=== PATIENT | female | born 1985 | race Caucasian/White ===

== ENCOUNTER 2023-06-08 14:21 | Emergency (ER) | payer OTHER, SELFPAY ==
[2023-06-08 14:22] VITALS: BP 139/81; PULSE 76; RESP 16; TEMP 36.7; O2SAT 99; BMI 24.4
--- NOTE | 2023-06-08 14:33 | ED.VIS.FEGU ---
HPI HPI - Female History of Present Illness Chief Complaint: Vag Bld, Preg Detail of Chief Complaint: Vaginal bleeding that started last evening Informant: patient Pain Pain: Positive for Pelvic Pain Onset: Yesterday Context: Sudden Onset Timing: Continuous and Waxes and wanes Quality: Positive for Cramping Location: LLQ and Suprapubic Current Severity: Mild Maximum Severity: Moderate Worsened by: - (Nothing) Relieved by: - (Nothing) Bleeding Issue: Positive for Vaginal bleeding (On third pad since onset); Negative for Passing clots or Passing tissue Onset: Yesterday Timing: Continuous Current Severity: Mild Maximum Severity: Similar to period Associated Symptoms Associated Symptoms: Positive for Frequency and Missed Period; Negative for Dysuria, Urgency or Hematuria Test: Positive (X 6) Sexually: Positive for Active Control: No control P: 2 Ab: 0 Narrative Narrative: Patient is a 37-year-old female who presents because of vaginal bleeding. Patient did 6 home test which were all positive. She is 5 to 6 weeks by dates. She denies complications or issues with prior to . There is no history of endometriosis, ovarian cyst, STI or ectopic . Patient denies orthostatic symptoms. She denies pain referred to her shoulder. She does complain of lower abdominal pain more prominent left inguinal area. She has no other complaints. Patient states she does not have an OB since her and her moved to the area 1 to 1.5 years ago. Prior similar symptoms: No Recent Illness/Hospitalization: No PFSH PFSH Medical History no medical history no medical history Social History (Updated 06/08/23 @ 14:[address] Jose Cruz Knox MD) household members: spouse and children Smoking Status: Never smoker substance use type: does not use ROS ROS ED Constitutional Constitutional ED: Denies chills or fever(s) Eyes Eyes: Denies blurry vision or change in vision Cardiovascular Cardiovascular: Denies chest pain or palpitations Respiratory/Chest Respiratory/Chest: Denies cough or dyspnea Gastrointestinal Gastrointestinal: Reports abdominal pain; Denies nausea or vomiting Genitourinary Genitourinary ED: Denies dysuria, hematuria or urinary frequency Musculoskeletal Musculoskeletal: Denies arthralgias or myalgias Integumentary Denies rash EXAM Physical Exam Const Vital Signs: 06/08/23 14:22 Temperature 98.1 F Temperature Source Temporal Pulse Rate 76 Respiratory Rate 16 Blood Pressure 139/81 H Blood Pressure Mean 100 Pulse Ox 99 Oxygen Delivery Method Room Air Positive well nourished and well developed Constitutional Narrative: Patient states she is anxious. Blood pressure is slightly elevated. She is not tachycardic. General Appearance ED: well developed and NAD; Negative for odor of alcohol detected HEENT Reports TM's clear and moist mucous membranes Tympanic Membrane ED: Yes TM's clear Eyes PERRL and EOMs intact bilaterally General Eye ED: Negative for pale conjunctiva or scleral icterus Neck supple and no JVD Resp normal respiratory effort and clear to auscultation bilaterally Cardio regular rate, regular rhythm, S1 normal heart sound, no murmurs and no JVD GI normal to inspection, nondistended, normoactive bowel sounds, soft to palpation, non-tender and non-distended Back/Spine no CVA tenderness Extremity normal to inspection and full ROM Neuro oriented x3 and CN's II-XII intact bilaterally Sensorium / Orientation: alert Psych mental status grossly normal Skin no rashes or lesions noted and no wounds MDM MDM MDM Narrative Medical decision making narrative: Presents with vaginal bleeding started yesterday.Patient performed 6 home tests, which were all positive. Will obtain quantitative hCG. And will obtain ultrasound to assess for viability of and because she has more pain left adnexal inguinal area to evaluate for ectopic. Patient has no known risk factors for ectopic . IV was established. Patient was made NPO. Will obtain ABO Rh test since patient does not know blood type. Lab Data Attestation: I reviewed the patient's lab results. Lab results narrative: Patient's blood type is O+. Quantitative hCG is 2. This indicates she is not . For this reason ultrasound was not obtained. Labs: Laboratory Results - last 24 hr 06/08/23 06/08/23 14:42 15:15 HCG, Quant 2 Blood Type O POSITIVE Discharge Plan Triage Chief Complaint: Vag Bld, Preg ED Provider: Jose Cruz Knox Dx/Rx/DC Orders Clinical Impression: Menorrhagia with irregular cycle, Abnormal vaginal bleeding Instructions: ED Dysfunctional Uterine Bleeding Primary Care Provider: Care Physician,No Primary Referrals: Brisa Cervantes DO [Med Staff - Active Staff] - 1-2 Weeks NOT,DEFINED [Non-Staff] - Disposition Disposition: Home, Self Care
[2023-06-08 15:47] LABS: hCG Titer Quant., Serum 2 mIU/mL (1-3)
== END 2023-06-08 16:50 | disposition home or self-care (01) ==
PROVIDERS: Emergency Provider Emergency Medicine; Visit Provider Emergency Medicine
DX: O20.9 Hemorrhage in early pregnancy, unspecified (principal); Z3A.01 Less than 8 weeks gestation of pregnancy
CPT/HCPCS: 84702; 86900; 86901; 99283; A4216

== ENCOUNTER 2025-01-10 23:19 | Inpatient (IN) | payer OTHER, SELFPAY ==
[2025-01-10 22:32] VITALS: PULSE 86; O2SAT 98
[2025-01-10 22:33] VITALS: RESP 18; TEMP 36.5
[2025-01-10 22:42] VITALS: BP 129/74; PULSE 71
--- OUTSIDE RECORDS SUMMARY | 2025-01-10 22:44 | XMS RPT_ITS | CCD ---
Author Organization [facility] Inform ion Partnership [facility] Care Team Providers Care Rn Placement Name Role Phone Elodia Miranda Primary Care Provider NAY WHITTINGTON Attending Unavailable ELODIA MIRANDA Primary Care NAY Aceves Admitting Unavailable ELODIA MIRANDA Primary Care NAY Aceves Referring Unavailable EOLDIA MIRANDA Primary Care NAY Aceves Admitting Unavailable Elodia Miranda MD Primary Care Provid er Nay Whittington MD Unavailable ELODIA MIRANDA Primary Care RONI Kirby Attending Unavailab ELODIA Li Attending ELODIA Dodson Primary Care ELODIA Dodson Primary Care ELODIA Dodson Attending ELODIA Dodson Attending ELODIA Dodson Primary Care Elodia Dodson MD Primary Care [facility] er Nay Whittington MD Unavailable Unavailable Primary Care Provider Unavailabl e LUISANA, GABBY Referring Unavailable LUISANA, GABBY Attending Unavailable LUISANA, GABBY Attending Unavailable Care Physician, No Primary Referring Unava ilable Nay Mcgrath Attending Unavailable Care Physician, No Primary Primary Care Unava ilable Care Physician, No Primary Primary Care Unava ilable Chidi Knoxo Attending Unavailable Unavailable Primary Care Provider Unavailabl e SONIA DYER Attending Unavailable ANGIE RHODES Attending Unavailable RHODES, ANGIE Referring Unavailable RHODES, ANGIE Referring Unavailable RHODES, ANGIE Attending Unavailable RHODES, ANGIE Referring Unavailable SONIA DYER Attending Unavailable RHODES, ANGIE Attending Unavailable RHODES, ANGIE Attending Unavailable CLEM QUINONEZ Attending Unavailable SPEEDY SILVA Referring Unavailable SPEEDY SILVA Referring Unavailable SPEEDY SILVA Attending Unavailable TORSTEN BUTTS Attending Unavailable YVONNE ZAMBRANO Attending Unavailable CHRISTOPHER, SONIA Attending Unavailable RHODES, ANGIE Referring Unavailable RHODES, ANGIE Referring Unavailable RHODES, ANGIE Attending Unavailable SELF Referring Unavailable SONIA DYER Attending Unavailable Medications Current Medications Medication Drug Class(es) Dates Sig (Normalized) Sig (Original) aspirin 81 mg delayed release oral tablet (19 sources) Platelet Aggregation Inhibitor, Nonsteroidal Anti-inflammatory Drug Start: 05-25-2024 take 1 tablet by mouth once daily aspirin, enteric coated (ECOTRIN LOW STRENGTH) 81 mg EC tablet Indications: with uncertain dates, antepartum (HCC) Take 1 tablet by mouth once daily. 90 tablet 3 05/25/2024 Active cefuroxime 500 mg oral tablet (1 source) Cephalosporin Antibacterial Start: 07-30-2021 End: 08-09-2021 take 1 tablet by mouth twice daily cefUROXime (CEFTIN) 500 MG tablet Take 1 (one) tablet (500 mg total) by mouth 2 (two) times a day for 10 days . 20 tablet 0 07/30/2021 08/09/2021 Active dexamethasone 1 mg/ml / tobramycin 3 mg/ml ophthalmic suspension (2 sources) Aminoglycoside Antibacterial, Corticosteroid take 1 drop(s) into the eye(s) every four hours tobramycin-dexamet hasone (TOBRADEX) 0.3-0.1 % ophthalmic suspension 1 drop every 4 (four) hours while awake . 0 Active ibuprofen 200 mg oral tablet (6 sources) Nonsteroidal Anti-inflammatory Drug take 1 tablet by mouth every six hours as needed for pain ibuprofen (ADVIL,MOTRIN) 200 MG tablet Take 200 mg by mouth every 6 (six) hours as needed for pain. 0 Active Lactobacillus acidophilus (20 sources) Lactobacillus acidophilus (PROBIOTIC ORAL) Take by mouth once daily. Active Lactobacillus ac idophilus (PROBIOTIC ORAL) Take by mouth once daily. 0 Active Comment on above: Take by mouth once d aily. Magnesium (20 sources) MAGNESIUM ORAL T machelle by mouth once daily. Active MAGNESIUM ORAL T machelle by mouth once daily. 0 Active Comment on above: Take by mouth once d aily. PNV no.95/ferrous fum/folic ac ( ORAL) (19 sources) PNV no.95/ferrou s fum/folic ac ( ORAL) Take by mouth. Active Problems Active Problems Problem Classification Problem Date Documented Date Episodic/Chronic Immunizations and screening for infectious disease (7 sources) Patient encounter status; Translations: [Encounter for screening for human papillomavirus (HPV)] Onset: 10-21-2024 07-09-2023 Episodic Menstrual disorders (1 source) Menometrorrhagia; Translations: [Excessive and frequent menstruation with irregular cycle] 06-08-2023 Chronic Other complications of (20 sources) Multigravida of advanced maternal age; Translations: [Supervision of elderly multigravida, first trimester] Onset: 05-25-2024 05-25-2024 Episodic Other complications of (2 sources) Supervision of elderly multigravida, third trimester; Translations: [AMA (advanced maternal age) multigravida 35+, third trimester ([facility])] Onset: 11-16-2024 Episodic Other complications of (1 source) Supervision of high risk , unspecified, third trimester; Translations: [Supervision of high risk in third trimester (HCC)] Onset: 12-15-2024 Episodic Other eye disorders (3 sources) Esotropia; Translations: [Unspecified esotropia] Episodic Other female genital disorders (1 source) Abnormal vaginal bleeding; Translations: [Abnormal uterine and vaginal bleeding, unspecified] 06-08-2023 Chronic Other female genital disorders (1 source) Abnormal uterine and vaginal bleeding, unspecified; Translations: [Abnormal uterine and vaginal bleeding, unspecified] Onset: 06-11-2023 Chronic Other upper respiratory infections (1 source) Sinusitis; Translations: [Chronic sinusitis, unspecified] Chronic Residual codes; unclassified (2 sources) Gestation period, 12 weeks; Translations: [12 weeks gestation of ] 06-29-2024 Episodic Residual codes; unclassified (1 source) Gestation period, 16 weeks; Translations: [16 weeks gestation of ] 07-27-2024 Episodic Residual codes; unclassified (2 sources) Gestation period, 20 weeks; Translations: [20 weeks gestation of ] 08-24-2024 Episodic Residual codes; unclassified (1 source) Gestation period, 24 weeks; Translations: [24 weeks gestation of ] 09-23-2024 Episodic Residual codes; unclassified (1 source) Gestation period, 28 weeks; Translations: [28 weeks gestation of ] 10-21-2024 Episodic Residual codes; unclassified (1 source) Gestation period, 30 weeks; Translations: [30 weeks gestation of ] 11-04-2024 Episodic Residual codes; unclassified (1 source) Gestation period, 32 weeks; Translations: [32 weeks gestation of ] 11-16-2024 Episodic Residual codes; unclassified (1 source) Gestation period, 34 weeks; Translations: [34 weeks gestation of ] 11-29-2024 Episodic Residual codes; unclassified (2 sources) Gestation period, 36 weeks; Translations: [36 weeks gestation of ] 12-13-2024 Episodic Residual codes; unclassified (1 source) Gestation period, 38 weeks; Translations: [38 weeks gestation of ] 12-27-2024 Episodic Residual codes; unclassified (1 source) 39 weeks gestation of ; Translations: [39 weeks gestation of (HCC)] Onset: 01-04-2025 Episodic Residual codes; unclassified (1 source) 38 weeks gestation of ; Translations: [38 weeks gestation of (HCC)] Onset: 12-27-2024 Episodic Residual codes; unclassified (1 source) 37 weeks gestation of ; Translations: [37 weeks gestation of (HCC)] Onset: 12-20-2024 Episodic Residual codes; unclassified (1 source) 36 weeks gestation of ; Translations: [36 weeks gestation of (HCC)] Onset: 12-13-2024 Episodic Residual codes; unclassified (1 source) 34 weeks gestation of ; Translations: [34 weeks gestation of (HCC)] Onset: 11-29-2024 Episodic Residual codes; unclassified (1 source) 32 weeks gestation of ; Translations: [32 weeks gestation of (HCC)] Onset: 11-16-2024 Episodic Residual codes; unclassified (1 source) 30 weeks gestation of ; Translations: [30 weeks gestation of (HCC)] Onset: 11-04-2024 Episodic Residual codes; unclassified (1 source) 28 weeks gestation of ; Translations: [28 weeks gestation of (HCC)] Onset: 10-21-2024 Episodic Residual codes; unclassified (1 source) Gestation period, 39 weeks; Translations: [39 weeks gestation of ] 01-04-2025 Episodic Unclassified (1 source) Patient encounter status; Translations: [Annual physical exam] Unclassified (19 sources) [facility] Education - COMMON Onset: 05-25-2024 05-25-2024 Unclassified (19 sources) Education - [place] Onset: 05-25-2024 05-25-2024 Past or Other Problems Problem Classification Problem Date Documented Da te Episodic/Chronic Administrative/social admission (6 sources) Multigravida; Translations: [Encounter for supervision of other normal , unspecified trimester] Onset: 02-20-2015 Resolved: 04-26-2020 04-26-2020 Episodic Other complications of (20 sources) History of delivery of macrosomal infant; Translations: [Supervision of with other poor reproductive or obstetric history, unspecified trimester] Onset: 05-25-2024 05-25-2024 Episodic Other complications of (20 sources) High risk ; Translations: [Supervision of other high risk pregnancies, first trimester] Onset: 05-25-2024 05-25-2024 Episodic Other complications of (1 source) Supervision of high risk , unspecified, second trimester; Translations: [Supervision of high risk in second trimester ([facility])] Onset: 09-23-2024 Episodic Other complications of (2 sources) Supervision of elderly multigravida, second trimester; Translations: [Multigravida of advanced maternal age in second trimester ([facility])] Onset: 06-29-2024 Episodic Other complications of (1 source) Supervision of with other poor reproductive or obstetric history, unspecified trimester; Translations: [Prior macrosomia, antepartum ([facility])] Onset: 08-24-2024 Episodic Other complications of (1 source) Supervision of other high risk pregnancies, first trimester; Translations: [Supervision of other high risk pregnancies, first trimester] Onset: 05-25-2024 Episodic Other and delivery including normal (20 sources) with uncertain dates; Translations: [Encounter for supervision of normal , unspecified, unspecified trimester] Onset: 05-25-2024 05-25-2024 Episodic Other screening for suspected conditions (not mental disorders or infectious disease) (2 sources) Cancer cervix screening status; Translations: [Encounter for screening for malignant neoplasm of cervix] Onset: 09-23-2024 07-09-2023 Episodic Residual codes; unclassified (1 source) 24 weeks gestation of ; Translations: [24 weeks gestation of (HCC)] Onset: 09-23-2024 Episodic Residual codes; unclassified (1 source) 16 weeks gestation of ; Translations: [16 weeks gestation of ] Onset: 07-27-2024 Episodic Results Test Name Value Interpretation Reference Range Facil ity URINE OB DIP B/Oon 5 Glucose Ql (U) Negative Neg mg/dL [facility] Interpretation and review of laboratory results Normal [facility] Protein.monoclonal (U) [Mass/Vol] Negative Neg mg/dL [facility] Examination level ultrasound on 12-13-2024 [facility] Radiology Study observation (narrative) [facility] ROUTINE, GROUP B ST REPTOCOCCUS BY PCRon 12-13-2024 ROUTINE, GROUP B STREPTOCOCCUS BY PCR Not detected Normal [facility] Comment on above: Performed By: #### 1 6128-1 #### [facility] CLIA [id number] [address] [place] [address] [place] URINE OB DIP B/Oon 5 Glucose Ql (U) Negative Neg mg/dL [facility] Interpretation and review of laboratory results Normal [facility] Protein.monoclonal (U) [Mass/Vol] Negative Neg mg/dL [facility] URINE OB DIP B/Oon 5 Glucose Ql (U) Negative Neg mg/dL [facility] Interpretation and review of laboratory results Normal [facility] Protein.monoclonal (U) [Mass/Vol] Negative Neg mg/dL [facility] URINE OB DIP B/Oon 5 Glucose Ql (U) Negative Neg mg/dL [facility] Interpretation and review of laboratory results Normal [facility] Protein.monoclonal (U) [Mass/Vol] Negative Neg mg/dL [facility] CBC W Auto Differential pane l (Bld)on 10-21-2024 Basophils (Bld) [#/Vol] 0.05 10*3/uL Normal <0.11 [facility] Comment on above: Order Comment: Speci men Type: BLOOD SPECIMEN Ordering Facility: [facility] Address: [address] [place] [address] Performed By: #### G LTGST #### [facility] CLIA [id number] [address] [place] [address] [place] Basophils/100 WBC (Bld) 0.6 % Normal [facility] Comment on above: Order Comment: Speci men Type: BLOOD SPECIMEN Ordering Facility: [facility] Address: [address] [place] [address] Performed By: #### G LTGST #### [facility] CLIA [id number] [address] [place] [address] [place] Differential cell count method Nom (Bld) Auto Normal [facility] Comment on above: Order Comment: Speci men Type: BLOOD SPECIMEN Ordering Facility: [facility] Address: [address] [place] [address] Performed By: #### G LTGST #### [facility] CLIA [id number] [address] [place] [address] [place] Eosinophils (Bld) [#/Vol] 0.17 10*3/uL Normal <0.46 [facility] Comment on above: Order Comment: Speci men Type: BLOOD SPECIMEN Ordering Facility: [facility] Address: [address] [place] [address] Performed By: #### G LTGST #### [facility] CLIA [id number] [address] [place] [address] [place] Eosinophils/100 WBC (Bld) 2.2 % Normal [facility] Comment on above: Order Comment: Speci men Type: BLOOD SPECIMEN Ordering Facility: [facility] Address: [address] [place] [address] Performed By: #### G LTGST #### [facility] CLIA [id number] [address] [place] [address] [place] Erythrocyte distribution width (RBC) [Ratio] 12.9 % Normal 11.5-15.0 [facility] Comment on above: Order Comment: Speci men Type: BLOOD SPECIMEN Ordering Facility: [facility] Address: [address] [place] [address] Performed By: #### G LTGST #### [facility] CLIA [id number] [address] [place] [address] [place] Hematocrit (Bld) [Volume fraction] 38.8 % Normal 36.0-46.0 [facility] Comment on above: Order Comment: Speci men Type: BLOOD SPECIMEN Ordering Facility: [facility] Address: [address] [place] [address] Performed By: #### G LTGST #### [id number] [address] [place] [address] [place] Hemoglobin (Bld) [Mass/Vol] 12.9 g/dL Normal 11.5-15.5 [facility] Comment on above: Order Comment: Speci men Type: BLOOD SPECIMEN Ordering Facility: [facility] Address: [address] [place] [address] Performed By: #### G LTGST #### [facility] CLIA [id number] [address] [place] [address] [place] Immature granulocytes (Bld) [#/Vol] 0.03 10*3/uL Normal <0.10 [facility] Comment on above: Order Comment: Speci men Type: BLOOD SPECIMEN Ordering Facility: [facility] Address: [address] [place] [address] Performed By: #### G LTGST #### [facility] CLIA [id number] [address] [place] [address] [place] Immature granulocytes/100 WBC (Bld) 0.4 % Normal [facility] Comment on above: Order Comment: Speci men Type: BLOOD SPECIMEN Ordering Facility: [facility] Address: [address] [place] [address] Performed By: #### G LTGST #### [facility] CLIA [id number] [address] [place] [address] [place] Lymphocytes (Bld) [#/Vol] 1.38 10*3/uL Normal 1.00-4.00 [facility] Comment on above: Order Comment: Speci men Type: BLOOD SPECIMEN Ordering Facility: [facility] Address: [address] [place] [address] Performed By: #### G LTGST #### [facility] [id number] [address] [place] [address] [place] Lymphocytes/100 WBC (Bld) 17.7 % Normal [facility] Comment on above: Order Comment: Speci men Type: BLOOD SPECIMEN Ordering Facility: [facility] Address: [address] [place] [address] Performed By: #### G LTGST #### [facility] [id number] [address] [place] [address] [place] MCH (RBC) [Entitic mass] 28.7 pg Normal 26.0-34.0 [facility] Comment on above: Order Comment: Speci men Type: BLOOD SPECIMEN Ordering Facility: [facility] Address: [address] [place] [address] Performed By: #### G LTGST #### [facility] [id number] [address] [place] [address] [place] MCHC (RBC) [Mass/Vol] 33.2 g/dL Normal 30.5-36.0 [facility] Comment on above: Order Comment: Speci men Type: BLOOD SPECIMEN Ordering Facility: [facility] Address: [address] [place] [address] Performed By: #### G LTGST #### [facility] CLIA [id number] [address] [place] [address] [place] MCV (RBC) [Entitic vol] 86.2 fL Normal 80.0-100.0 [facility] Comment on above: Order Comment: Speci men Type: BLOOD SPECIMEN Ordering Facility: [facility] Address: [address] [place] [address] Performed By: #### G LTGST #### [facility] CLIA [id number] [address] [place] [address] [place] Monocytes (Bld) [#/Vol] 0.59 10*3/uL Normal <0.87 [facility] Comment on above: Order Comment: Speci men Type: BLOOD SPECIMEN Ordering Facility: [facility] Address: [address] [place] [address] Performed By: #### G LTGST #### [facility] CLIA [id number] [address] [place] [address] [place] Monocytes/100 WBC (Bld) 7.6 % Normal [facility] Comment on above: Order Comment: Speci men Type: BLOOD SPECIMEN Ordering Facility: [facility] Address: [address] [place] [address] Performed By: #### G LTGST #### [facility] [id number] [address] [place] [address] [place] Neutrophils (Bld) [#/Vol] 5.56 10*3/uL Normal 1.45-7.50 [facility] Comment on above: Order Comment: Speci men Type: BLOOD SPECIMEN Ordering Facility: [facility] Address: [address] [place] [address] Performed By: #### G LTGST #### [facility] CLIA [id number] [address] [place] [address] [place] Neutrophils/100 WBC (Bld) 71.5 % Normal [facility] Comment on above: Order Comment: Speci men Type: BLOOD SPECIMEN Ordering Facility: [facility] Address: [address] [place] [address] Performed By: #### G LTGST #### [facility] CLIA [id number] [address] [place] [address] [place] Nucleated RBC (Bld) [#/Vol] 10*3/uL Normal <0.01 [facility] Comment on above: Order Comment: Speci men Type: BLOOD SPECIMEN Ordering Facility: [facility] Address: [address] [place] [address] Performed By: #### G LTGST #### [facility] CLIA [id number] [address] [place] [address] [place] Nucleated RBC/100 WBC (Bld) [Ratio] 0.0 /100 WBC Normal [facility] Comment on above: Order Comment: Speci men Type: BLOOD SPECIMEN Ordering Facility: [facility] Address: [address] [place] [address] Performed By: #### G LTGST #### [facility] [id number] [address] [place] [address] [place] Platelet mean volume (Bld) [Entitic vol] 9.5 fL Normal 9.0-12.7 [facility] Comment on above: Order Comment: Speci men Type: BLOOD SPECIMEN Ordering Facility: [facility] Address: [address] [place] [address] Performed By: #### G LTGST #### [facility] CLIA [id number] [address] [place] [address] [place] Platelets (Bld) [#/Vol] 301 10*3/uL Normal 150-400 [facility] Comment on above: Order Comment: Speci men Type: BLOOD SPECIMEN Ordering Facility: [facility] Address: [address] [place] [address] Performed By: #### G LTGST #### [facility] CLIA [id number] [address] [place] [address] [place] RBC (Bld) [#/Vol] 4.50 10*6/uL Normal 3.90-5.20 [facility] Comment on above: Order Comment: Speci men Type: BLOOD SPECIMEN Ordering Facility: [facility] Address: [address] [place] [address] Performed By: #### G LTGST #### [facility] CLIA [id number] [address] [place] [address] [place] WBC (Bld) [#/Vol] 7.78 10*3/uL Normal 3.70-11.00 [facility] Comment on above: Order Comment: Speci men Type: BLOOD SPECIMEN Ordering Facility: [facility] Address: [address] [place] [address] Performed By: #### G LTGST #### [facility] CLIA [id number] [address] [place] [address] [place] GESTATIONAL GLUCOSE SCREEN, 1-HOUR, 50 GRAM, NON-FASTINGon 10-21-2024 Glucose [Mass/Vol] 56 mg/dL Low 74-134 [facility] Comment on above: Order Comment: Speci men Type: BLOOD SPECIMEN Ordering Facility: [facility] Address: [address] [place], [place] [id number] Result Comment: [facility] Congress of Obstetricians and Gynecologists (Madi/Cyn) guidelines state a gestational diabetes mellitus positive screen is made, in women not previously diagnosed with overt diabetes, when the 1 hr plasma glucose level is equal to or above 140 mg/dL. [facility] [place] recommends a 135 mg/dL cutoff. Performed By: #### G LTGST #### [facility] CLIA [id number] [address] [place] [address] [place] Reagin and Treponema pallidu m IgG and IgM [Interp]on 10-21-2024 T. pallidum IgG+IgM IA Ql (S) Non-Reactive Normal Nonreactive [facility] Comment on above: Order Comment: Speci men Type: BLOOD SPECIMEN Ordering Facility: [facility] Address: [address] [place] [address] Performed By: #### 1 6128-1 #### [facility] CLIA [id number] [address] [place] [address] [place] Reagin+T pallidum IgG+IgM Se rPl-Impon 10-21-2024 Reagin and Treponema pallidum IgG and IgM [Interp] Cannot exclude recent Treponemal infection if specimen collected within 7-10 days after appearance of suspect lesions or 2-3 weeks after an exposure. Clinical correlation is required. Normal [facility] Comment on above: Order Comment: Speci men Type: BLOOD SPECIMEN Ordering Facility: [facility] Address: [address] [place] [address] Performed By: #### 1 6128-1 #### [facility] CLIA [id number] [address] [place] [address] [place] Examination level ultrasound on 08-24-2024 Indication Detailed anatomic survey Advanced maternal age Impression REMOTE READ The patient is referred for a detailed anatomic survey. - Single, live, intrauterine . - biometry is consistent with the established gestational age. - No malformations were visualized on a complete detailed anatomic survey. - The amniotic fluid volume is normal amount. - The placenta is anterior, fundal. - The Transabdominal cervical length measures 54 mm with no evidence of funneling or other dynamic changes. - Not all structural malformations can be detected by ultrasound examination. Recommendations Additional follow-up as clinically indicated. Maternal Assessment Height 178 cm Height (ft) 5 ft Height (in) 10 in Physical Exam Initial weight (lb) 175 lb Initial BMI 25.11 kg/m Maternal assessment other: 3 Para 3 Method Transabdominal ultrasound examination. View: Adequate visualization Anguiano . Number of fetuses: 1 Dating LMP on: 03/09/2024 GA by LMP 24 w + 0 d RIVKA by LMP: 12/14/2024 GA by prior assessment 20 w + 1 d RIVKA by prior assessment: 01/10/2025 Ultrasound examination on: 08/24/2024 GA by U/S based upon: AC, BPD, Femur, HC GA by U/S 20 w + 6 d RIVKA by U/S: 01/05/2025 Assigned: based on stated RIVKA, selected on 08/24/2024 Assigned GA 20 w + 1 d Assigned RIVKA: 01/10/2025 General Evaluation Cardiac activity present. FHR 152 bpm. movements: present. Presentation: cephalic Placenta: Placental site: anterior, fundal Umbilical cord: Cord vessels: 3 vessel cord Amniotic fluid: Amount of AF: normal amount. MVP 6.0 cm Growth Overview Exam date GA BPD (mm) HC (mm) AC (mm) FL (mm) HL (mm) EFW (g) 08/24/2024 20w 1d 49.7 83% 184.6 71% 156.8 67% 33.5 76% 34 93% 370 74% Biometry Standard BPD 49.7 mm 21w 0d 83% Hadlock OFD 64.9 mm 20w 4d 90% Nicolaides HC 184.6 mm 20w 6d 71% Teresa Cerebellum tr 22.1 mm 20w 5d 89% Hill Nuchal fold 2.6 mm AC 156.8 mm 20w 6d 67% Hadlock Femur 33.5 mm 20w 5d 76% Teresa Humerus 34.0 mm 21w 4d 93% Teresa EFW 370 g 20w 4d 74% Hadlock EFW (lb) 0 lb EFW (oz) 13 oz EFW by: Hadlock (HC-AC-FL) Extended Work From Home 5.7 mm CM 3.7 mm 11% Nicolaides Extremities / Bony Struc FL / HC 0.18 24% Hadlock Other Structures FHR 152 bpm Anatomy Cranium: normal Lateral ventricles: normal Choroid plexus: normal Midline falx: normal Cavum septi pellucidi: normal Cerebellum: normal Cisterna magna: normal Head / Neck Vermis: normal Neck: normal Nuchal fold: normal Lips: normal Profile: normal Nose: normal Face Maxilla: normal Mandible: normal Orbits: normal Lens: normal 4-chamber view: normal RVOT view: normal LVOT view: normal 3-vessel view: normal 6-cgfeuc-wnxeeiw view: normal Heart / Thorax Situs: situs solitus (normal) Aortic arch view: normal SVC: normal IVC: normal Cardiac axis: normal Rt lung: normal Lt lung: normal Diaphragm: normal Cord insertion: normal Stomach: normal Kidneys: normal Bladder: normal Genitals: normal Abdomen Abdom. wall: normal Cervical spine: normal Thoracic spine: normal Lumbar spine: normal Sacral spine: normal Arms: normal Legs: normal Rt upper arm: normal Rt forearm: normal Rt hand: normal Rt fingers: normal Lt upper arm: normal Lt forearm: normal Lt hand: normal Lt fingers: normal Rt upper leg: normal Rt lower leg: normal Rt foot: normal Lt upper leg: normal Lt lower leg: normal Lt foot: normal sex: female Wants to know sex: yes Maternal Structures Uterus / Cervix Uterus: Visualized Cervix: Visualized Approach: Transabdominal Cervical length 54.0 mm Other: Patient declined transvaginal ultrasound for cervical length. Ovaries / Tubes / Adnexa Rt ovary: Visualized Lt ovary: Visualized Performed By: Mary Kate Salas RDMS, RVT Read By: Radha Brady M.D. MATERNAL MEDICINE [facility] Radiology Study observation (narrative) [facility] Chr 21 trisomy Cytogenetics Ql (Bld/Tiss)on 07-03-2024 Cell-free DNA./Cell-free DNA.total Dosage of chromosome-specific cfDNA (cfDNA) [Molar fraction] 12% [facility] Chr 13+18+21+X+Y aneuploidy Dosage of chromosome-specific cfDNA Ql (cfDNA) Negative [facility] Chr 21 trisomy Dosage of chromosome-specific cfDNA Ql (cfDNA) Negative [facility] Chr X and Y aneuploidy risk Sequencing Ql (cfDNA) [Interp] Not detected [facility] Citation Leonardo (Reference lab test) Comment [facility] Comment on above: 1. Toby CHOE, et karthik whitmore. Soni Med. 2012;14(3):296-305. 2. Pat PULIDO et al. Prenat Diag. 2013;33(6):591-597. 3. Jovani Enriquez et al. Clin Chem. 2015 Apr;61(4):608-616. 4. Toby CHOE, et al. Soni Med. 2011;13(11):913-920. 5. ACOG/SMFM Practice Bulletin No. 226, Feb 2020. Gestational age Estimated from conception date Anguiano [facility] GESTATIONALAGE>=9W Yes [facility] Laboratory comment Leonardo (Report) Comment [facility] Comment on above: The MaterniT(R) 21 P TERRIE laboratory-developed test (LDT) analyzes circulating cell-free DNA from a maternal blood sample. This test is used for screening purposes and not diagnostic. Clinical correlation is recommended. Validation data on twin pregnancies is limited and the ability of this test to detect aneuploidy in higher multiple gestations has not yet been validated. clinical laboratory director name Nom (Provider) Comment [facility] Comment on above: This specimen showed an expected representation of chromosome 21, 18 and 13 material. Clinical correlation is suggested. Adan Meyer MD , PhD, Director, [employer] Limitations of the Test Comment [facility] Comment on above: While the results of these tests are highly reliable, discordant results, including inaccurate sex prediction, may occur due to placental, maternal, or mosaicism or neoplasm; vanishing twin; prior maternal organ transplant; or other causes. These tests are screening tests and not diagnostic; they do not replace the accuracy and precision of diagnosis with CVS or amniocentesis. A patient with a positive test result should be referred for genetic counseling and offered invasive diagnosis for confirmation of test results.[5] The results of this testing, including the benefits and limitations, should be discussed with a qualified healthcare provider. management decisions, including termination of the , should not be based on the results of these tests alone. The healthcare provider is responsible for the use of this information in the management of their patient. Sex chromosomal aneuploidies are not reportable for known multiple gestations. A negative result does not ensure an unaffected nor does it exclude the possibility of other chromosomal abnormalities or defects which are not a part of these tests. An uninformative result may be reported, the causes of which may include, but are not limited to, insufficient sequencing coverage, noise or artifacts in the region, amplification or sequencing bias, or insufficient fraction. These tests are not intended to identify pregnancies at risk for neural tube defects or ventral wall defects. Testing for whole chromosome abnormalities (including sex chromosomes) and for subchromosomal abnormalities could lead to the potential discovery of both and maternal genomic abnormalities that could have major, minor, or no, clinical significance. Evaluating the significance of a positive or a non-reportable result may involve both invasive testing and additional studies on the mother. Such investigations may lead to a diagnosis of maternal chromosomal or subchromosomal abnormalities, which on occasion may be associated with benign or malignant maternal neoplasms. These tests may not accurately identify triploidy, balanced rearrangements, or the precise location of subchromosomal duplications or deletions; these may be detected by diagnosis with CVS or amniocentesis. The ability to report results may be impacted by maternal BMI, maternal weight, maternal systemic lupus erythematosus (SLE) and/or by certain pharmaceutical agents such as low molecular weight heparin (for example: Lovenox(R), Xaparin(R), Clexane(R) and Fragmin(R)). Monosomy X risk Dosage of chromosome-specific cfDNA Ql (Plasma cell-free+WBC DNA) [Interp] Not detected [facility] NEGATIVE PREDICTIVE VALUE Note [facility] Comment on above: The Negative Predict calvin Value (NPV) for trisomy 21, 18, and 13 is greater than 99%. The NPV for SCA and ESS cannot be calculated as SCA and ESS are only reported when an abnormality is detected. PERFORMANCE CHARACTERISTICS Note [facility] Comment on above: ! Sex ! Accuracy: 99.4% ! ! ! ! Region (associated syndrome) ! Est. Sens# ! Est. Spec ! ! ! ! Trisomy 21 (Down Syndrome) ! 99.1% ! 99.9% ! ! ! ! Trisomy 18 (Nuno Syndrome) ! >99.9% ! 99.6% ! ! ! ! Trisomy 13 (Patau Syndrome) ! 91.7% ! 99.7% ! ! ! ! Sex Chromosome Aneuploidies## ! 96.2% ! 99.7% ! ! ! * As reported in [facility] database nstd37 [https://www.ncbi.nlm.nih.gov/dbvar/studies/nstd37/ ] # Estimated Sensitivity. Sensitivity estimated across the observed size distribution of each syndrome [per ISCA database nstd37] and across the range of fractions observed in routine clinical NIPT. Actual sensitivity can also be influenced by other factors such as the size of the event, total sequence counts, amplification bias, or sequence bias. ## Anguiano gestation only. Positive Predictive Value N/A [facility] Reference Lab Test Method Comment [facility] Comment on above: See Notes Circulating cell-free DNA was purified from the plasma component of maternal blood. The extracted DNA was then converted into a genomic DNA library for aneuploidy analysis of chromosomes 21, 18, and 13 via next generation sequencing.[1] Optional findings based on the test order include sex chromosome aneuploidy (SCA)[2], and enhanced sequencing series (ESS)[3], which will only be reported on as an additional finding when an abnormality is detected. SCA testing includes information on X and Y representation, while ESS testing includes deletions in selected regions (22q, 15q, 11q, 8q, 5p, 4p, 1p) and trisomy of chromosomes 16 and 22. Service comment (Unsp spec) [Interp] Comment [facility] Comment on above: See Notes [employer] is a subsidiary of [employer], using the brand [employer]. This test was developed and its performance characteristics determined by [employer]. It has not been cleared or approved by the Food and Drug Administration. This laboratory is certified under the Clinical Laboratory Improvement Amendments (CLIA) as qualified to perform high complexity clinical laboratory testing and accredited by the [employer] ([employer]). If there is future clinical need for adding MaterniT GENOME testing, this specimen will be available until term. [facility] samples will not be retained beyond 60 days. [facility] patients will have to send a new sample for re-sequencing ([facility] Test Code: 179667). Sex Dosage of chromosome-specific cfDNA Nom (cfDNA) Comment [facility] Comment on above: Consistent with [employer] Test performance information Leonardo ([facility] spec) Comment [facility] Comment on above: The performance daisy acteristics of the MaterniT(R) 21 PLUS laboratory-developed test (LDT) have been determined in a clinical validation study with women at increased risk for chromosomal aneuploidy.[1-4] Trisomy 13 risk Dosage of chromosome-specific cfDNA Ql (cfDNA) [Interp] Negative [facility] Trisomy 18 risk Dosage of chromosome-specific cfDNA Ql (Plasma cell-free+WBC DNA) [Interp] Negative [facility] Performed at: 01 - [facility] [address] [facility], [place] [id number] Home Health Care Respiratory Therapist: Adan Grullon, Phone: [phone] [facility] CBC W Auto Differential pane l (Bld)on 06-29-2024 Basophils (Bld) [#/Vol] 0.06 10*3/uL Normal <0.11 [facility] Comment on above: Order Comment: Speci men Type: BLOOD SPECIMEN Ordering Facility: [facility] Address: [address] [place] [address] Performed By: #### G LTGST #### [facility] CLIA [id number] [address] [place] [address] [place] Basophils/100 WBC (Bld) 0.7 % Normal [facility] Comment on above: Order Comment: Speci men Type: BLOOD SPECIMEN Ordering Facility: [facility] Address: [address] [place] [address] Performed By: #### G LTGST #### [facility] CLIA [id number] [address] [place] [address] [place] Differential cell count method Nom (Bld) Auto Normal [facility] Comment on above: Order Comment: Speci men Type: BLOOD SPECIMEN Ordering Facility: [facility] Address: [address] [place] [address] Performed By: #### G LTGST #### [facility] CLIA [id number] [address] [place] [address] [place] Eosinophils (Bld) [#/Vol] 0.13 10*3/uL Normal <0.46 [facility] Comment on above: Order Comment: Speci men Type: BLOOD SPECIMEN Ordering Facility: [facility] Address: [address] [place] [address] Performed By: #### G LTGST #### [facility] CLIA [id number] [address] [place] [address] [place] Eosinophils/100 WBC (Bld) 1.5 % Normal [facility] Comment on above: Order Comment: Speci men Type: BLOOD SPECIMEN Ordering Facility: [facility] Address: [address] [place] [address] Performed By: #### G LTGST #### [facility] CLIA [id number] [address] [place] [address] [place] Erythrocyte distribution width (RBC) [Ratio] 12.5 % Normal 11.5-15.0 [facility] Comment on above: Order Comment: Speci men Type: BLOOD SPECIMEN Ordering Facility: [facility] Address: [address] [place] [address] Performed By: #### G LTGST #### [id number] [address] [place] [address] [place] Hematocrit (Bld) [Volume fraction] 39.0 % Normal 36.0-46.0 [facility] Comment on above: Order Comment: Speci men Type: BLOOD SPECIMEN Ordering Facility: [facility] Address: [address] [place] [address] Performed By: #### G LTGST #### [facility] [id number] [address] [place] [address] [place] Hemoglobin (Bld) [Mass/Vol] 13.2 g/dL Normal 11.5-15.5 [facility] Comment on above: Order Comment: Speci men Type: BLOOD SPECIMEN Ordering Facility: [facility] Address: [address] [place] [address] Performed By: #### G LTGST #### [facility] [id number] [address] [place] [address] [place] Immature granulocytes (Bld) [#/Vol] 0.03 10*3/uL Normal <0.10 [facility] Comment on above: Order Comment: Speci men Type: BLOOD SPECIMEN Ordering Facility: [facility] Address: [address] [place] [address] Performed By: #### G LTGST #### [facility] [id number] [address] [place] [address] [place] Immature granulocytes/100 WBC (Bld) 0.4 % Normal [facility] Comment on above: Order Comment: Speci men Type: BLOOD SPECIMEN Ordering Facility: [facility] Address: [address] [place] [address] Performed By: #### G LTGST #### [facility] CLIA [id number] [address] [place] [address] [place] Lymphocytes (Bld) [#/Vol] 1.72 10*3/uL Normal 1.00-4.00 [facility] Comment on above: Order Comment: Speci men Type: BLOOD SPECIMEN Ordering Facility: [facility] Address: [address] [place] [address] Performed By: #### G LTGST #### [facility] CLIA [id number] [address] [place] [address] [place] Lymphocytes/100 WBC (Bld) 20.4 % Normal [facility] Comment on above: Order Comment: Speci men Type: BLOOD SPECIMEN Ordering Facility: [facility] Address: [address] [place] [address] Performed By: #### G LTGST #### [facility] CLIA [id number] [address] [place] [address] [place] MCH (RBC) [Entitic mass] 28.0 pg Normal 26.0-34.0 [facility] Comment on above: Order Comment: Speci men Type: BLOOD SPECIMEN Ordering Facility: [facility] Address: [address] [place] [address] Performed By: #### G LTGST #### [facility] CLIA [id number] [address] [place] [address] [place] MCHC (RBC) [Mass/Vol] 33.8 g/dL Normal 30.5-36.0 [facility] Comment on above: Order Comment: Speci men Type: BLOOD SPECIMEN Ordering Facility: [facility] Address: [address] [place] [address] Performed By: #### G LTGST #### [facility] CLIA [id number] [address] [place] [address] [place] MCV (RBC) [Entitic vol] 82.8 fL Normal 80.0-100.0 [facility] Comment on above: Order Comment: Speci men Type: BLOOD SPECIMEN Ordering Facility: [facility] Address: [address] [place] [address] Performed By: #### G LTGST #### [facility] CLIA [id number] [address] [place] [address] [place] Monocytes (Bld) [#/Vol] 0.43 10*3/uL Normal <0.87 [facility] Comment on above: Order Comment: Speci men Type: BLOOD SPECIMEN Ordering Facility: [facility] Address: [address] [place] [address] Performed By: #### G LTGST #### [facility] CLIA [id number] [address] [place] [address] [place] Monocytes/100 WBC (Bld) 5.1 % Normal [facility] Comment on above: Order Comment: Speci men Type: BLOOD SPECIMEN Ordering Facility: [facility] Address: [address] [place] [address] Performed By: #### G LTGST #### [facility] CLIA [id number] [address] [place] [address] [place] Neutrophils (Bld) [#/Vol] 6.07 10*3/uL Normal 1.45-7.50 [facility] Comment on above: Order Comment: Speci men Type: BLOOD SPECIMEN Ordering Facility: [facility] Address: [address] [place] [address] Performed By: #### G LTGST #### [facility] CLIA [id number] [address] [place] [address] [place] Neutrophils/100 WBC (Bld) 71.9 % Normal [facility] Comment on above: Order Comment: Speci men Type: BLOOD SPECIMEN Ordering Facility: [facility] Address: [address] [place] [address] Performed By: #### G LTGST #### [facility] CLIA [id number] [address] [place] [address] [place] Nucleated RBC (Bld) [#/Vol] 10*3/uL Normal <0.01 [facility] Comment on above: Order Comment: Speci men Type: BLOOD SPECIMEN Ordering Facility: [facility] Address: [address] [place] [address] Performed By: #### G LTGST #### [facility] CLIA [id number] [address] [place] [address] [place] Nucleated RBC/100 WBC (Bld) [Ratio] 0.0 /100 WBC Normal [facility] Comment on above: Order Comment: Speci men Type: BLOOD SPECIMEN Ordering Facility: [facility] Address: [address] [place] [address] Performed By: #### G LTGST #### [facility] [id number] [address] [place] [address] [place] Platelet mean volume (Bld) [Entitic vol] 9.4 fL Normal 9.0-12.7 [facility] Comment on above: Order Comment: Speci men Type: BLOOD SPECIMEN Ordering Facility: [facility] Address: [address] [place] [address] Performed By: #### G LTGST #### [facility] CLIA [id number] [address] [place] [address] [place] Platelets (Bld) [#/Vol] 347 10*3/uL Normal 150-400 [facility] Comment on above: Order Comment: Speci men Type: BLOOD SPECIMEN Ordering Facility: [facility] Address: [address] [place] [address] Performed By: #### G LTGST #### [facility] CLIA [id number] [address] [place] [address] [place] RBC (Bld) [#/Vol] 4.71 10*6/uL Normal 3.90-5.20 [facility] Comment on above: Order Comment: Speci men Type: BLOOD SPECIMEN Ordering Facility: [facility] Address: [address] [place] [address] Performed By: #### G LTGST #### [facility] CLIA [id number] [address] [place] [address] [place] WBC (Bld) [#/Vol] 8.44 10*3/uL Normal 3.70-11.00 [facility] Comment on above: Order Comment: Speci men Type: BLOOD SPECIMEN Ordering Facility: [facility] Address: [address] [place] [address] Performed By: #### G LTGST #### [facility] CLIA [id number] [address] [place] [address] [place] nuchal translucency me asured by USon 06-29-2024 Indication First trimester anatomic survey Advanced maternal age Impression REMOTE READ The patient is referred for a first trimester anatomy scan including nuchal translucency measurement as clinically indicated. - Single, live, intrauterine . - [place] rump length measurement is consistent with the established gestational age. - A qualitative screen of the nuchal translucency and other anatomic structures was unremarkable on a complete first trimester anatomic assessment. - Not all structural malformations can be detected by ultrasound examination. Maternal Structures: Right Ovary: Size 41 mm x 27 mm x 25 mm Recommendations - A standard anatomic survey at 16 weeks can be offered and a detailed exam at 20 weeks is recommended for increased risk. Maternal Assessment Height 178 cm Height (ft) 5 ft Height (in) 10 in Physical Exam Initial weight (lb) 175 lb Initial BMI 25.11 kg/m Maternal assessment other: 3 Para 3 Method Transabdominal ultrasound examination Anguiano . Number of fetuses: 1 Dating LMP on: 03/09/2024 GA by LMP 16 w + 0 d RIVKA by LMP: 12/14/2024 GA by prior assessment 12 w + 1 d RIVKA by prior assessment: 01/10/2025 Ultrasound examination on: 06/29/2024 GA by U/S based upon: CRL GA by U/S 12 w + 5 d RIVKA by U/S: 01/06/2025 Assigned: based on ultrasound (CRL), selected on 05/25/2024 Assigned GA 12 w + 1 d Assigned RIVKA: 01/10/2025 General Evaluation Cardiac activity present Placenta: anterior Cord vessels: 3 vessel cord Amniotic fluid: normal amount Biometry Standard FHR 164 bpm CRL 62.6 mm 12w 5d 78% Hadlock First Trimester Anatomy Calvarium: normal Falx cerebri: normal Choroid plexus: normal Profile: normal Nasal bone: normal Retronasal triangle: normal Maxilla: normal Mandible: normal Nuchal translucency: Unremarkable Situs: normal Cardiac position: normal Cardiac axis: suboptimal 4-chamber view: suboptimal 4-chamber view with color: suboptimal 2-pxyach-[id number] view: normal Abdominal cord insertion: normal Stomach: normal Kidneys: normal Bladder: normal Color doppler of perivesical umbilical arteries: normal Vertebral alignment: normal Arms: normal Hands: normal Legs: normal Feet: normal Maternal Structures Uterus / Cervix Uterus: Visualized Uterus length 161 mm Uterus width 92 mm Uterus height 66 mm Uterus Vol 509.7 cm Ovaries / Tubes / Adnexa Rt ovary: Visualized Rt ovary D1 41 mm Rt ovary D2 27 mm Rt ovary D3 25 mm Rt ovary Vol 14.7 cm Lt ovary: Not visualized Performed By: Mary Kate Salas RDMS, RVT Read By: Radha Brady M.D. MATERNAL MEDICINE [facility] Radiology Study observation (narrative) [facility] HBV surface Ag Ser Qlon 06-18 HBV surface Ag Ql (S) Negative Normal Negative [facility] Comment on above: Order Comment: Speci men Type: BLOOD SPECIMEN Ordering Facility: [facility] Address: [address] [place] [address] Performed By: #### 1 [id number] #### [facility] CLIA [id number] [address] [place] [address] [place] [address] [place] HCV Ab Ser Qlon 06-29-2024 HCV Ab Ql (S) Negative Normal Negative [facility] Comment on above: Order Comment: Jae martin Type: BLOOD SPECIMEN Ordering Facility: [facility] Address: [address] [place] [address] Result Comment: The result suggests no evidence of active infection with Hepatitis C virus. Should recent infection be suspected, repeat testing may be considered 4-6 weeks after this draw. Performed By: #### 1 6128-1 #### [facility] CLIA [id number] [address] [place] [address] [place] HGB ELECTROPHORESIS FOR EVAL (LAB ORDER)on 06-29-2024 Hemoglobin A (Bld) [Mass fraction] 97.1 % Normal 96.2-98.0 [facility] Comment on above: Order Comment: Jae martin Type: BLOOD SPECIMEN Ordering Facility: [facility] Address: [address] [place] [address] Performed By: #### 1 6128-1 #### [facility] CLIA [id number] [address] [place] [address] [place] Hemoglobin A2 (Bld) [Mass fraction] 2.9 % Normal 2.0-3.1 [facility] Comment on above: Order Comment: Jae martin Type: BLOOD SPECIMEN Ordering Facility: [facility] Address: [address] [place] [address] Performed By: #### 1 6128-1 #### [facility] CLIA [id number] [address] [place] [address] [place] Hemoglobin Unsp Elph (Bld) [Mass fraction] No abnormal hemoglobin identified. Normal No abnormal hemoglobin identified. [facility] Comment on above: Order Comment: Jae martin Type: BLOOD SPECIMEN Ordering Facility: [facility] Address: [address] [place] [address] Performed By: #### 1 6128-1 #### [facility] CLIA [id number] [address] [place] [address] [place] HGB EVALUATION CASCADE INTER Ermias 06-29-2024 Hemoglobin pattern (Bld) [Interp] Reviewed by Colette Hernández MD Normal [facility] Comment on above: Order Comment: Speci men Type: BLOOD SPECIMEN Ordering Facility: [facility] Address: [address] [place] [address] Performed By: #### 1 6128-1 #### [facility] CLIA [id number] [address] [place] [address] [place] INTERPRETATION (HGB EVAL) Normal [facility] Comment on above: Order Comment: Speci men Type: BLOOD SPECIMEN Ordering Facility: [facility] Address: [address] [place] [address] Result Comment: Hemo globins were analyzed by capillary electrophoresis and CBC red cell parameters were reviewed. No abnormal hemoglobin is identified. There is a normal hemoglobin capillary electrophoresis pattern. Performed By: #### 1 6128-1 #### [facility] CLIA [id number] [address] [place] [address] [place] HIV 1+2 Ab IA Qlon HIV 1 and 2 Ab IA.rapid Nom (S/P/Bld) Normal [facility] Comment on above: Order Comment: Speci men Type: BLOOD SPECIMEN Ordering Facility: [facility] Address: [address] [place] [address] Result Comment: Test not indicated. Performed By: #### 1 6128-1 #### [facility] CLIA [id number] [address] [place] [address] [place] HIV 1+2 Ab+HIV1 p24 Ag IA Ql Non-Reactive Normal Nonreactive [facility] Comment on above: Order Comment: Speci men Type: BLOOD SPECIMEN Ordering Facility: [facility] Address: [address] [place] [address] Performed By: #### 1 6128-1 #### [facility] CLIA [id number] [address] [place] [address] [place] HIV immunoassay testing algorithm interpretation (S/P/Bld) [Interp] Normal [facility] Comment on above: Order Comment: Jae martin Type: BLOOD SPECIMEN Ordering Facility: [facility] Address: [address] [place] [address] Result Comment: No e vidence of HIV-1 or HIV-2 infection. Should recent infection be suspected, repeat testing may be considered 2-3 weeks after this draw. [place] Rev. Code 3701.243(E): This information has been disclosed to you from confidential records protected from disclosure by state law. ???You shall make no further disclosure of this information without the specific, written, and informed release of the individual to whom it pertains or as otherwise permitted by state law. A general authorization for the release of medical or other information is not sufficient for the purpose of the release of HIV test results or diagnoses. Performed By: #### 1 6128-1 #### [facility] CLIA [id number] [address] [place] [address] [place] HbA1c (Bld)on 06-29-2024 Average glucose Estimated from glycated hemoglobin (Bld) [Mass/Vol] 94 mg/dL Normal [facility] Comment on above: Order Comment: Jae martin Type: BLOOD SPECIMEN Ordering Facility: [facility] Address: [address] [place] [address] Result Comment: eAG: (Estimated average glucose) is a calculated value from HgbA1c and is medical sales representative of the average blood glucose level in the last 2-3 month period. Performed By: #### 5 5454-3 #### [facility] CLIA [id number] [address] [place] [address] [place] HbA1c (Bld) [Mass fraction] 4.9 % Normal 4.3-5.6 [facility] Comment on above: Order Comment: Jae mario Type: BLOOD SPECIMEN Ordering Facility: [facility] Address: [address] [place] [address] Result Comment: Amer [place] Diabetes Association guidelines indicate that patients with HgbA1c in the range 5.7-6.4% are at increased risk for development of diabetes, and intervention by lifestyle modification may be beneficial. HgbA1c greater or equal to 6.5% is considered diagnostic of diabetes. Performed By: #### 5 5454-3 #### [facility] CLIA [id number] [address] [place] [address] [place] [address] [place] [id number] PLUSon 06-29-2024 Cell-free DNA./Cell-free DNA.total Dosage of chromosome-specific cfDNA (cfDNA) [Molar fraction] 12% Normal [facility] Comment on above: Order Comment: Speci men Type: BLOOD SPECIMEN Ordering Facility: [facility] Address: [address] [place] [address] Performed By: #### M AT21 #### [facility] CLIA [id number] [address] [place] [address] Chr 13+18+21+X+Y aneuploidy Dosage of chromosome-specific cfDNA Ql (cfDNA) Negative Normal [facility] Comment on above: Order Comment: Speci men Type: BLOOD SPECIMEN Ordering Facility: [facility] Address: [address] [place] [address] Performed By: #### M AT21 #### [facility] CLIA [id number] [address] [place] [address] Chr 21 trisomy Dosage of chromosome-specific cfDNA Ql (cfDNA) Negative Normal [facility] Comment on above: Order Comment: Jae [facility] Type: BLOOD SPECIMEN Ordering Facility: [facility] Address: [address] [place] [address] Performed By: #### M AT21 #### [facility] CLIA [id number] [address] [place] [address] Chr X and Y aneuploidy risk Sequencing Ql (cfDNA) [Interp] Not detected Normal [facility] Comment on above: Order Comment: Libradoi [facility] Type: BLOOD SPECIMEN Ordering Facility: [facility] Address: [address] [place] [address] Result Comment: Not Detected Not Detected Performed By: #### M AT21 #### [facility] CLIA [id number] [address] [place] [address] Citation Leonardo (Reference lab test) Comment Normal [facility] Comment on above: Order Comment: Jae martin Type: BLOOD SPECIMEN Ordering Facility: [facility] Address: [address] [place] [address] Result Comment: 1. P meagan CHOE et al. Soni Med. 2012;14(3):296-305. 2. Pat PULIDO et al. Prenat Diag. 2013;33(6):591-597. 3. Jovani Enriquez, et al. Clin Chem. 2015 Apr;61(4):608-616. 4. Toby CHOE, et al. Soni Med. 2011;13(11):913-920. 5. ACOG/SM[facility] Practice Bulletin No. 226, Feb 2020. Performed By: #### M AT21 #### [facility] CLIA [id number] [address] [place] [address] Gestational age Estimated from conception date Anguiano Normal [facility] Comment on above: Order Comment: Jae martin Type: BLOOD SPECIMEN Ordering Facility: [facility] Address: [address] [place] [address] Performed By: #### M AT21 #### [facility] CLIA [id number] [address] [place] [address] GESTATIONALAGE AGE > OR = 9W Yes Normal [facility] Comment on above: Order Comment: Jae martin Type: BLOOD SPECIMEN Ordering Facility: [facility] Address: [address] [place] [address] Performed By: #### M AT21 #### [facility] CLIA [id number] [address] [place] [address] Laboratory comment Leonardo (Report) Comment Normal [facility] Comment on above: Order Comment: Jae martin Type: BLOOD SPECIMEN Ordering Facility: [facility] Address: [address] [place] [address] Result Comment: The MaterniT(R) 21 PLUS laboratory-developed test (LDT) analyzes circulating cell-free DNA from a maternal blood sample. This test is used for screening purposes and not diagnostic. Clinical correlation is recommended. Validation data on twin pregnancies is limited and the ability of this test to detect aneuploidy in higher multiple gestations has not yet been validated. Performed By: #### M AT21 #### [facility] CLIA [id number] [address] [place] [address] clinical laboratory director name Nom (Provider) Comment Normal [facility] Comment on above: Order Comment: Speci men Type: BLOOD SPECIMEN Ordering Facility: [facility] Address: [address] [place] [address] Result Comment: This specimen showed an expected representation of chromosome 21, 18 and 13 material. Clinical correlation is suggested. Comment Adan Meyer MD, PhD, Director, [employer] Performed By: #### M AT21 #### [facility] CLIA [id number] [address] [place] [id number] LIMITATIONS OF THE TEST Comment Normal [facility] Comment on above: Order Comment: Jae martin Type: BLOOD SPECIMEN Ordering Facility: [facility] Address: [address] [place] [address] Result Comment: [place] e the results of these tests are highly reliable, discordant results, including inaccurate sex prediction, may occur due to placental, maternal, or mosaicism or neoplasm; vanishing twin; prior maternal organ transplant; or other causes. These tests are screening tests and not diagnostic; they do not replace the accuracy and precision of diagnosis with CVS or amniocentesis. A patient with a positive test result should be referred for genetic counseling and offered invasive diagnosis for confirmation of test results.[5] The results of this testing, including the benefits and limitations, should be discussed with a qualified healthcare provider. management decisions, including termination of the , should not be based on the results of these tests alone. The healthcare provider is responsible for the use of this information in the management of their patient. Sex chromosomal aneuploidies are not reportable for known multiple gestations. A negative result does not ensure an unaffected nor does it exclude the possibility of other chromosomal abnormalities or defects which are not a part of these tests. An uninformative result may be reported, the causes of which may include, but are not limited to, insufficient sequencing coverage, noise or artifacts in the region, amplification or sequencing bias, or insufficient fraction. These tests are not intended to identify pregnancies at risk for neural tube defects or ventral wall defects. Testing for whole chromosome abnormalities (including sex chromosomes) and for subchromosomal abnormalities could lead to the potential discovery of both and maternal genomic abnormalities that could have major, minor, or no, clinical significance. Evaluating the significance of a positive or a non-reportable result may involve both invasive testing and additional studies on the mother. Such investigations may lead to a diagnosis of maternal chromosomal or subchromosomal abnormalities, which on occasion may be associated with benign or malignant maternal neoplasms. These tests may not accurately identify triploidy, balanced rearrangements, or the precise location of subchromosomal duplications or deletions; these may be detected by diagnosis with CVS or amniocentesis. The ability to report results may be impacted by maternal BMI, maternal weight, maternal systemic lupus erythematosus (SLE) and/or by certain pharmaceutical agents such as low molecular weight heparin (for example: Lovenox(R), Xaparin(R), Clexane(R) and Fragmin(R)). Performed By: #### M AT21 #### [facility] CLIA [id number] [address] [place] [address] Monosomy X risk Dosage of chromosome-specific cfDNA Ql (Plasma cell-free+WBC DNA) [Interp] Not detected Normal [facility] Comment on above: Order Comment: Spectessa martin Type: BLOOD SPECIMEN Ordering Facility: [facility] Address: [address] [place] [address] Performed By: #### M AT21 #### [facility] CLIA [id number] [address] [place] [address] NEGATIVE PREDICTIVE VALUE Note Normal [facility] Comment on above: Order Comment: Spectessa martin Type: BLOOD SPECIMEN Ordering Facility: [facility] Address: [address] [place] [address] Result Comment: The Negative Predictive Value (NPV) for trisomy 21, 18, and 13 is greater than 99%. The NPV for SCA and ESS cannot be calculated as SCA and ESS are only reported when an abnormality is detected. Performed By: #### M AT21 #### [facility] CLIA [id number] [address] [place] [address] PERFORMANCE CHARACTERISTICS Note Normal [facility] Comment on above: Order Comment: Jae martin Type: BLOOD SPECIMEN Ordering Facility: [facility] Address: [address], [place] [address] Result Comment: ! Sex ! Accuracy: 99.4% ! ! ! ! Region (associated syndrome) ! Est. Sens# ! Est. Spec ! ! ! ! Trisomy 21 (Down Syndrome) ! 99.1% ! 99.9% ! ! ! ! Trisomy 18 (Nuno Syndrome) ! >99.9% ! 99.6% ! ! ! ! Trisomy 13 (Patau Syndrome) ! 91.7% ! 99.7% ! ! ! ! Sex Chromosome Aneuploidies## ! 96.2% ! 99.7% ! ! ! * As reported in ISCA database nstd37 [https://www.ncbi.nlm.nih.gov/dbvar/studies/nstd37/ ] # Estimated Sensitivity. Sensitivity estimated across the observed size distribution of each syndrome [per ISCA database nstd37] and across the range of fractions observed in routine clinical NIPT. Actual sensitivity can also be influenced by other factors such as the size of the event, total sequence counts, amplification bias, or sequence bias. ## Anguiano gestation only. Performed By: #### M AT21 #### [facility] CLIA [id number] [address] [place] [address] POSITIVE PREDICTIVE VALUE N/A Normal [facility] Comment on above: Order Comment: Jae martin Type: BLOOD SPECIMEN Ordering Facility: [facility] Address: [address] [place] [address] Performed By: #### M AT21 #### [facility] CLIA [id number] [address] [place] [address] Reference Lab Test Method Comment Normal [facility] Comment on above: Order Comment: Jae martin Type: BLOOD SPECIMEN Ordering Facility: [facility] Address: [address] [place] [address] Result Comment: See Notes Circulating cell-free DNA was purified from the plasma component of maternal blood. The extracted DNA was then converted into a genomic DNA library for aneuploidy analysis of chromosomes 21, 18, and 13 via next generation sequencing.[1] Optional findings based on the test order include sex chromosome aneuploidy (SCA)[2], and enhanced sequencing series (ESS)[3], which will only be reported on as an additional finding when an abnormality is detected. SCA testing includes information on X and Y representation, while ESS testing includes deletions in selected regions (22q, 15q, 11q, 8q, 5p, 4p, 1p) and trisomy of chromosomes 16 and 22. Performed By: #### M AT21 #### [facility] CLIA [id number] [address] [place] [address] Service comment (Unsp spec) [Interp] Comment Normal [facility] Comment on above: Order Comment: Speci men Type: BLOOD SPECIMEN Ordering Facility: [facility] Address: [address] [place] [address] Result Comment: See Notes [employer] is a subsidiary of [employer], using the brand [employer]. This test was developed and its performance characteristics determined by [employer]. It has not been cleared or approved by the Food and Drug Administration. This laboratory is certified under the Clinical Laboratory Improvement Amendments (CLIA) as qualified to perform high complexity clinical laboratory testing and accredited by the [employer] (CAP). If there is future clinical need for adding MaterniT GENOME testing, this specimen will be available until term. [facility] samples will not be retained beyond 60 days. [facility] patients will have to send a new sample for re-sequencing ([facility] Test Code: [id number]). Performed By: #### M AT21 #### [facility] IA [id number] [address] [place] [address] Sex Dosage of chromosome-specific cfDNA Nom (cfDNA) Comment Normal [facility] Comment on above: Order Comment: Speci men Type: BLOOD SPECIMEN Ordering Facility: [facility] Address: [address] [place] [address] Result Comment: Cons istent with Female Performed By: #### M AT21 #### [facility] IA [id number] [address] [place] [address] Test performance information Leonardo (Unsp spec) Comment Normal [facility] Comment on above: Order Comment: Speci men Type: BLOOD SPECIMEN Ordering Facility: [facility] Address: [address] [place] [address] Result Comment: The performance characteristics of the MaterniT(R) 21 PLUS laboratory-developed test (LDT) have been determined in a clinical validation study with women at increased risk for chromosomal aneuploidy.[1-4] Performed By: #### M AT21 #### [facility] CLIA [id number] [address] [place] [address] Trisomy 13 risk Dosage of chromosome-specific cfDNA Ql (cfDNA) [Interp] Negative Normal [facility] Comment on above: Order Comment: Speci men Type: BLOOD SPECIMEN Ordering Facility: [facility] Address: [address] [place] [address] Performed By: #### M AT21 #### [facility] CLIA [id number] [address] [place] [address] Trisomy 18 risk Dosage of chromosome-specific cfDNA Ql (Plasma cell-free+WBC DNA) [Interp] Negative Normal [facility] Comment on above: Order Comment: Speci men Type: BLOOD SPECIMEN Ordering Facility: [facility] Address: [address] [place] [address] Performed By: #### M AT21 #### [facility] CLIA [id number] [address] [place] [address] RBC PARAMETERS FOR HB IDon 0 - Erythrocyte distribution width (RBC) [Ratio] 12.7 % Normal 11.5-15.0 [facility] Comment on above: Order Comment: Speci men Type: BLOOD SPECIMEN Ordering Facility: [facility] Address: [address] [place] [address] Performed By: #### L [id number] #### [facility] CLIA [id number] [address] [place] [address] [place] Hematocrit (Bld) [Volume fraction] 39.7 % Normal 36.0-46.0 [facility] Comment on above: Order Comment: Speci men Type: BLOOD SPECIMEN Ordering Facility: [facility] Address: [address] [place] [address] Performed By: #### L [id number] #### [facility] CLIA [id number] [address] [place] [address] [place] Hemoglobin (Bld) [Mass/Vol] 13.3 g/dL Normal 11.5-15.5 [facility] Comment on above: Order Comment: Speci men Type: BLOOD SPECIMEN Ordering Facility: [facility] Address: [address] [place] [address] Performed By: #### L [id number] #### [facility] CLIA [id number] [address] [place] [address] [place] MCH (RBC) [Entitic mass] 28.4 pg Normal 26.0-34.0 [facility] Comment on above: Order Comment: Speci men Type: BLOOD SPECIMEN Ordering Facility: [facility] Address: [address] [place] [address] Performed By: #### L [id number] #### [facility] CLIA [id number] [address] [place] [address] [place] MCHC (RBC) [Mass/Vol] 33.5 g/dL Normal 30.5-36.0 [facility] Comment on above: Order Comment: Speci men Type: BLOOD SPECIMEN Ordering Facility: [facility] Address: [address] [place] [address] Performed By: #### L [id number] #### [facility] CLIA [id number] [address] [place] [address] [place] MCV (RBC) [Entitic vol] 84.6 fL Normal 80.0-100.0 [facility] Comment on above: Order Comment: Speci men Type: BLOOD SPECIMEN Ordering Facility: [facility] Address: [address] [place] [address] Performed By: #### L [id number] #### [facility] CLIA [id number] [address] [place] [address] [place] RBC (Bld) [#/Vol] 4.69 10*6/uL Normal 3.90-5.20 [facility] Comment on above: Order Comment: Speci men Type: BLOOD SPECIMEN Ordering Facility: [facility] Address: [address] [place] [address] Performed By: #### L [id number] #### [facility] CLIA [id number] [address] [place] [address] [place] RUBELLA IGG ANTIBODYon 06-29 RUBELLA IGG AB, QUAL Positive Normal Positive [facility] Comment on above: Order Comment: Speci men Type: BLOOD SPECIMEN Ordering Facility: [facility] Address: [address] [place] [address] Result Comment: The result suggests recent or past exposure to Rubella virus or history of Rubella vaccination. Positive result may also be seen due to presence of passively-transferred antibodies. Please correlate with patient's history. Performed By: #### G LTGST #### [facility] CLIA [id number] [address] [place] [address] [place] Reagin and Treponema pallidu m IgG and IgM [Interp]on 06-29-2024 T. pallidum IgG+IgM IA Ql (S) Non-Reactive Normal Nonreactive [facility] Comment on above: Order Comment: Speci men Type: BLOOD SPECIMEN Ordering Facility: [facility] Address: [address] [place] [address] Performed By: #### 1 6128-1 #### [facility] CLIA [id number] [address] [place] [address] [place] Reagin+T pallidum IgG+IgM Se rPl-Impon 06-29-2024 Reagin and Treponema pallidum IgG and IgM [Interp] Cannot exclude recent Treponemal infection if specimen collected within 7-10 days after appearance of suspect lesions or 2-3 weeks after an exposure. Clinical correlation is required. Normal [facility] Comment on above: Order Comment: Speci men Type: BLOOD SPECIMEN Ordering Facility: [facility] Address: [address] [place] [address] Performed By: #### 1 6128-1 #### [facility] CLIA [id number] [address] [place] [address] [place] TYPE + SCREEN PRENATALon ABO O Normal [facility] Comment on above: Order Comment: Speci men Type: BLOOD SPECIMEN Ordering Facility: [facility] Address: [address] [place] [address] Performed By: #### T SPN #### [facility] CLIA [id number] [address] [place] [address] [place] Rh Nom (Bld) Positive Normal [facility] Comment on above: Order Comment: Speci men Type: BLOOD SPECIMEN Ordering Facility: [facility] Address: [address] [place] [address] Performed By: #### T SPN #### [facility] CLIA [id number] [address] [place] [address] [place] TYPE AND SCREEN EXPIRATION 07/02/2024 23:59 Normal [facility] Comment on above: Order Comment: Speci men Type: BLOOD SPECIMEN Ordering Facility: [facility] Address: [address] [place] [address] Performed By: #### T SPN #### [facility] CLIA [id number] [address] [place] [address] [place] BACTERIAL VAGINOSIS NAATon 0 05-25-2024 Interpretation and review of laboratory results Normal [facility] Lactobacillus crispatus+gasseri+nano enii + Gardnerella vaginalis + Atopobium vaginae rRNA SCOTT+probe Ql (Vag fld) Not detected Not detected [facility] Lactobacillus crispatus+gasseri+nano enii + Gardnerella vaginalis + Atopobium vaginae rRNA SCOTT+probe Ql (Vag fld) Not detected Normal Not detected [facility] Comment on above: Order Comment: Speci men Type: BLOOD SPECIMEN Ordering Facility: [facility] Address: [address] [place] [address] Performed By: #### G LTGST #### [facility] CLIA [id number] [address] [place] [address] [place] Bacteria Ur Culton Bacteria identified Cx Nom (U) ORGANISM ID: 1 <10,000 CFU/ml Normal urogenital radha Normal [facility] Comment on above: Performed By: #### 1 6128-1 #### [facility] CLIA [id number] [address] [place], [place] [address] [address] [place] C. trachomatis+N. gonorrhoea e DNA SCOTT+probe Ql (Unsp spec)on 05-25-2024 C. trachomatis rRNA SCOTT+probe Ql (Unsp spec) Not detected Not detected [facility] Interpretation and review of laboratory results Normal [facility] N. gonorrhoeae rRNA SCOTT+probe Ql (Unsp spec) Not detected Not detected [facility] This FDA-approved assay has been modified to accept rectal swabs self-collected in a healthcare setting. For self-collected rectal swabs, the test was developed and its performance characteristics determined by the [facility] [place] ([facility]). It has not been cleared or approved by the FDA. -[facility] is regulated under CLIA as qualified to perform high-complexity testing. This test is used for clinical purposes. It should not be regarded as investigational or for research. [facility] C. trachomatis rRNA SCOTT+probe Ql (Unsp spec) Not detected Normal Not detected [facility] Comment on above: Order Comment: Speci men Type: BLOOD SPECIMEN Ordering Facility: [facility] Address: [address] [place] [address] Performed By: #### G LTGST #### [facility] CLIA [id number] [address] [place] [address] [place] N. gonorrhoeae rRNA SCOTT+probe Ql (Unsp spec) Not detected Normal Not detected [facility] Comment on above: Order Comment: Speci men Type: BLOOD SPECIMEN Ordering Facility: [facility] Address: [address] [place] [address] Performed By: #### G LTGST #### [facility] CLIA [id number] [address] [place] [address] [place] HEIDI/TRICHOMONAS NAATon 0 05-25-2024 C. glabrata RNA SCOTT+probe Ql (Vag fld) Not detected Not detected [facility] Heidi sp DNA SCOTT+probe Ql (Vag fld) Not detected Not detected [facility] Comment on above: The Heidi species group target includes C. albicans, C. tropicalis, C. parapsilosis, and C. dubliniensis. Interpretation and review of laboratory results Normal [facility] T. vaginalis DNA SCOTT+probe Ql (Unsp spec) Not detected Not detected [facility] C. glabrata RNA SCOTT+probe Ql (Vag fld) Not detected Normal Not detected [facility] Comment on above: Order Comment: Speci men Type: BLOOD SPECIMEN Ordering Facility: [facility] Address: [address] [place] [address] Performed By: #### G LTGST #### [id number] [address] [place] [address] STATES [facility] Heidi sp DNA SCOTT+probe Ql (Vag fld) Not detected Normal Not detected [facility] Comment on above: Order Comment: Speci men Type: BLOOD SPECIMEN Ordering Facility: [facility] Address: [address] [place] [address] Result Comment: The Heidi species group target includes C. albicans, C. tropicalis, C. parapsilosis, and C. dubliniensis. Performed By: #### G LTGST #### [id number] [address] [place] [address] [place] T. vaginalis DNA SCOTT+probe Ql (Unsp spec) Not detected Normal Not detected [facility] Comment on above: Order Comment: Speci men Type: BLOOD SPECIMEN Ordering Facility: [facility] Address: [address] [place] [address] Performed By: #### G LTGST #### [facility] CLIA [id number] [address] [place] [address] [place] POC [employer] WORKER ULTRASOUNDon 05-25-19 Indication Viability; confirm cardiac activity Impression Single intrauterine gestational sac, CRL indicates discrepancy from clinical dates, RIVKA 01/11/24 based on today's ultrasound, FHR 162 bpm Recommendations Follow up for NT scan if desired Method Transabdominal and transvaginal ultrasound examination Anguiano . Number of embryos: 1 Dating LMP on: 03/09/2024 GA by LMP 11 w + 0 d RIVKA by LMP: 12/14/2024 Ultrasound examination on: 05/25/2024 GA by U/S based upon: CRL GA by U/S 7 w + 1 d RIVKA by U/S: 01/10/2025 Assigned: based on ultrasound (CRL), selected on 05/25/2024 Assigned GA 7 w + 1 d Assigned RIVKA: 01/10/2025 Biometry Standard FHR 162 bpm CRL 10.2 mm 7w 1d 84% [facility]lock Assessment Gestational sac: visualized Location: intrauterine Yolk sac: visualized Embryo: visualized CRL 10.2 mm 7w 1d 84% [facility] Cardiac activity: present FHR 162 bpm General Evaluation Cardiac activity present. FHR 162 bpm Performed By: Angie Rhodes CNM Read By: Angie Rhodes CNM MATERNAL MEDICINE [facility] Radiology Study observation (narrative) [facility] Urgent Care Visit Reporton 0 12-29-2023 Urgent Care Visit Report [facility] [address], [address] [place] [address] OFFICE VISIT Date of Service: 12/29/23 MR#: [id number] Acct: [id number] Name: MONALISA AGUILAR Rep #: [id number] : 1985 Provider: OZZIE David Age/Sex: 38/F [place] [facility] [place] Status: Signed Intake Vital Signs 06/08/23 14:22 12/29/23 11:11 Height 5 ft 9 in 5 ft 9.5 in Weight: 172 lb BMI 25.0 BP 115/66 Blood Pressure Location Rt brachial Position Sitting Respiration 16 Pulse 81 Pulse Source Monitor Temp 98.6 F Temp Source Temporal Pulse Oximetry (%) 98 Oxygen Delivery Method room air Intake Visit Reasons: Cough Chief Complaint: Cough, sinus congestion Is patient in pain?: No Allergies No Known Allergies Allergy (Verified 12/29/23 10:36) Medications ???Medication ???Instructions ???Recorded ???Confirmed ???Type azithromycin 250 mg tablet See Rx Instructions PO .COMPLEX #6 12/29/23 12/29/23 Rx tabs [facility] Medical History (Updated 12/29/23 @ 11:34 by Nay Smith PA, PA) Acute bronchitis, unspecified Social History household members: spouse and children Smoking Status: Never smoker alcohol intake: never substance use type: does not use HPI HPI Chief Complaint: Cough, sinus congestion Details: MONALISA AGUILAR, is a 38 F who presents to the office today for initial evaluation 4-day history with chills, myalgias, cough initially (with myalgia and chills now resolved) though a dry nonproductive cough persist. No complaints of fever, chills, sweats at this time. No complaints of sore throat or chest pressure/shortness of breath/dyspnea on exertion. Her son was diagnosed with streptococcal pharyngitis today; right still describes no swollen tender cervical lymph nodes nor white exudate on tonsillar pillars upon self inspection at home. Qlfq-axi-oroqytk Tussin tried without assist. No tuhp-gsg-nolitgm products taken to assist. Non-smoker. No other associated symptoms and no other alleviating/aggravat ing factors. ROS Const Constitutional: No other (As above) Exam Const General: cooperative, healthy appearing and no acute distress Orientation: alert and awake [facility] Head: normal to inspection Ears: hearing grossly normal bilaterally, external ears normal, TM's normal bilaterally and EAC's normal Nose: external nose normal, nares normal, septum normal and no nasal discharge Face and sinus: normal facial exam, sinuses nontender and face symmetric Mouth: oral mucosae normal, lip normal, tongue normal and oropharynx normal Throat: posterior oropharynx normal, tonsils normal, uvula midline and no postnasal drainage Eyes General: appearance normal, both eyes and all related structures Neck Neck: normal visual inspection, full ROM, no lymphadenopathy, no meningeal signs and supple Neck mass: No Thyroid: thyroid normal Lymphatic: no lymphadenopathy noted Chest Chest palpation inspection: normal inspection of the chest Resp Effort Inspection: normal respiratory effort, able to speak in complete sentences and cough Quality of cough: dry (Nonproductive in office today) Auscultation: Bilateral: Clear to Auscultation Cardio Palpation: normal PMI Rate: regular rate Rhythm: regular rhythm Heart Sounds: S1 normal, S2 normal, no gallops, no murmurs and no rubs Pulses: radial pulses present GI Inspection: normal to inspection Skin General: no rashes or lesions noted Neuro General: patient alert and patient awake Cognition: normal cognition Speech: speech normal Psych Appearance: grossly normal Mental Status: mental status grossly normal Mood: congruent mood Affect: normal affect Speech and Movement: speech and movement normal Attitude: cooperative Coding Level of Care Code Off vis,new,level 3 Diagnoses Acute bronchitis, unspecified J20.9 Assessment and Plan Assessment and Plan (1) Acute bronchitis, unspecified: Status: Acute Plan: Patient refusing POC screening upon offering. Azithromycin as prescribed today. Supportive measures as instructed today. Follow-up with PCP in 3 to 5 days should symptoms not improve, sooner should symptoms only worsen or any other concerns develop. Patient states acknowledging understanding all the above. This note was generated with citizenmade dictation software. It may contain incorrect words, spelling, and punctuation that were not noted in checking the note before signing. Medications: New azithromycin For 250 mg dose pack: take 500 mg today (day 1), then 250 mg for 4 days (days 2-5) PO 6 tabs 0RF 12/29/23 1135 Date Nay Tompkins Signature: Date ___ (more content not included)... Normal [facility] CBC W Auto Differential pane l (Bld)on 07-09-2023 Basophils (Bld) [#/Vol] 0.07 10*3/uL Normal <0.11 [facility] Comment on above: Order Comment: Speci men Type: BLOOD SPECIMEN Ordering Facility: [facility] Address: [address] [place] [address] [place] [address] Performed By: #### 5 7021-8 #### [facility] CLIA [id number] [address] [place] [address] [place] Basophils/100 WBC (Bld) 1.2 % Normal [facility] Comment on above: Order Comment: Speci men Type: BLOOD SPECIMEN Ordering Facility: [facility] Address: [address] [place] [address] Performed By: #### 5 7021-8 #### [facility] CLIA [id number] [address] [place] [address] [place] Differential cell count method Nom (Bld) Auto Normal [facility] Comment on above: Order Comment: Speci men Type: BLOOD SPECIMEN Ordering Facility: [facility] Address: [address] [place] [address] Performed By: #### 5 7021-8 #### [facility] CLIA [id number] [address] [place] [address] [place] Eosinophils (Bld) [#/Vol] 0.13 10*3/uL Normal <0.46 [facility] Comment on above: Order Comment: Speci men Type: BLOOD SPECIMEN Ordering Facility: [facility] Address: [address] [place] [address] Performed By: #### 5 7021-8 #### [facility] CLIA [id number] [address] [place] [address] [place] Eosinophils/100 WBC (Bld) 2.3 % Normal [facility] Comment on above: Order Comment: Speci men Type: BLOOD SPECIMEN Ordering Facility: [facility] Address: [address] [place] [address] Performed By: #### 5 7021-8 #### [facility] CLIA [id number] [address] [place] [address] [place] Erythrocyte distribution width (RBC) [Ratio] 12.5 % Normal 11.5-15.0 [facility] Comment on above: Order Comment: Speci men Type: BLOOD SPECIMEN Ordering Facility: [facility] Address: [address] [place] [address] Performed By: #### 5 7021-8 #### [facility] CLIA [id number] [address] [place] [address] [place] Hematocrit (Bld) [Volume fraction] 38.9 % Normal 36.0-46.0 [facility] Comment on above: Order Comment: Speci men Type: BLOOD SPECIMEN Ordering Facility: [facility] Address: [address] [place] [address] Performed By: #### 5 7021-8 #### [facility] CLIA [id number] [address] [place] [address] [place] Hemoglobin (Bld) [Mass/Vol] 13.2 g/dL Normal 11.5-15.5 [facility] Comment on above: Order Comment: Speci men Type: BLOOD SPECIMEN Ordering Facility: [facility] Address: [address] [place] [address] Performed By: #### 5 7021-8 #### [facility] CLIA [id number] [address] [place] [address] [place] Immature granulocytes (Bld) [#/Vol] 10*3/uL Normal <0.10 [facility] Comment on above: Order Comment: Speci men Type: BLOOD SPECIMEN Ordering Facility: [facility] Address: [address] [place] [address] Performed By: #### 5 7021-8 #### [facility] CLIA [id number] [address] [place] [address] [place] Immature granulocytes/100 WBC (Bld) 0.2 % Normal [facility] Comment on above: Order Comment: Speci men Type: BLOOD SPECIMEN Ordering Facility: [facility] Address: [address] [place] [address] Performed By: #### 5 7021-8 #### [facility] CLIA [id number] [address] [place] [address] [place] Lymphocytes (Bld) [#/Vol] 1.83 10*3/uL Normal 1.00-4.00 [facility] Comment on above: Order Comment: Speci men Type: BLOOD SPECIMEN Ordering Facility: [facility] Address: [address] [place] [address] Performed By: #### 5 7021-8 #### [facility] CLIA [id number] [address] [place] [address] [place] Lymphocytes/100 WBC (Bld) 31.9 % Normal [facility] Comment on above: Order Comment: Speci men Type: BLOOD SPECIMEN Ordering Facility: [facility] Address: [address] [place] [address] Performed By: #### 5 7021-8 #### [facility] CLIA [id number] [address] [place] [address] [place] MCH (RBC) [Entitic mass] 28.6 pg Normal 26.0-34.0 [facility] Comment on above: Order Comment: Speci men Type: BLOOD SPECIMEN Ordering Facility: [facility] Address: [address] [place] [address] Performed By: #### 5 7021-8 #### [facility] CLIA [id number] [address] [place] [address] [place] MCHC (RBC) [Mass/Vol] 33.9 g/dL Normal 30.5-36.0 [facility] Comment on above: Order Comment: Speci men Type: BLOOD SPECIMEN Ordering Facility: [facility] Address: [address] [place], [place] [id number] Performed By: #### 5 7021-8 #### [facility] CLIA [id number] [address] [place] [address] [place] MCV (RBC) [Entitic vol] 84.2 fL Normal 80.0-100.0 [facility] Comment on above: Order Comment: Speci men Type: BLOOD SPECIMEN Ordering Facility: [facility] Address: [address] [place] [address] Performed By: #### 5 7021-8 #### [facility] CLIA [id number] [address] [place] [address] [place] Monocytes (Bld) [#/Vol] 0.59 10*3/uL Normal <0.87 [facility] Comment on above: Order Comment: Speci men Type: BLOOD SPECIMEN Ordering Facility: [facility] Address: [address] [place] [address] Performed By: #### 5 7021-8 #### [facility] CLIA [id number] [address] [place] [address] [place] Monocytes/100 WBC (Bld) 10.3 % Normal [facility] Comment on above: Order Comment: Speci men Type: BLOOD SPECIMEN Ordering Facility: [facility] Address: [address] [place] [address] Performed By: #### 5 7021-8 #### [facility] CLIA [id number] [address] [place] [address] [place] Neutrophils (Bld) [#/Vol] 3.11 10*3/uL Normal 1.45-7.50 [facility] Comment on above: Order Comment: Speci men Type: BLOOD SPECIMEN Ordering Facility: [facility] Address: [address] [place] [address] Performed By: #### 5 7021-8 #### [facility] CLIA [id number] [address] [place] [address] [place] Neutrophils/100 WBC (Bld) 54.1 % Normal [facility] Comment on above: Order Comment: Speci men Type: BLOOD SPECIMEN Ordering Facility: [facility] Address: [address] [place] [address] Performed By: #### 5 7021-8 #### [facility] CLIA [id number] [address] [place] [address] [place] Nucleated RBC (Bld) [#/Vol] 10*3/uL Normal <0.01 [facility] Comment on above: Order Comment: Speci men Type: BLOOD SPECIMEN Ordering Facility: [facility] Address: [address] [place] [address] Performed By: #### 5 7021-8 #### [facility] CLIA [id number] [address] [place] [address] [place] Nucleated RBC/100 WBC (Bld) [Ratio] 0.0 /100 WBC Normal [facility] Comment on above: Order Comment: Speci men Type: BLOOD SPECIMEN Ordering Facility: [facility] Address: [address] [place] [address] Performed By: #### 5 7021-8 #### [facility] CLIA [id number] [address] [place] [address] [place] Platelet mean volume (Bld) [Entitic vol] 9.0 fL Normal 9.0-12.7 [facility] Comment on above: Order Comment: Speci men Type: BLOOD SPECIMEN Ordering Facility: [facility] Address: [address] [place] [address] Performed By: #### 5 7021-8 #### [facility] CLIA [id number] [address] [place] [address] [place] Platelets (Bld) [#/Vol] 317 10*3/uL Normal 150-400 [facility] Comment on above: Order Comment: Speci men Type: BLOOD SPECIMEN Ordering Facility: [facility] Address: [address] [place] [address] Performed By: #### 5 7021-8 #### [facility] CLIA [id number] [address] [place] [address] [place] RBC (Bld) [#/Vol] 4.62 10*6/uL Normal 3.90-5.20 [facility] Comment on above: Order Comment: Speci men Type: BLOOD SPECIMEN Ordering Facility: [facility] Address: [address] [place] [address] Performed By: #### 5 7021-8 #### [facility] CLIA [id number] [address] [place] [address] [place] WBC (Bld) [#/Vol] 5.74 10*3/uL Normal 3.70-11.00 [facility] Comment on above: Order Comment: Speci men Type: BLOOD SPECIMEN Ordering Facility: [facility] Address: [address] [place] [address] Performed By: #### 5 7021-8 #### [facility] CLIA [id number] [address] [place] [address] [place] Basophils (Bld) [#/Vol] 0.07 10*3/uL <0.11 k/uL [facility] Basophils/100 WBC (Bld) 1.2 % [facility] Differential cell count method Nom (Bld) Auto [facility] Eosinophils (Bld) [#/Vol] 0.13 10*3/uL <0.46 k/uL [facility] Eosinophils/100 WBC (Bld) 2.3 % [facility] Erythrocyte distribution width (RBC) [Ratio] 12.5 % 11.5 - 15.0 % [facility] Hematocrit (Bld) [Volume fraction] 38.9 % 36.0 - 46.0 % [facility] Hemoglobin (Bld) [Mass/Vol] 13.2 g/dL 11.5 - 15.5 g/dL [facility] Immature granulocytes (Bld) [#/Vol] <0.10 k/uL [facility] Immature granulocytes/100 WBC (Bld) 0.2 % [facility] Lymphocytes (Bld) [#/Vol] 1.83 10*3/uL 1.00 - 4.00 k/uL [facility] Lymphocytes/100 WBC (Bld) 31.9 % [facility] MCH (RBC) [Entitic mass] 28.6 pg 26.0 - 34.0 pg [facility] MCHC (RBC) [Mass/Vol] 33.9 g/dL 30.5 - 36.0 g/dL [facility] MCV (RBC) [Entitic vol] 84.2 fL 80.0 - 100.0 fL [facility] Monocytes (Bld) [#/Vol] 0.59 10*3/uL <0.87 k/uL [facility] Monocytes/100 WBC (Bld) 10.3 % [facility] Neutrophils (Bld) [#/Vol] 3.11 10*3/uL 1.45 - 7.50 k/uL [facility] Neutrophils/100 WBC (Bld) 54.1 % [facility] Nucleated RBC (Bld) [#/Vol] <0.01 k/uL [facility] Nucleated RBC/100 WBC (Bld) [Ratio] 0.0 /100 WBC [facility] Platelet mean volume (Bld) [Entitic vol] 9.0 fL 9.0 - 12.7 fL [facility] Platelets (Bld) [#/Vol] 317 10*3/uL 150 - 400 k/uL [facility] RBC (Bld) [#/Vol] 4.62 10*6/uL 3.90 - 5.2 0 m/uL [facility] WBC (Bld) [#/Vol] 5.74 10*3/uL 3.70 - 11. 00 k/uL [facility] CNOVon 07-09-2023 CNOV Office Visit (OBGYWM) MONALISA AGUILAR ([id number]) 1985 F Date Time Provider Department 07/09/23 7:00 AM GABBY LIEBERMAN OBGYWKarla During your visit today, we recorded the following information about you: Blood pressure Weight Height Last Period 78.4 kg 1.772 m 06/08/23 Gabby Lieberman APRN.CNP 07/09/2023 8:12 AM Signed Heliotherapist offered: Patient declinesNellie Sheldon is a 38 year old who presents for an annual gynecologic exam without complaints. Menses: cycles every 35-40 days and 4-5 days of flow. 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 History Comments: Sexual Activity: Yes; Male Contraception: None PAST MEDICAL HISTORY Diagnosis Date NEGATIVE MEDICAL HISTORY PAST SURGICAL HISTORY Procedure Laterality Date EXTRACTION ERUPTED TOOTH/EXR PAST SURGICAL HISTORY OF Muscle adjustment on eyes x 2 (1992 and 2020) FAMILY HISTORY Problem Relation Age of Onset Fibromyalgia Mother Diabetes Father No Known Problems Sister No Known Problems Brother Diabetes Paternal Grandmother Breast Cancer Paternal Grandmother SOCIAL HISTORY Social History Tobacco Use Smoking status: Never Passive exposure: Never Smokeless tobacco: Never Vaping Use Vaping Use: Never used Substance Use Topics Alcohol use: Yes Comment: 2-3 times per month Drug use: Never REVIEW OF SYSTEMS Abdomen: No abdominal pain, nausea, vomiting, diarrhea, or constipation. No bloating, early satiety, indigestion, or increased flatulence. Bladder: No dysuria, gross hematuria, urinary frequency, urinary urgency, or incontinence. Breast: No breast lumps, nipple d/c, overlying skin changes, redness or skin retraction. Allergies and current medication updated:Yes EXAM: Ht 5' 9.75 (1.77m) Wt 172 lb 12.8 oz (78.4kg) LMP 06/08/2023 BMI 24.96 kg/(m2). GENERAL: pleasant, female in no apparent distress HEENT: Normocephalic, atraumatic, mucus membranes moist, and no lesions NECK: Supple, full range of motion, no adenopathy, and thyroid normal DERMATOLOGY: Normal, without lesions, non-icteric, and non-hirsute BREAST: soft, non-tender, symmetric, no dominant mass, normal nipple-areolar complex, no lymphadenopathy, and no nipple discharge CHEST: Normal inspiratory effort ABDOMEN: soft, non-tender, and no masses PELVIC: external genitalia normal, normal Bartholin's glands, urethra, Ector's glands, no vulvar lesions, no cervical lesions, good vaginal support, physiologic discharge present, normal appearing perineal body and perianal region BIMANUAL: uterus normal size, shape and consistency, no adnexal masses, and non-tender RECTOVAGINAL: deferred. NEURO: alert and oriented x3,exam grossly non-focal EXTREMITIES: normal ASSESSMENT/PLAN: 1) Health maintenance: Pap done with HPV. Mammogram starting age 40. Nutrition, exercise and routine health maintenance exams reviewed. Calcium/Vitamin D supplementation information provided. 2) Contraception: none. Contraceptive options reviewed and information provided. 3) STD screening: Declined STD check. 4) Follow up one year or sooner as needed Gabby Lieberman APRN.BIOSOLIDS MANAGEMENT TECHNICIAN Allergies As of Date: 07/09/2023 (No Known Allergies) Date Reviewed: 07/09/2023 Reviewed by: Gabby Lieberman APRN.BIOSOLIDS MANAGEMENT TECHNICIAN - Fully Assessed Reason for Visit: Yearly Exam [187] Primary Visit Diagnosis:Encounter for gynecological examination (general) (routine) without abnormal findings [Z01.419] Other Visit Diagnoses:Screening for cervical cancer [Z12.4] Encounter for screening for human papillomavirus (HPV) [Z11.51] Encounter for routine laboratory testing [Z01.89] Order(s):PAP TEST [[id number]] Order #: [id number]. #:[id number] TSH BLD [SQTSH] Order #: [id number] FUTURE CBC + DIFF [SQCBCDIF] Order #: [id number] FUTURE LIPID PANEL, NONFASTING [SQLIPNF] Order #: [id number] FUTURE IRON + TIBC [SQIRON] Order #: [id number] FUTURE COMP METABOLIC PANEL [SQCMP] Order #: [id number] FUTURE HPV W/GENOTYPE THIN PREP [SQHPVHRT] Reflex Order#: [id number] (Ord#:[id number])Spe c. #:[id number] Prescriptions as of 07/22/2023 - MAGNESIUM ORAL Take by mouth once daily. - Lactobacillus acidophilus (PROBIOTIC ORAL) Take by mouth once daily. Problem List As Of Date: 07/09/2023 (None) Disposition: Return in 1 year (on 07/09/2024) for Annual Exam. Follow-up and Disposition History for Encounter Date Provider Department Center 07/09/2023 [id number] LIEBERMANoster Carlos Nash (more content not included)... Normal [facility] Comprehensive metabolic 2000 panelon 07-09-2023 Albumin [Mass/Vol] 4.2 g/dL Normal 3.9-4.9 [facility] Comment on above: Order Comment: Speci men Type: BLOOD SPECIMEN Ordering Facility: [facility] Address: [address] [place] [address] Performed By: #### 2 4323-8 #### [facility] CLIA [id number] [address] [place] [address] [place] ALP [Catalytic activity/Vol] 51 U/L Normal 34-123 [facility] Comment on above: Order Comment: Speci men Type: BLOOD SPECIMEN Ordering Facility: [facility] Address: [address] [place] [address] Performed By: #### 2 4323-8 #### [facility] CLIA [id number] [address] [place] [address] [place] ALT [Catalytic activity/Vol] 13 U/L Normal 7-38 [facility] Comment on above: Order Comment: Speci men Type: BLOOD SPECIMEN Ordering Facility: [facility] Address: [address] [place] [address] Performed By: #### 2 4323-8 #### [facility] CLIA [id number] [address] [place] [address] [place] Anion gap [Moles/Vol] 7 mmol/L Low 9-18 [facility] Comment on above: Order Comment: Speci men Type: BLOOD SPECIMEN Ordering Facility: [facility] Address: [address] [place] [address] Performed By: #### 2 4323-8 #### [facility] CLIA [id number] [address] [place] [address] [place] AST [Catalytic activity/Vol] 18 U/L Normal 13-35 [facility] Comment on above: Order Comment: Speci men Type: BLOOD SPECIMEN Ordering Facility: [facility] Address: [address] [place] [address] Performed By: #### 2 4323-8 #### [facility] CLIA [id number] [address] [place] [address] [place] Bilirubin [Mass/Vol] 1.5 mg/dL High 0.2-1.3 [facility] Comment on above: Order Comment: Speci men Type: BLOOD SPECIMEN Ordering Facility: [facility] Address: [address] [place] [address] Performed By: #### 2 4323-8 #### [facility] CLIA [id number] [address] [place] [address] [place] Calcium [Mass/Vol] 8.9 mg/dL Normal 8.5-10.2 [facility] Comment on above: Order Comment: Speci men Type: BLOOD SPECIMEN Ordering Facility: [facility] Address: [address] [place] [address] Performed By: #### 2 4323-8 #### [facility] CLIA [id number] [address] [place] [address] [place] Chloride [Moles/Vol] 103 mmol/L Normal 97-105 [facility] Comment on above: Order Comment: Speci men Type: BLOOD SPECIMEN Ordering Facility: [facility] Address: [address] [place] [id number] Performed By: #### 2 4323-8 #### [facility] CLIA [id number] [address] [place] [address] [place] CO2 [Moles/Vol] 25 mmol/L Normal 22-30 [facility] Comment on above: Order Comment: Jae martin Type: BLOOD SPECIMEN Ordering Facility: [facility] Address: [address] [place] [address] Performed By: #### 2 4323-8 #### [facility] CLIA [id number] [address] [place] [address] [place] Creatinine [Mass/Vol] 0.93 mg/dL Normal 0.58-0.96 [facility] Comment on above: Order Comment: Jae martin Type: BLOOD SPECIMEN Ordering Facility: [facility] Address: [address] [place] [address] Performed By: #### 2 4323-8 #### [id number] [address] [place] [address] [place] Creatinine and Glomerular filtration rate.predicted panel (S/P/Bld) 82 mL/min/1.73m??? Normal >=60 [facility] Comment on above: Order Comment: Jae martin Type: BLOOD SPECIMEN Ordering Facility: [facility] Address: [address] [place] [address] Result Comment: Dot mated Glomerular Filtration Rate (eGFR) is calculated using the 2020 CKD-EPI creatinine equation. This equation utilizes serum creatinine, sex, and age as parameters. The creatinine assay has traceable calibration to isotope dilution-mass spectrometry. Refer to KDIGO guidelines for clinical interpretation. In patients with unstable renal function, e.g. those with acute kidney injury, the eGFR may not accurately reflect actual GFR. Performed By: #### 2 4323-8 #### [id number] [address] [place] [address] [place] Glucose [Mass/Vol] 87 mg/dL Normal 74-99 [facility] Comment on above: Order Comment: Jae martin Type: BLOOD SPECIMEN Ordering Facility: [facility] Address: [address] [place] [address] Result Comment: The [place] Diabetes Association (ADA) provides guidance for cutoff values for fasting glucose and random glucose. The ADA defines fasting as no caloric intake for at least 8 hours. Fasting plasma glucose results between 100 to 125 mg/dL indicate increased risk for diabetes (prediabetes). Fasting plasma glucose results greater than or equal to 126 mg/dL meet the criteria for diagnosis of diabetes. In the absence of unequivocal hyperglycemia, results should be confirmed by repeat testing. In a patient with classic symptoms of hyperglycemia or hyperglycemic crisis, random plasma glucose results greater than or equal to 200 mg/dL meet the criteria for diagnosis of diabetes. Reference: Standards of Medical Care in Diabetes 2016, [place] Diabetes Association. Diabetes Care. 2016.39(Suppl 1). Performed By: #### 2 4323-8 #### [facility] [id number] [address] [place] [address] [place] Potassium [Moles/Vol] 4.3 mmol/L Normal 3.7-5.1 [facility] Comment on above: Order Comment: Speci men Type: BLOOD SPECIMEN Ordering Facility: [facility] Address: [address] [place], [place] [address] Performed By: #### 2 4323-8 #### [facility] [id number] [address] [place] [address] [place] Protein [Mass/Vol] 6.4 g/dL Normal 6.3-8.0 [facility] Comment on above: Order Comment: Speci men Type: BLOOD SPECIMEN Ordering Facility: [facility] Address: [address] [place] [address] Performed By: #### 2 4323-8 #### [facility] [id number] [address] [place] [address] [place] Sodium [Moles/Vol] 135 mmol/L Low 136-144 [facility] Comment on above: Order Comment: Speci men Type: BLOOD SPECIMEN Ordering Facility: [facility] Address: [address] [place] [address] Performed By: #### 2 4323-8 #### [facility] CLIA [id number] [address] [place] [address] [place] Urea nitrogen [Mass/Vol] 21 mg/dL Normal 7-21 [facility] Comment on above: Order Comment: Speci men Type: BLOOD SPECIMEN Ordering Facility: [facility] Address: [address] [place] [address] Performed By: #### 2 4323-8 #### [facility] CLIA [id number] [address] [place] [address] [place] Albumin [Mass/Vol] 4.2 g/dL 3.9 - 4.9 g/dL [facility] ALP [Catalytic activity/Vol] 51 U/L 34 - 123 U/L [facility] ALT [Catalytic activity/Vol] 13 U/L 7 - 38 U/L [facility] Anion gap [Moles/Vol] 7 mmol/L Low 9 - 18 mmol/L [facility] AST [Catalytic activity/Vol] 18 U/L 13 - 35 U/L [facility] Bilirubin [Mass/Vol] 1.5 mg/dL High 0.2 - 1.3 mg/dL [facility] Calcium [Mass/Vol] 8.9 mg/dL 8.5 - 10. 2 mg/dL [facility] Chloride [Moles/Vol] 103 mmol/L 97 - 105 mmol/L [facility] CO2 [Moles/Vol] 25 mmol/L 22 - 30 mmol/L [facility] Creatinine [Mass/Vol] 0.93 mg/dL 0.58 - 0.96 mg/dL [facility] Estimated Glomerular Filtration Rate 82 mL/min/1.73m >=60 mL/min/1.73m [facility] Glucose [Mass/Vol] 87 mg/dL 74 - 99 mg/dL [facility] Potassium [Moles/Vol] 4.3 mmol/L 3.7 - 5.1 mmol/L [facility] Protein [Mass/Vol] 6.4 g/dL 6.3 - 8.0 g/dL [facility] Sodium [Moles/Vol] 135 mmol/L Low 136 - 144 mmol/L [facility] Urea nitrogen [Mass/Vol] 21 mg/dL 7 - 21 mg/dL [facility] HPV W/GENOTYPE THIN PREPon 0 07-09-2023 HPV 16 Ag Ql (Unsp spec) Negative Normal Negative for HPV DNA high risk type 16 by PCR [facility] Comment on above: Order Comment: Speci men Type: FLUID SPECIMEN Ordering Facility: [facility] Address: [address] [place] [address] Performed By: #### H PVHRT, [id number] #### [facility] CLIA [id number] [address] [place] [address] [place] HPV 18 Ag Ql (Unsp spec) Negative Normal Negative for HPV DNA high risk type 18 by PCR [facility] Comment on above: Order Comment: Speci men Type: FLUID SPECIMEN Ordering Facility: [facility] Address: [address] [place] [address] Performed By: #### H PVHRT, [id number] #### [facility] CLIA [id number] [address] [place] [address] [place] HPV 31+33+35+39+45+51+52+5 6+58+59+66+68 DNA SCOTT+probe Ql (Cvx) Negative for HPV DNA high risk types: 31,33,35,39,45,51,52 ,56,58,59,66,68 by PCR. Normal Negative for HPV DNA high risk types: 31,33,35,39,45, 51,52,56,58,59, 66,68 by PCR. [facility] Comment on above: Order Comment: Speci men Type: FLUID SPECIMEN Ordering Facility: [facility] Address: [address] [place] [address] Performed By: #### H PVHRT, [id number] #### [facility] CLIA [id number] [address] [place] [address] [place] Iron and Iron binding capaci ty panelon 07-09-2023 Iron [Mass/Vol] 109 ug/dL Normal 41-186 [facility] Comment on above: Order Comment: Speci men Type: BLOOD SPECIMEN Ordering Facility: [facility] Address: [address] [place] [address] Performed By: #### 5 0190-8, 3016-3, LIPNF #### [facility] CLIA [id number] [address] [place] [address] [place] Iron binding capacity [Mass/Vol] 254 ug/dL Normal 232-386 [facility] Comment on above: Order Comment: Speci men Type: BLOOD SPECIMEN Ordering Facility: [facility] Address: [address] [place] [address] Performed By: #### 5 0190-8, 6-3, LIPNF #### [facility] CLIA [id number] [address] [place] [address] [place] Iron/TIBC [Molar ratio] 42.9 % Normal 15.0-57.0 [facility] Comment on above: Order Comment: Speci men Type: BLOOD SPECIMEN Ordering Facility: [facility] Address: [address] [place] [address] Performed By: #### 5 0190-8, 3015-3, LIPNF #### [facility] CLIA [id number] [address] [place] [address] [place] LIPID PANEL, NONFASTINGon Cholesterol [Mass/Vol] 185 mg/dL Normal <200 [facility] Comment on above: Order Comment: Speci men Type: BLOOD SPECIMEN Ordering Facility: [facility] Address: [address] [place], [place] [address] Result Comment: <200 mg/dL, Desirable 200-239 mg/dL, Borderline high >239 mg/dL, High Performed By: #### 5 0190-8, 3016-3, LIPNF #### [facility] CLIA [id number] [address] [place], [place] [address] [place] HDL CHOLESTEROL, NF 57 mg/dL Normal >39 [facility] Comment on above: Order Comment: Speci men Type: BLOOD SPECIMEN Ordering Facility: [facility] Address: [address] [place] [address] Result Comment: 40-5 9 mg/dL, Acceptable >59 mg/dL, High: Negative risk factor for coronary heart disease <40 mg/dL, Low: Positive risk factor for coronary heart disease Performed By: #### 5 0190-8, 3016-3, LIPNF #### [facility] CLIA [id number] [address] [place] [address] OF [facility] LDL CHOLESTEROL, NF 120 mg/dL High <100 [facility] Comment on above: Order Comment: Libradotessa martin Type: BLOOD SPECIMEN Ordering Facility: [facility] Address: [address] [place] [address] Result Comment: <100 mg/dL, Optimal 100-129 mg/dL, Near optimal/above optimal 130-159 mg/dL, Borderline high 160-189 mg/dL, High >189 mg/dL, Very high Secondary prevention optimal LDL Cholesterol levels are recommended to be < 70 mg/dL Performed By: #### 5 0190-8, 3016-3, LIPNF #### [facility] CLIA [id number] [address] [place] [address] [place] LDL/HDL RATIO, NF 2.11 mg/dL Normal <2.54 [facility] Comment on above: Order Comment: Jae martin Type: BLOOD SPECIMEN Ordering Facility: [facility] Address: [address] [place] [address] Result Comment: Refesthela jacobce: 1. National Cholesterol Education Program ATP III Guideline At-A-Glance Quick Desk Reference: National Heart, Lung, and Blood [place]. National Institutes of Health. 2001: NIH Publication No. 01-3305. 2. An International Atherosclerosis Society position paper: global recommendations for the management of dyslipidemia: executive summary, Atherosclerosis. 2014: 232(2):410-413. Performed By: #### 5 0190-8, 3016-3, LIPNF #### [facility] CLIA [id number] [address] [place] [address] [place] NON HDL CHOL, NF 128 mg/dL Normal <130 [facility] Comment on above: Order Comment: Speci men Type: BLOOD SPECIMEN Ordering Facility: [facility] Address: [address] [place] [address] Result Comment: <130 mg/dL, Optimal 130-159 mg/dL, Near optimal/above optimal 160-189 mg/dL, Borderline high 190-219 mg/dL, High >219 mg/dL, Very high Secondary prevention optimal non HDL Cholesterol levels are recommended to be <100 mg/dL Performed By: #### 5 0190-8, 3016-3, LIPNF #### [facility] CLIA [id number] [address] [place] [address] [place] T CHOL/HDL RATIO NF 3.25 mg/dL Normal <5.10 [facility] Comment on above: Order Comment: Speci men Type: BLOOD SPECIMEN Ordering Facility: [facility] Address: [address] [place] [address] Performed By: #### 5 0190-8, 3016-3, LIPNF #### [facility] CLIA [id number] [address] [place] [address] [place] TRIGLYCERIDES, NF 42 mg/dL Normal <150 [facility] Comment on above: Order Comment: Speci men Type: BLOOD SPECIMEN Ordering Facility: [facility] Address: [address] [place] [address] Result Comment: <150 mg/dL, Normal 150-199 mg/dL, Borderline high 200-499 mg/dL, High >499 mg/dL, Very high Performed By: #### 5 0190-8, 3016-3, LIPNF #### [facility] CLIA [id number] [address] [place] [address] [place] VLDL CHOLESTEROL, NF 8 mg/dL Normal <30 [facility] Comment on above: Order Comment: Speci men Type: BLOOD SPECIMEN Ordering Facility: [facility] Address: [address] [place] [address] Performed By: #### 5 0190-8, 3016-3, LIPNF #### [facility] CLIA [id number] [address] [place] [address] [place] PAP TESTon 07-09-2023 ADEQUACY Satisfactory for interpretation Normal [facility] Comment on above: Order Comment: Speci men Type: FLUID SPECIMEN Ordering Facility: [facility] Address: [address] [place] [address] Performed By: #### H PVHRT, [id number] #### [facility] CLIA [id number] [address] [place] [address] [place] CASE REPORT Normal [facility] Comment on above: Order Comment: Speci men Type: FLUID SPECIMEN Ordering Facility: [facility] Address: [address] [place] [address] Result Comment: Gyne cologic Cytology Report Case: [id number] Authorizing Provider: Gabby Lieberman APRN.BIOSOLIDS MANAGEMENT TECHNICIAN Collected: 07/09/2023 07:45 AM Ordering Location: OB/Gynecology Received: 07/09/2023 12:05 PM First Screen: Neno, [place], CT, ASCP Specimen: Pap Test, ThinPrep, Cervix Performed By: #### H PVHRT, [id number] #### [facility] CLIA [id number] [address] [place] [address] [place] CLINICAL HISTORY, CYTOLOGY, TEST WORKER Routine Exam Normal [facility] Comment on above: Order Comment: Speci men Type: FLUID SPECIMEN Ordering Facility: [facility] Address: [address] [place] [address] Performed By: #### H PVHRT, [id number] #### [facility] CLIA [id number] [address] [place] [address] [place] FINAL PERFORMING LAB Normal [facility] Comment on above: Order Comment: Speci men Type: FLUID SPECIMEN Ordering Facility: [facility] Address: [address] [place] [address] Result Comment: Tech nical component, screen printing paster screening performed at [facility], [address] [place], [place] [id number] CLIA# [id number] Diagnostic interpretation performed at [facility], [address] [place] [address] CLIA# [id number] Belt Changer: Sridhar Joel M.D. Performed By: #### H PVHRT, [id number] #### [facility] CLIA [id number] [address] [place] [address] [place] HPV REFLEX Yes HPV Normal [facility] Comment on above: Order Comment: Speci men Type: FLUID SPECIMEN Ordering Facility: [facility] Address: [address] [place] [address] Performed By: #### H PVHRT, [id number] #### [facility] CLIA [id number] [address] [place] [address] [place] INTERPRETATION, CYTOLOGY, TEST WORKER Normal [facility] Comment on above: Order Comment: Speci men Type: FLUID SPECIMEN Ordering Facility: [facility] Address: [address] [place] [address] Result Comment: Nega tive for intraepithelial lesion or malignancy. Performed By: #### H PVHRT, [id number] #### [facility] CLIA [id number] [address] [place] [address] [place] LMP 06/08/2023 Normal [facility] Comment on above: Order Comment: Speci men Type: FLUID SPECIMEN Ordering Facility: [facility] Address: [address] [place] [address] Performed By: #### H PVHRT, [id number] #### [facility] CLIA [id number] [address] [place] [address] [place] PAP DISCLAIMER COMMENT The Pap Smear is a screening test for cervical cancer. False negative results occur with all screening tests, emphasizing the need for rescreening at recommended intervals, and clinical correlation. Normal [facility] Comment on above: Order Comment: Jae martin Type: FLUID SPECIMEN Ordering Facility: [facility] Address: [address] [place] [address] Performed By: #### H PVHRT, [id number] #### [facility] CLIA [id number] [address] [place] [address] [place] PAP PILE DRIVING SETTER COMMENT This specimen has been analyzed by the ThinPrep Imaging System, an automated imaging and review system, which assists the laboratory in evaluating cells on ThinPrep Pap tests. Following automated imaging, selected simms from every slide are reviewed by a screen printing paster. Normal [facility] Comment on above: Order Comment: Jae martin Type: FLUID SPECIMEN Ordering Facility: [facility] Address: [address] [place] [address] Performed By: #### H PVHRT, [id number] #### [facility] CLIA [id number] [address] [place] [address] [place] TSH SerPl-aCncon 07-09-2023 TSH Qn 1.200 m[IU]/L Normal 0.270-4.200 [facility] Comment on above: Order Comment: Jae martin Type: BLOOD SPECIMEN Ordering Facility: [facility] Address: [address] [place] [address] Result Comment: If t he patient is , TSH reference range varies by gestational period: First Trimester (weeks 9-12): 0.180-2.990 mIU/L Second Trimester: 0.110-3.980 mIU/L Third Trimester: 0.480-4.710 mIU/L Jesus Whitmore et al. A Practical Approach for the Verifications and Determination of Site- and Trimester-Specific Reference Intervals for Thyroid Function tests in . Thyroid, 2019:29:3:412-420. Cristino E, et al. 2017 Guidelines of the [place] [employer] Association for the Diagnosis and Management of Thyroid Disease during and the . Thyroid, 2017:27:3:315-389. Performed By: #### 5 0190-8, 3016-3, LIPNF #### [facility] CLIA [id number] [address] [place] [address] [place] CNOVon 06-12-2023 CNOV Office Visit (OBGYWM) MONALISA AGUILAR ([id number]) 1985 F Date Time Provider Department 06/12/23 8:30 AM GABBY LIEBERMAN OBGYWM During your visit today, we recorded the following information about you: Blood pressure Weight Height Last Period 106 78 kg 1.765 m 06/07/23 Gabby Lieberman, CASIE.BIOSOLIDS MANAGEMENT TECHNICIAN 06/12/2023 10:27 AM Signed Monalisa Aguilar is a 37 year old female who presents for ED follow up HPI: Patient went to ED for vaginal bleeding. Patient had taken several home test started with bleeding and was concerned for miscarriage. hCG levels done at the emergency room were negative for . The provider there discussed a possible chemical and no need to follow-up for an ultrasound to rule out ectopic. Patient states that she was having pain on the left lower quadrant but since Thursday that pain has decreased. Patient does not want to start any contraceptive management at this time. Her and her are unsure if they would like to attempt for . OB History No obstetric history on file. 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 No past surgical history on file. No family history on file. No current outpatient medications on file. No current facility-administere d medications for this visit. Allergies As of Date: 06/12/2023 (Not on File) REVIEW OF SYSTEMS Abdomen: No bloating, early satiety, indigestion, or increased flatulence. No abdominal pain, nausea, vomiting, diarrhea, or constipation. Bladder: No dysuria, gross hematuria, urinary frequency, urinary urgency, or incontinence. Expanded ROS: N/A Allergies and current medication updated:Yes EXAM: There were no vitals taken for this visit. GENERAL: pleasant, female in no apparent distress HEENT: Normocephalic, atraumatic, mucus membranes moist, and no lesions CHEST: Normal inspiratory effort NEURO: alert and oriented x3,exam grossly non-focal EXTREMITIES: normal ASSESSMENT/PLAN: 1. Pelvic pain in female - ICD9: 625.9, ICD10: R10.2 Pelvic pain is resolving. Patient to follow-up for annual exam and Pap test Gabby Lieberman APRN.MARIA TERESA Medical Decision Making: Problems: Low: Acute, uncomplicated illness or injury Risk: Low: Low risk from testing/treatment Medical Decision Making Level: 3 - Low Allergies As of Date: 06/12/2023 (No Known Allergies) Date Reviewed: 06/12/2023 Reviewed by: MITCHELL Michelle Laurie - Fully Assessed Reason for Visit: ER Follow up [Other] New Patient [172] Primary Visit Diagnosis:Pelvic pain in female [R10.2] Prescriptions as of 06/12/2023 - MAGNESIUM ORAL Take by mouth once daily. - Lactobacillus acidophilus (PROBIOTIC ORAL) Take by mouth once daily. Problem List As Of Date: 06/12/2023 (None) Disposition: Return for annual exam. Follow-up and Disposition History for Encounter Date Provider Department Center 06/12[facility]20[id number] Encounter Status:Closed by GABBY LIEBERMAN on 06/12/23 Normal [facility] [id number] 06-08-2023 ABO and Rh group Nom (Bld) Blood group O Rh(D) positive Normal [facility] Comment on above: Performed By: #### B 882-1 #### [facility] [address] [place], [address] Emergency Department Summary on 06-08-2023 Emergency Department Summary [facility] Medical Records Department [address] [place] [address] Emergency Department Summary 06/08/23 MR#: [id number] Acct: [id number] Name: MONALISA AGUILAR Rep #: [id number] : 1985 37 From: Jose Cruz Knox MD PCP: Care Physician,No Primary Status:REG ER Location: ED HPI HPI - Female History of Present Illness Chief Complaint: Vag Bld, Preg Detail of Chief Complaint: Vaginal bleeding that started last evening Informant: patient Pain Pain: Positive for Pelvic Pain Onset: Yesterday Context: Sudden Onset Timing: Continuous and Waxes and wanes Quality: Positive for Cramping Location: LLQ and Suprapubic Current Severity: Mild Maximum Severity: Moderate Worsened by: - (Nothing) Relieved by: - (Nothing) Bleeding Issue: Positive for Vaginal bleeding (On third pad since onset); Negative for Passing clots or Passing tissue Onset: Yesterday Timing: Continuous Current Severity: Mild Maximum Severity: Similar to period Associated Symptoms Associated Symptoms: Positive for Frequency and Missed Period; Negative for Dysuria, Urgency or Hematuria Test: Positive (X 6) Sexually: Positive for Active Control: No control P: 2 Ab: 0 Narrative Narrative: Patient is a 37-year-old female who presents because of vaginal bleeding. Patient did 6 home test which were all positive. She is 5 to 6 weeks by dates. She denies complications or issues with prior to . There is no history of endometriosis, ovarian cyst, STI or ectopic . Patient denies orthostatic symptoms. She denies pain referred to her shoulder. She does complain of lower abdominal pain more prominent left inguinal area. She has no other complaints. Patient states she does not have an OB since her and her moved to the area 1 to 1.5 years ago. Prior similar symptoms: No Recent Illness/Hospitalizat ion: No PFSH PFSH Medical History no medical history no medical history Social History (Updated 06/08/23 @ 14:[address] Jose Cruz Knox MD) household members: spouse and children Smoking Status: Never smoker substance use type: does not use ROS ROS ED Constitutional Constitutional ED: Denies chills or fever(s) Eyes Eyes: Denies blurry vision or change in vision Cardiovascular Cardiovascular: Denies chest pain or palpitations Respiratory/Chest Respiratory/Chest: Denies cough or dyspnea Gastrointestinal Gastrointestinal: Reports abdominal pain; Denies nausea or vomiting Genitourinary Genitourinary ED: Denies dysuria, hematuria or urinary frequency Musculoskeletal Musculoskeletal: Denies arthralgias or myalgias Integumentary Denies rash EXAM Physical Exam Const Vital Signs: 06/08/23 14:22 Temperature 98.1 F Temperature Source Temporal Pulse Rate 76 Respiratory Rate 16 Blood Pressure 139/81 H Blood Pressure Mean 100 Pulse Ox 99 Oxygen Delivery Method Room Air Positive well nourished and well developed Constitutional Narrative: Patient states she is anxious. Blood pressure is slightly elevated. She is not tachycardic. General Appearance ED: well developed and NAD; Negative for odor of alcohol detected HEENT Reports TM's clear and moist mucous membranes Tympanic Membrane ED: Yes TM's clear Eyes PERRL and EOMs intact bilaterally General Eye ED: Negative for pale conjunctiva or scleral icterus Neck supple and no JVD Resp normal respiratory effort and clear to auscultation bilaterally Cardio regular rate, regular rhythm, S1 normal heart sound, no murmurs and no JVD GI normal to inspection, nondistended, normoactive bowel sounds, soft to palpation, non-tender and non- distended Back/Spine no CVA tenderness Extremity normal to inspection and full ROM Neuro oriented x3 and CN's II-XII intact bilaterally Sensorium / Orientation: alert Psych mental status grossly normal Skin no rashes or lesions noted and no wounds MDM MDM MDM Narrative Medical decision making narrative: Presents with vaginal bleeding started yesterday.Patient performed 6 home tests, which were all positive. Will obtain quantitative hCG. And will obtain ultrasound to assess for viability of and because she has more pain left adnexal inguinal area to evaluate for ectopic. Patient has no known risk factors for ectopic . IV was established. Patient was made NPO. Will obtain ABO Rh test since patient does not know blood type. Lab Data Attestation: I reviewed the patient's lab results. Lab results narrative: Patient's blood type is O+. Quantitative hCG is 2. This indicates she is not . For this reason ultrasound was not obtained. Labs: Laboratory Results - last 24 hr 06/08/23 06/08/23 14:42 15:15 HCG, Quant 2 Blood Typ (more content not included)... Normal [facility] Serum or plasma choriogonado tropin detectionOrdered By: Jose Cruz Knox on 06-08-2023 HCG ( test) Ql 2 mIU/mL <4 [facility] Comment on above: hCG levels with Gest ational AgeGestational Age hCG mIU/mL (IU/L)0.2 - 1 week 5 - 501-2 weeks 50 - 5002-3 weeks 100 - 27664-4 weeks 500 - 873235-3 weeks 1000 - 377198-9 weeks 52148 - 100,0006-8 weeks 93483 - 200,0002-3 months 91567 - 100,000 hCG Titer Quant., Serumon HCG QUANT. 2 mIU/mL Normal 1-3 [facility] Comment on above: Result Comment: hCG levels with Gestational Age Gestational Age hCG mIU/mL (IU/L) 0.2 - 1 week 5 - 50 1-2 weeks 50 - 500 2-3 weeks 100 - 5000 3-4 weeks 500 - 89683 4-5 weeks 1000 - 50415 5-6 weeks 80426 - 100,000 6-8 weeks 32772 - 200,000 2-3 months 29488 - 100,000 Performed By: #### L 700.8000 #### [facility] [address] [place], [address] COVID-19, MOLECULARon 2020 SARS-CoV-2 (COVID-19) RNA SCOTT+probe Ql (Unsp spec) Not detected Normal Not Detected [facility] Comment on above: Result Comment: This test was performed under the FDA's Emergency Use Authorization (EUA). Testing was performed using the Charli SARS-CoV-2 RT-PCR assay on the Shaheen Charli 6800 System. This test has not been approved for use in asymptomatic patients and its performance in this patient population has not been evaluated. Negative results do not rule out the presence of SARS-CoV-2/COVID-19. Fact sheets for this EUA can be found at the following links: For Healthcare Providers: https://www.fda.gov/media/350326/download For Patients: https://www.fda.gov/media/709927/download Performed By: #### L [id number] #### [facility] [address] [place], [place] [address] Avni Hendricks M.D. [id number] POC Urinalysis Dipstick, Aut oon 02-12-2021 Bilirubin Ql (U) Negative Negative [facility] Glucose Ql (U) Negative Normal, Negative mg/dL [facility] Hemoglobin Ql (U) Negative Negative [facility] lth Ketones Ql (U) Negative Negative mg/dL [place] alth Leukocyte esterase Test strip Ql (U) Negative Negative [facility] Nitrite Ql (U) Negative Negative [facility] pH (U) 7.0 [pH] [facility] Protein Ql (U) Negative Negative mg/dL [facility] alth Specific gravity (U) [Rel density] 1.015 [facility] Urobilinogen Qn (U) 0.2 mg/dL <2.0, 0. 2, Normal, Negative, 1.0, 2.0, <1.0 [facility] HCG ( test) Ql (U)O rdered By: Xochilt Santamaria on 02-11-2021 Internal Control Pass [facility] - Chemistry and C hemistry - challengeOrdered By: Xochilt Santamaria on 02-11-2021 HCG ( test) Ql (U) Negative Negative [facility] Glucose Fastingon 06-10-2019 Glucose post fast [Mass/Vol] 86 mg/dL Normal 70-99 [facility] Comment on above: Result Comment: U pdated ADA Reference Range A normal fasting glucose concentration is less than 100 mg/dL. An impaired fasting glucose concentration is 100-125 mg/dL. A provisional diagnosis of diabetes mellitus can be made when a fasting glucose concentration is greater than 125 mg/dL. Performed By: #### 1 558-6 #### [facility] [address] [place] [address] Lipid Panelon 06-10-2019 Cholesterol [Mass/Vol] 134 mg/dL Normal <200 Mo [facility] Comment on above: Result Comment: Refe r to the National Cholesterol Education Program ATP III cut offs for risk stratification. Performed By: #### 5 7698-3 #### [facility] [address] [place] [address] Cholesterol in HDL [Mass/Vol] 46 mg/dL Normal >40 [facility] Comment on above: Performed By: #### 5 7698-3 #### [facility] [address] [facility] [place] [address] Cholesterol in LDL [Mass/Vol] 82 mg/dL Normal <100 [facility] Comment on above: Performed By: #### 5 7698-3 #### [facility] [address] [place] [address] Cholesterol in VLDL [Mass/Vol] 6 mg/dL Normal 2-38 [facility] Comment on above: Performed By: #### 5 7698-3 #### [facility] [address] [facility] [place] [address] Triglyceride [Mass/Vol] 29 mg/dL Normal <200 [facility] Comment on above: Performed By: #### 5 7698-3 #### [facility] [address] [place] [address] Vital Signs Date Time Vital Sign Value Performing Clinician Facility 01-04-2025 09:20-0400 Body mass index (BMI) [Ratio] 33.04 kg/m2 Sonia Dyer MEDICAL OFFICE SPECIALIST.CNM Work Phone: [facility] 01-04-2025 09:20-0400 Body weight 102.97 kg Sonia Dyer MEDICAL OFFICE SPECIALIST.CNM Work Phone: [facility] 01-04-2025 09:20-0400 Diastolic blood pressure 62 mm[Hg] Sonia Dyer MEDICAL OFFICE SPECIALIST.CNM Work Phone: [facility] 01-04-2025 09:20-0400 Systolic blood pressure 124 mm[Hg] Sonia Dyer MEDICAL OFFICE SPECIALIST.CNM Work Phone: [facility] 12-27-2024 09:44-0400 Body mass index (BMI) [Ratio] 32.17 kg/m2 Angie Rhodes APRN.CNM Work Phone: [facility] 12-27-2024 09:44-0400 Body weight 100.25 kg Angie Rhodes APRN.CNM Work Phone: [facility] 12-27-2024 09:44-0400 Diastolic blood pressure 70 mm[Hg] Angie Rhodes MEDICAL OFFICE SPECIALIST.CNM Work Phone: [facility] 12-27-2024 09:44-0400 Systolic blood pressure 118 mm[Hg] Angie Rhodes MEDICAL OFFICE SPECIALIST.CNM Work Phone: [facility] 12-13-2024 09:45-0400 Body mass index (BMI) [Ratio] 32.02 kg/m2 Clem Quinonez MD Work Phone: [facility] 12-13-2024 09:45-0400 Body weight 99.79 kg Clem Quinonez MD Work Phone: [facility] 12-13-2024 09:45-0400 Diastolic blood pressure 64 mm[Hg] Clem Quinonez MD Work Phone: [facility] 12-13-2024 09:45-0400 Systolic blood pressure 118 mm[Hg] Clem Quinonez MD Work Phone: [facility] 11-29-2024 10:10-0400 Body mass index (BMI) [Ratio] 31.15 kg/m2 Speedy Silva MD Work Phone: [facility] 11-29-2024 10:10-0400 Body weight 97.07 kg Speedy Silva MD Work Phone: [facility] 11-29-2024 10:10-0400 Diastolic blood pressure 64 mm[Hg] Speedy Silva MD Work Phone: [facility] 11-29-2024 10:10-0400 Systolic blood pressure 122 mm[Hg] Speedy Silva MD Work Phone: [facility] 11-16-2024 11:16-0400 Body mass index (BMI) [Ratio] 30.86 kg/m2 Torsten Butts MEDICAL OFFICE SPECIALIST.BIOSOLIDS MANAGEMENT TECHNICIAN Work Phone: [facility] 11-16-2024 11:16-0400 Body weight 96.16 kg Torsten Butts MEDICAL OFFICE SPECIALIST.BIOSOLIDS MANAGEMENT TECHNICIAN Work Phone: [facility] 11-16-2024 11:16-0400 Diastolic blood pressure 70 mm[Hg] Torsten Benjamín MEDICAL OFFICE SPECIALIST.BIOSOLIDS MANAGEMENT TECHNICIAN Work Phone: [facility] 11-16-2024 11:16-0400 Systolic blood pressure 116 mm[Hg] Torsten Medellincelia MEDICAL OFFICE SPECIALIST.BIOSOLIDS MANAGEMENT TECHNICIAN Work Phone: [facility] 11-04-2024 09:12-0400 Body mass index (BMI) [Ratio] 30.83 kg/m2 Yvonne Zambrano MD Work Phone: [facility] 11-04-2024 09:12-0400 Body weight 96.07 kg Yvonne Zambrano MD Work Phone: [facility] 11-04-2024 09:12-0400 Diastolic blood pressure 60 mm[Hg] Yvonne Zambrano MD Work Phone: [facility] 11-04-2024 09:12-0400 Systolic blood pressure 110 mm[Hg] Yvonne Zambrano MD Work Phone: [facility] 10-21-2024 09:01-0400 Body mass index (BMI) [Ratio] 30.28 kg/m2 Sonia Plotts MEDICAL OFFICE SPECIALIST.CNM Work Phone: [facility] 10-21-2024 09:01-0400 Body weight 94.35 kg Sonia Plotts MEDICAL OFFICE SPECIALIST.CNM Work Phone: [facility] 10-21-2024 09:01-0400 Diastolic blood pressure 62 mm[Hg] Sonia Plotts MEDICAL OFFICE SPECIALIST.CNM Work Phone: [facility] 10-21-2024 09:01-0400 Systolic blood pressure 100 mm[Hg] Sonia Plotts MEDICAL OFFICE SPECIALIST.CNM Work Phone: [facility] 09-23-2024 09:10-0400 Body mass index (BMI) [Ratio] 29.84 kg/m2 Sonia Plotts MEDICAL OFFICE SPECIALIST.CNM Work Phone: [facility] 09-23-2024 09:10-0400 Body weight 92.99 kg Sonia Plotts MEDICAL OFFICE SPECIALIST.CNM Work Phone: [facility] 09-23-2024 09:10-0400 Diastolic blood pressure 64 mm[Hg] Sonia Plotts MEDICAL OFFICE SPECIALIST.CNM Work Phone: [facility] 09-23-2024 09:10-0400 Systolic blood pressure 100 mm[Hg] Sonia Plotts MEDICAL OFFICE SPECIALIST.CNM Work Phone: [facility] 08-24-2024 10:31-0400 Body mass index (BMI) [Ratio] 28.67 kg/m2 Angie Rhodes MEDICAL OFFICE SPECIALIST.CNM Work Phone: [facility] 08-24-2024 10:31-0400 Body weight 89.36 kg Angie Rhodes MEDICAL OFFICE SPECIALIST.CNM Work Phone: [facility] 08-24-2024 10:31-0400 Diastolic blood pressure 68 mm[Hg] Angie Rhodes MEDICAL OFFICE SPECIALIST.CNM Work Phone: [facility] 08-24-2024 10:31-0400 Systolic blood pressure 112 mm[Hg] Angie Rhodes MEDICAL OFFICE SPECIALIST.CNM Work Phone: [facility] 07-27-2024 09:55-0400 Body mass index (BMI) [Ratio] 27.45 kg/m2 Sonia Plotreuben MEDICAL OFFICE SPECIALIST.CNM Work Phone: [facility] 07-27-2024 09:55-0400 Body weight 85.55 kg Sonia Dyer MEDICAL OFFICE SPECIALIST.CNM Work Phone: [facility] 07-27-2024 09:55-0400 Diastolic blood pressure 62 mm[Hg] Sonia Plotts MEDICAL OFFICE SPECIALIST.CNM Work Phone: [facility] 07-27-2024 09:55-0400 Systolic blood pressure 118 mm[Hg] Sonia Plotts MEDICAL OFFICE SPECIALIST.CNM Work Phone: [facility] 06-29-2024 10:53-0500 Body mass index (BMI) [Ratio] 26.9 kg/m2 Angie Rhodes MEDICAL OFFICE SPECIALIST.CNM Work Phone: [facility] 06-29-2024 10:53-0500 Body weight 83.83 kg Angie Rhodes MEDICAL OFFICE SPECIALIST.CNM Work Phone: [facility] 06-29-2024 10:53-0500 Diastolic blood pressure 68 mm[Hg] Angie Rhodes MEDICAL OFFICE SPECIALIST.CNM Work Phone: [facility] 06-29-2024 10:53-0500 Systolic blood pressure 102 mm[Hg] Angie Rhodes MEDICAL OFFICE SPECIALIST.CNM Work Phone: [facility] 05-25-2024 09:01-0500 Body height 176.5 cm Angie Rhodes MEDICAL OFFICE SPECIALIST.CNM Work Phone: [facility] 05-25-2024 09:01-0500 Body mass index (BMI) [Ratio] 26.05 kg/m2 Angie Rhodes MEDICAL OFFICE SPECIALIST.CNM Work Phone: [facility] 05-25-2024 09:01-0500 Body weight 81.19 kg Angie Rhodes MEDICAL OFFICE SPECIALIST.CNM Work Phone: [facility] 05-25-2024 09:01-0500 Diastolic blood pressure 64 mm[Hg] Angie Rhodes MEDICAL OFFICE SPECIALIST.CNM Work Phone: [facility] 05-25-2024 09:01-0500 Systolic blood pressure 118 mm[Hg] Angie Rhodes MEDICAL OFFICE SPECIALIST.CNM Work Phone: [facility] 07-09-2023 06:57-0500 Body height 177.2 cm Gabby Luisana MEDICAL OFFICE SPECIALIST.BIOSOLIDS MANAGEMENT TECHNICIAN Work Phone: [facility] 07-09-2023 06:57-0500 Body weight 78.38 kg Gabby Bolinas MEDICAL OFFICE SPECIALIST.BIOSOLIDS MANAGEMENT TECHNICIAN Work Phone: [facility] 07-09-2023 06:57-0500 Diastolic blood pressure 66 mm[Hg] Gabby Bolinas MEDICAL OFFICE SPECIALIST.BIOSOLIDS MANAGEMENT TECHNICIAN Work Phone: [facility] 07-09-2023 06:57-0500 Systolic blood pressure 102 mm[Hg] Gabby Bolinas MEDICAL OFFICE SPECIALIST.BIOSOLIDS MANAGEMENT TECHNICIAN Work Phone: [facility] 06-08-2023 14:22-0500 Body height 175.26 cm [facility] 06-08-2023 14:22-0500 Body mass index (BMI) [Ratio] 24.4 kg/m2 [facility] 06-08-2023 14:22-0500 Body temperature 98.1 [degF] [facility] 06-08-2023 14:22-0500 Body weight 75.11 kg [facility] 06-08-2023 14:22-0500 Diastolic blood pressure 81 mm[Hg] [facility] 06-08-2023 14:22-0500 Heart rate 76 /min [facility] 06-08-2023 14:22-0500 Respiratory rate 16 /min [facility] 06-08-2023 14:22-0500 SaO2% (BldA) [Mass fraction] 99 % [facility] 06-08-2023 14:22-0500 Systolic blood pressure 139 mm[Hg] [facility] 07-30-2021 09:54-0400 Body mass index (BMI) [Ratio] 22.24 kg/m2 Roni Sauceda MD Work Phone: [facility] 07-30-2021 09:54-0400 Body temperature 97.81 [degF] Roni Sauceda MD Work Phone: [facility] 07-30-2021 09:54-0400 Body weight 70.31 kg Roni Sauceda MD Work Phone: [facility] 07-30-2021 09:54-0400 Diastolic blood pressure 75 mm[Hg] Roni Sauceda MD Work Phone: [facility] 07-30-2021 09:54-0400 Heart rate 63 /min Roni Sauceda MD Work Phone: [facility] 07-30-2021 09:54-0400 Respiratory rate 18 /min Roni Sauceda MD Work Phone: [facility] 07-30-2021 09:54-0400 SaO2% (BldA) [Mass fraction] 97 % Roni Sauceda MD Work Phone: [facility] 07-30-2021 09:54-0400 Systolic blood pressure 112 mm[Hg] Roni Sauceda MD Work Phone: [facility] 02-11-2021 10:14-0400 Body height 175.3 cm Elodia Miranda MD Work Phone: [facility] 02-11-2021 10:14-0400 Body mass index (BMI) [Ratio] 24.01 kg/m2 Elodia Miranda MD Work Phone: [facility] 02-11-2021 10:14-0400 Body temperature 98.8 [degF] Elodia Miranda MD Work Phone: [facility] 02-11-2021 10:14-0400 Body weight 73.75 kg Elodia Miranda MD Work Phone: [facility] 02-11-2021 10:14-0400 Diastolic blood pressure 75 mm[Hg] Elodia Miranda MD Work Phone: [facility] 02-11-2021 10:14-0400 Heart rate 60 /min Elodia Miranda MD Work Phone: [facility] 02-11-2021 10:14-0400 SaO2% (BldA) [Mass fraction] 98 % Elodia Miranda MD Work Phone: [facility] 02-11-2021 10:14-0400 Systolic blood pressure 119 mm[Hg] Elodia Miranda MD Work Phone: [facility] 04-26-2020 07:39-0500 BMI (Body Mass Index) 24.51 kg/m2 Elodia Miranda [facility] 04-26-2020 07:39-0500 Body Temperature 97.7 [degF] Elodia Miranda [facility] 04-26-2020 07:39-0500 Body weight 75.3 kg Elodia Miranda [facility] 04-26-2020 07:39-0500 BP Diastolic 69 mm[Hg] [facility] 04-26-2020 07:39-0500 BP Systolic 110 mm[Hg] [facility] 04-26-2020 07:39-0500 Height 175.3 cm [facility] 04-26-2020 07:39-0500 Pulse (Heart Rate) 65 /min [facility] 04-26-2020 07:39-0500 Pulse Oximetry 96 % [facility] Encounters Encounter Date Encounter Type Care Provider Facility Start: 01-04-2025 End: 01-04-2025 Patient encounter procedure Sonia Terireuben SALES Work Phone: OB/Gynecology Comment on above: 39 weeks gestation o f (HCC) (Primary Dx); AMA (advanced maternal age) multigravida 35+, third trimester (HCC) Start: 01-04-2025 End: 01-04-2025 ambulatory SONIA DYER Facility:[facility] Start: 12-29-2024 End: 12-29-2024 ambulatory Alda Martínez MA [facility] Start: 12-29-2024 End: 12-29-2024 Patient encounter procedure Alda Martínez MA [facility] Comment on above: Population Health Na vigation Outreach (Ob/peds) Start: 12-27-2024 End: 12-27-2024 Patient encounter procedure Angie Rhodes APRN.CNM Work Phone: OB/Gynecology Comment on above: Supervision of high risk in third trimester (HCC) (Primary Dx); AMA (advanced maternal age) multigravida 35+, third trimester (HCC); Prior macrosomia, antepartum (HCC); 38 weeks gestation of (HCC) Start: 12-27-2024 End: 12-27-2024 ambulatory ANGIE RHODES Facility:[facility] Start: 12-20-2024 End: 12-20-2024 ambulatory ANGIE RHODES [facility] [facility] Start: 12-13-2024 End: 12-13-2024 Patient encounter procedure Clem Quinonez MD Work Phone: OB/Gynecology Comment on above: Supervision of high risk in third trimester (HCC) (Primary Dx); 36 weeks gestation of (HCC); AMA (advanced maternal age) multigravida 35+, third trimester (HCC); Prior macrosomia, antepartum (HCC) Encounter for ultras ound to check growth (HCC) (Primary Dx); Multigravida of advanced maternal age in third trimester (HCC); Prior macrosomia, antepartum (HCC); 36 weeks gestation of (HCC) Start: 12-13-2024 End: 12-13-2024 ambulatory CLEM QUINONEZ Facility:[facility] Start: 11-29-2024 End: 11-29-2024 ambulatory SPEEDY SILVA Facility:[facility] Start: 11-29-2024 End: 11-29-2024 Patient encounter procedure Speedy Silva MD Work Phone: OB/Gynecology Comment on above: Supervision of high risk in third trimester (HCC) (Primary Dx); Multigravida of advanced maternal age in third trimester (HCC); Prior macrosomia, antepartum (HCC); 34 weeks gestation of (HCC) Start: 11-16-2024 End: 11-16-2024 Patient encounter procedure Torsten Butts APRN.CNP Work Phone: OB/Gynecology Comment on above: Supervision of high risk in third trimester (HCC) (Primary Dx); 32 weeks gestation of (HCC); Multigravida of advanced maternal age in third trimester (HCC); Prior macrosomia, antepartum (HCC) Start: 11-16-2024 End: 11-16-2024 ambulatory TORSTEN BUTTS Facility:[facility] Start: 11-04-2024 End: 11-04-2024 ambulatory YVONNE ZAMBRANO Facility:[facility] Start: 11-04-2024 End: 11-04-2024 Patient encounter procedure Yvonne Zambrano MD Work Phone: OB/Gynecology Comment on above: 30 weeks gestation o f (HCC) (Primary Dx); Supervision of high risk in third trimester (HCC); Multigravida of advanced maternal age in third trimester (HCC) Start: 10-21-2024 End: 10-21-2024 Patient encounter procedure Sonia Dyer APRN.CNM Work Phone: OB/Gynecology Comment on above: Supervision of high risk in third trimester (HCC) (Primary Dx); Multigravida of advanced maternal age in third trimester (HCC); 28 weeks gestation of (HCC); Prior macrosomia, antepartum (HCC); Need for vaccination Start: 10-21-2024 End: 10-21-2024 ambulatory SONIA DYER Facility:[facility] Start: 09-23-2024 End: 09-23-2024 Patient encounter procedure Sonia Dyer MEDICAL OFFICE SPECIALIST.WILBERT Work Phone: OB/Gynecology Comment on above: Supervision of high risk in second trimester (HCC) (Primary Dx); 24 weeks gestation of (HCC); Screening for diabetes mellitus; Multigravida of advanced maternal age in second trimester (HCC); Prior macrosomia, antepartum (HCC) Start: 09-23-2024 End: 09-23-2024 ambulatory [facility] Facility:[facility] Start: 08-24-2024 End: 08-24-2024 ambulatory ANGIE RHODES Facility:[facility] Start: 08-24-2024 End: 08-24-2024 Patient encounter procedure Angie Rhodes MEDICAL OFFICE SPECIALIST.WILBERT Work Phone: OB/Gynecology Comment on above: Supervision of high risk in second trimester (HCC) (Primary Dx); 20 weeks gestation of (HCC); Multigravida of advanced maternal age in second trimester (HCC); Prior macrosomia, antepartum (HCC) Encounter for anatomic survey (HCC) (Primary Dx); 20 weeks gestation of (HCC); Multigravida of advanced maternal age in second trimester (HCC) Start: 07-27-2024 End: 07-27-2024 ambulatory SONIA DYER Facility:[facility] Start: 07-27-2024 End: 07-27-2024 Patient encounter procedure Sonia Dyer MEDICAL OFFICE SPECIALIST.WILBERT Work Phone: OB/Gynecology Comment on above: 16 weeks gestation o f (Primary Dx); Multigravida of advanced maternal age in second trimester; Multigravida of advanced maternal age in first trimester Start: 06-29-2024 End: 06-30-2024 Follow-up encounter Angie Rhodes APRN.CNM Work Phone: OB/Gynecology Start: 06-29-2024 End: 06-29-2024 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 [facility] Comment on above: Encounter for antena scott screening for malformation using ultrasound (Primary Dx); 12 weeks gestation of Supervision of other high risk pregnancies, first trimester (Primary Dx); 12 weeks gestation of ; Multigravida of advanced maternal age in second trimester Start: 06-29-2024 End: 06-29-2024 ambulatory ANGIE RHODES Facility:[facility] Start: 06-28-2024 End: 06-28-2024 ambulatory Angie Rhodes APRN.CNM Work Phone: OB/Gynecology Comment on above: Bloodwork Start: 06-18-2024 End: 06-20-2024 ambulatory Angie Rhodes APRN.CNM Work Phone: OB/Gynecology Comment on above: Cramping Start: 05-25-2024 End: 05-25-2024 ambulatory ANGIE RHODES Facility:[facility] Start: 05-25-2024 End: 05-25-2024 Patient encounter procedure Angie Rhodes APRN.CNM Work Phone: OB/Gynecology Comment on above: with uncer tain dates, antepartum (Primary Dx); Prior macrosomia, antepartum; Multigravida of advanced maternal age in first trimester; Supervision of other high risk pregnancies, first trimester Start: 12-29-2023 End: 12-29-2023 ambulatory No Primary Care Physician Facility:[facility] Start: 07-09-2023 End: 07-10-2023 ambulatory Gabby Lieberman APRN.BIOSOLIDS MANAGEMENT TECHNICIAN Work Phone: OB/Gynecology Comment on above: Labs Start: 07-09-2023 Encounter for other specified special examinations GABBY LIEBERMAN [facility] Start: 07-09-2023 End: 07-09-2023 Patient encounter procedure Gabby Lieberman APRN.BIOSOLIDS MANAGEMENT TECHNICIAN Work Phone: OB/Gynecology Comment on above: Encounter for gyneco logical examination (general) (routine) without abnormal findings (Primary Dx); Screening for cervical cancer; Encounter for screening for human papillomavirus (HPV); Encounter for routine laboratory testing Start: 07-09-2023 End: 07-09-2023 Patient encounter status Gabby Lieberman APRN.BIOSOLIDS MANAGEMENT TECHNICIAN Work Phone: [facility] Start: 06-12-2023 End: 06-12-2023 ambulatory GABBY LIEBERMAN Facility:[facility] Start: 06-08-2023 End: 06-08-2023 Emergency department patient visit [facility] Work Phone: Start: 09-05-2022 Documentation procedure Lianet contreras LPN [facility] Start: 11-11-2021 ambulatory [facility] Start: 07-30-2021 End: 07-30-2021 ambulatory [facility] Start: 07-30-2021 End: 07-30-2021 Office outpatient new 30 minutes Roni Sauceda MD Work Phone: [facility] [place] Comment on above: Sinusitis, unspecifi ed chronicity, unspecified location (Primary Dx) Start: 03-08-2021 End: 03-08-2021 ambulatory [facility] Start: 03-04-2021 End: 03-04-2021 ambulatory [facility] Start: 02-11-2021 End: 02-15-2021 ambulatory [facility] Start: 02-11-2021 End: 02-11-2021 Office outpatient visit 25 minutes Elodia Miranda MD Work Phone: [facility] Comment on above: Preoperative clearan ce (Primary Dx); Esotropia Start: 02-11-2021 End: 02-11-2021 Preoperative state Elodia Miranda MD Work Phone: [facility] Start: 01-04-20[facility] Start: 04-26-2020 End: 04-26-2020 Periodic preventive med est patient 18-39 yrs Elodia Miranda Work Phone: [facility] Comment on above: Annual physical exam (Primary Dx) Procedures Date Procedure Procedure Detail Performing Clinician Start: 12-27-2024 Urnls dip stick/tabl et rgnt non-auto w/o micrscp Angie Rhodes MEDICAL OFFICE SPECIALIST.CNM Work Phone: Start: 12-13-2024 Urnls dip stick/tabl et rgnt non-auto w/o micrscp Clem Quinonez MD Work Phone: Start: 12-13-2024 Us preg uterus after 1st trimest / gestation Speedy Silva MD Work Phone: Start: 11-29-2024 Urnls dip stick/tabl et rgnt non-auto w/o micrscp Speedy Silva MD Work Phone: Start: 11-16-2024 Urnls dip stick/tabl et rgnt non-auto w/o micrscp Sonia Dyer MEDICAL OFFICE SPECIALIST.CNM Work Phone: Start: 08-24-2024 Us preg uterus after 1st trimest / gestation Angie Rhodes APRN.CNM Work Phone: Start: 06-29-2024 Us nuchal translucency 1st gestation Angie Rhodes APRN.CNM Work Phone: Start: 06-29-2024 Antibody screen JOSE DYER Comment on above: Order Comment: Speci men Type: BLOOD SPECIMEN Ordering Facility: [facility] Address: [address] [place] [address] Performed By: #### T SPN #### [facility] CLIA [id number] [address] [address] [place] [address] [place] Start: 05-25-2024 BACTERIAL VAGINOSIS NAAT Angie Rhodes APRN.CNM Work Phone: Start: 05-25-2024 Iadna chlamydia trachomatis amplified probe tq Angie Rhodes APRN.CNM Work Phone: Start: 05-25-2024 Us uterus l imited 1/> fetuses Angie Rhodes APRN.CNM Work Phone: Start: 02-12-2021 Urnls dip stick/tabl et rgnt auto w/o microscopy Elodia Miranda MD Work Phone: Start: 02-11-2021 Urine test visual color cmprsn meths Elodia Miranda MD Work Phone: Start: 01-01-2017 Microscopic observat ion [Identifier] in Cervix by Cyto stain Elodia Miranda Plan of Treatment Date Care Activity Detail Author Start: 07-09-2028 Screening for malign ant neoplasm of cervix Cervical Cancer Screening [facility] Start: 01-26-2026 Screening for malign ant neoplasm of cervix Pap Testing [facility] Start: 01-16-2025 Influenza vaccination [facility] Start: 01-10-2025 End: 01-10-2025 Patient encounter procedure 01/10/2025 1:45 PM EDT Routine Office Visit OB/Gynecology [address] [place] [address] Angie Rhodes APRN.CNM [address] [place] [place] [address] OB OB/Gynecology Comment on above: OB Start: 01-04-2025 End: 01-04-2025 Patient encounter procedure 01/04/2025 9:15 AM EDT Routine Office Visit OB/Gynecology [address] [place] [address] Sonia Dyer APRN.CNM [address] [place] [address] OB OB/Gynecology Comment on above: OB Start: 12-27-2024 End: 12-27-2024 Patient encounter procedure 12/27/2024 9:45 AM EDT Routine Office Visit OB/Gynecology [address] [place] [address] Angie Rhodes APRN.CNM [address] [place] [address] OB OB/Gynecology Comment on above: OB Start: 12-20-2024 End: 12-20-2024 Patient encounter procedure 12/20/2024 9:45 AM EDT Routine Office Visit OB/Gynecology [address] [place] [address] Angie Rhodes APRN.CNM [address] [place] [address] OB OB/Gynecology Comment on above: OB Start: 12-13-2024 End: 12-13-2024 Patient encounter procedure OB/Gynecology Comment on above: OB Growth Start: 11-29-2024 End: 11-29-2025 OBSTETRIC ULTRASOUND WHI OBSTETRIC ULTRASOUND WHI Anc Imaging Routine Multigravida of advanced maternal age in third trimester (HCC) Prior macrosomia, antepartum (HCC) Expected: 11/29/2024, Expires: 11/29/2025 [facility] Work Phone: Comment on above: Expected: 11/29/2024 , Expires: 11/29/2025 Start: 11-29-2024 End: 11-29-2024 Patient encounter procedure 11/29/2024 9:50 AM EDT Routine Office Visit OB/Gynecology [address] [place] [address] Speedy Silva MD [address] [place] [address] OB OB/Gynecology Comment on above: OB Start: 11-16-2024 End: 11-16-2024 Patient encounter procedure 11/16/2024 11:15 AM EDT Routine Office Visit OB/Gynecology [address] [place] [address] Sonia Dyer APRN.CNM [address] [place] [address] Ob OB/Gynecology Comment on above: Ob Start: 11-04-2024 End: 11-04-2024 Patient encounter procedure 11/04/2024 9:10 AM EDT Routine Office Visit OB/Gynecology [address] [place] [address] Yvonne Zambrano MD [address] [place] [address] OB OB/Gynecology Comment on above: OB Start: 10-21-2024 End: 10-21-2024 Patient encounter procedure 10/21/2024 9:15 AM EDT Routine Office Visit OB/Gynecology [address] [place] [address] Sonia Dyer APRN.CN [address] [place] [address] 4 wk NOLBERTO and Labs Glucose OB/Gynecology Comment on above: 4 wk NOLBERTO and Labs Gl ucose Start: 10-21-2024 End: 10-21-2024 ambulatory 10/21/2024 8:30 AM EDT Results Only Hetal Castaneda [facility] [address] [place] [address] 4 wk NOLBERTO and Labs Glucose [facility] Comment on above: 4 wk NOLBERTO and Labs Gl ucose Start: 09-23-2024 End: 12-23-2024 ANEMIA REFLEX PANEL ANEMIA REFLEX PANEL Lab Routine Supervision of high risk in second trimester ([facility]) 24 weeks gestation of ([facility]) Multigravida of advanced maternal age in second trimester ([facility]) Prior macrosomia, antepartum ([facility]) Expected: 09/23/2024, Expires: 12/23/2024 [facility] Comment on above: Expected: 09/23/2024 , Expires: 12/23/2024 Start: 09-23-2024 End: 09-23-2025 GESTATIONAL GLUCOSE SCREEN, 1-HOUR, 50 GRAM, NON-FASTING GESTATIONAL GLUCOSE SCREEN, 1-HOUR, 50 GRAM, NON-FASTING Lab Routine Supervision of high risk in second trimester (HCC) 24 weeks gestation of ([facility]) Screening for diabetes mellitus Multigravida of advanced maternal age in second trimester ([facility]) Prior macrosomia, antepartum (HCC) Expected: 09/23/2024, Expires: 09/23/2025 [facility] Work Phone: Comment on above: Expected: 09/23/2024 , Expires: 09/23/2025 Start: 09-23-2024 End: 09-23-2025 SYPHILIS TREPONEMAL W/REFLEX SYPHILIS TREPONEMAL W/REFLEX Lab Routine Supervision of high risk in second trimester ([facility]) 24 weeks gestation of ([facility]) Multigravida of advanced maternal age in second trimester ([facility]) Prior macrosomia, antepartum ([facility]) Expected: 09/23/2024, Expires: 09/23/2025 [facility] Comment on above: Expected: 09/23/2024 , Expires: 09/23/2025 Start: 09-23-2024 End: 09-23-2024 Patient encounter procedure 09/23/2024 9:15 AM EDT Routine Office Visit OB/Gynecology [address] [place] [address] Angie Rhodes APRN.CNM [address] [place] [address] OB OB/Gynecology Comment on above: OB Start: 08-24-2024 End: 08-24-2024 Patient encounter procedure Maternal Medicine Comment on above: OB Start: 07-27-2024 End: 07-27-2024 Patient encounter procedure 07/27/2024 10:00 AM EDT Routine Office Visit OB/Gynecology [address] [place] [address] Sonia Dyer APRN.CNM [address] [place] [address] OB OB/Gynecology Comment on above: OB Start: 06-29-2024 End: 06-29-2024 Patient encounter procedure Maternal Medicine Comment on above: with uncer tain dates, antepartum [Z34.90] OB Start: 05-25-2024 End: 08-24-2024 ANEMIA REFLEX PANEL ANEMIA REFLEX PANEL Lab Routine with uncertain dates, antepartum Expected: 05/25/2024, Expires: 08/24/2024 [facility] Work Phone: Comment on above: Expected: 05/25/2024 , Expires: 08/24/2024 Start: 05-25-2024 End: 08-24-2024 Hemoglobin A1c in Blood HEMOGLOBIN A1C Lab Routine with uncertain dates, antepartum Expected: 05/25/2024, Expires: 08/24/2024 [facility] Comment on above: Expected: 05/25/2024 , Expires: 08/24/2024 Start: 05-25-2024 End: 08-24-2024 HEMOGLOBIN EVALUATION CASCADE HEMOGLOBIN EVALUATION CASCADE Lab Routine with uncertain dates, antepartum Expected: 05/25/2024, Expires: 08/24/2024 [facility] Comment on above: Expected: 05/25/2024 , Expires: 08/24/2024 Start: 05-25-2024 End: 08-24-2024 Hepatitis B virus surface Ag [Presence] in Serum HEPATITIS B SURFACE ANTIGEN Lab Routine with uncertain dates, antepartum Expected: 05/25/2024, Expires: 08/24/2024 [facility] Comment on above: Expected: 05/25/2024 , Expires: 08/24/2024 Start: 05-25-2024 End: 08-24-2024 Hepatitis C virus Ab [Presence] in Serum HEPATITIS C ANTIBODY IA WITH CONFIRMATION Lab Routine with uncertain dates, antepartum Expected: 05/25/2024, Expires: 08/24/2024 [facility] Comment on above: Expected: 05/25/2024 , Expires: 08/24/2024 Start: 05-25-2024 End: 08-24-2024 HIV 1+2 Ab [Presence] in Serum or Plasma by Immunoassay HIV 1/2 COMBO WITH REFLEX TO DIFFERENTIATION Lab Routine with uncertain dates, antepartum Expected: 05/25/2024, Expires: 08/24/2024 [facility] Comment on above: Expected: 05/25/2024 , Expires: 08/24/2024 Start: 05-25-2024 End: 05-25-2025 NUCHAL TRANSLUCENCY WHI NUCHAL TRANSLUCENCY WHI Anc Imaging Routine with uncertain dates, antepartum Expected: 05/25/2024, Expires: 05/25/2025 [facility] Comment on above: Expected: 05/25/2024 , Expires: 05/25/2025 Start: 05-25-2024 End: 05-25-2025 OBSTETRIC ULTRASOUND WHI OBSTETRIC ULTRASOUND WHI Anc Imaging Routine with uncertain dates, antepartum Expected: 05/25/2024, Expires: 05/25/2025 [facility] Comment on above: Expected: 05/25/2024 , Expires: 05/25/2025 Start: 05-25-2024 End: 08-24-2024 RUBELLA IGG ANTIBODY RUBELLA IGG ANTIBODY Lab Routine with uncertain dates, antepartum Expected: 05/25/2024, Expires: 08/24/2024 [facility] Comment on above: Expected: 05/25/2024 , Expires: 08/24/2024 Start: 05-25-2024 End: 08-24-2024 SYPHILIS TREPONEMAL W/REFLEX SYPHILIS TREPONEMAL W/REFLEX Lab Routine with uncertain dates, antepartum Expected: 05/25/2024, Expires: 08/24/2024 [facility] Comment on above: Expected: 05/25/2024 , Expires: 08/24/2024 Start: 05-25-2024 End: 08-24-2024 TYPE + SCREEN TYPE + SCREEN Blood Bank Routine with uncertain dates, antepartum Expected: 05/25/2024, Expires: 08/24/2024 [facility] Comment on above: Expected: 05/25/2024 , Expires: 08/24/2024 Start: 01-17-2024 Covid-19 Vaccine () Covid-19 Vaccine () [facility] Start: 01-17-2024 Influenza vaccination Influenza Vacc ine (#1) [facility] Start: 07-09-2023 End: 10-08-2023 Iron and Iron binding capacity panel - Serum or Plasma [facility] Work Phone: Comment on above: Expected: 07/09/2023 , Expires: 10/08/2023 Start: 07-09-2023 End: 10-08-2023 LIPID PANEL, NONFASTING [facility] Work Phone: Comment on above: Expected: 07/09/2023 , Expires: 10/08/2023 Start: 07-09-2023 End: 10-08-2023 Thyrotropin [Units/volume] in Serum or Plasma [facility] Work Phone: Comment on above: Expected: 07/09/2023 , Expires: 10/08/2023 Start: 06-08-2023 [facility] Start: 05-18-2023 Depression Assessment Depression Ass essment [facility] Start: 01-16-2023 Influenza vaccination [facility] Start: 04-26-2021 History and physical examination, annual for health maintenance Wellness Visit [facility] Start: 03-08-2021 End: 03-08-2021 Admission to same day surgery center 03/08/2021 Surgery Nay Whittington MD [address] [facility] [address] [place] [address] RECESS LATERAL RECTUS MUSCLES 4.5 MM BILATERAL (POSSIBLE SWITCH TO RESECT/ADVANCE MEDIAL RECTUS MUSCLES 3.5 MM OU) [facility] Comment on above: RECESS LATERAL RECTU S MUSCLES 4.5 MM BILATERAL (POSSIBLE SWITCH TO RESECT/ADVANCE MEDIAL RECTUS MUSCLES 3.5 MM OU) Start: 03-08-2021 End: 03-08-2021 REPAIR STRABISMUS REPAIR STRABISMUS H50.30 03/08/2021 8:45 AM EDT [facility] Start: 03-08-2021 Subsequent hospital visit by physician 03/08/2021 Hospital Encounter Nay Whittington MD [address] [facility] [address] [place] [address] [facility] Start: 01-16-2021 Influenza vaccination Sequenti al Influenza Vaccine (#1) [facility] Start: 01-17-2020 Influenza vaccinatio n given Sequential Influenza Vaccine (#1) [facility] Start: 01-02-2020 Screening for malign ant neoplasm of cervix Pap Smear [facility] Start: 2017 Screening for malign ant neoplasm of cervix HPV Testing [facility] Start: 2014 HPV Vaccine (1 - 3-d ose SCDM series) HPV Vaccine (1 - 3-dose SCDM series) [facility] Start: 2006 Hepatitis B Vaccine (1 of 3 - 19+ 3-dose series) Hepatitis B Vaccine (1 of 3 - 19+ 3-dose series) [facility] Start: 2006 Urine microalbumin profile DTaP,Tdap,Td Vaccine (1 - Tdap) [facility] Start: 2005 Anxiety Screening Anxiety Screening [facility] Start: 2005 Depression Screening Depression Scre ening [facility] Start: 2005 Hepatitis C antibody , confirmatory test Hepatitis C Screening [facility] Start: 2005 Hepatitis C screening Hepatitis C Sc reening [facility] Start: 2005 HIV screening HIV Screening [facility] Start: 1999 Adolescent depressio n screening assessment Depression Screening (PHQ9) [facility] Start: 1999 COVID-19 Vaccine (1) COVID-19 Vaccin e (1) [facility] Start: 1999 Depression screening using PHQ-9 (Patient Health Questionnaire 9) score [facility] Start: 1992 COVID-19 Vaccine (1) COVID-19 Vaccin e (1) [facility] Start: 1987 COVID-19 Vaccine (#1) COVID-19 Vacci ne (#1) [facility] Start: 1987 Hepatitis B Vaccine (1 of 3 - 3-dose series) Hepatitis B Vaccine (1 of 3 - 3-dose series) [facility] Start: 1987 Tetanus vaccination Tetanus: Every 1 0yrs [facility] Bacteria identified in Urine by Culture BACTERIAL CULTURE, URINE Microbiology Routine with uncertain dates, antepartum 05/25/2024 10:06 AM EST [facility] End: 04-26-2021 Complete blood count (hemogram) panel - Blood by Automated count CBC Lab Routine Annual physical exam 1 Occurrences starting 04/26/2020 until 04/26/2021 [facility] Comment on above: 1 Occurrences starti ng 04/26/2020 until 04/26/2021 End: 04-26-2021 Comprehensive metabolic 2000 panel Comprehensive Metabolic Panel Lab Routine Annual physical exam 1 Occurrences starting 04/26/2020 until 04/26/2021 [facility] Comment on above: 1 Occurrences starti ng 04/26/2020 until 04/26/2021 End: 04-26-2021 HbA1c (Bld) [Mass fraction] Hemoglobin A1c Lab Routine Annual physical exam 1 Occurrences starting 04/26/2020 until 04/26/2021 [facility] Comment on above: 1 Occurrences starti ng 04/26/2020 until 04/26/2021 End: 04-26-2021 Lipid 1996 panel Lipid Panel Lab Routine Annual physical exam 1 Occurrences starting 04/26/2020 until 04/26/2021 [facility] Comment on above: 1 Occurrences starti ng 04/26/2020 until 04/26/2021 PAP TEST PAP TEST Lab Meena vitale Encounter for gynecological examination (general) (routine) without abnormal findings Screening for cervical cancer Encounter for screening for human papillomavirus (HPV) 07/09/2023 7:45 AM EST [facility] Work Phone: Patient Education ED Dysfunction al Uterine Bleeding [facility] Work Phone: Patient referral [facility] Work Phone: End: 02-12-2022 POC Urinalysis Dipstick, Auto POC Urinalysis Dipstick, Auto Point of Care Testing Routine Preoperative clearance 1 Occurrences starting 02/12/2021 until 02/12/2022 [facility] Work Phone: Comment on above: 1 Occurrences starti ng 02/12/2021 until 02/12/2022 ROUTINE, GR OUP B STREPTOCOCCUS BY PCR ROUTINE, GROUP B STREPTOCOCCUS BY PCR Microbiology Routine 36 weeks gestation of (HCC) AMA (advanced maternal age) multigravida 35+, third trimester (HCC) 12/13/2024 10:14 AM EDT [facility] Work Phone: End: 04-26-2021 TSH Qn TSH Lab Routine Annual physical exam 1 Occurrences starting 04/26/2020 until 04/26/2021 [facility] Comment on above: 1 Occurrences starti ng 04/26/2020 until 04/26/2021 End: 04-26-2021 Urinalysis Urinalysis Lab Routine Annual physical exam 1 Occurrences starting 04/26/2020 until 04/26/2021 [facility] Comment on above: 1 Occurrences starti ng 04/26/2020 until 04/26/2021 URINE OB DIP B/O URINE OB DIP B/ O Lab Routine 39 weeks gestation of (HCC) AMA (advanced maternal age) multigravida 35+, third trimester (HCC) Ordered: 01/04/2025 [facility] Work Phone: Comment on above: Ordered: 01/04/2025 [facility] Payers Date Payer Category Payer Unknown [id number] 2023 Private Health Insurance [id number] 2023 Self-pay 2020 Unknown [id number] 2020 Unknown [id number] 2020 Unknown [id number] 2014 Unknown [id number] 1987 Unknown [id number] 2.16. [id number] 1987 Unknown [id number] 2.16. [id number] 1987 Unknown [id number] 2.16. [id number] 1987 Unknown [id number] 2.16. [id number] 1987 Unknown [id number] 2.16. [id number] 1987 Unknown [id number] 2.16. [id number] 1987 Unknown [id number] 2.16. [id number] Unknown [id number] 2.16.8 [id number] Unknown [id number] 2.16.8 [id number] Social History Date Type Detail Facility Start: 04-26-2020 End: 07-09-2023 Tobacco smoking status NHIS Never smoker [facility] Start: 04-26-2020 End: 07-09-2023 Tobacco use and exposure Never used [facility] Start: 04-26-2020 End: 02-11-2021 Alcohol intake Current non-drinker of alcohol (finding) [facility] Start: 04-26-2020 History SDFL Social Connections Membership 2 [facility] Start: 04-26-2020 History SDOH Social Connections Meetings 1 [facility] Start: 04-26-2020 History SDOH Financial 5 [facility] Start: 1985 Sex Assigned At Not [facility] file [facility] Exposure [facility] SARS-CoV -2 (event) [facility] Start: 07-30-2021 End: 01-04-2025 Alcohol intake Current drinker of alcohol (finding) [facility] Start: 07-30-2021 End: 12-29-2023 Alcohol intake [facility] Start: 03-07-2021 History SDFL Alcohol Comment ONCE OR TWICE A MONTH [facility] Start: 04-26-2020 End: 12-29-2023 Social connection and isolation panel [facility] Start: 12-31-2017 Frequency of Communication with Friends and Family Not on file [facility] Do you belong to any clubs or organizations such as episcopal groups, unions, fraternal or athletic groups, or school groups? No [facility] (I/We) worried wheth er (my/our) food would run out before (I/we) got money to buy more. Never true [facility] Start: 03-08-2021 Gender identity Identifies as female gender (finding) [facility] Start: 03-08-2021 Sexual orientation Choose not to disclose [facility] Start: 04-19-2024 [facility] Start: 06-08-2023 Tobacco smoking stat us NHIS Unknown if ever smoked [facility] Start: 1985 Sex Assigned At Female W [facility] Start: 07-09-2023 Education 17 [facility] Start: 06-12-2023 Alcohol Comment 2-3 times per month [facility] NEGATED: Highlighted rowStart: NINF History of tobacco use Passive smoker [facility] Goals Date Patient Goal Desired Activity /State Personal health goal Clinical Notes 02-11-2021 to 01-04-2025 Quick Notes - Sonia Dyer APRN.CNM - 01/04/2025 9:41 AM EDTPrenatal Quick Notes - Sonia Dyer APRN.CNM - 01/04/2025 9:41 AM EDTPatient InstructionsPatient Instructions Note Date & Type Note Facility 01-04-2025 Progress note Formatting of t his note might be different from the original. S: Monalisa Aguilar is a 39 year old female who presents at 39 weeks gestation for a routine visit. Positive movements. Occasional contractions. Nothing consistent. Denies headache, visual changes, chest pain, shortness of breath, vaginal bleeding, leakage of fluid, or dysuria. Feeling well, no complaints. Requesting CE with membrane sweep today. O: See flow sheet Gen: No apparent distress Abd: Gravid, nontender CE FT/Posterior ASSESSMENT/PLAN: 1. 39 weeks gestation of ([facility]) - ICD9: V22.2, ICD10: Z3A.39 (primary diagnosis) 2. AMA (advanced maternal age) multigravida 35+, third trimester ([facility]) - ICD9: 659.63, ICD10: - FT/Posterior- unable to feel head- TAUS completed to verify vertex - Support provided- patient concerned she is not dilated yet- discussed last was 10 years ago - Handout on preparation for labor provided - Desires physiological onset of labor and possible water delivery - RTO 1 week or sooner if needed Sonia Dyer APRN.CNM [facility] Work Phone: 01-04-2025 Miscellaneous Notes S: Monalisa Aguilar is a 39 year old female who presents at 39 weeks gestation for a routine visit. Positive movements. Occasional contractions. Nothing consistent. Denies headache, visual changes, chest pain, shortness of breath, vaginal bleeding, leakage of fluid, or dysuria. Feeling well, no complaints. Requesting CE with membrane sweep today. O: See flow sheet Gen: No apparent distress Abd: Gravid, nontender CE FT/Posterior ASSESSMENT/PLAN: 1. 39 weeks gestation of ([facility]) - ICD9: V22.2, ICD10: Z3A.39 (primary diagnosis) 2. AMA (advanced maternal age) multigravida 35+, third trimester ([facility]) - ICD9: 659.63, ICD10: - FT/Posterior- unable to feel head- TAUS completed to verify vertex - Support provided- patient concerned she is not dilated yet- discussed last was 10 years ago - Handout on preparation for labor provided - Desires physiological onset of labor and possible water delivery - RTO 1 week or sooner if needed Sonia Dyer APRN.CNM documented in this encounter [facility] 01-04-2025 Instructions Sonia Dyer APRN.CNM - 01/04/2025 8:40 AM EDT Images from the original note were not included. Preparing for labor: Eat dates to promote spontaneous labor! Has an oxytocin-like effect on the body, leading to increased sensitivity of the uterus. Stimulates uterine contractions. Reduces hemorrhage the way oxytocin does. Date fruit contains saturated and unsaturated fatty acids such as oleic, linoleic, and linolenic acids, which are involved in saving and supplying energy and construction of prostaglandins. In addition, serotonin, tannin, and calcium in date fruit contribute to the contraction of smooth muscles of the uterus. Date fruit also has a laxative effect, which stimulates uterine contractions. Six dates per day is the magic number--provided that you re eating smaller deglet noor dates. Deglet noor dates are about 1 inch long. Medjool dates can be up to 2 inches long. If you re eating medjool dates, you only need about 3 dates to reach the 75 grams recommended in the studies. Not sure which type of date you have in your refrigerator? It s probably a deglet noor. How to Eat Dates During Dates are a healthy and delicious snack, so how can you add them to your diet? Add dates during in this awesome oatmeal recipe. Add dates to replace sugar in your favorite recipe or to julia your homemade almond milk. Use dates and nuts to make an easy pie crust in the fast food crew lead. Add soaked dates to homemade nut butter for a sweet treat. Add dates to julia homemade salad dressing. Add dates during easily with these yummy (paleo friendly) bars made from dates. What Is Red Raspberry Trail Side Tea? Red raspberry leaf tea comes from the leaves of the red raspberry plant. This herbal tea has been used for centuries to support respiratory, digestive and uterine health, particularly during and childbearing years. While usually known as a female herb, red raspberry leaf tea can also help support the prostate and various stomach ailments in children. How It Can Help and Red raspberry leaf tea can help to make labor faster and reduce complications and interventions during . One study found that women who consumed RRL tea regularly are less likely to go overdue or give prematurely. These women may also be less likely to receive an artificial rupture of their membranes or require a section, forceps, or vacuum than the women in the control group. Red raspberry leaf has many other benefits to , , and too. How Much Red Raspberry Trail Side Tea to Drink? With your doctor or piping drafter s approval, start with 1 cup of red raspberry leaf tea per day starting in the second trimester. Watch for any uterine cramping or other reactions. If you don t experience any, you can talk to your healthcare provider about increasing to 2 cups per day. Again, watch for any uterine cramping. If you notice any, cut back on your dosage for two weeks and try again. Keep in mind, some moms have irritable uteruses and can only drink red raspberry leaf tea once they reach their due date because of uterine cramping. Is Red Raspberry Trail Side Tea the Same as Raspberry Trail Side Tea? How About Plain Old Raspberry Tea? Sometimes. You really need to look at the ingredients to be sure. Note that there is no difference between red raspberry leaf and raspberry leaf. EasyPaint Op or Traditional Brainiac TVs Raspberry Trail Side Tea are two good brands. The red raspberry leaf teas that we recommend are 100% red raspberry leaf. Other teas labeled as raspberry are often a blend of rosehips, hibiscus, raspberry leaves, and raspberry flavor. So they may not be as effective. The teas to avoid are raspberry-flavored herbal teas, which may have ingredients like hibiscus, pawan hips, apples, elderberries, natural and artificial raspberry flavors. Teas like this don t contain raspberry leaf at all and thus won t offer any of the potential benefits of RRLT outlined in this article. The [employer] www.[employer] Care I named this 'circuit' after my friend Vivian Bosch, who shared and discussed it with me when I was working with a client whose labor seemed to be stalled out and no longer progressing... This circuit is useful to help get the baby lined up, ideally, in the Left Occiput Anterior (RUKHSANA) Position, both before labor begins and when some corrections need to be done during labor. Prenatally, this position set can help to rotate a baby. As a natural method of induction, this can help get things going if baby just needed a gentle nudge of position to set things off. To the best of my knowledge, this group of positions will not hurt a baby that is already lined up correctly. Selvin Hazel Before you Begin..... This circuit takes at least 90 minutes to complete so clear your schedule and make mental preparations so you can relax in your environment. The second step requires a lot of pillows so gather them up before beginning Before starting, you should empty your bladder! Have a nice drink nearby, and make sure it has a straw! If you are having contractions, this circuit should bedone through contractions, try not to change positions between steps Step One: Open-knee Chest Stay in this position for 30 minutes, start in cat/cow, then drop your chest as low as you can to the bed or the floor and your bottom as high as you can. Knees should be fairly wide apart, and the angle between the torso/thighs should be wider than 90 degrees. Wiggle around, prop with lots of pillows and use this time to get totally relaxed. This position allows the baby to scoot out of the pelvis a bit and gives them room to rotate, shift their head position, etc. If the person finds it helpful,careful positioning with a rebozo under the belly, with gentle tension from a support person behindcan help maintain this position for the full 30minutes. Step Two: Exaggerated Left Side Lying Roll to your left side, bringing your top leg as high as possible and keeping your bottom leg straight. Roll forward as much as possible,again using a lot of pillows. Sink into the bed and relax some more. If you fall asleep, that's totally okay and you can stay there! If not, stay here for at least another half an hour. Try and get your top right leg up towards your head and get as rolled over onto your belly as much as possible. If you repeat the circuit during labor, try alternating left and right sides. We know the photo the left is actually right side... just flip the image in your head. Step Three: Moving and Lunges Lunge, walk stairs facing sideways, 2 at a time, (have a resilient tile installer downstairs of you!), take a walk outside with one foot on the curb and the other on the street, sit on a ball and hula- anything that's upright and putting your pelvis in open, asymmetrical positions. Spend at least 30 minutes doing this one as well to give your baby a chance to move down. If you are lunging or stair or curb walking, you should lunge/walk/go up stairs in the direction that feels better to you. The rice with the lunge is that the toes of the higher leg and mom's belly button should be at right angles. Do not lunge over your knee, that closes the pelvis. Vivian Bosch: Circuit Creator - www.[facility] citiescollective.c yovani Hazel, CD, BDT (ALEXANDRA), LCCE, FACCE: Supporting Content - www.caden.NewACT Torsten Landry: Photography - www.sylvesterwnphoto.NewACT Ella Ryan CD/CDT (MELVA): Print and Sole Stainer - www.[employer].Binary [employer] www.Yogurt[employer]D Engine.NewACT SIGNS AND SYMPTOMS OF LABOR 1. Contractions every 10 minutes or more often 2. Clear, pink, or brownish fluid (water) leaking from vagina 3. Feeling that baby is pushing down, pressure 4. Low, dull backache 5. Cramps that feel like a period 6. Cramps with or without diarrhea If you notice any of the above symptoms, contact our office at [phone] and ask to speak with a nurse. After hours, you can call doctors registry at [phone] OR call [facility] at [phone] and ask to have the doctor hospice liaison paged. If you consider this an emergency, dial 9-1-5 or go to your nearest emergency department. NEED HELP? Are you dealing with a violent or abusive relationship? Are you a victim of rape or sexual assult? Call [facility] ([place]) 24 hour Crisis Hotline: 416.429.2678 or 274-134-9958. MANUAL Your Guide to a Healthy manual is now on-line. Visit [email or web address] Alessandro to download your free copy documented in this encounter [facility] 12-29-2024 Note HNO ID: [id number] Author: ALDA MARTÍNEZ MA Service: ? Author Type: Automobile Sales Representative Type: Progress Notes Filed: 12/29/2024 14:17 Note Text: POPULATION HEALTH NAVIGATION OUTREACH Action/FYI Director Regulatory Compliance updated per documentation. Reason for Outreach Medicaid OB/Peds Care Gaps due: N/A Patient Contacted: Unable or unnecessary to reach patient: associate property manager added Navigation Signature: Alda Cobos MA December 29, 2024 1:42 PM [facility] 12-29-2024 History of Presen t illness Narrative POPULATION HEALTH NAVIGATION OUTREACH Action/FYI Director Regulatory Compliance updated per documentation. Reason for Outreach Medicaid OB/Peds Care Gaps due: N/A Patient Contacted: Unable or unnecessary to reach patient: [place] associate property manager added Navigation Signature: Alda Cobos MA December 29, 2024 1:42 PM documented in this encounter [facility] 12-29-2024 Note Patient Outreach (NE TNAV) MONALISA AGUILAR ([id number]) 1985 F Date Time Provider Department 12/29/24 ALDA MARTÍNEZ During your visit today, we recorded the following information about you: Alda Martínez MA 12/29/2024 2:17 PM Signed POPULATION HEALTH NAVIGATION OUTREACH Action/FYI Director Regulatory Compliance updated per documentation. Reason for Outreach Medicaid OB/Peds Care Gaps due: N/A Patient Contacted: Unable or unnecessary to reach patient: associate property manager added Navigation Signature: Alda Cobos MA December 29, 2024 1:42 PM Allergies As of Date: 12/29/2024 (No Known Allergies) Date Reviewed: 12/27/2024 Reviewed by: Danielle Drew MA - Fully Assessed Reason for Visit: Population Health Navigation Outreach [3910] Cmt: Ob/peds Prescriptions as of 12/29/2024 - aspirin, enteric coated (ECOTRIN LOW STRENGTH) 81 mg EC tablet Take 1 tablet by mouth once daily. - PNV no.95/ferrous fum/folic ac ( ORAL) Take by mouth. - MAGNESIUM ORAL Take by mouth once daily. - Lactobacillus acidophilus (PROBIOTIC ORAL) Take by mouth once daily. Problem List As Of Date 12/29/2024 Noted Resolved Prior macrosomia, antepartum (HCC) [O09.2*05/25/2024 Multigravida of advanced maternal age in third *05/25/2024 Supervision of high risk in third tri*05/25/2024 with uncertain dates, antepartum [Z34*05/25/2024 Encounter Status:Closed by ALDA MARTÍNEZ on 12/29/24 [facility] 12-27-2024 Progress note Formatting of t his note might be different from the original. CINDY-S: Monalisa Aguilar is a 39 year old female who presents at 38w0d with RIVKA: 01/10/2025, by Ultrasound for a routine visit. Denies headache, visual changes, chest pain, shortness of breath, vaginal bleeding, leakage of fluid, or dysuria. Feeling well, no complaints. O: See flow sheet Gen: No apparent distress Abd: Gravid, nontender Growth US at 36 weeks The EFW is 3143 g, at the 81%. AC is at the 98%. MVP of 5.8 cm and an RAMAN of 18.7 cm. Cephalic ASSESSMENT/PLAN: 1. Supervision of high risk in third trimester -Continue ASA and PNV 2. 38 weeks gestation of 3. AMA (advanced maternal age) multigravida 35+, third trimester -39yo at delivery, no additional testing. Growth US at 36wk 4. Prior macrosomia, antepartum -Largest baby is 10lb 1oz with no complications. Labor instructions reviewed and when to call RTO in 1 week Angie Rhodes APRN.CNM [facility] 12-27-2024 Miscellaneous Notes CINDY-S: Monalisa Aguilar is a 39 year old female who presents at 38w0d with RIVKA: 01/10/2025, by Ultrasound for a routine visit. Denies headache, visual changes, chest pain, shortness of breath, vaginal bleeding, leakage of fluid, or dysuria. Feeling well, no complaints. O: See flow sheet Gen: No apparent distress Abd: Gravid, nontender Growth US at 36 weeks The EFW is 3143 g, at the 81%. AC is at the 98%. MVP of 5.8 cm and an RAMAN of 18.7 cm. Cephalic ASSESSMENT/PLAN: 1. Supervision of high risk in third trimester -Continue ASA and PNV 2. 38 weeks gestation of 3. AMA (advanced maternal age) multigravida 35+, third trimester -39yo at delivery, no additional testing. Growth US at 36wk 4. Prior macrosomia, antepartum -Largest baby is 10lb 1oz with no complications. Labor instructions reviewed and when to call RTO in 1 week Angie Rhodes APRN.CNM documented in this encounter [facility] 12-27-2024 Instructions Danielle Drew MA - 12/27/2024 9:38 AM EDT SEQUENTIAL SCREENINGS The [facility] offers sequential screenings for women who are interested in screenings for chromosomal abnormalities and certain defects during a . The sequential screen combines ultrasound and blood tests to determine the risk of chromosomal abnormalities, including Down's Syndrome (Trisomy 21) and Trisomy 18, as well as open neural tube defects including spina bifida. Ultrasound examination is performed between 11 weeks and 13 weeks gestational age. Blood tests are drawn after the ultrasound and again later in the between 15 and 21 weeks gestational age. Please let your physician know if you are interested in this testing. It will require an appointment with our plating technician. This is not an ultrasound performed by a physician in our office during a routine visit. SIGNS AND SYMPTOMS OF LABOR 1. Contractions every 10 minutes or more often 2. Clear, pink, or brownish fluid (water) leaking from vagina 3. Feeling that baby is pushing down, pressure 4. Low, dull backache 5. Cramps that feel like a period 6. Cramps with or without diarrhea If you notice any of the above symptoms, contact our office at [phone] and ask to speak with a nurse. After hours, you can call doctors registry at [phone] OR call [facility] at [phone] and ask to have the doctor hospice liaison paged. If you consider this an emergency, dial 9-1-1 or go to your nearest emergency department. NEED HELP? Are you dealing with a violent or abusive relationship? Are you a victim of rape or sexual assult? Call [facility] ([place]) 24 hour Crisis Hotline: 642.663.4636 or 600-890-7856. MANUAL Your Guide to a Healthy manual is now on-line. Visit [email or web address] Alessandro to download your free copy documented in this encounter [facility] 12-13-2024 Note Indication Evaluation of well-being Advanced maternal age Impression - Single, live, intrauterine . - presentation is cephalic. - The biometry is consistent with the assigned gestational dating. - The EFW is 3143 g, at the 81%. AC is at the 98%. - The amniotic fluid volume is normal amount with an MVP of 5.8 cm and an RAMAN of 18.7 cm. - The placenta is anterior, fundal. - No malformations visualized on a limited survey as detailed below. Recommendations Additional follow-up as clinically indicated. Maternal Assessment Height 178 cm Height (ft) 5 ft Height (in) 10 in Physical Exam Initial weight (lb) 175 lb Initial BMI 25.11 kg/m Maternal assessment other: 3 Para 2 REMOTE READ Method Transabdominal ultrasound examination Anguiano . Number of fetuses: 1 Dating LMP on: 03/09/2024 GA by LMP 39 w + 6 d RIVKA by LMP: 12/14/2024 GA by prior assessment 36 w + 0 d RIVKA by prior assessment: 01/10/2025 Ultrasound examination on: 12/13/2024 GA by U/S based upon: AC, BPD, Femur, HC GA by U/S 36 w + 4 d RIVKA by U/S: 01/06/2025 Assigned: based on stated RIVKA, selected on 08/24/2024 Assigned GA 36 w + 0 d Assigned RIVKA: 01/10/2025 General Evaluation Cardiac activity present. FHR 132 bpm. movements: present. Presentation: cephalic Placenta: Placental site: anterior, fundal Umbilical cord: Cord vessels: 3 vessel cord Amniotic fluid: Amount of AF: normal amount. MVP 5.8 cm. RAMAN 18.7 cm. Q1 5.8 cm, Q2 4.8 cm, Q3 5.0 cm, Q4 3.1 cm Growth Overview Exam date GA BPD (mm) HC (mm) AC (mm) FL (mm) HL (mm) EFW (g) 08/24/2024 20w 1d 49.7 83% 184.6 71% 156.8 67% 33.5 76% 34 93% 370 74% 12/13/2024 36w 0d 91.6 86% 323.4 46% 346.1 98% 68.5 57% 3143 81% Biometry Standard BPD 91.6 mm 37w 1d 86% Hadlock OFD 111.3 mm 33w 5d 31% Nicolaides HC 323.4 mm 35w 5d 46% Teresa AC 346.1 mm 38w 4d 98% Hadlock Femur 68.5 mm 34w 6d 57% Teresa EFW 3,143 g 37w 4d 81% Hadlock EFW (lb) 6 lb EFW (oz) 15 oz EFW by: Hadlock (HC-AC-FL) Extended Work From Home 6.3 mm Extremities / Bony Struc FL / HC 0.21 Other Structures FHR 132 bpm Anatomy Lateral ventricles: normal Cavum septi pellucidi: normal Cerebellum: normal Cisterna magna: normal 4-chamber view: normal RVOT view: normal LVOT view: normal 3-vessel view: normal Heart / Thorax Situs: situs solitus (normal) Diaphragm: normal Stomach: normal Kidneys: normal Bladder: normal sex: female Wants to know sex: yes Performed By: Mary Kate Salas RDMS, RVT Read By: Radha Brady M.D. [facility] 12-13-2024 Progress note Formatting of t his note might be different from the original. RR- VB No. LOF No. CTXS few Movement: present. Other c/o: No. Medication list reviewed. SENSITIVE EXAM: Sensitive exam not performed. Physical Exam See Flow Sheet Abd: soft, nontender, gravid Ext: edema: 1+ A/P 36w0d Estimated Date of Delivery: 01/10/25 Assessment & Plan 36 weeks gestation of (HCC) Orders: URINE OB DIP B/O ROUTINE, GROUP B STREPTOCOCCUS BY PCR AMA (advanced maternal age) multigravida 35+, third trimester ([facility]) Orders: URINE OB DIP B/O ROUTINE, GROUP B STREPTOCOCCUS BY PCR Prior macrosomia, antepartum ([facility]) Orders: URINE OB DIP B/O Supervision of high risk in third trimester ([facility]) Orders: URINE OB DIP B/O kick counts gbs done Clem Quinonez M.D. [facility] 12-13-2024 Miscellaneous Notes RR- VB No. LOF No. CTXS few Movement: present. Other c/o: No. Medication list reviewed. SENSITIVE EXAM: Sensitive exam not performed. Physical Exam See Flow Sheet Abd: soft, nontender, gravid Ext: edema: 1+ A/P 36w0d Estimated Date of Delivery: 01/10/25 Assessment & Plan 36 weeks gestation of ([facility]) Orders: URINE OB DIP B/O ROUTINE, GROUP B STREPTOCOCCUS BY PCR AMA (advanced maternal age) multigravida 35+, third trimester ([facility]) Orders: URINE OB DIP B/O ROUTINE, GROUP B STREPTOCOCCUS BY PCR Prior macrosomia, antepartum ([facility]) Orders: URINE OB DIP B/O Supervision of high risk in third trimester ([facility]) Orders: URINE OB DIP B/O kick counts gbs done Clem Quinonez M.D. documented in this encounter [facility] 12-13-2024 Instructions Stefanie Reynolds MA - 12/13/2024 9:46 AM EDT SEQUENTIAL SCREENINGS The [facility] offers sequential screenings for women who are interested in screenings for chromosomal abnormalities and certain defects during a . The sequential screen combines ultrasound and blood tests to determine the risk of chromosomal abnormalities, including Down's Syndrome (Trisomy 21) and Trisomy 18, as well as open neural tube defects including spina bifida. Ultrasound examination is performed between 11 weeks and 13 weeks gestational age. Blood tests are drawn after the ultrasound and again later in the between 15 and 21 weeks gestational age. Please let your physician know if you are interested in this testing. It will require an appointment with our plating technician. This is not an ultrasound performed by a physician in our office during a routine visit. SIGNS AND SYMPTOMS OF LABOR 1. Contractions every 10 minutes or more often 2. Clear, pink, or brownish fluid (water) leaking from vagina 3. Feeling that baby is pushing down, pressure 4. Low, dull backache 5. Cramps that feel like a period 6. Cramps with or without diarrhea If you notice any of the above symptoms, contact our office at [phone] and ask to speak with a nurse. After hours, you can call doctors registry at [phone] OR call [facility] at [phone] and ask to have the doctor hospice liaison paged. If you consider this an emergency, dial 4-9-6 or go to your nearest emergency department. NEED HELP? Are you dealing with a violent or abusive relationship? Are you a victim of rape or sexual assult? Call [facility] ([place]) 24 hour Crisis Hotline: 104.928.5113 or 266-316-6782. MANUAL Your Guide to a Healthy manual is now on-line. Visit [email or web address] to download your free copy documented in this encounter [facility] 11-29-2024 Progress note Formatting of t his note might be different from the original. KJ - S: Monalisa denies LOF or vaginal bleeding. She reports some mild & irregular ctxs with activity. O: 34w0d, see flow sheet SENSITIVE EXAM: Sensitive exam not performed. A/P: Assessment & Plan Supervision of high risk in third trimester (HCC) Orders: URINE OB DIP B/O Multigravida of advanced maternal age in third trimester (HCC) Orders: URINE OB DIP B/O Prior macrosomia, antepartum ([facility]) Orders: URINE OB DIP B/O 34 weeks gestation of ([facility]) Orders: URINE OB DIP B/O Reviewed PTL & FM precautions Speedy Silva MD [facility] 11-29-2024 Miscellaneous Notes KJ - S: Monalisa denies LOF or vaginal bleeding. She reports some mild & irregular ctxs with activity. O: 34w0d, see flow sheet SENSITIVE EXAM: Sensitive exam not performed. A/P: Assessment & Plan Supervision of high risk in third trimester ([facility]) Orders: URINE OB DIP B/O Multigravida of advanced maternal age in third trimester ([facility]) Orders: URINE OB DIP B/O Prior macrosomia, antepartum ([facility]) Orders: URINE OB DIP B/O 34 weeks gestation of ([facility]) Orders: URINE OB DIP B/O Reviewed PTL & FM precautions Speedy Silva MD documented in this encounter [facility] 11-29-2024 Instructions Danielle Drew MA - 11/29/2024 10:04 AM EDT SEQUENTIAL SCREENINGS The [facility] offers sequential screenings for women who are interested in screenings for chromosomal abnormalities and certain defects during a . The sequential screen combines ultrasound and blood tests to determine the risk of chromosomal abnormalities, including Down's Syndrome (Trisomy 21) and Trisomy 18, as well as open neural tube defects including spina bifida. Ultrasound examination is performed between 11 weeks and 13 weeks gestational age. Blood tests are drawn after the ultrasound and again later in the between 15 and 21 weeks gestational age. Please let your physician know if you are interested in this testing. It will require an appointment with our plating technician. This is not an ultrasound performed by a physician in our office during a routine visit. SIGNS AND SYMPTOMS OF LABOR 1. Contractions every 10 minutes or more often 2. Clear, pink, or brownish fluid (water) leaking from vagina 3. Feeling that baby is pushing down, pressure 4. Low, dull backache 5. Cramps that feel like a period 6. Cramps with or without diarrhea If you notice any of the above symptoms, contact our office at [phone] and ask to speak with a nurse. After hours, you can call [facility] at [phone] OR call [facility] at [phone] and ask to have the doctor hospice liaison paged. If you consider this an emergency, dial 9--1 or go to your nearest emergency department. NEED HELP? Are you dealing with a violent or abusive relationship? Are you a victim of rape or sexual assult? Call [facility] ([place]) 24 hour Crisis Hotline: 643.113.8420 or 027-766-3295. MANUAL Your Guide to a Healthy manual is now on-line. Visit [email or web address] to download your free copy documented in this encounter [facility] 11-16-2024 Note HNO ID: [id number] Author: TORSTEN BUTTS APRN.MARIA TERESA Service: ? Author Type: Nurse Practitioner Type: Progress Notes Filed: 11/16/2024 12:21 Note Text: EH - S: Monalisa is a 39 year old female who presents at 32w1d for a routine visit. Feeling movement. Denies headache, visual changes, chest pain, shortness of breath, vaginal bleeding, leakage of fluid, or dysuria. Feeling well, no complaints. O: See flow sheet Gen: No apparent distress Abd: Gravid, nontender, S=D, 37 lb TWG ASSESSMENT/PLAN: 1. Supervision of high risk in third trimester (HCC) - ICD9: V23.9, ICD10: O09.93 (primary diagnosis) - Continue PNV 2. 32 weeks gestation of ([facility]) - ICD9: V22.2, ICD10: Z3A.32 - 28 week labs reviewed 3. Multigravida of advanced maternal age in third trimester ([facility]) - ICD9: 659.63, ICD10: O09.523 - Age 39 at RIVKA 4. Prior macrosomia, antepartum ([facility]) - ICD9: V23.49, ICD10: O09.299 - Declines growth ultrasound - Plans for waterbirth PTL precautions and kick counts reviewed. RTO in 2 weeks or sooner as needed. Torsten Butts APRN.BIOSOLIDS MANAGEMENT TECHNICIAN [facility] 11-16-2024 History of Presen t illness Narrative EH - S: Monalisa is a 39 year old female who presents at 32w1d for a routine visit. Feeling movement. Denies headache, visual changes, chest pain, shortness of breath, vaginal bleeding, leakage of fluid, or dysuria. Feeling well, no complaints. O: See flow sheet Gen: No apparent distress Abd: Gravid, nontender, S=D, 37 lb TWG ASSESSMENT/PLAN: 1. Supervision of high risk in third trimester ([facility]) - ICD9: V23.9, ICD10: O09.93 (primary diagnosis) - Continue PNV 2. 32 weeks gestation of ([facility]) - ICD9: V22.2, ICD10: Z3A.32 - 28 week labs reviewed 3. Multigravida of advanced maternal age in third trimester ([facility]) - ICD9: 659.63, ICD10: O09.523 - Age 39 at RIVKA 4. Prior macrosomia, antepartum ([facility]) - ICD9: V23.49, ICD10: O09.299 - Declines growth ultrasound - Plans for waterbirth PTL precautions and kick counts reviewed. RTO in 2 weeks or sooner as needed. Torsten Butts APRN.BIOSOLIDS MANAGEMENT TECHNICIAN documented in this encounter [facility] 11-16-2024 Instructions Geeta Saucedo LPN - 11/16/2024 11:11 AM EDT SEQUENTIAL SCREENINGS The [facility] offers sequential screenings for women who are interested in screenings for chromosomal abnormalities and certain defects during a . The sequential screen combines ultrasound and blood tests to determine the risk of chromosomal abnormalities, including Down's Syndrome (Trisomy 21) and Trisomy 18, as well as open neural tube defects including spina bifida. Ultrasound examination is performed between 11 weeks and 13 weeks gestational age. Blood tests are drawn after the ultrasound and again later in the between 15 and 21 weeks gestational age. Please let your physician know if you are interested in this testing. It will require an appointment with our plating technician. This is not an ultrasound performed by a physician in our office during a routine visit. SIGNS AND SYMPTOMS OF LABOR 1. Contractions every 10 minutes or more often 2. Clear, pink, or brownish fluid (water) leaking from vagina 3. Feeling that baby is pushing down, pressure 4. Low, dull backache 5. Cramps that feel like a period 6. Cramps with or without diarrhea If you notice any of the above symptoms, contact our office at [phone] and ask to speak with a nurse. After hours, you can call doctors registry at [phone] OR call [facility] at [phone] and ask to have the doctor hospice liaison paged. If you consider this an emergency, dial 9--6 or go to your nearest emergency department. NEED HELP? Are you dealing with a violent or abusive relationship? Are you a victim of rape or sexual assult? Call [facility] ([place]) 24 hour Crisis Hotline: 816.147.6295 or 520-397-2642. MANUAL Your Guide to a Healthy manual is now on-line. Visit [email or web address] to download your free copy documented in this encounter [facility] 11-04-2024 Progress note Formatting of t his note might be different from the original. S: Monalisa Aguilar is a 39 year old female who presents at 01/10/2025, by Ultrasound for a routine visit. Denies headache, visual changes, chest pain, shortness of breath, vaginal bleeding, leakage of fluid, or dysuria. Feeling well, no complaints. Good movement, No contractions O: See flow sheet Gen: No apparent distress Abd: Gravid, nontender Normal GCT ASSESSMENT/PLAN: 1. 30 weeks gestation of ([facility]) - ICD9: V22.2, ICD10: Z3A.30 (primary diagnosis) 2. Supervision of high risk in third trimester ([facility]) - ICD9: V23.9, ICD10: O09.93 3. Multigravida of advanced maternal age in third trimester ([facility]) - ICD9: 659.63, ICD10: O09.523 NIPT low risk Yvonne Zambrano MD [facility] 11-04-2024 Miscellaneous Notes S: Monalisa Aguilar is a 39 year old female who presents at 01/10/2025, by Ultrasound for a routine visit. Denies headache, visual changes, chest pain, shortness of breath, vaginal bleeding, leakage of fluid, or dysuria. Feeling well, no complaints. Good movement, No contractions O: See flow sheet Gen: No apparent distress Abd: Gravid, nontender Normal GCT ASSESSMENT/PLAN: 1. 30 weeks gestation of ([facility]) - ICD9: V22.2, ICD10: Z3A.30 (primary diagnosis) 2. Supervision of high risk in third trimester ([facility]) - ICD9: V23.9, ICD10: O09.93 3. Multigravida of advanced maternal age in third trimester ([facility]) - ICD9: 659.63, ICD10: O09.523 NIPT low risk Yvonne Zambrano MD documented in this encounter [facility] 11-04-2024 Instructions Alda Poole MA - 11/04/2024 9:10 AM EDT SEQUENTIAL SCREENINGS The [facility] offers sequential screenings for women who are interested in screenings for chromosomal abnormalities and certain defects during a . The sequential screen combines ultrasound and blood tests to determine the risk of chromosomal abnormalities, including Down's Syndrome (Trisomy 21) and Trisomy 18, as well as open neural tube defects including spina bifida. Ultrasound examination is performed between 11 weeks and 13 weeks gestational age. Blood tests are drawn after the ultrasound and again later in the between 15 and 21 weeks gestational age. Please let your physician know if you are interested in this testing. It will require an appointment with our plating technician. This is not an ultrasound performed by a physician in our office during a routine visit. SIGNS AND SYMPTOMS OF LABOR 1. Contractions every 10 minutes or more often 2. Clear, pink, or brownish fluid (water) leaking from vagina 3. Feeling that baby is pushing down, pressure 4. Low, dull backache 5. Cramps that feel like a period 6. Cramps with or without diarrhea If you notice any of the above symptoms, contact our office at [phone] and ask to speak with a nurse. After hours, you can call doctors registry at [phone] OR call [facility] at [phone] and ask to have the doctor hospice liaison paged. If you consider this an emergency, dial 9-1-1 or go to your nearest emergency department. NEED HELP? Are you dealing with a violent or abusive relationship? Are you a victim of rape or sexual assult? Call [facility] ([place]) 24 hour Crisis Hotline: 831.983.9211 or 316-847-6582. MANUAL Your Guide to a Healthy manual is now on-line. Visit [email or web address] to download your free copy documented in this encounter [facility] 10-21-2024 Progress note Formatting of t his note might be different from the original. S: Monalisa Aguilar is a 39 year old female who presents at 28 weeks gestation for a routine visit. Denies headache, visual changes, chest pain, shortness of breath, vaginal bleeding, leakage of fluid, or dysuria. Feeling well, no complaints. O: See flow sheet Gen: No apparent distress Abd: Gravid, non tender S=D measuring 2 weeks ahead ASSESSMENT/PLAN: 1. Supervision of high risk in third trimester 2. Multigravida of advanced maternal age in third trimester 3. 28 weeks gestation of 4. Prior macrosomia, antepartum - 1 hour GCT, CBC, and RPR today - Rh positive - TDAP Declines - LARC form reviewed and signed. Patient declines- vasectomy - Depression screen negative - Opioid screen negative - plan form discussed and given to patient. Patient desires unmedicated , possible water and Reviewed water / laboring in tub and questions answered - PTL precautions and kick counts reviewed - RTO- 2 weeks or sooner if needed Sonia Dyer APRN.CNM [facility] 10-21-2024 Miscellaneous Notes S: Monalisa Aguilar is a 39 year old female who presents at 28 weeks gestation for a routine visit. Denies headache, visual changes, chest pain, shortness of breath, vaginal bleeding, leakage of fluid, or dysuria. Feeling well, no complaints. O: See flow sheet Gen: No apparent distress Abd: Gravid, non tender S=D measuring 2 weeks ahead ASSESSMENT/PLAN: 1. Supervision of high risk in third trimester 2. Multigravida of advanced maternal age in third trimester 3. 28 weeks gestation of 4. Prior macrosomia, antepartum - 1 hour GCT, CBC, and RPR today - Rh positive - TDAP Declines - LARC form reviewed and signed. Patient declines- vasectomy - Depression screen negative - Opioid screen negative - plan form discussed and given to patient. Patient desires unmedicated , possible water and Reviewed water / laboring in tub and questions answered - PTL precautions and kick counts reviewed - RTO- 2 weeks or sooner if needed Sonia Dyer APRN.CNM documented in this encounter [facility] 10-21-2024 Instructions Franky Batista MA - 10/21/2024 8:46 AM EDT SEQUENTIAL SCREENINGS The [facility] offers sequential screenings for women who are interested in screenings for chromosomal abnormalities and certain defects during a . The sequential screen combines ultrasound and blood tests to determine the risk of chromosomal abnormalities, including Down's Syndrome (Trisomy 21) and Trisomy 18, as well as open neural tube defects including spina bifida. Ultrasound examination is performed between 11 weeks and 13 weeks gestational age. Blood tests are drawn after the ultrasound and again later in the between 15 and 21 weeks gestational age. Please let your physician know if you are interested in this testing. It will require an appointment with our plating technician. This is not an ultrasound performed by a physician in our office during a routine visit. SIGNS AND SYMPTOMS OF LABOR 1. Contractions every 10 minutes or more often 2. Clear, pink, or brownish fluid (water) leaking from vagina 3. Feeling that baby is pushing down, pressure 4. Low, dull backache 5. Cramps that feel like a period 6. Cramps with or without diarrhea If you notice any of the above symptoms, contact our office at [phone] and ask to speak with a nurse. After hours, you can call doctors registry at [phone] OR call [facility] at [phone] and ask to have the doctor hospice liaison paged. If you consider this an emergency, dial 91-6 or go to your nearest emergency department. NEED HELP? Are you dealing with a violent or abusive relationship? Are you a victim of rape or sexual assult? Call [facility] ([place]) 24 hour Crisis Hotline: 255.250.4490 or 275-312-2330. MANUAL Your Guide to a Healthy manual is now on-line. Visit [email or web address] to download your free copy documented in this encounter [facility] 09-23-2024 Progress note Formatting of t his note might be different from the original. S: Monalisa Aguilar is a 39 year old female who presents 24 weeks gestation for a routine visit. Positive movements. Denies headache, visual changes, chest pain, shortness of breath, vaginal bleeding, leakage of fluid, or dysuria. Feeling well, no complaints. O: See flow sheet Gen: No apparent distress Abd: Gravid, nontender: ASSESSMENT/PLAN: 1. Supervision of high risk in second trimester (HCC) - ICD9: V23.9, ICD10: O09.92 (primary diagnosis) 2. 24 weeks gestation of (HCC) - ICD9: V22.2, ICD10: Z3A.24 3. Screening for diabetes mellitus - ICD9: V77.1, ICD10: Z13.1 4. Multigravida of advanced maternal age in second trimester 5. Prior macrosomia, antepartum (HCC) - Continue vitamin/ ASA - Reviewed GCT process and upcoming expectations - RTO 4 weeks or sooner if needed Sonia Dyer APRN.CNM [facility] 09-23-2024 Miscellaneous Notes S: Monalisa Aguilar is a 39 year old female who presents 24 weeks gestation for a routine visit. Positive movements. Denies headache, visual changes, chest pain, shortness of breath, vaginal bleeding, leakage of fluid, or dysuria. Feeling well, no complaints. O: See flow sheet Gen: No apparent distress Abd: Gravid, nontender: ASSESSMENT/PLAN: 1. Supervision of high risk in second trimester ([facility]) - ICD9: V23.9, ICD10: O09.92 (primary diagnosis) 2. 24 weeks gestation of ([facility]) - ICD9: V22.2, ICD10: Z3A.24 3. Screening for diabetes mellitus - ICD9: V77.1, ICD10: Z13.1 4. Multigravida of advanced maternal age in second trimester 5. Prior macrosomia, antepartum ([facility]) - Continue vitamin/ ASA - Reviewed GCT process and upcoming expectations - RTO 4 weeks or sooner if needed Sonia Dyer APRN.CNM documented in this encounter [facility] 09-23-2024 Instructions Franky Batista MA - 09/23/2024 9:07 AM EDT SEQUENTIAL SCREENINGS The [facility] offers sequential screenings for women who are interested in screenings for chromosomal abnormalities and certain defects during a . The sequential screen combines ultrasound and blood tests to determine the risk of chromosomal abnormalities, including Down's Syndrome (Trisomy 21) and Trisomy 18, as well as open neural tube defects including spina bifida. Ultrasound examination is performed between 11 weeks and 13 weeks gestational age. Blood tests are drawn after the ultrasound and again later in the between 15 and 21 weeks gestational age. Please let your physician know if you are interested in this testing. It will require an appointment with our plating technician. This is not an ultrasound performed by a physician in our office during a routine visit. SIGNS AND SYMPTOMS OF LABOR 1. Contractions every 10 minutes or more often 2. Clear, pink, or brownish fluid (water) leaking from vagina 3. Feeling that baby is pushing down, pressure 4. Low, dull backache 5. Cramps that feel like a period 6. Cramps with or without diarrhea If you notice any of the above symptoms, contact our office at [phone] and ask to speak with a nurse. After hours, you can call doctors registry at [phone] OR call [facility] at [phone] and ask to have the doctor hospice liaison paged. If you consider this an emergency, dial 9-0-1 or go to your nearest emergency department. NEED HELP? Are you dealing with a violent or abusive relationship? Are you a victim of rape or sexual assult? Call [facility] ([place]) 24 hour Crisis Hotline: 968.123.8274 or 278-553-2025. MANUAL Your Guide to a Healthy manual is now on-line. Visit [email or web address] to download your free copy documented in this encounter [facility] 08-24-2024 Note HNO ID: [id number] Author: ANGIE RHODES APRN.CNM Service: ? Author Type: Singing Teacher Type: Progress Notes Filed: 08/24/2024 10:51 Note Text: CINDY-S: Monalisa Aguilar is a 39 year old female who presents at 20w1d with RIVKA:01/10/2025, by Ultrasound for a routine visit. Denies headache, visual changes, chest pain, shortness of breath, vaginal bleeding, leakage of fluid, or dysuria. Feeling well, no complaints. O: See flow sheet Gen: No apparent distress Abd: Gravid, nontender ASSESSMENT/PLAN: 1. Supervision of other high risk pregnancies, first trimester -Continue PNV -Continue ASA 81mg PO once daily -Anatomy US today 2. 20 weeks gestation of 3. Multigravida of advanced maternal age in second trimester -Age 39 at delivery, no additional testing. 4. Prior macrosomia, antepartum -No shoulder dystocia or complications. Largest baby 10lb 1oz RTO in 4 weeks PTL precautions reviewed Angie Rhodes APRN.CNM [facility] 08-24-2024 History of Presen t illness Narrative CINDY-S: Monalisa Aguilar is a 39 year old female who presents at 20w1d with RIVKA:01/10/2025, by Ultrasound for a routine visit. Denies headache, visual changes, chest pain, shortness of breath, vaginal bleeding, leakage of fluid, or dysuria. Feeling well, no complaints. O: See flow sheet Gen: No apparent distress Abd: Gravid, nontender ASSESSMENT/PLAN: 1. Supervision of other high risk pregnancies, first trimester -Continue PNV -Continue ASA 81mg PO once daily -Anatomy US today 2. 20 weeks gestation of 3. Multigravida of advanced maternal age in second trimester -Age 39 at delivery, no additional testing. 4. Prior macrosomia, antepartum -No shoulder dystocia or complications. Largest baby 10lb 1oz RTO in 4 weeks PTL precautions reviewed Angie Rhodes APRN.CNM documented in this encounter [facility] 08-24-2024 Instructions Franky Batista MA - 08/24/2024 9:46 AM EDT SEQUENTIAL SCREENINGS The [facility] offers sequential screenings for women who are interested in screenings for chromosomal abnormalities and certain defects during a . The sequential screen combines ultrasound and blood tests to determine the risk of chromosomal abnormalities, including Down's Syndrome (Trisomy 21) and Trisomy 18, as well as open neural tube defects including spina bifida. Ultrasound examination is performed between 11 weeks and 13 weeks gestational age. Blood tests are drawn after the ultrasound and again later in the between 15 and 21 weeks gestational age. Please let your physician know if you are interested in this testing. It will require an appointment with our plating technician. This is not an ultrasound performed by a physician in our office during a routine visit. SIGNS AND SYMPTOMS OF LABOR 1. Contractions every 10 minutes or more often 2. Clear, pink, or brownish fluid (water) leaking from vagina 3. Feeling that baby is pushing down, pressure 4. Low, dull backache 5. Cramps that feel like a period 6. Cramps with or without diarrhea If you notice any of the above symptoms, contact our office at [phone] and ask to speak with a nurse. After hours, you can call doctors registry at [phone] OR call [facility] at [phone] and ask to have the doctor hospice liaison paged. If you consider this an emergency, dial 9-1-4 or go to your nearest emergency department. NEED HELP? Are you dealing with a violent or abusive relationship? Are you a victim of rape or sexual assult? Call [facility] ([place]) 24 hour Crisis Hotline: 431.751.9365 or 278-219-6504. MANUAL Your Guide to a Healthy manual is now on-line. Visit [email or web address] to download your free copy documented in this encounter [facility] 07-27-2024 Progress note Formatting of t his note might be different from the original. S: Monalisa Aguilar is a 39 year old female who presents at 16 weeks gestation for a routine visit. Just started feeling flutters this week. Denies headache, visual changes, chest pain, shortness of breath, vaginal bleeding, leakage of fluid, or dysuria. Feeling well, no complaints. O: See flow sheet Gen: No apparent distress Abd: Gravid, nontender ASSESSMENT/PLAN: 1. 16 weeks gestation of 2. Multigravida of advanced maternal age in second trimester 3. AMA - Continue ASA/ vitamin daily - labs completed - MaterniT 21 negative - RTO 4 weeks for anatomy /NOLBERTO Dyer APRN.CNM [facility] 07-27-2024 Miscellaneous Notes S: Monalisa Aguilar is a 39 year old female who presents at 16 weeks gestation for a routine visit. Just started feeling flutters this week. Denies headache, visual changes, chest pain, shortness of breath, vaginal bleeding, leakage of fluid, or dysuria. Feeling well, no complaints. O: See flow sheet Gen: No apparent distress Abd: Gravid, nontender ASSESSMENT/PLAN: 1. 16 weeks gestation of 2. Multigravida of advanced maternal age in second trimester 3. AMA - Continue ASA/ vitamin daily - labs completed - MaterniT 21 negative - RTO 4 weeks for anatomy /NOLBERTO Dyer APRN.CNM documented in this encounter [facility] 07-27-2024 Instructions Geeta Saucedo LPN - 07/27/2024 9:46 AM EDT SEQUENTIAL SCREENINGS The [facility] offers sequential screenings for women who are interested in screenings for chromosomal abnormalities and certain defects during a . The sequential screen combines ultrasound and blood tests to determine the risk of chromosomal abnormalities, including Down's Syndrome (Trisomy 21) and Trisomy 18, as well as open neural tube defects including spina bifida. Ultrasound examination is performed between 11 weeks and 13 weeks gestational age. Blood tests are drawn after the ultrasound and again later in the between 15 and 21 weeks gestational age. Please let your physician know if you are interested in this testing. It will require an appointment with our plating technician. This is not an ultrasound performed by a physician in our office during a routine visit. SIGNS AND SYMPTOMS OF LABOR 1. Contractions every 10 minutes or more often 2. Clear, pink, or brownish fluid (water) leaking from vagina 3. Feeling that baby is pushing down, pressure 4. Low, dull backache 5. Cramps that feel like a period 6. Cramps with or without diarrhea If you notice any of the above symptoms, contact our office at [phone] and ask to speak with a nurse. After hours, you can call doctors registry at [phone] OR call [facility] at [phone] and ask to have the doctor hospice liaison paged. If you consider this an emergency, dial 9--1 or go to your nearest emergency department. NEED HELP? Are you dealing with a violent or abusive relationship? Are you a victim of rape or sexual assult? Call [facility] ([place]) 24 hour Crisis Hotline: 905.978.8691 or 882-727-0954. MANUAL Your Guide to a Healthy manual is now on-line. Visit [email or web address] to download your free copy documented in this encounter [facility] 07-08-2024 Progress note Formatting of t his note might be different from the original. CINDY-S: Monalisa Aguilar is a 39 year old female who presents at 12w1d with RIVKA:01/10/2025, by Ultrasound for a routine visit. Denies headache, visual changes, chest pain, shortness of breath, vaginal bleeding, leakage of fluid, or dysuria. Feeling well, no complaints. O: See flow sheet Gen: No apparent distress Abd: nontender ASSESSMENT/PLAN: 1. Supervision of other high risk pregnancies, first trimester -Complete PN labs today and NIPT -Continue PNV -Recommend starting ASA 81mg PO once daily -Anatomy US at 20 wk 2. 12 weeks gestation of 3. Multigravida of advanced maternal age in second trimester -Declines 16wk US -Age 39 at delivery, no additional testing. PTL precautions reviewed and when to call RTO in 4 weeks Angie Rhodes APRN.CNM [facility] 07-08-2024 Miscellaneous Notes CINDY-S: Monalisa Aguilar is a 39 year old female who presents at 12w1d with RIVKA:01/10/2025, by Ultrasound for a routine visit. Denies headache, visual changes, chest pain, shortness of breath, vaginal bleeding, leakage of fluid, or dysuria. Feeling well, no complaints. O: See flow sheet Gen: No apparent distress Abd: nontender ASSESSMENT/PLAN: 1. Supervision of other high risk pregnancies, first trimester -Complete PN labs today and NIPT -Continue PNV -Recommend starting ASA 81mg PO once daily -Anatomy US at 20 wk 2. 12 weeks gestation of 3. Multigravida of advanced maternal age in second trimester -Declines 16wk US -Age 39 at delivery, no additional testing. PTL precautions reviewed and when to call RTO in 4 weeks Angie Rhodes APRN.CNM documented in this encounter [facility] 06-29-2024 Instructions Alda Poole MA - 06/29/2024 10:35 AM EST SEQUENTIAL SCREENINGS The [facility] offers sequential screenings for women who are interested in screenings for chromosomal abnormalities and certain defects during a . The sequential screen combines ultrasound and blood tests to determine the risk of chromosomal abnormalities, including Down's Syndrome (Trisomy 21) and Trisomy 18, as well as open neural tube defects including spina bifida. Ultrasound examination is performed between 11 weeks and 13 weeks gestational age. Blood tests are drawn after the ultrasound and again later in the between 15 and 21 weeks gestational age. Please let your physician know if you are interested in this testing. It will require an appointment with our plating technician. This is not an ultrasound performed by a physician in our office during a routine visit. SIGNS AND SYMPTOMS OF LABOR 1. Contractions every 10 minutes or more often 2. Clear, pink, or brownish fluid (water) leaking from vagina 3. Feeling that baby is pushing down, pressure 4. Low, dull backache 5. Cramps that feel like a period 6. Cramps with or without diarrhea If you notice any of the above symptoms, contact our office at [phone] and ask to speak with a nurse. After hours, you can call doctors registry at [phone] OR call [facility] at [phone] and ask to have the doctor hospice liaison paged. If you consider this an emergency, dial [phone] or go to your nearest emergency department. NEED HELP? Are you dealing with a violent or abusive relationship? Are you a victim of rape or sexual assult? Call [facility] ([facility] 24 hour Crisis Hotline: 292.510.5216 or 960-121-7746. MANUAL Your Guide to a Healthy manual is now on-line. Visit [email or web address] to download your free copy documented in this encounter [facility] 05-25-2024 Progress note Formatting of t his note might be different from the original. CINDY-NOB visit today. See progress note. Interested in NIPT and carrier screening, will check coverage. Angie Rhodes APRN.CNM [facility] 05-25-2024 Miscellaneous Notes CINDY-NOB visit today. See progress note. Interested in NIPT and carrier screening, will check coverage. Angie Rhodes APRN.CNM documented in this encounter [facility] 05-25-2024 Note HNO ID: [id number] Author: FRANKY BATISTA MA Service: ? Author Type: Cement Mixer Type: Progress Notes Filed: 05/25/2024 17:03 Note Text: OB point of care ultrasound was performed. See imaging tab for details. Franky Batista MA [facility] 05-25-2024 History of Presen t illness Narrative OB point of care ultrasound was performed. See imaging tab for details. Franky Batista MA INITIAL OB ASSESSMENT HPI: Monalisa is a 38 year old White here to establish Obstetrical Care. Patient's last menstrual period was 03/09/2024. from OB Dating Form. was unplanned but accepted. NFP and condoms for control. Cycles were 40 days apart Complaints: No OB History T2 L2 SAB0 IAB0 Ectopic0 Multiple0 Live Births2 Comment: 1 Adopted child Previous history: Prior : never History of 4th degree laceration: No History of shoulder dystocia: No History of Hypertensive disorders including pre-eclampsia or gestational hypertension: No History of gestational diabetes: No Patient's Risk Screening for delivery: Have you had a prior anguiano between 20w and 36w6d? No How many pregnancies have you had before? 2 Did you have a previous baby with a GBS Infection? No Please select all that apply for any prior : N/A MEDICAL/PSYCHOSOCIAL HISTORY: History of hemorrhage or bleeding concerns: No Thyroid Disease: No History of chronic hypertension: No History of pre-existing diabetes: No BMI 26.05 kg/(m^2) Last Pap: 07/22/2023 History of abnormal pap: No Prior treatment for cervical dysplasia: none. Last HPV: 07/22/2023 History of STDs: None Partner History of STDs: None Did you have a partner with Herpes? No Tobacco use: No E-Cigarette/Vaping Use: No Caffeine use: No - has recently stopped Drug use: No Alcohol use: No Multivitamin with Folic acid: Yes, Neda Shipman Would refuse blood transfusion if medically necessary: No Social Needs: How often does this describe you? I don't have enough money to pay my bills: Never Within the past 12 months, have you worried that your food would run out before you had money to buy more? Never In the past 12 months, has lack of reliable transportation kept you from going to medical appointments or work, or from getting things needed for daily living? Never In the past 12 months, have you had any concerns about having a place to live, or about the condition or quality of your housing? Never Would you like more information on any of the following (please check all that apply)? Not interested Social History: Do you have any history of depression, anxiety, PTSD, or other mood problems? No Do you have a history of abuse or trauma that may impact your experience? 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 OB Depression and Anxiety Screening- This Encounter (since 05/24/2024) Over the past 2 weeks have you felt down, depressed, or hopeless? Negative Over the past two weeks, have you felt little interest or pleasure in doing things? Negative Feeling nervous, anxious or on edge 1-Several days Not being able to stop or control worrying 0-Not al all Anxiety Pre-Screening Total (If >/= 3 additional questions will be reviewed) 1 Genetic Screening: Partner present: Yes Patient verbalized knowledge of partner family health history: Yes Do you or your partner have any personal or family history of defects not previously discussed: No Do you have history of a complicated by anomaly, genetic condition, or demise: No Preeclampsia Risk Screening: Screening for prevention of preeclampsia: High risk factors: None Moderate risk ractors: Age 35 years or older OB Risk Screening: Completed, no positive findings documented. 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 MAGNESIUM ORAL Take by mouth once daily. Lactobacillus acidophilus (PROBIOTIC ORAL) Take by mouth once daily. No current facility-administered medications for this visit. Allergies As of Date: 05/25/2024 (No Known Allergies) Fully Assessed 05/25/2024 Does patient have penicillin allergy: No REVIEW OF SYSTEMS: GENERAL: Negative for: Fever or Chills HEENT: Negative for: Headache, Impaired Vision, Ringing in Ears, Nosebleeds NECK: Negative for: Swelling, Pain, Stiffness RESPIRATORY: Negative for: Cough, Shortness of breath, Wheezing GASTROINTESTINAL: Negative for: Heartburn, Diarrhea, Blood in stool, Vomiting. Constipation, taking digestive enzymes and better in the last week. MUSCULOSKELETAL: Negative for: Muscle or joint pain, stiffness, Joint swelling NEUROLOGIC/PSYCHIATRIC: Negative for: Weakness, Paralysis, Numbness, Tingling, Tremor, Anxiety, Depression, Memory loss SKIN: Negative for: Rash, Itching GENITOURINARY: Negative for: vaginal itching, vaginal discharge, hematuria or dysuria SENSITIVE EXAM: The sensitive examination was discussed with the Patient or Patient's Authorized Heating Repair Technician. As applicable, any other physician, advance practice provider, medical student, or other health professional student that will be observing or involved in the sensitive examination for educational or training purposes was discussed with the Patient or Authorized Heating Repair Technician. The Patient or Authorized Heating Repair Technician has agreed to proceed with the sensitive examination. (Sensitive examination includes inspection and/or palpation of the breasts, pelvis, prostate and anorectal regions). PHYSICAL EXAM: BP 118/64 Ht 5' 9.5 (1.77m) Wt 179 lb (81.2kg) LMP 03/09/2024 BMI 26.06 kg/(m^2). GENERAL: pleasant in no apparent distress DERMATOLOGY: Normal, without lesions, non-icteric, and non-hirsute NECK: Supple, full range of motion, no adenopathy, and thyroid normal CHEST: Normal inspiratory effort BREAST: soft, non-tender, symmetric, no dominant mass, normal nipple-areolar complex, no lymphadenopathy, and no nipple discharge ABDOMEN: soft, non-tender, and no masses NEURO: alert and oriented x3,exam grossly non-focal PELVIS: External genitalia normal without lesions. Perineal body intact. No vaginal or cervical lesions. Cervix closed. Uterus 8 week size. No adnexal masses or tenderness. Clinical Pelvimetry: Pelvimetry clinically assessed as adequate Limited OB ultrasound exam: single intrauterine , positive cardiac activity, crown-rump length 7w1d, and normal bilateral adnexa 11w0d by LMP 7w1d by US RIVKA: 01/10/25 by US, dating updated ASSESSMENT: 38 year old at 11w0d wks gestational age PLAN: 1) Patient oriented to practice. Patient given new OB orientation folder. Discussed nutrition, folic acid supplementation, dietary guidelines, exercise, smoking, alcohol, caffeine, and drug use. Discussed gestational weight gain guidelines. Discussed hemoglobin electrophoresis. Patient: Accepts 2) Screening: Hemoglobin A1C: ordered Baby Aspirin: The patient has been counseled about the potential benefits of low dose aspirin in and our recommendation that this be offered to all patients, regardless of whether they meet the high risk criteria specified above. She Accepts Aneuploidy Screening: Discussed aneuploidy screening, nuchal translucency/first trimester early anatomy ultrasound and NIPT. The risks/benefits and limitations of NIPT/aneuploidy screening were reviewed including the potential for false negative and false positive results. The availability of genetic counseling was reviewed. Information on aneuploidy screening was provided. The patient is uncertain. She will call back if she wants to proceed with screening. Pt aware of timing. [facility] Carrier Screening: Discussed myriad carrier screening. We discussed the availability of professional-society guided carrier screening and reviewed the conditions screened and limitations of screening. The availability of genetic counseling was reviewed. Information on carrier screening was provided. The patient will check with insurance 3) Patient offered option of Virtual Visits. Patient prefers in person visits. 4) AMA: Aneuploidy screening reviewed 5) RIVKA by US, inconsistent with LMP Follow up in 4 weeks or sooner prn. Angie Rhodes APRN.CNM documented in this encounter [facility] 05-25-2024 Instructions Angie Rhodes APRN.CNM - 05/25/2024 8:49 AM EST Please select the following link to access the [facility] Your Guide to a Healthy . [email or web address] Low Dose Aspirin This sheet talks about exposure to low dose aspirin in and while . This information should not take the place of medical care and advice from your healthcare provider.\ What is low dose aspirin? Aspirin is also known as acetylsalicylic acid. It is a common prescription and cooe-zyq-epoqfrp medication similar to other non-steroidal inflammatory drugs (NSAIDs) like ibuprofen (Motrin ) and naproxen (Aleve ). Aspirin reduces inflammation, fever, and pain. Aspirin can prevent blood clots, which can make it useful in treating or preventing conditions like heart attacks and strokes. Low dose aspirin ranges from 60 to 150 mg daily, but the usual dose taken during to treat or prevent certain conditions is 81 mg daily.Regular strength and high strength aspirin and other NSAIDs are NOT preferred pain relievers during .Sometimes when people find out they are , they think about changing how they take their medication, or stopping their medication altogether. However, it is important to talk with your healthcare providers before making any changes to how you take this medication. Your healthcare providers can talk with you about the benefits of treating your condition and the risks of untreated illness during . I take low dose aspirin. Can it make it harder for me to get ? Low dose aspirin is not expected to make it harder to get . A study that included people who had 1 or 2 documented losses then asked to take daily low dose aspirin found that taking low dose aspirin at least 4 days a week increased the chance of a . Does taking low dose aspirin increase the chance for miscarriage? Miscarriage can occur in any . Taking low doses of aspirin is not thought to increase the chance of miscarriage. Some studies have shown that taking low dose aspirin before may help lower the chance of miscarriage in some people who have had one or more miscarriages before 20 weeks of . These findings are similar to studies that showed improved outcomes in people undergoing assisted reproductive technologies (fertility treatments) and were treated with low dose aspirin prior to implantation of the fertilized egg into the uterus. Does taking low dose aspirin increase the chance of defects? Every starts out with a 3-5% chance of having a defect. This is called the background risk. Studies on the use of low dose aspirin during have not found a higher chance of defects. Does taking low dose aspirin in increase the chance of other related problems? Taking low dose aspirin as directed by a healthcare provider is not expected to cause other problems. Studies have shown that low dose aspirin might improve outcomes in some people by increasing blood flow to and reducing inflammation or swelling in the uterus. Studies have also shown that low dose aspirin might lower the chances for preeclampsia (dangerously high blood pressure and complications) in people who are at high risk for this condition. However, people who are should only take low dose aspirin if their healthcare provider recommends it. Does taking low dose aspirin in affect future behavior or learning for the child? There are not many studies about long-term effects for children exposed to low dose aspirin during . However, studies have not found an increased chance for problems with physical or mental development in infants at 18 months of age. A study that looked at children up to 5 years of age who were born very early (before 33 weeks) and who were exposed to low dose aspirin during did not find an effect on their learning or behavior compared to children who were not exposed to low dose aspirin during . while taking low dose aspirin: The occasional use of low dose aspirin (75 mg daily to below 300 mg daily) is not expected to increase risks to a infant. Only small amounts of low dose aspirin enter the breast milk and adverse effects have not been reported in breastfed newborns or older infants. Healthcare providers might recommend low dose aspirin in some people during to treat certain medical conditions. However, regular strength aspirin (over 325 mg) is not preferred during . Aspirin eliminates from an s body more slowly than from an adult s body, so aspirin levels in the infant s body could build up over time with long-term use of aspirin. Using high dose aspirin can lower the body s ability to clot blood(could lead to easier bruising or bleeding). This is not likely to happen with low dose aspirin. Talk with your Healthcare provider about your questions. If a male takes low dose aspirin, could it affect fertility (ability to get partner ) or increase the chance of defects? There is very limited information about the effects of low dose aspirin on male reproduction. One study looked at men who attended an infertility clinic and were taking non-prescribed low dose aspirin at different doses and frequencies for at least six months. The study reported a decrease in the amount and quality of sperm, especially in those who used higher amounts of aspirin. Generally, it is not considered necessary for men to stop using low dose aspirin before trying to get their partner . However, men undergoing fertility treatment may want to talk with their healthcare providers about whether or not they need to stop taking aspirin. In general, exposures that fathers or sperm donors have are unlikely to increase the risks to a . For more information, please see the [employer] fact sheet Paternal Exposures at https://AFINOS.org/fact-s heets/zdbxlbys-zpvjuwtgr-sfgsts ncy/. documented in this encounter [facility] 05-25-2024 Note HNO ID: [id number] Author: ANGIE RHODES APRN.CNM Service: ? Author Type: Singing Teacher Type: Progress Notes Filed: 05/25/2024 17:03 Note Text: INITIAL OB ASSESSMENT HPI: Monalisa is a 38 year old White here to establish Obstetrical Care. Patient's last menstrual period was 03/09/2024. from OB Dating Form. was unplanned but accepted. NFP and condoms for control. Cycles were 40 days apart Complaints: No OB History T2 L2 SAB0 IAB0 Ectopic0 Multiple0 Live Births2 Comment: 1 Adopted child Previous history: Prior : never History of 4th degree laceration: No History of shoulder dystocia: No History of Hypertensive disorders including pre-eclampsia or gestational hypertension: No History of gestational diabetes: No Patient's Risk Screening for delivery: Have you had a prior anguiano between 20w and 36w6d? No How many pregnancies have you had before? 2 Did you have a previous baby with a GBS Infection? No Please select all that apply for any prior : N/A MEDICAL/PSYCHOSOCIAL HISTORY: History of hemorrhage or bleeding concerns: No Thyroid Disease: No History of chronic hypertension: No History of pre-existing diabetes: No BMI 26.05 kg/(m2) Last Pap: 07/22/2023 History of abnormal pap: No Prior treatment for cervical dysplasia: none. Last HPV: 07/22/2023 History of STDs: None Partner History of STDs: None Did you have a partner with Herpes? No Tobacco use: No E-Cigarette/Vaping Use: No Caffeine use: No - has recently stopped Drug use: No Alcohol use: No Multivitamin with Folic acid: Yes, Neda Shipman Would refuse blood transfusion if medically necessary: No Social Needs: How often does this describe you? I don't have enough money to pay my bills: Never Within the past 12 months, have you worried that your food would run out before you had money to buy more? Never In the past 12 months, has lack of reliable transportation kept you from going to medical appointments or work, or from getting things needed for daily living? Never In the past 12 months, have you had any concerns about having a place to live, or about the condition or quality of your housing? Never Would you like more information on any of the following (please check all that apply)? Not interested Social History: Do you have any history of depression, anxiety, PTSD, or other mood problems? No Do you have a history of abuse or trauma that may impact your experience? 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 OB Depression and Anxiety Screening- This Encounter (since 05/24/2024) Over the past 2 weeks have you felt down, depressed, or hopeless? Negative Over the past two weeks, have you felt little interest or pleasure in doing things?? Negative Feeling nervous, anxious or on edge 1-Several days Not being able to stop or control worrying 0-Not al all Anxiety Pre-Screening Total (If >/= 3 additional questions will be reviewed) 1 Genetic Screening: Partner present: Yes Patient verbalized knowledge of partner family health history: Yes Do you or your partner have any personal or family history of defects not previously discussed: No Do you have history of a complicated by anomaly, genetic condition, or demise: No Preeclampsia Risk Screening: Screening for prevention of preeclampsia: High risk factors: None Moderate risk ractors: Age 35 years or older OB Risk Screening: Completed, no positive findings documented. 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 MAGNESIUM ORAL Take by mouth once daily. Lactobacillus acidophilus (PROBIOTIC ORAL) Take by mouth once daily. No current facility-administered medications for this visit. Allergies As of Date: 05/25/2024 (No Known Allergies) Fully Assessed 05/25/2024 Does patient have penicillin allergy: No REVIEW OF SYSTEMS: GENERAL: Negative for: Fever or Chills HEENT: Negative for: Headache, Impaired Vision, Ringing in Ears, Nosebleeds NECK: Negative for: Swelling, Pain, Stiffness RESPIRATORY: Negative for: Cough, Shortness of breath, Wheezing GASTROINTESTINAL: Negative for: Heartburn, Diarrhea, Blood in stool, Vomiting. Constipation, taking digestive enzymes and better in the last week. MUSCULOSKELETAL: Negative for: Muscle or joint pain, stiffness, Joint swelling NEUROLOGIC/PSYCHIATRIC: Negative for: (more content not included)... [facility] 07-09-2023 Note HNO ID: [id number] Author: GABBY LIEBERMAN APRN.BIOSOLIDS MANAGEMENT TECHNICIAN Service: ? Author Type: Nurse Practitioner Type: Progress Notes Filed: 07/09/2023 08:12 Note Text: Heliotherapist offered: Patient declinesNellie Sheldon is a 38 year old who presents for an annual gynecologic exam without complaints. Menses: cycles every 35-40 days and 4-5 days of flow. 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 History Comments: Sexual Activity: Yes; Male Contraception: None PAST MEDICAL HISTORY Diagnosis Date NEGATIVE MEDICAL HISTORY PAST SURGICAL HISTORY Procedure Laterality Date EXTRACTION ERUPTED TOOTH/EXR PAST SURGICAL HISTORY OF Muscle adjustment on eyes x 2 (1992 and 2020) FAMILY HISTORY Problem Relation Age of Onset Fibromyalgia Mother Diabetes Father No Known Problems Sister No Known Problems Brother Diabetes Paternal Grandmother Breast Cancer Paternal Grandmother SOCIAL HISTORY Social History Tobacco Use Smoking status: Never Passive exposure: Never Smokeless tobacco: Never Vaping Use Vaping Use: Never used Substance Use Topics Alcohol use: Yes Comment: 2-3 times per month Drug use: Never REVIEW OF SYSTEMS Abdomen: No abdominal pain, nausea, vomiting, diarrhea, or constipation. No bloating, early satiety, indigestion, or increased flatulence. Bladder: No dysuria, gross hematuria, urinary frequency, urinary urgency, or incontinence. Breast: No breast lumps, nipple d/c, overlying skin changes, redness or skin retraction. Allergies and current medication updated:Yes EXAM: Ht 5' 9.75 (1.77m) Wt 172 lb 12.8 oz (78.4kg) LMP 06/08/2023 BMI 24.96 kg/(m2). GENERAL: pleasant, female in no apparent distress HEENT: Normocephalic, atraumatic, mucus membranes moist, and no lesions NECK: Supple, full range of motion, no adenopathy, and thyroid normal DERMATOLOGY: Normal, without lesions, non-icteric, and non-hirsute BREAST: soft, non-tender, symmetric, no dominant mass, normal nipple-areolar complex, no lymphadenopathy, and no nipple discharge CHEST: Normal inspiratory effort ABDOMEN: soft, non-tender, and no masses PELVIC: external genitalia normal, normal Bartholin's glands, urethra, Ector's glands, no vulvar lesions, no cervical lesions, good vaginal support, physiologic discharge present, normal appearing perineal body and perianal region BIMANUAL: uterus normal size, shape and consistency, no adnexal masses, and non-tender RECTOVAGINAL: deferred. NEURO: alert and oriented x3,exam grossly non-focal EXTREMITIES: normal ASSESSMENT/PLAN: 1) Health maintenance: Pap done with HPV. Mammogram starting age 40. Nutrition, exercise and routine health maintenance exams reviewed. Calcium/Vitamin D supplementation information provided. 2) Contraception: none. Contraceptive options reviewed and information provided. 3) STD screening: Declined STD check. 4) Follow up one year or sooner as needed Gabby Lieberman APRN.MARIA TERESA [facility] 07-09-2023 History of Presen t illness Narrative Heliotherapist offered: Patient declines. Monalisa is a 38 year old who presents for an annual gynecologic exam without complaints. Menses: cycles every 35-40 days and 4-5 days of flow. 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 History Comments: Sexual Activity: Yes; Male Contraception: None PAST MEDICAL HISTORY Diagnosis Date NEGATIVE MEDICAL HISTORY PAST SURGICAL HISTORY Procedure Laterality Date EXTRACTION ERUPTED TOOTH/EXR PAST SURGICAL HISTORY OF Muscle adjustment on eyes x 2 (1992 and 2020) FAMILY HISTORY Problem Relation Age of Onset Fibromyalgia Mother Diabetes Father No Known Problems Sister No Known Problems Brother Diabetes Paternal Grandmother Breast Cancer Paternal Grandmother SOCIAL HISTORY Social History Tobacco Use Smoking status: Never Passive exposure: Never Smokeless tobacco: Never Vaping Use Vaping Use: Never used Substance Use Topics Alcohol use: Yes Comment: 2-3 times per month Drug use: Never REVIEW OF SYSTEMS Abdomen: No abdominal pain, nausea, vomiting, diarrhea, or constipation. No bloating, early satiety, indigestion, or increased flatulence. Bladder: No dysuria, gross hematuria, urinary frequency, urinary urgency, or incontinence. Breast: No breast lumps, nipple d/c, overlying skin changes, redness or skin retraction. Allergies and current medication updated:Yes EXAM: Ht 5' 9.75 (1.77m) Wt 172 lb 12.8 oz (78.4kg) LMP 06/08/2023 BMI 24.96 kg/(m^2). GENERAL: pleasant, female in no apparent distress HEENT: Normocephalic, atraumatic, mucus membranes moist, and no lesions NECK: Supple, full range of motion, no adenopathy, and thyroid normal DERMATOLOGY: Normal, without lesions, non-icteric, and non-hirsute BREAST: soft, non-tender, symmetric, no dominant mass, normal nipple-areolar complex, no lymphadenopathy, and no nipple discharge CHEST: Normal inspiratory effort ABDOMEN: soft, non-tender, and no masses PELVIC: external genitalia normal, normal Bartholin's glands, urethra, Ector's glands, no vulvar lesions, no cervical lesions, good vaginal support, physiologic discharge present, normal appearing perineal body and perianal region BIMANUAL: uterus normal size, shape and consistency, no adnexal masses, and non-tender RECTOVAGINAL: deferred. NEURO: alert and oriented x3,exam grossly non-focal EXTREMITIES: normal ASSESSMENT/PLAN: 1) Health maintenance: Pap done with HPV. Mammogram starting age 40. Nutrition, exercise and routine health maintenance exams reviewed. Calcium/Vitamin D supplementation information provided. 2) Contraception: none. Contraceptive options reviewed and information provided. 3) STD screening: Declined STD check. 4) Follow up one year or sooner as needed Gabby Lieberman APRN.CNP documented in this encounter [facility] 06-12-2023 Note HNO ID: [id number] Author: GABBY LIEBERMAN APRN.CNP Service: ? Author Type: Nurse Practitioner Type: Progress Notes Filed: 06/12/2023 10:27 Note Text: Monalisa Aguilar is a 37 year old female who presents for ED follow up HPI: Patient went to ED for vaginal bleeding. Patient had taken several home test started with bleeding and was concerned for miscarriage. hCG levels done at the emergency room were negative for . The provider there discussed a possible chemical and no need to follow-up for an ultrasound to rule out ectopic. Patient states that she was having pain on the left lower quadrant but since Thursday that pain has decreased. Patient does not want to start any contraceptive management at this time. Her and her are unsure if they would like to attempt for . OB History No obstetric history on file. 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 No past surgical history on file. No family history on file. No current outpatient medications on file. No current facility-administered medications for this visit. Allergies As of Date: 06/12/2023 (Not on File) REVIEW OF SYSTEMS Abdomen: No bloating, early satiety, indigestion, or increased flatulence. No abdominal pain, nausea, vomiting, diarrhea, or constipation. Bladder: No dysuria, gross hematuria, urinary frequency, urinary urgency, or incontinence. Expanded ROS: N/A Allergies and current medication updated:Yes EXAM: There were no vitals taken for this visit. GENERAL: pleasant, female in no apparent distress HEENT: Normocephalic, atraumatic, mucus membranes moist, and no lesions CHEST: Normal inspiratory effort NEURO: alert and oriented x3,exam grossly non-focal EXTREMITIES: normal ASSESSMENT/PLAN: 1. Pelvic pain in female - ICD9: 625.9, ICD10: R10.2 Pelvic pain is resolving. Patient to follow-up for annual exam and Pap test Gabby Lieberman APRN.CNP Medical Decision Making: Problems: Low: Acute, uncomplicated illness or injury Risk: Low: Low risk from testing/treatment Medical Decision Making Level: 3 - Low [facility] 06-08-2023 Discharge summary Note Date/Time June 08, 2023 2:39pm [facility] Medical Records Department [address] [place] [address] Emergency Department Summary 06/08/23 MR#: [id number] Acct: [id number] Name: MONALISA AGUILAR Rep #:[id number] : 1985 37 From: Jose Cruz Knox MD PCP: Care Physician,No Primary Status :REG ER Location: ED HPI HPI - Female History of Present Illness Chief Complaint: Vag Bld, Preg Detail of Chief Complaint: Vaginal bleeding that started last evening Informant: patient Pain Pain: Positive for Pelvic Pain Onset: Yesterday Context: Sudden Onset Timing: Continuous and Waxes and wanes Quality: Positive for Cramping Location: LLQ and Suprapubic Current Severity: Mild Maximum Severity: Moderate Worsened by: - (Nothing) Relieved by: - (Nothing) Bleeding Issue: Positive for Vaginal bleeding (On third pad since onset); Negative for Passing clots or Passing tissue Onset: Yesterday Timing: Continuous Current Severity: Mild Maximum Severity: Similar to period Associated Symptoms Associated Symptoms: Positive for Frequency and Missed Period; Negative for Dysuria, Urgency or Hematuria Test: Positive (X 6) Sexually: Positive for Active Control: No control P: 2 Ab: 0 Narrative Narrative: Patient is a 37-year-old female who presents because of vaginal bleeding. Patient did 6 home test which were all positive. She is 5 to 6 weeks by dates. She denies complications or issues with prior to . There isno history of endometriosis, ovarian cyst, STI or ectopic . Patient denies orthostatic symptoms. She denies pain referred to her shoulder. She does complain of lower abdominal pain more prominent left inguinal area. She has no other complaints. Patient states she does not have an OB since her and her moved to the area 1 to 1.5 years ago. Prior similar symptoms: No Recent Illness/Hospitalization: No PFSH PFSH Medical History no medical history no medical history Social History (Updated 06/08/23 @ 14:[address] Jose Cruz Knox MD) household members: spouse and children Smoking Status: Never smoker substance use type: does not use ROS ROS ED Constitutional Constitutional ED: Denies chills or fever(s) Eyes Eyes: Denies blurry vision or change in vision Cardiovascular Cardiovascular: Denies chest pain or palpitations Respiratory/Chest Respiratory/Chest: Denies cough or dyspnea Gastrointestinal Gastrointestinal: Reports abdominal pain; Denies nausea or vomiting Genitourinary Genitourinary ED: Denies dysuria, hematuria or urinary frequency Musculoskeletal Musculoskeletal: Denies arthralgias or myalgias Integumentary Denies rash EXAM Physical Exam Const Vital Signs: 06/08/23 14:22 Temperature 98.1 F Temperature Source Temporal Pulse Rate 76 Respiratory Rate 16 Blood Pressure 139/81 H Blood Pressure Mean 100 Pulse Ox 99 Oxygen Delivery Method Room Air Positive well nourished and well developed Constitutional Narrative: Patient states she is anxious. Blood pressure is slightly elevated. She is nottachycardic. General Appearance ED: well developed and NAD; Negative for odor of alcohol detected HEENT Reports TM's clear and moist mucous membranes Tympanic Membrane ED: Yes TM's clear Eyes PERRL and EOMs intact bilaterally General Eye ED: Negative for pale conjunctiva or scleral icterus Neck supple and no JVD Resp normal respiratory effort and clear to auscultation bilaterally Cardio regular rate, regular rhythm, S1 normal heart sound, no murmurs and no JVD GI normal to inspection, nondistended, normoactive bowel sounds, soft to palpation,non-tender and non-distended Back/Spine no CVA tenderness Extremity normal to inspection and full ROM Neuro oriented x3 and CN's II-XII intact bilaterally Sensorium / Orientation: alert Psych mental status grossly normal Skin no rashes or lesions noted and no wounds MDM MDM MDM Narrative Medical decision making narrative: Presents with vaginal bleeding started yesterday.Patient performed 6 home tests, which were all positive. Will obtain quantitative hCG. And will obtain ultrasound to assess for viability of and because she has more pain left adnexal inguinal area to evaluate for ectopic. Patient has no known risk factors for ectopic . IV was established. Patient was madeNPO. Will obtain ABO Rh test since patient does not know blood type. Lab Data Attestation: I reviewed the patient's lab results. Lab results narrative: Patient's blood type is O+. Quantitative hCG is 2. This indicates she is not . For this reason ultrasound was not obtained. Labs: Laboratory Results - last 24 hr 06/08/23 06/08/23 14:42 15:15 HCG, Quant 2 Blood Type O POSITIVE Discharge Plan Triage Chief Complaint: Vag Bld, Preg ED Provider: Jose Cruz Knox Dx/Rx/DC Orders Clinical Impression: Menorrhagia with irregular cycle, Abnormal vaginal bleeding Instructions: ED Dysfunctional Uterine Bleeding Primary Care Provider: Care Physician,No Primary Referrals: Xochilt Cervantes DO [Med Staff - Active Staff] - 1-2 Weeks NOT,DEFINED [Non-Staff] - Disposition Disposition: Home, Self Care What to do if you have Problems For any increased pain, shortness of breath, bleeding, nausea or vomiting, chestpain, or any unexpected problems, contact your Primary Care Provider. Call [facility] ([phone]) or report to the closest Emergency Room. Call 911 if necessary. 06/08/23 1633 <Electronically signed by Jose Cruz Knox MD> Cosigner Signature (if applicable): CC: No Primary Care Physician ~ Signed [facility] Work Phone: 1(564) 558-963204-21-2023 History of Present illness Narrative* Lianet Farooq LPN - 09/05/2022 12:00 PM EDT Lmovm to schedule ov. Letter sent. documented in this [id number] History of Present illness Narrative* Roni Sauceda MD - 07/30/2021 10:14 AM EDT Images from the original note were not included. Patient Name: [facility] Location: [place] [address] [place] [address] Date Of : Date Of Visit: 1985 07/30/2021 MRN# Provider: [id number] Roni Sauceda MD Chief Complaint Patient presents with Sore Throat Reports slight sore throat x 1 day Assessment & Plan No diagnosis found. No follow-ups on file. Medical Decision Making Focal bacterial infection noted. No sign of viral infection motriun and decongestant as needed Additional Clinical Comments Discussed over the counter medications for symptomatic management and side effects of medications. Recommended taking all medications with food and to stop medications if they develop any signs of anallergic reaction. Educated patient and/or guardian about signs and symptoms that would warrant further immediate evaluation. Recommended that they should return to urgent care, make an appointment with their family physician, or go to the emergency room if symptoms persist or get acutely worse. Recommended follow upwithin the next week with their PCP or to get established with a PCP soon in order to follow up appropriately. Subjective 36 y.o. female presents with Sore Throat (Reports slight sore throat x 1 day ) Sore Throat This is a new problem. The current episode started yesterday. The problem has been unchanged. Neither side of throat is experiencing more pain than the other. There has been no fever. The pain is mild. Associated symptoms include congestion and coughing. Pertinent negatives include no abdominal pain, diarrhea, drooling, ear discharge, ear pain, headaches, hoarse voice, neck pain, shortness of breath, stridor, swollen glands, trouble swallowing or vomiting. Review Of Systems Review of Systems HENT: Positive for congestion and sore throat. Negative for drooling, ear discharge, ear pain, hoarse voice and trouble swallowing. Respiratory: Positive for cough. Negative for shortness of breath and stridor. Gastrointestinal: Negative for abdominal pain, diarrhea and vomiting. Musculoskeletal: Negative for neck pain. Neurological: Negative for headaches. Medical History Past Medical History: Diagnosis Date Headache Past Surgical History: Procedure Laterality Date EYE SURGERY 7 YO EYE SURGERY 02/15/2021 muscle correction surgery eye STRABISMUS Bilateral 03/08/2021 Procedure: RESECT/ADVANCE MEDIAL RECTUS MUSCLES 3.5 MM OU; Surgeon: Nay Whittington MD; Location: [facility]; Service: Ophthalmology WISDOM TOOTH EXTRACTION WISDOM TOOTH EXTRACTION Patient Active Problem List Diagnosis (none) - all problems resolved or deleted Social History Social History Tobacco Use Smoking status: Never Smoker Smokeless tobacco: Never Used Vaping Use Vaping Use: Never used Substance Use Topics Alcohol use: Yes Alcohol/week: 1.0 standard drink Types: 1 Glasses of wine per week Comment: ONCE OR TWICE A MONTH Drug use: No Family History Family History Problem Relation Age of Onset Diabetes Father Thyroid cancer Father Heart disease Father Cancer Paternal Grandmother breast cancer Depression Paternal Grandmother Objective Physical Exam BP 112/75 Pulse 63 Temp 97.8 F (36.6 C) Resp 18 Wt 70.3 kg (155 lb) LMP 07/04/2021 [id number]% BMI 22.24 kg/m Vision/Hearing Exam:No exam data present Physical Exam Constitutional: General: She is not in acute distress. Appearance: She is not toxic-appearing. HENT: Head: Normocephalic. Right Ear: Tympanic membrane, ear canal and external ear normal. Left Ear: Tympanic membrane, ear canal and external ear normal. Nose: Congestion and rhinorrhea present. Mouth/Throat: Pharynx: Posterior oropharyngeal erythema present. No oropharyngeal exudate. Eyes: General: Right eye: No discharge. Left eye: No discharge. Extraocular Movements: Extraocular movements intact. Pupils: Pupils are equal, round, and reactive to light. Cardiovascular: Rate and Rhythm: Normal rate and regular rhythm. Pulses: Normal pulses. Heart sounds: No murmur heard. No gallop. Pulmonary: Effort: Pulmonary effort is normal. No respiratory distress. Breath sounds: Normal breath sounds. No wheezing or rales. Musculoskeletal: Cervical back: Normal range of motion. Neurological: Mental Status: She is alert. Procedure Notes Procedures Results No results found for this or any previous visit (from the past 168 hour(s)). No orders to display Orders Placed This Visit No orders of the defined types were placed in this encounter. Medication List At End Of Visit Current Outpatient Medications Medication Sig Dispense Refill ibuprofen (ADVIL,MOTRIN) 200 MG tablet Take 200 mg by mouth every 6 (six) hours as needed for pain. tobramycin-dexamethasone (TOBRADEX) 0.3-0.1 % ophthalmic suspension 1 drop every 4 (four) hours while awake . No current facility-administered medications for this visit. There are no Patient Instructions on file for this visit. documented in this [id number] Miscellaneous Notes* Addendum Note - Xochilt Santamaria MA - 02/12/2021 9:50 AM EDT Addended by: XOCHILT SANTAMARIA on: 02/12/2021 09:50 AM Modules accepted: Orders * Addendum Note - Elodia Miranda MD - 02/12/2021 9:48 AM EDT Addended by: ELODIA MIRANDA on: 02/12/2021 09:48 AM Modules accepted: Orders documented in this [id number] Miscellaneous Notes* Addendum Note - Elodia Miranda MD - 02/12/2021 9:48 AM EDT Addended by: ELODIA MIRANDA on: 02/12/2021 09:48 AM Modules accepted: Orders documented in this [id number] History of Present illness Narrative* Elodia Miranda MD - 02/11/2021 10:20 AM EDT Subjective: Monalisa Aguilar is a 35 y.o. female who presents to the office today for a preoperative consultation at the request of surgeon DOS: 03/08/2021 Surgeon: Nelsy DX: eye muscle correction. Patient has no history of problems with anesthesia. Patient has no history of problems with intubation. Patient has no family history of bleeding/clot. Patient has no personal problems with bleeding/clot either. Patient would have no problems with having blood given to her if needed. Intubation difficulty predictors: Patient is not morbidly obese. Patient does not have an anatomically abnormal face. Patient does not have prominent incisors. Patient does not have receding mandible. Patient does not have a short thick neck. Patient's teeth are intact with no chipped, missing or loose teeth. PMH: Active Ambulatory Problems Diagnosis Date Noted No Active Ambulatory Problems Resolved Ambulatory Problems Diagnosis Date Noted in multigravida 02/20/2015 Past Medical History: Diagnosis Date Headache(784.0) Current Problem list: Patient Active Problem List Diagnosis (none) - all problems resolved or deleted PSH: Past Surgical History: Procedure Laterality Date muscle correction surgery eye WISDOM TOOTH EXTRACTION ALLERGIES: No Known Allergies MEDICATION LIST: Patient's Medications New Prescriptions No medications on file Previous Medications IBUPROFEN (ADVIL,MOTRIN) 200 MG TABLET Take 200 mg by mouth every 6 (six) hours as needed for pain. Modified Medications No medications on file Discontinued Medications No medications on file SOCIAL HISTORY: Social History Socioeconomic History Marital status: Spouse name: Not on file Number of children: Not on file Years of education: Not on file Highest education level: Not on file Occupational History Not on file Tobacco Use Smoking status: Never Smoker Smokeless tobacco: Never Used Substance and Sexual Activity Alcohol use: No Drug use: No Sexual activity: Yes Other Topics Concern Not on file Social History Narrative Not on file Social Determinants of Health Financial Resource Strain: Low Risk Difficulty of Paying Living Expenses: Not hard at all Food Insecurity: No Food Insecurity Worried About Running Out of Food in the Last Year: Never true Ran Out of Food in the Last Year: Never true Transportation Needs: No Transportation Needs Lack of Transportation (Medical): No Lack of Transportation (Non-Medical): No Physical Activity: Days of Exercise per Week: Not on file Minutes of Exercise per Session: Not on file Stress: Feeling of Stress : Not on file Social Connections: Unknown Frequency of Communication with Friends and Family: Not on file Frequency of Social Gatherings with Friends and Family: Not on file Attends Roman Catholic Services: Not on file Active Member of Clubs or Organizations: No Attends Club or Organization Meetings: Never Marital Status: Not on file Housing Stability: Unable to Pay for Housing in the Last Year: Not on file Number of Places Lived in the Last Year: Not on file Unstable Housing in the Last Year: Not on file Review of Systems Review of Systems Constitutional: Negative for activity change, fatigue and fever. HENT: Negative. Negative for hearing loss. Eyes: Negative. Negative for visual disturbance. Respiratory: Negative for chest tightness and shortness of breath. Cardiovascular: Negative for chest pain, palpitations and leg swelling. Gastrointestinal: Negative for abdominal pain, constipation, diarrhea and nausea. Genitourinary: Negative for dysuria. Neurological: Negative for dizziness, light-headedness and headaches. Psychiatric/Behavioral: Negative for dysphoric mood. The patient is not nervous/anxious. Objective: Vitals: 02/11/21 1014 BP: 119/75 BP Location: Left arm Patient Position: Sitting BP Cuff Size: Adult Pulse: 60 Temp: 98.8 F (37.1 C) TempSrc: Temporal SpO2: 98% Weight: 73.8 kg (162 lb 9.6 oz) Height: 5' 9 Physical Exam Vitals and nursing note reviewed. Constitutional: Appearance: She is well-developed. Neck: Thyroid: No thyromegaly. Cardiovascular: Rate and Rhythm: Normal rate and regular rhythm. Heart sounds: Normal heart sounds. Pulmonary: Effort: Pulmonary effort is normal. No respiratory distress. Breath sounds: Normal breath sounds. No wheezing. Musculoskeletal: Cervical back: Normal range of motion and neck supple. Skin: General: Skin is warm and dry. Neurological: Mental Status: She is alert and oriented to person, place, and time. Psychiatric: Behavior: Behavior normal. Thought Content: Thought content normal. Cardiographics ECG: Not indicated from patient history or by orders of the surgeon Echocardiogram: not done Imaging Chest x-ray: Not indicated by patient history or orders by the surgeon Lab Review No visits with results within 2 Month(s) from this visit. Latest known visit with results is: Lab Requisition on 01/01/2017 Component Date Value Case Report 01/01/2017 Value:Gynecologic Cytology Report Case: [id number] Authorizing Provider: Mary Ann Flores, Collected: 01/01/2017 First Screen: Tonya Anderson Received: 01/02/2017 10:11 AM Rescreen: Mike Amaro Specimen: LIQUID-BASED PAP, DIAGNOSTIC, Cervix LMP 01/01/2017 11/20/16 Interpretation 01/01/2017 Negative for intraepithelial lesion or malignancy Specimen Adequacy 01/01/2017 Satisfactory for evaluation; transformation zone/endocervical component present Educational Note 01/01/2017 Value:The Pap smear is a screening test for the detection of cervical cancer and its precursor lesions. False positive and false negative results can occur. The test should be performed at regular intervals, and positive results should be confirmed before definitive therapy. Additional testing methods may be helpful in detecting abnormalities or in clinical management. Assessment: 1. Preoperative clearance POC , Urine CBC Comprehensive Metabolic Panel CANCELED: Chem 7 2. Esotropia 35 y.o. female with planned surgery as above. Known risk factors for perioperative complications: None Difficulty with intubation is not anticipated. Cardiac Risk Estimation: low Current medications which may produce withdrawal symptoms if withheld perioperatively: otc nsaids for 10-14 days prior to surgery Plan: 1. Preoperative workup as follows hemoglobin, hematocrit, electrolytes, creatinine, glucose. 2. Change in medication regimen before surgery: discontinue NSAIDs (advill) 14 days before surgery. 3. Patient is medically cleared for surgery. Return for NEEDED. Spent 35 minutes with patient, face to face and/or coordinating patient care . More than half the pt visit was spent in counseling, reviewing surgery, surgical risks, advising onmedications the morning of surgery and answering any questions the patient had. documented in this [id number] History of Present illness Narrative* Elodia Miranda MD - 02/11/2021 10:20 AM EDT Subjective: Monalisa Aguilar is a 35 y.o. female who presents to the office today for a preoperative consultation at the request of surgeon DOS: 03/08/2021 Surgeon: Nelsy DX: eye muscle correction. Patient has no history of problems with anesthesia. Patient has no history of problems with intubation. Patient has no family history of bleeding/clot. Patient has no personal problems with bleeding/clot either. Patient would have no problems with having blood given to her if needed. Intubation difficulty predictors: Patient is not morbidly obese. Patient does not have an anatomically abnormal face. Patient does not have prominent incisors. Patient does not have receding mandible. Patient does not have a short thick neck. Patient's teeth are intact with no chipped, missing or loose teeth. PMH: Active Ambulatory Problems Diagnosis Date Noted No Active Ambulatory Problems Resolved Ambulatory Problems Diagnosis Date Noted in multigravida 02/20/2015 Past Medical History: Diagnosis Date Headache(784.0) Current Problem list: Patient Active Problem List Diagnosis (none) - all problems resolved or deleted PSH: Past Surgical History: Procedure Laterality Date muscle correction surgery eye WISDOM TOOTH EXTRACTION ALLERGIES: No Known Allergies MEDICATION LIST: Patient's Medications New Prescriptions No medications on file Previous Medications IBUPROFEN (ADVIL,MOTRIN) 200 MG TABLET Take 200 mg by mouth every 6 (six) hours as needed for pain. Modified Medications No medications on file Discontinued Medications No medications on file SOCIAL HISTORY: Social History Socioeconomic History Marital status: Spouse name: Not on file Number of children: Not on file Years of education: Not on file Highest education level: Not on file Occupational History Not on file Tobacco Use Smoking status: Never Smoker Smokeless tobacco: Never Used Substance and Sexual Activity Alcohol use: No Drug use: No Sexual activity: Yes Other Topics Concern Not on file Social History Narrative Not on file Social Determinants of Health Financial Resource Strain: Low Risk Difficulty of Paying Living Expenses: Not hard at all Food Insecurity: No Food Insecurity Worried About Running Out of Food in the Last Year: Never true Ran Out of Food in the Last Year: Never true Transportation Needs: No Transportation Needs Lack of Transportation (Medical): No Lack of Transportation (Non-Medical): No Physical Activity: Days of Exercise per Week: Not on file Minutes of Exercise per Session: Not on file Stress: Feeling of Stress : Not on file Social Connections: Unknown Frequency of Communication with Friends and Family: Not on file Frequency of Social Gatherings with Friends and Family: Not on file Attends Roman Catholic Services: Not on file Active Member of Clubs or Organizations: No Attends Club or Organization Meetings: Never Marital Status: Not on file Housing Stability: Unable to Pay for Housing in the Last Year: Not on file Number of Places Lived in the Last Year: Not on file Unstable Housing in the Last Year: Not on file Review of Systems Review of Systems Constitutional: Negative for activity change, fatigue and fever. HENT: Negative. Negative for hearing loss. Eyes: Negative. Negative for visual disturbance. Respiratory: Negative for chest tightness and shortness of breath. Cardiovascular: Negative for chest pain, palpitations and leg swelling. Gastrointestinal: Negative for abdominal pain, constipation, diarrhea and nausea. Genitourinary: Negative for dysuria. Neurological: Negative for dizziness, light-headedness and headaches. Psychiatric/Behavioral: Negative for dysphoric mood. The patient is not nervous/anxious. Objective: Vitals: 02/11/21 1014 BP: 119/75 BP Location: Left arm Patient Position: Sitting BP Cuff Size: Adult Pulse: 60 Temp: 98.8 F (37.1 C) TempSrc: Temporal SpO2: 98% Weight: 73.8 kg (162 lb 9.6 oz) Height: 5' 9 Physical Exam Vitals and nursing note reviewed. Constitutional: Appearance: She is well-developed. Neck: Thyroid: No thyromegaly. Cardiovascular: Rate and Rhythm: Normal rate and regular rhythm. Heart sounds: Normal heart sounds. Pulmonary: Effort: Pulmonary effort is normal. No respiratory distress. Breath sounds: Normal breath sounds. No wheezing. Musculoskeletal: Cervical back: Normal range of motion and neck supple. Skin: General: Skin is warm and dry. Neurological: Mental Status: She is alert and oriented to person, place, and time. Psychiatric: Behavior: Behavior normal. Thought Content: Thought content normal. Cardiographics ECG: Not indicated from patient history or by orders of the surgeon Echocardiogram: not done Imaging Chest x-ray: Not indicated by patient history or orders by the surgeon Lab Review No visits with results within 2 Month(s) from this visit. Latest known visit with results is: Lab Requisition on 01/01/2017 Component Date Value Case Report 01/01/2017 Value:Gynecologic Cytology Report Case: [id number] Authorizing Provider: Mary Ann Flores, Collected: 01/01/2017 First Screen: Tonya Anderson Received: 01/02/2017 10:11 AM Rescreen: Mike Amaro Specimen: LIQUID-BASED PAP, DIAGNOSTIC, Cervix LMP 01/01/2017 11/20/16 Interpretation 01/01/2017 Negative for intraepithelial lesion or malignancy Specimen Adequacy 01/01/2017 Satisfactory for evaluation; transformation zone/endocervical component present Educational Note 01/01/2017 Value:The Pap smear is a screening test for the detection of cervical cancer and its precursor lesions. False positive and false negative results can occur. The test should be performed at regular intervals, and positive results should be confirmed before definitive therapy. Additional testing methods may be helpful in detecting abnormalities or in clinical management. Assessment: 1. Preoperative clearance POC , Urine CBC Comprehensive Metabolic Panel CANCELED: Chem 7 2. Esotropia 35 y.o. female with planned surgery as above. Known risk factors for perioperative complications: None Difficulty with intubation is not anticipated. Cardiac Risk Estimation: low Current medications which may produce withdrawal symptoms if withheld perioperatively: otc nsaids for 10-14 days prior to surgery Plan: 1. Preoperative workup as follows hemoglobin, hematocrit, electrolytes, creatinine, glucose. 2. Change in medication regimen before surgery: discontinue NSAIDs (advill) 14 days before surgery. 3. Patient is medically cleared for surgery. Return for NEEDED. Spent 35 minutes with patient, face to face and/or coordinating patient care . More than half the pt visit was spent in counseling, reviewing surgery, surgical risks, advising onmedications the morning of surgery and answering any questions the patient had. documented in this [id number] History of Present illness Narrative* Elodia Miranda MD - 02/11/2021 10:20 AM EDT Subjective: Monalisa Aguilar is a 35 y.o. female who presents to the office today for a preoperative consultation at the request of surgeon DOS: 03/08/2021 Surgeon: Nelsy DX: eye muscle correction. Patient has no history of problems with anesthesia. Patient has no history of problems with intubation. Patient has no family history of bleeding/clot. Patient has no personal problems with bleeding/clot either. Patient would have no problems with having blood given to her if needed. Intubation difficulty predictors: Patient is not morbidly obese. Patient does not have an anatomically abnormal face. Patient does not have prominent incisors. Patient does not have receding mandible. Patient does not have a short thick neck. Patient's teeth are intact with no chipped, missing or loose teeth. PMH: Active Ambulatory Problems Diagnosis Date Noted No Active Ambulatory Problems Resolved Ambulatory Problems Diagnosis Date Noted in multigravida 02/20/2015 Past Medical History: Diagnosis Date Headache(784.0) Current Problem list: Patient Active Problem List Diagnosis (none) - all problems resolved or deleted PSH: Past Surgical History: Procedure Laterality Date muscle correction surgery eye WISDOM TOOTH EXTRACTION ALLERGIES: No Known Allergies MEDICATION LIST: Patient's Medications New Prescriptions No medications on file Previous Medications IBUPROFEN (ADVIL,MOTRIN) 200 MG TABLET Take 200 mg by mouth every 6 (six) hours as needed for pain. Modified Medications No medications on file Discontinued Medications No medications on file SOCIAL HISTORY: Social History Socioeconomic History Marital status: Spouse name: Not on file Number of children: Not on file Years of education: Not on file Highest education level: Not on file Occupational History Not on file Tobacco Use Smoking status: Never Smoker Smokeless tobacco: Never Used Substance and Sexual Activity Alcohol use: No Drug use: No Sexual activity: Yes Other Topics Concern Not on file Social History Narrative Not on file Social Determinants of Health Financial Resource Strain: Low Risk Difficulty of Paying Living Expenses: Not hard at all Food Insecurity: No Food Insecurity Worried About Running Out of Food in the Last Year: Never true Ran Out of Food in the Last Year: Never true Transportation Needs: No Transportation Needs Lack of Transportation (Medical): No Lack of Transportation (Non-Medical): No Physical Activity: Days of Exercise per Week: Not on file Minutes of Exercise per Session: Not on file Stress: Feeling of Stress : Not on file Social Connections: Unknown Frequency of Communication with Friends and Family: Not on file Frequency of Social Gatherings with Friends and Family: Not on file Attends Roman Catholic Services: Not on file Active Member of Clubs or Organizations: No Attends Club or Organization Meetings: Never Marital Status: Not on file Housing Stability: Unable to Pay for Housing in the Last Year: Not on file Number of Places Lived in the Last Year: Not on file Unstable Housing in the Last Year: Not on file Review of Systems Review of Systems Constitutional: Negative for activity change, fatigue and fever. HENT: Negative. Negative for hearing loss. Eyes: Negative. Negative for visual disturbance. Respiratory: Negative for chest tightness and shortness of breath. Cardiovascular: Negative for chest pain, palpitations and leg swelling. Gastrointestinal: Negative for abdominal pain, constipation, diarrhea and nausea. Genitourinary: Negative for dysuria. Neurological: Negative for dizziness, light-headedness and headaches. Psychiatric/Behavioral: Negative for dysphoric mood. The patient is not nervous/anxious. Objective: Vitals: 02/11/21 1014 BP: 119/75 BP Location: Left arm Patient Position: Sitting BP Cuff Size: Adult Pulse: 60 Temp: 98.8 F (37.1 C) TempSrc: Temporal SpO2: 98% Weight: 73.8 kg (162 lb 9.6 oz) Height: 5' 9 Physical Exam Vitals and nursing note reviewed. Constitutional: Appearance: She is well-developed. Neck: Thyroid: No thyromegaly. Cardiovascular: Rate and Rhythm: Normal rate and regular rhythm. Heart sounds: Normal heart sounds. Pulmonary: Effort: Pulmonary effort is normal. No respiratory distress. Breath sounds: Normal breath sounds. No wheezing. Musculoskeletal: Cervical back: Normal range of motion and neck supple. Skin: General: Skin is warm and dry. Neurological: Mental Status: She is alert and oriented to person, place, and time. Psychiatric: Behavior: Behavior normal. Thought Content: Thought content normal. Cardiographics ECG: Not indicated from patient history or by orders of the surgeon Echocardiogram: not done Imaging Chest x-ray: Not indicated by patient history or orders by the surgeon Lab Review No visits with results within 2 Month(s) from this visit. Latest known visit with results is: Lab Requisition on 01/01/2017 Component Date Value Case Report 01/01/2017 Value:Gynecologic Cytology Report Case: [id number] Authorizing Provider: Mary Ann Flores, Collected: 01/01/2017 First Screen: Tonya Anderson Received: 01/02/2017 10:11 AM Rescreen: Mike Amaro Specimen: LIQUID-BASED PAP, DIAGNOSTIC, Cervix LMP 01/01/2017 11/20/16 Interpretation 01/01/2017 Negative for intraepithelial lesion or malignancy Specimen Adequacy 01/01/2017 Satisfactory for evaluation; transformation zone/endocervical component present Educational Note 01/01/2017 Value:The Pap smear is a screening test for the detection of cervical cancer and its precursor lesions. False positive and false negative results can occur. The test should be performed at regular intervals, and positive results should be confirmed before definitive therapy. Additional testing methods may be helpful in detecting abnormalities or in clinical management. Assessment: 1. Preoperative clearance POC , Urine CBC Comprehensive Metabolic Panel CANCELED: Chem 7 2. Esotropia 35 y.o. female with planned surgery as above. Known risk factors for perioperative complications: None Difficulty with intubation is not anticipated. Cardiac Risk Estimation: low Current medications which may produce withdrawal symptoms if withheld perioperatively: otc nsaids for 10-14 days prior to surgery Plan: 1. Preoperative workup as follows hemoglobin, hematocrit, electrolytes, creatinine, glucose. 2. Change in medication regimen before surgery: discontinue NSAIDs (advill) 14 days before surgery. 3. Patient is medically cleared for surgery. Return for NEEDED. Spent 35 minutes with patient, face to face and/or coordinating patient care . More than half the pt visit was spent in counseling, reviewing surgery, surgical risks, advising onmedications the morning of surgery and answering any questions the patient had. [facility]* Diagnosis Preoperative clearance- Primary Unspecified pre-operative examination Esotropia Unspecified esotropia [facility] Diagnosis Preoperative clearance- Primary Unspecified pre-operative examination Esotropia Unspecified esotropia [facility] Diagnosis Preoperative clearance- Primary Unspecified pre-operative examination Esotropia Unspecified esotropia [facility]* Diagnosis Sinusitis, unspecified chronicity, unspecified location- Primary [facility] noteNo assessment information availableWPark[facility] Work Phone: Evaluation note* Diagnosis Encounter for gynecological examination (general) (routine) without abnormal findings- Primary Screening for cervical cancer Screening for malignant neoplasm of the cervix Encounter for screening for human papillomavirus (HPV) Special screening examination for human papillomavirus (HPV) Encounter for routine laboratory testing Laboratory examination ordered as part of a routine general medical examination [facility]* Diagnosis with uncertain dates, antepartum- Primary state, incidental Prior macrosomia, antepartum with other poor obstetric history Multigravida of advanced maternal age in first trimester Supervision of other high risk pregnancies, first trimester [facility]* Diagnosis Encounter for screening for malformation using ultrasound- Primary 12 weeks gestation of state, incidental documented in this encounter [place] note* Diagnosis Supervision of other high risk pregnancies, first trimester- Primary 12 weeks gestation of state, incidental Multigravida of advanced maternal age in second trimester [facility]* Diagnosis 16 weeks gestation of - Primary state, incidental Multigravida of advanced maternal age in second trimester Multigravida of advanced maternal age in first trimester [facility]* Diagnosis Supervision of high risk in second trimester (HCC)- Primary Unspecified high-risk 20 weeks gestation of (HCC) state, incidental Multigravida of advanced maternal age in second trimester (HCC) Prior macrosomia, antepartum (HCC) with other poor obstetric history [facility]* Diagnosis Encounter for anatomic survey (HCC)- Primary Encounter for anatomic survey 20 weeks gestation of (HCC) state, incidental Multigravida of advanced maternal age in second trimester (HCC) [facility]* Diagnosis Supervision of high risk in second trimester (HCC)- Primary Unspecified high-risk 24 weeks gestation of (HCC) state, incidental Screening for diabetes mellitus Multigravida of advanced maternal age in second trimester (HCC) Prior macrosomia, antepartum (HCC) with other poor obstetric history [facility]* Diagnosis Supervision of high risk in third trimester (HCC)- Primary Unspecified high-risk Multigravida of advanced maternal age in third trimester (HCC) 28 weeks gestation of (HCC) state, incidental Prior macrosomia, antepartum (HCC) with other poor obstetric history Need for vaccination Need for prophylactic vaccination and inoculation against unspecified single disease documented in this encounter [place] note* Diagnosis 30 weeks gestation of (HCC)- Primary state, incidental Supervision of high risk in third trimester (HCC) Unspecified high-risk Multigravida of advanced maternal age in third trimester ([facility]) documented in this encounter [place] note* Diagnosis Supervision of high risk in third trimester (HCC)- Primary Unspecified high-risk 32 weeks gestation of ([facility]) state, incidental Multigravida of advanced maternal age in third trimester ([facility]) Prior macrosomia, antepartum (HCC) with other poor obstetric history documented in this encounter [place] note* Diagnosis Supervision of high risk in third trimester (HCC)- Primary Unspecified high-risk Multigravida of advanced maternal age in third trimester ([facility]) Prior macrosomia, antepartum (HCC) with other poor obstetric history 34 weeks gestation of ([facility]) state, incidental * Assessment & Plan Note - Speedy Silva MD - 11/29/2024 10:19 AM EDTAssociated Problem(s): Supervision of high risk in third trimester (HCC) Orders: URINE OB DIP B/O * Assessment & Plan Note - Speedy Silva MD - 11/29/2024 10:19 AM EDTAssociated Problem(s): Multigravida of advanced maternal age in third trimester (HCC) Orders: URINE OB DIP B/O * Assessment & Plan Note - Speedy Silva MD - 11/29/2024 10:19 AM EDTAssociated Problem(s): Prior macrosomia, antepartum (HCC) Orders: URINE OB DIP B/O documented in this encounter [place] note* Diagnosis Supervision of high risk in third trimester (HCC)- Primary Unspecified high-risk Multigravida of advanced maternal age in third trimester (HCC) Prior macrosomia, antepartum (HCC) with other poor obstetric history 34 weeks gestation of (HCC) state, incidental Supervision of high risk in third trimester (HCC)- Primary Unspecified high-risk 36 weeks gestation of (HCC) state, incidental AMA (advanced maternal age) multigravida 35+, third trimester (HCC) Prior macrosomia, antepartum (HCC) with other poor obstetric history * Assessment & Plan Note - Clem Quinonez MD - 12/13/2024 10:09 AM EDT Associated Problem(s): Prior macrosomia, antepartum (HCC) Orders: URINE OB DIP B/O * Assessment & Plan Note - Clem Quinonez MD - 12/13/2024 10:09 AM EDT Associated Problem(s): Supervision of high risk in third trimester (HCC) Orders: URINE OB DIP B/O documented in this encounter [place] note* Diagnosis Supervision of high risk in third trimester (HCC)- Primary Unspecified high-risk Multigravida of advanced maternal age in third trimester (HCC) Prior macrosomia, antepartum (HCC) with other poor obstetric history 34 weeks gestation of ([facility]) state, incidental Encounter for ultrasound to check growth ([facility])- Primary Encounter for routine screening for malformation using ultrasonics Multigravida of advanced maternal age in third trimester (HCC) Prior macrosomia, antepartum (HCC) with other poor obstetric history 36 weeks gestation of (HCC) state, incidental Supervision of high risk in third trimester (HCC)- Primary Unspecified high-risk 36 weeks gestation of (HCC) state, incidental AMA (advanced maternal age) multigravida 35+, third trimester (HCC) Prior macrosomia, antepartum (HCC) with other poor obstetric history [facility] Supervision of high risk in third trimester (HCC)- Primary Unspecified high-risk Multigravida of advanced maternal age in third trimester (HCC) Prior macrosomia, antepartum (HCC) with other poor obstetric history 34 weeks gestation of (HCC) state, incidental Supervision of high risk in third trimester (HCC)- Primary Unspecified high-risk 36 weeks gestation of (HCC) state, incidental AMA (advanced maternal age) multigravida 35+, third trimester (HCC) Prior macrosomia, antepartum (HCC) with other poor obstetric history Supervision of high risk in third trimester (HCC)- Primary Unspecified high-risk AMA (advanced maternal age) multigravida 35+, third trimester (HCC) Prior macrosomia, antepartum (HCC) with other poor obstetric history 38 weeks gestation of (HCC) state, incidental [facility] Diagnosis Supervision of high risk in third trimester (HCC)- Primary Unspecified high-risk Multigravida of advanced maternal age in third trimester (HCC) Prior macrosomia, antepartum (HCC) with other poor obstetric history 34 weeks gestation of (HCC) state, incidental Supervision of high risk in third trimester (HCC)- Primary Unspecified high-risk 36 weeks gestation of (HCC) state, incidental AMA (advanced maternal age) multigravida 35+, third trimester (HCC) Prior macrosomia, antepartum (HCC) with other poor obstetric history 39 weeks gestation of (HCC)- Primary state, incidental AMA (advanced maternal age) multigravida 35+, third trimester (HCC) [facility] Attachments The following attachments cannot be sent through Care Everywhere. * Sinusitis (Albanian) documented in this encounterOhioHealthReason for referral (narrative)* Diagnostic Procedure Only (Routine) - Pending Review Specialty Diagnoses / Procedures Referred By Manuel t Referred To Contact [facility] Diagnoses with uncertain dates, antepartum Procedures NUCHAL TRANSLUCENCY WHI US NUCHAL TRANSLUCENCY 1ST GESTATION Angie Rhodes APRN.CNM [address] [place] [address] [facility] [address] [place] [id number] Referral ID Status Reason Start Date Expiration Date Visits Requested Visits Authorized [id number] Pending Review Auto-Generat ed Referral 05/25/2024 05/25/2025 1 1 * Diagnostic Procedure Only (Routine) - Pending Review Specialty Diagnoses / Procedures Referred By Manuel keller Referred To Contact [facility] Diagnoses with uncertain dates, antepartum Procedures OBSTETRIC ULTRASOUND WHI US PREG UTERUS AFTER 1ST TRIMEST 1/ GESTATION Angie Rhodes APRN.CNM [address] [place] [address] [address] Referral ID Status Reason Start Date Expiration Date Visits Requested Visits Authorized [id number] Pending Review Auto-Generat ed Referral 05/25/2024 05/25/2025 1 1 [facility] Summary Purpose Family History No Family History Records FoundNo Family History Records FoundNo Family History Records FoundNo Family History Records FoundNo Family History Records FoundNo Family History Records FoundNo Family History Records Found Advance Directives Documents on File Type Date Recorded 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 Advance Directives and Livin g Will 04/26/2020 7:27 AM Latest Code Status on File Code Status Date Activated Date Inactivated Comments Full Code 02/21/2015 9:58 AM 02/23/2015 12:00 AM Full Code 02/20/2015 11:30 PM 02/21/2015 9:58 AM Documents on File Type Date Recorded 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 Advance Directives and Livin g Will 03/08/2021 6:56 AM Latest Code Status on File Code Status Date Activated Date Inactivated Comments Full Code 02/21/2015 9:58 AM 02/23/2015 12:00 AM Code Status History Code Status Date Activated Date Inactivated Comments Full Code 02/20/2015 11:30 PM 02/21/2015 9:58 AM Advance Directive Response Recorded Date/ Time Living Will Yes June 08 2:49pm Power of Manuscript Editor Yes June 08, 2023 2:49pm Name of Medical Power of Manuscript Editor spouse June 08, 2023 2:49pm History of Present Illness * Elodia Miranda MD - 04/26/2020 7:56 AM EST Vital signs were reviewed. Nurse notes were reviewed. Vitals: 04/26/20 0739 BP: 110/69 BP Location: Right arm Patient Position: Sitting BP Cuff Size: Adult Pulse: 65 Temp: 97.7 F (36.5 C) SpO2: 96% Weight: 75.3 kg (166 lb) Height: 5' 9 Wt Readings from Last 3 Encounters: 04/26/20 75.3 kg (166 lb) 10/21/16 70.4 kg (155 lb 3.2 oz) 10/17/16 69.9 kg (154 lb) Estimated body mass index is 24.51 kg/m as calculated from the following: Height as of this encounter: 5' 9. Weight as of this encounter: 75.3 kg (166 lb). HPI: Monalisa is here for a physical today. Monalisa is a 34 y.o. [1] female who is here for annual exam. Pt was given the prephyscial paperwork and that was reviewed with the patient. Pt medication list was reviewed with patient and corrected where needed. Pt medications were refilled as requested/needed. Pt past medical, surgical and family history were reviewed and updated where needed. Pt SOGI was reviewed and updated as needed. Patient is here for a preventative visit today: Plan for today's appointment: ? No new complaints Monalisa Aguilar is a 34 y.o. [1] female with normal, here for a physical appointment today. labs Patient states (quotation, typed directly from patient and or forms patient completed): Heterosexual Female Condoms Female No risk hiv Social etoh Patient is a non smoker. Pt does not use recreational drugs 2 coffee per day Exercise 5-6 times a day [facility] 07/25 Healthy veggies Ed Martin JanuaryMar 30 lmp menarceh 13 Last pap january Preventative health issues addressed/reminded today: labs HPI #2 (if needed, additional topics patient discussed outside of the scope of a preventative visit): Not applicable at this time Any other specialists seen: Patient Care Team: Elodia Miranda MD as PCP - General (Family Medicine) ROS: Review of Systems FH: Family History Problem Relation Age of Onset Diabetes Father Thyroid cancer Father Heart disease Father Cancer Paternal Grandmother breast cancer Depression Paternal Grandmother Current Problem List: Patient Active Problem List Diagnosis (none) - all problems resolved or deleted PMH: Past Medical History: Diagnosis Date Headache(784.0) PMH was reviewed at today's visit. PSH: Past Surgical History: Procedure Laterality Date muscle correction surgery eye WISDOM TOOTH EXTRACTION PSH was reviewed at today's visit. SH: Social History Socioeconomic History Marital status: Spouse name: Not on file Number of children: Not on file Years of education: Not on file Highest education level: Not on file Occupational History Not on file Social Needs Financial resource strain: Not hard at all Food insecurity Worry: Never true Inability: Never true Transportation needs Medical: No Non-medical: No Tobacco Use Smoking status: Never Smoker Smokeless tobacco: Never Used Substance and Sexual Activity Alcohol use: No Drug use: No Sexual activity: Yes Lifestyle Physical activity Days per week: Not on file Minutes per session: Not on file Stress: Not on file Relationships Social connections Talks on phone: Not on file Gets together: Not on file Attends amish service: Not on file Active member of club or organization: No Attends meetings of clubs or organizations: Never Relationship status: Not on file Other Topics Concern Not on file Social History Narrative Not on file Social History Substance and Sexual Activity Drug Use No Marital Status: Immunizations: There is no immunization history for the selected administration types on file for this patient. MEDS: Patient's Medications New Prescriptions No medications on file Previous Medications IBUPROFEN (ADVIL,MOTRIN) 200 MG TABLET Take 200 mg by mouth every 6 (six) hours as needed for pain. Modified Medications No medications on file Discontinued Medications No medications on file Medications were reviewed at today's visit. Allergies: Allergies: Patient has no known allergies. Allergies were reviewed at today's visit PE: Physical Exam Hearing is normal. No c/o problems with vision. No c/o problems with mood, alertness or orientation. Assessment: 1. Annual physical exam CBC Comprehensive Metabolic Panel Hemoglobin A1c Lipid Panel TSH Urinalysis Plan: EKG was not done today Patient was instructed of the following: The patient given my usual diagnosis return and precaution information on when to return. The patient was given my usual healthy diet and lifestyle information that includes exercise more days of the week than not and more vegetables than any other calorie source. Stressed importance of moderation. Stressed importance of a balanced diet that incorporates a minimum of 3-5 fruits and vegetables per day and at least 8 8 oz glasses of water each day. I have reviewed the labwork that has been pulled into the note. I have reviewed to past histories that have been placed in the note. Exercise: Stressed the importance of regular exercise. Immunizations reviewed. Health maintenance measures were reviewed. For any new medications prescribed today, patient was educated about indications for the medication, how to take the medication and potential side effects of the medications. Return in about 1 year (around 04/26/2021).. Patient also reminded that refills usually indicate the need for an office visit. Teammate will follow up with patient not currently requested. Health Maintenance Topics with due status: Overdue Topic Date Due Tetanus: Every 10yrs 1987 Depression Screening (PHQ9) 1999 Hepatitis C Screening 2005 Pap Smear 01/02/2020 Sequential Influenza Vaccine 01/17/2020 There is no immunization history for the selected administration types on file for this patient. Instructions: I have reviewed the provider's instructions with the patient, answering all questions to her satisfaction. AVS was printed for patient. ALL OR PARTS OF THIS NOTE WERE COMPLETED USING [facility]. PLEASE DISREGARD ANY GRAMMATICAL OR SPELLING ERRORS. documented in this encounter Assessments Diagnosis Annual physical exam- Primary Routine general medical examination at a health care facility Chief Complaint and Reason for Visit Chief Complaint POSSIBLE MISCARRIAGE Additional Source Comments INFORMATION SOURCE (unrecogn ized section and content) DATE CREATED AUTHOR 06/11/2019 [facility] DATE CREATED AUTHOR AUTHOR'S MICHAELIZ ATION 03/09/2021 [facility] DATE CREATED AUTHOR AUTHOR'S ORGANIZ ATION 07/30/2021 [facility] DATE CREATED AUTHOR AUTHOR'S ORGANIZ ATION 11/12/2021 [facility] DATE CREATED AUTHOR AUTHOR'S ORGANIZ ATION 07/22/2023 [facility] DATE CREATED AUTHOR AUTHOR'S ORGANIZ ATION 12/31/2023 [facility] DATE CREATED AUTHOR AUTHOR'S ORGANIZ ATION 01/05/2025 [facility] Reason for Visit (unrecogniz ed section and content) Reason Comments Annual Exam PE Reason Comments Pre-op Exam eye sx 03/08/21 Reason Comments Sore Throat Reports slight sore throat x 1 day Reason Comments Yearly Exam Reason Comments Initial OB Visit Specialty Diagnoses / Procedures Referred By Contac t Referred To Contact Diagnoses 1st OB Procedures [place] [address] Referral ID Status Reason Start Date Expiration Date Visits Requested Visits Authorized [id number] Authorized Patient Cleared - Qualified 100% FAS 4 08/07/2024 99 99 Reason Comments US Specialty Diagnoses / Procedures Referred By Contac t Referred To Contact [facility] Diagnoses with uncertain dates, antepartum Procedures NUCHAL TRANSLUCENCY WHI US NUCHAL TRANSLUCENCY 1ST GESTATION Angie Rhodes APRN.CNM [address] [place] [address] Phone: tel: fax: [facility] [address] [place] [address] Referral ID Status Reason Start Date Expiration Date V isits Requested Visits Authorized [id number] Closed Auto-Generate d Referral 05/25/2024 05/25/2025 1 1 Reason Onset Date Comments Care 06/29/2024 Reason Onset Date Comments Care 07/27/2024 Reason Onset Date Comments Care 08/24/2024 Specialty Diagnoses / Procedures Referred By Contac t Referred To Contact [facility] Diagnoses with uncertain dates, antepartum (HCC) Procedures OBSTETRIC ULTRASOUND WHI US PREG UTERUS AFTER 1ST TRIMEST GESTATION nAgie Rhodes APRN.CNM [address] [place] [address] Phone: tel: fax:[phone] [address] Referral ID Status Reason Start Date Expiration Date V isits Requested Visits Authorized [id number] Closed Auto-Generate d Referral 05/25/2024 05/25/2025 1 1 Reason Onset Date Comments Care 09/23/2024 Reason Onset Date Comments Care 10/21/2024 Reason Onset Date Comments Care 11/04/2024 Reason Onset Date Comments Care 11/16/2024 Reason Onset Date Comments Care 11/29/2024 Reason Onset Date Comments Care 12/13/2024 Specialty Diagnoses / Procedures Referred By Contac t Referred To Contact [facility] Diagnoses Multigravida of advanced maternal age in third trimester (HCC) Prior macrosomia, antepartum (HCC) Procedures OBSTETRIC ULTRASOUND WHI US PREG UTERUS AFTER 1ST TRIMEST GESTATION Speedy Silva MD [address] [place] [address] Phone: tel: fax:[phone] [address] Referral ID Status Reason Start Date Expiration Date V isits Requested Visits Authorized [id number] Closed Auto-Generate d Referral 11/29/2024 11/29/2025 1 1 Reason Onset Date Comments Care 12/27/2024 Reason Onset Date Comments Population Health Navigation Outreach 12/29/2024 Ob/peds Reason Onset Date Comments Care 01/04/2025 Care Teams (unrecognized sec tion and content) Rn Placement Relationship Specialty Start Date End Date Elodia Miranda MD [address] [place] [address] PCP - General Family Medicine 09/15/16 Rn Placement Relationship Specialty Start Date End Date Elodia Miranda MD [address] [place] [address] PCP - General Family Medicine 09/15/16 Rn Placement Relationship Specialty Start Date End Date Elodia Miranda MD [address] [place] [address] PCP - General Family Medicine 09/15/16 Rn Placement Relationship Specialty Start Date End Date Elodia Miranda MD [address] [place] [address] PCP - General Family Medicine 09/15/16 Nay Whittington MD [address] [place] [address] Consulting Physician Ophthalmology 02/12/21 Rn Placement Relationship Specialty Start Date End Date Elodia Miranda MD PCP - General Family Medicine 09/15/16 Nay Whittington MD [address] [place] [address] Consulting Physician Ophthalmology 02/12/21 Team Status: Active Member Role Status Dates No Primary Care Physician Primary Care Provider Active Team Status: Inactive Member Role Status Dates Dr. Jose Cruz Knox MD Emergency Provider Active No Primary Care Physician Primary Care Provider Active Goals (unrecognized section and content) Goals may be documented in a n alternate section Source Comments (unrecognize d section and content) In the event this informatio n is protected by the Federal Confidentiality of Alcohol and Drug Abuse Patient Records regulations: The Federal rules restrict any use of the information to criminally investigate or prosecute any alcohol or drug abuse patient.[facility] the event this information is protected by the Federal Confidentiality of Alcohol and Drug Abuse Patient Records regulations: The Federal rules restrict any use of the information to criminally investigate or prosecute any alcohol or drug abuse patient.[facility] the event this information is protected by the Federal Confidentiality of Alcohol and Drug Abuse Patient Records regulations: The Federal rules restrict any use of the information to criminally investigate or prosecute any alcohol or drug abuse patient.[facility]In the event this information is protected by the Federal Confidentiality of Alcohol and Drug Abuse Patient Records regulations: The Federal rules restrict any use of the information to criminally investigate or prosecute any alcohol or drug abuse patient.[facility] HospitalIn the event this information is protected by the Federal Confidentiality of Alcohol and Drug Abuse Patient Records regulations: The Federal rules restrict any use of the information to criminally investigate or prosecute any alcohol or drug abuse patient.[facility]In the event this information is protected by the Federal Confidentiality of Alcohol and Drug Abuse Patient Records regulations: The Federal rules restrict any use of the information to criminally investigate or prosecute any alcohol or drug abuse patient.[facility] HospitalIn the event this information is protected by the Federal Confidentiality of Alcohol and Drug Abuse Patient Records regulations: The Federal rules restrict any use of the information to criminally investigate or prosecute any alcohol or drug abuse patient.[facility] HospitalIn the event this information is protected by the Federal Confidentiality of Alcohol and Drug Abuse Patient Records regulations: The Federal rules restrict any use of the information to criminally investigate or prosecute any alcohol or drug abuse patient.[facility] HospitalIn the event this information is protected by the Federal Confidentiality of Alcohol and Drug Abuse Patient Records regulations: The Federal rules restrict any use of the information to criminally investigate or prosecute any alcohol or drug abuse patient.[facility] the event this information is protected by the Federal Confidentiality of Alcohol and Drug Abuse Patient Records regulations: The Federal rules restrict any use of the information to criminally investigate or prosecute any alcohol or drug abuse patient.[facility] HospitalIn the event this information is protected by the Federal Confidentiality of Alcohol and Drug Abuse Patient Records regulations: The Federal rules restrict any use of the information to criminally investigate or prosecute any alcohol or drug abuse patient.[facility] HospitalIn the event this information is protected by the Federal Confidentiality of Alcohol and Drug Abuse Patient Records regulations: The Federal rules restrict any use of the information to criminally investigate or prosecute any alcohol or drug abuse patient.[facility] HospitalIn the event this information is protected by the Federal Confidentiality of Alcohol and Drug Abuse Patient Records regulations: The Federal rules restrict any use of the information to criminally investigate or prosecute any alcohol or drug abuse patient.[facility] HospitalIn the event this information is protected by the Federal Confidentiality of Alcohol and Drug Abuse Patient Records regulations: The Federal rules restrict any use of the information to criminally investigate or prosecute any alcohol or drug abuse patient.[facility] HospitalIn the event this information is protected by the Federal Confidentiality of Alcohol and Drug Abuse Patient Records regulations: The Federal rules restrict any use of the information to criminally investigate or prosecute any alcohol or drug abuse patient.[facility] HospitalIn the event this information is protected by the Federal Confidentiality of Alcohol and Drug Abuse Patient Records regulations: The Federal rules restrict any use of the information to criminally investigate or prosecute any alcohol or drug abuse patient.[facility] HospitalIn the event this information is protected by the Federal Confidentiality of Alcohol and Drug Abuse Patient Records regulations: The Federal rules restrict any use of the information to criminally investigate or prosecute any alcohol or drug abuse patient.[facility] HospitalIn the event this information is protected by the Federal Confidentiality of Alcohol and Drug Abuse Patient Records regulations: The Federal rules restrict any use of the information to criminally investigate or prosecute any alcohol or drug abuse patient.[facility] HospitalIn the event this information is protected by the Federal Confidentiality of Alcohol and Drug Abuse Patient Records regulations: The Federal rules restrict any use of the information to criminally investigate or prosecute any alcohol or drug abuse patient.[facility] HospitalIn the event this information is protected by the Federal Confidentiality of Alcohol and Drug Abuse Patient Records regulations: The Federal rules restrict any use of the information to criminally investigate or prosecute any alcohol or drug abuse patient.[facility] HospitalIn the event this information is protected by the Federal Confidentiality of Alcohol and Drug Abuse Patient Records regulations: The Federal rules restrict any use of the information to criminally investigate or prosecute any alcohol or drug abuse patient.[facility] FOR RECORDS PERTAINING TO PATIENTS WHO ARE OR HAVE BEEN ENROLLED IN A CHEMICAL DEPENDENCY/SUBSTANCEABUSE PROGRAM, SOME INFORMATION MAY BE OMITTED. This clinical summary was aggregated from multiple sources. Caution should be exercised in using it in the provision of clinical care. This summary normalizes information from multiple sources, and as a consequence, information in this document may materially change the coding, format and clinical context of patient data. In addition, data may be omitted in some cases. CLINICAL DECISIONS SHOULD BE BASED ON THE PRIMARY CLINICAL RECORDS. [facility]. provides no warranty or guarantee of the accuracy or completeness of information in this document.
--- OUTSIDE RECORDS SUMMARY | 2025-01-10 23:26 | XMS RPT_ITS | CCD ---
Author Organization [facility] Inform ion Partnership [facility] Care Team Providers Care Weigher Bulker Name Role Phone Elodia Miranda Primary Care Provider NAY WHITTINGTON Attending Unavailable ELODIA MIRANDA Primary Care NAY Aceves Admitting Unavailable ELODIA MIRANDA Primary Care NAY Aceves Referring Unavailable ELODIA MIRANDA Primary Care NAY Aceves Admitting Unavailable Elodia Miranda MD Primary Care Provid er Nay Whittington MD Unavailable ELODIA MIRANDA Primary Care RONI Kirby Attending Unavailab ELODIA Li Attending ELODIA Dodson Primary Care ELODIA Dodson Primary Care ELODIA Dodson Attending ELODIA Dodson Attending ELODIA Dodson Primary Care Elodia Dodson MD Primary Care [facility] er Nay Whittington MD Unavailable Unavailable [...] (advanced maternal age) multigravida 35+, third trimester ([facility])] Onset: 11-16-2024 Episodic Other complications of (1 [...] [Supervision of high risk in second trimester ([facility])] Onset: 09-23-2024 Episodic Other complications of (2 sources) Supervision of elderly multigravida, second trimester; Translations: [Multigravida of advanced maternal age in second trimester ([facility])] Onset: 06-29-2024 Episodic Other complications of (1 source) Supervision of with other poor reproductive or obstetric history, unspecified trimester; Translations: [Prior macrosomia, antepartum ([facility])] Onset: 08-24-2024 Episodic Other complications of (1 [...] 5 Glucose Ql (U) Negative Neg mg/dL [facility] Interpretation and review of laboratory results Normal [facility] Protein.monoclonal (U) [Mass/Vol] Negative Neg mg/dL [facility] Examination level ultrasound on 12-13-2024 [facility] Radiology Study observation (narrative) [facility] ROUTINE, GROUP B ST REPTOCOCCUS BY PCRon 12-13-2024 ROUTINE, GROUP B STREPTOCOCCUS BY PCR Not detected Normal [facility] Comment on above: Performed By: #### 1 6128-1 #### [facility] CLIA [id number] [address] [place] [address] [place] URINE OB DIP B/Oon 5 Glucose Ql (U) Negative Neg mg/dL [facility] Interpretation and review of laboratory results Normal [facility] Protein.monoclonal (U) [Mass/Vol] Negative Neg mg/dL [facility] URINE OB DIP B/Oon 5 Glucose Ql (U) Negative Neg mg/dL [facility] Interpretation and review of laboratory results Normal [facility] Protein.monoclonal (U) [Mass/Vol] Negative Neg mg/dL [facility] URINE OB DIP B/Oon 5 Glucose Ql (U) Negative Neg mg/dL [facility] Interpretation and review of laboratory results Normal [facility] Protein.monoclonal (U) [Mass/Vol] Negative Neg mg/dL [facility] CBC W Auto Differential pane l (Bld)on 10-21-2024 Basophils (Bld) [#/Vol] 0.05 10*3/uL Normal <0.11 [facility] Comment on above: Order Comment: Speci men Type: BLOOD SPECIMEN Ordering Facility: [facility] Address: [address] [place] [address] Performed By: #### G LTGST #### [facility] CLIA [id number] [address] [place] [address] [place] Basophils/100 WBC (Bld) 0.6 % Normal [facility] Comment on above: Order Comment: Speci men Type: BLOOD SPECIMEN Ordering Facility: [facility] Address: [address] [place] [address] Performed By: #### G LTGST #### [facility] CLIA [id number] [address] [place] [address] [place] Differential cell count method Nom (Bld) Auto Normal [facility] Comment on above: Order Comment: Speci men Type: BLOOD SPECIMEN Ordering Facility: [facility] Address: [address] [place] [address] Performed By: #### G LTGST #### [facility] CLIA [id number] [address] [place] [address] [place] Eosinophils (Bld) [#/Vol] 0.17 10*3/uL Normal <0.46 [facility] Comment on above: Order Comment: Speci men Type: BLOOD SPECIMEN Ordering Facility: [facility] Address: [address] [place] [address] Performed By: #### G LTGST #### [facility] CLIA [id number] [address] [place] [address] [place] Eosinophils/100 WBC (Bld) 2.2 % Normal [facility] Comment on above: Order Comment: Speci men Type: BLOOD SPECIMEN Ordering Facility: [facility] Address: [address] [place] [address] Performed By: #### G LTGST #### [facility] CLIA [id number] [address] [place] [address] [place] Erythrocyte distribution width (RBC) [Ratio] 12.9 % Normal 11.5-15.0 [facility] Comment on above: Order Comment: Speci men Type: BLOOD SPECIMEN Ordering Facility: [facility] Address: [address] [place] [address] Performed By: #### G LTGST #### [facility] CLIA [id number] [address] [place] [address] [place] Hematocrit (Bld) [Volume fraction] 38.8 % Normal 36.0-46.0 [facility] Comment on above: Order Comment: Speci men Type: BLOOD SPECIMEN Ordering Facility: [facility] Address: [address] [place] [address] Performed By: #### G LTGST #### [id number] [address] [place] [address] [place] Hemoglobin (Bld) [Mass/Vol] 12.9 g/dL Normal 11.5-15.5 [facility] Comment on above: Order Comment: Speci men Type: BLOOD SPECIMEN Ordering Facility: [facility] Address: [address] [place] [address] Performed By: #### G LTGST #### [facility] CLIA [id number] [address] [place] [address] [place] Immature granulocytes (Bld) [#/Vol] 0.03 10*3/uL Normal <0.10 [facility] Comment on above: Order Comment: Speci men Type: BLOOD SPECIMEN Ordering Facility: [facility] Address: [address] [place] [address] Performed By: #### G LTGST #### [facility] CLIA [id number] [address] [place] [address] [place] Immature granulocytes/100 WBC (Bld) 0.4 % Normal [facility] Comment on above: Order Comment: Speci men Type: BLOOD SPECIMEN Ordering Facility: [facility] Address: [address] [place] [address] Performed By: #### G LTGST #### [facility] CLIA [id number] [address] [place] [address] [place] Lymphocytes (Bld) [#/Vol] 1.38 10*3/uL Normal 1.00-4.00 [facility] Comment on above: Order Comment: Speci men Type: BLOOD SPECIMEN Ordering Facility: [facility] Address: [address] [place] [address] Performed By: #### G LTGST #### [facility] [id number] [address] [place] [address] [place] Lymphocytes/100 WBC (Bld) 17.7 % Normal [facility] Comment on above: Order Comment: Speci men Type: BLOOD SPECIMEN Ordering Facility: [facility] Address: [address] [place] [address] Performed By: #### G LTGST #### [facility] [id number] [address] [place] [address] [place] MCH (RBC) [Entitic mass] 28.7 pg Normal 26.0-34.0 [facility] Comment on above: Order Comment: Speci men Type: BLOOD SPECIMEN Ordering Facility: [facility] Address: [address] [place] [address] Performed By: #### G LTGST #### [facility] [id number] [address] [place] [address] [place] MCHC (RBC) [Mass/Vol] 33.2 g/dL Normal 30.5-36.0 [facility] Comment on above: Order Comment: Speci men Type: BLOOD SPECIMEN Ordering Facility: [facility] Address: [address] [place] [address] Performed By: #### G LTGST #### [facility] CLIA [id number] [address] [place] [address] [place] MCV (RBC) [Entitic vol] 86.2 fL Normal 80.0-100.0 [facility] Comment on above: Order Comment: Speci men Type: BLOOD SPECIMEN Ordering Facility: [facility] Address: [address] [place] [address] Performed By: #### G LTGST #### [facility] CLIA [id number] [address] [place] [address] [place] Monocytes (Bld) [#/Vol] 0.59 10*3/uL Normal <0.87 [facility] Comment on above: Order Comment: Speci men Type: BLOOD SPECIMEN Ordering Facility: [facility] Address: [address] [place] [address] Performed By: #### G LTGST #### [facility] CLIA [id number] [address] [place] [address] [place] Monocytes/100 WBC (Bld) 7.6 % Normal [facility] Comment on above: Order Comment: Speci men Type: BLOOD SPECIMEN Ordering Facility: [facility] Address: [address] [place] [address] Performed By: #### G LTGST #### [facility] [id number] [address] [place] [address] [place] Neutrophils (Bld) [#/Vol] 5.56 10*3/uL Normal 1.45-7.50 [facility] Comment on above: Order Comment: Speci men Type: BLOOD SPECIMEN Ordering Facility: [facility] Address: [address] [place] [address] Performed By: #### G LTGST #### [facility] CLIA [id number] [address] [place] [address] [place] Neutrophils/100 WBC (Bld) 71.5 % Normal [facility] Comment on above: Order Comment: Speci men Type: BLOOD SPECIMEN Ordering Facility: [facility] Address: [address] [place] [address] Performed By: #### G LTGST #### [facility] CLIA [id number] [address] [place] [address] [place] Nucleated RBC (Bld) [#/Vol] 10*3/uL Normal <0.01 [facility] Comment on above: Order Comment: Speci men Type: BLOOD SPECIMEN Ordering Facility: [facility] Address: [address] [place] [address] Performed By: #### G LTGST #### [facility] CLIA [id number] [address] [place] [address] [place] Nucleated RBC/100 WBC (Bld) [Ratio] 0.0 /100 WBC Normal [facility] Comment on above: Order Comment: Speci men Type: BLOOD SPECIMEN Ordering Facility: [facility] Address: [address] [place] [address] Performed By: #### G LTGST #### [facility] [id number] [address] [place] [address] [place] Platelet mean volume (Bld) [Entitic vol] 9.5 fL Normal 9.0-12.7 [facility] Comment on above: Order Comment: Speci men Type: BLOOD SPECIMEN Ordering Facility: [facility] Address: [address] [place] [address] Performed By: #### G LTGST #### [facility] CLIA [id number] [address] [place] [address] [place] Platelets (Bld) [#/Vol] 301 10*3/uL Normal 150-400 [facility] Comment on above: Order Comment: Speci men Type: BLOOD SPECIMEN Ordering Facility: [facility] Address: [address] [place] [address] Performed By: #### G LTGST #### [facility] CLIA [id number] [address] [place] [address] [place] RBC (Bld) [#/Vol] 4.50 10*6/uL Normal 3.90-5.20 [facility] Comment on above: Order Comment: Speci men Type: BLOOD SPECIMEN Ordering Facility: [facility] Address: [address] [place] [address] Performed By: #### G LTGST #### [facility] CLIA [id number] [address] [place] [address] [place] WBC (Bld) [#/Vol] 7.78 10*3/uL Normal 3.70-11.00 [facility] Comment on above: Order Comment: Speci men Type: BLOOD SPECIMEN Ordering Facility: [facility] Address: [address] [place] [address] Performed By: #### G LTGST #### [facility] CLIA [id number] [address] [place] [address] [place] GESTATIONAL GLUCOSE SCREEN, 1-HOUR, 50 GRAM, NON-FASTINGon 10-21-2024 Glucose [Mass/Vol] 56 mg/dL Low 74-134 [facility] Comment on above: Order Comment: Speci men Type: BLOOD SPECIMEN Ordering Facility: [facility] Address: [address] [place], [place] [id number] Result Comment: [facility] Congress of Obstetricians and Gynecologists (Madi/Cyn) guidelines state a gestational diabetes mellitus positive screen is made, in women not previously diagnosed with overt diabetes, when the 1 hr plasma glucose level is equal to or above 140 mg/dL. The [facility] Windows [employer] Engineer and [facility] [place] recommends a 135 mg/dL cutoff. Performed By: #### G LTGST #### [facility] CLIA [id number] [address] [place] [address] [place] Reagin and Treponema pallidu m IgG and IgM [Interp]on 10-21-2024 T. pallidum IgG+IgM IA Ql (S) Non-Reactive Normal Nonreactive [facility] Comment on above: Order Comment: Speci men Type: BLOOD SPECIMEN Ordering Facility: [facility] Address: [address] [place] [address] Performed By: #### 1 6128-1 #### [facility] CLIA [id number] [address] [place] [address] [place] Reagin+T pallidum IgG+IgM Se rPl-Impon 10-21-2024 Reagin and Treponema pallidum IgG and IgM [Interp] Cannot exclude recent Treponemal infection if specimen collected within 7-10 days after appearance of suspect lesions or 2-3 weeks after an exposure. Clinical correlation is required. Normal [facility] Comment on above: Order Comment: Speci men Type: BLOOD SPECIMEN Ordering Facility: [facility] Address: [address] [place] [address] Performed By: #### 1 6128-1 #### [facility] CLIA [id number] [address] [place] [address] [place] Examination level ultrasound [...] 13 oz EFW by: Hadlock (HC-AC-FL) Extended Local Flatbed Driver 5.7 mm CM 3.7 mm 11% Nicolaides [...] normal LVOT view: normal 3-vessel view: normal 5-ygzshy-szyxocm view: normal Heart / Thorax Situs: situs [...] Read By: Radha Brady M.D. MATERNAL MEDICINE [facility] Radiology Study observation (narrative) [facility] Chr 21 trisomy Cytogenetics Ql (Bld/Tiss)on 07-03-2024 Cell-free DNA./Cell-free DNA.total Dosage of chromosome-specific cfDNA (cfDNA) [Molar fraction] 12% [facility] Chr 13+18+21+X+Y aneuploidy Dosage of chromosome-specific cfDNA Ql (cfDNA) Negative [facility] Chr 21 trisomy Dosage of chromosome-specific cfDNA Ql (cfDNA) Negative [facility] Chr X and Y aneuploidy risk Sequencing Ql (cfDNA) [Interp] Not detected [facility] Citation Leonardo (Reference lab test) Comment [facility] Comment on above: 1. Toby CHOE, et karthik whitmore. Soni Med. 2012;14(3):296-305. 2. Pat PULIDO et al. Prenat Diag. 2013;33(6):591-597. 3. Jovani Enriquez et al. Clin Chem. 2015 Apr;61(4):608-616. 4. Toby CHOE, et al. Soni Med. 2011;13(11):913-920. 5. ACOG/SMFM Practice Bulletin No. 226, Feb 2020. Gestational age Estimated from conception date Anguiano [facility] GESTATIONALAGE>=9W Yes [facility] Laboratory comment Leonardo (Report) Comment [facility] Comment on above: The MaterniT(R) 21 P TERRIE laboratory-developed test (LDT) analyzes circulating cell-free DNA from a maternal blood sample. This test is used for screening purposes and not diagnostic. Clinical correlation is recommended. Validation data on twin pregnancies is limited and the ability of this test to detect aneuploidy in higher multiple gestations has not yet been validated. director of infection control name Nom (Provider) Comment [facility] Comment on above: This specimen showed an expected representation of chromosome 21, 18 and 13 material. Clinical correlation is suggested. Adan Meyer MD , PhD, Director, [place] Limitations of the Test Comment [facility] Comment on above: While the results of [...] Ql (Plasma cell-free+WBC DNA) [Interp] Not detected [facility] NEGATIVE PREDICTIVE VALUE Note [facility] Comment on above: The Negative Predict calvin Value (NPV) for trisomy 21, 18, and 13 is greater than 99%. The NPV for SCA and ESS cannot be calculated as SCA and ESS are only reported when an abnormality is detected. PERFORMANCE CHARACTERISTICS Note [facility] Comment on above: ! Sex ! Accuracy: [...] ! ! ! * As reported in [facility] database [id number] [https://www.ncbi.nlm.nih.gov/dbvar/studies/nstd37/ ] # Estimated [...] Anguiano gestation only. Positive Predictive Value N/A [facility] Reference Lab Test Method Comment [facility] Comment on above: See Notes Circulating cell-free [...] 22. Service comment (Unsp spec) [Interp] Comment [facility] Comment on above: See Notes [employer] is a subsidiary of [employer], using the brand [employer]. This test was developed and its performance characteristics determined by [employer]. It has not been cleared or approved by the Food and Drug Administration. This laboratory is certified under the Clinical Laboratory Improvement Amendments (CLIA) as qualified to perform high complexity clinical laboratory testing and accredited by the College [employer] (CAP). If there is future clinical need for adding MaterniT GENOME testing, this specimen will be available until term. [facility] samples will not be retained beyond 60 days. [facility] patients will have to send a new sample for re-sequencing ([facility] Test Code: [id number]). Sex Dosage of chromosome-specific cfDNA Nom (cfDNA) Comment [facility] Comment on above: Consistent with Fema le Test performance information Leonardo ([facility] spec) Comment [facility] Comment on above: The performance daisy acteristics of the MaterniT(R) 21 PLUS laboratory-developed test (LDT) have been determined in a clinical validation study with women at increased risk for chromosomal aneuploidy.[1-4] Trisomy 13 risk Dosage of chromosome-specific cfDNA Ql (cfDNA) [Interp] Negative [facility] Trisomy 18 risk Dosage of chromosome-specific cfDNA Ql (Plasma cell-free+WBC DNA) [Interp] Negative [facility] Performed at: 01 - [facility] [address] [facility], [place] [id number] Icer Machine Operator: Adan Grullon, Phone: [phone] [facility] CBC W Auto Differential pane l (Bld)on 06-29-2024 Basophils (Bld) [#/Vol] 0.06 10*3/uL Normal <0.11 [facility] Comment on above: Order Comment: Speci men Type: BLOOD SPECIMEN Ordering Facility: [facility] Address: [address] [place] [address] Performed By: #### G LTGST #### [facility] CLIA [id number] [address] [place] [address] [place] Basophils/100 WBC (Bld) 0.7 % Normal [facility] Comment on above: Order Comment: Speci men Type: BLOOD SPECIMEN Ordering Facility: [facility] Address: [address] [place] [address] Performed By: #### G LTGST #### [facility] CLIA [id number] [address] [place] [address] [place] Differential cell count method Nom (Bld) Auto Normal [facility] Comment on above: Order Comment: Speci men Type: BLOOD SPECIMEN Ordering Facility: [facility] Address: [address] [place] [address] Performed By: #### G LTGST #### [facility] CLIA [id number] [address] [place] [address] [place] Eosinophils (Bld) [#/Vol] 0.13 10*3/uL Normal <0.46 [facility] Comment on above: Order Comment: Speci men Type: BLOOD SPECIMEN Ordering Facility: [facility] Address: [address] [place] [address] Performed By: #### G LTGST #### [facility] CLIA [id number] [address] [place] [address] [place] Eosinophils/100 WBC (Bld) 1.5 % Normal [facility] Comment on above: Order Comment: Speci men Type: BLOOD SPECIMEN Ordering Facility: [facility] Address: [address] [place] [address] Performed By: #### G LTGST #### [facility] CLIA [id number] [address] [place] [address] [place] Erythrocyte distribution width (RBC) [Ratio] 12.5 % Normal 11.5-15.0 [facility] Comment on above: Order Comment: Speci men Type: BLOOD SPECIMEN Ordering Facility: [facility] Address: [address] [place] [address] Performed By: #### G LTGST #### [facility] [id number] [address] [place] [address] [place] Hematocrit (Bld) [Volume fraction] 39.0 % Normal 36.0-46.0 [facility] Comment on above: Order Comment: Speci men Type: BLOOD SPECIMEN Ordering Facility: [facility] Address: [address] [place] [address] Performed By: #### G LTGST #### [facility] [id number] [address] [place] [address] [place] Hemoglobin (Bld) [Mass/Vol] 13.2 g/dL Normal 11.5-15.5 [facility] Comment on above: Order Comment: Speci men Type: BLOOD SPECIMEN Ordering Facility: [facility] Address: [address] [place] [address] Performed By: #### G LTGST #### [facility] [id number] [address] [place] [address] [place] Immature granulocytes (Bld) [#/Vol] 0.03 10*3/uL Normal <0.10 [facility] Comment on above: Order Comment: Speci men Type: BLOOD SPECIMEN Ordering Facility: [facility] Address: [address] [place] [address] Performed By: #### G LTGST #### [facility] [id number] [address] [place] [address] [place] Immature granulocytes/100 WBC (Bld) 0.4 % Normal [facility] Comment on above: Order Comment: Speci men Type: BLOOD SPECIMEN Ordering Facility: [facility] Address: [address] [place] [address] Performed By: #### G LTGST #### [facility] CLIA [id number] [address] [place] [address] [place] Lymphocytes (Bld) [#/Vol] 1.72 10*3/uL Normal 1.00-4.00 [facility] Comment on above: Order Comment: Speci men Type: BLOOD SPECIMEN Ordering Facility: [facility] Address: [address] [place] [address] Performed By: #### G LTGST #### [facility] CLIA [id number] [address] [place] [address] [place] Lymphocytes/100 WBC (Bld) 20.4 % Normal [facility] Comment on above: Order Comment: Speci men Type: BLOOD SPECIMEN Ordering Facility: [facility] Address: [address] [place] [address] Performed By: #### G LTGST #### [facility] CLIA [id number] [address] [place] [address] [place] MCH (RBC) [Entitic mass] 28.0 pg Normal 26.0-34.0 [facility] Comment on above: Order Comment: Speci men Type: BLOOD SPECIMEN Ordering Facility: [facility] Address: [address] [place] [address] Performed By: #### G LTGST #### [facility] CLIA [id number] [address] [place] [address] [place] MCHC (RBC) [Mass/Vol] 33.8 g/dL Normal 30.5-36.0 [facility] Comment on above: Order Comment: Speci men Type: BLOOD SPECIMEN Ordering Facility: [facility] Address: [address] [place] [address] Performed By: #### G LTGST #### [facility] CLIA [id number] [address] [place] [address] [place] MCV (RBC) [Entitic vol] 82.8 fL Normal 80.0-100.0 [facility] Comment on above: Order Comment: Speci men Type: BLOOD SPECIMEN Ordering Facility: [facility] Address: [address] [place] [address] Performed By: #### G LTGST #### [facility] CLIA [id number] [address] [place] [address] [place] Monocytes (Bld) [#/Vol] 0.43 10*3/uL Normal <0.87 [facility] Comment on above: Order Comment: Speci men Type: BLOOD SPECIMEN Ordering Facility: [facility] Address: [address] [place] [address] Performed By: #### G LTGST #### [facility] CLIA [id number] [address] [place] [address] [place] Monocytes/100 WBC (Bld) 5.1 % Normal [facility] Comment on above: Order Comment: Speci men Type: BLOOD SPECIMEN Ordering Facility: [facility] Address: [address] [place] [address] Performed By: #### G LTGST #### [facility] CLIA [id number] [address] [place] [address] [place] Neutrophils (Bld) [#/Vol] 6.07 10*3/uL Normal 1.45-7.50 [facility] Comment on above: Order Comment: Speci men Type: BLOOD SPECIMEN Ordering Facility: [facility] Address: [address] [place] [address] Performed By: #### G LTGST #### [facility] CLIA [id number] [address] [place] [address] [place] Neutrophils/100 WBC (Bld) 71.9 % Normal [facility] Comment on above: Order Comment: Speci men Type: BLOOD SPECIMEN Ordering Facility: [facility] Address: [address] [place] [address] Performed By: #### G LTGST #### [facility] CLIA [id number] [address] [place] [address] [place] Nucleated RBC (Bld) [#/Vol] 10*3/uL Normal <0.01 [facility] Comment on above: Order Comment: Speci men Type: BLOOD SPECIMEN Ordering Facility: [facility] Address: [address] [place] [address] Performed By: #### G LTGST #### [facility] CLIA [id number] [address] [place] [address] [place] Nucleated RBC/100 WBC (Bld) [Ratio] 0.0 /100 WBC Normal [facility] Comment on above: Order Comment: Speci men Type: BLOOD SPECIMEN Ordering Facility: [facility] Address: [address] [place] [address] Performed By: #### G LTGST #### [id number] [address] [place] [address] [place] Platelet mean volume (Bld) [Entitic vol] 9.4 fL Normal 9.0-12.7 [facility] Comment on above: Order Comment: Speci men Type: BLOOD SPECIMEN Ordering Facility: [facility] Address: [address] [place] [address] Performed By: #### G LTGST #### [facility] CLIA [id number] [address] [place] [address] [place] Platelets (Bld) [#/Vol] 347 10*3/uL Normal 150-400 [facility] Comment on above: Order Comment: Speci men Type: BLOOD SPECIMEN Ordering Facility: [facility] Address: [address] [place] [address] Performed By: #### G LTGST #### [facility] CLIA [id number] [address] [place] [address] [place] RBC (Bld) [#/Vol] 4.71 10*6/uL Normal 3.90-5.20 [facility] Comment on above: Order Comment: Speci men Type: BLOOD SPECIMEN Ordering Facility: [facility] Address: [address] [place] [address] Performed By: #### G LTGST #### [facility] CLIA [id number] [address] [place] [address] [place] WBC (Bld) [#/Vol] 8.44 10*3/uL Normal 3.70-11.00 [facility] Comment on above: Order Comment: Speci men Type: BLOOD SPECIMEN Ordering Facility: [facility] Address: [address] [place] [address] Performed By: #### G LTGST #### [facility] CLIA [id number] [address] [place] [address] [place] nuchal translucency me asured by USon 06-29-2024 Indication First trimester anatomic survey Advanced maternal age Impression REMOTE READ The patient is referred for a first trimester anatomy scan including nuchal translucency measurement as clinically indicated. - Single, live, intrauterine . - [place] rump length measurement is consistent with the [...] view: suboptimal 4-chamber view with color: suboptimal [id number] view: normal Abdominal cord insertion: normal Stomach: [...] Read By: Radha Brady M.D. MATERNAL MEDICINE [facility] Radiology Study observation (narrative) [facility] HBV surface Ag Ser Qlon 06-18 HBV surface Ag Ql (S) Negative Normal Negative [facility] Comment on above: Order Comment: Speci men Type: BLOOD SPECIMEN Ordering Facility: [facility] Address: [address] [place] [address] Performed By: #### 1 6128-1 #### [facility] CLIA [id number] [address] [place] [address] [place] [address] [place] HCV Ab Ser Qlon 06-29-2024 HCV Ab Ql (S) Negative Normal Negative [facility] Comment on above: Order Comment: Jae martin Type: BLOOD SPECIMEN Ordering Facility: [facility] Address: [address] [place] [address] Result Comment: The result suggests no evidence of active infection with Hepatitis C virus. Should recent infection be suspected, repeat testing may be considered 4-6 weeks after this draw. Performed By: #### 1 6128-1 #### [facility] CLIA [id number] [address] [place] [address] [place] HGB ELECTROPHORESIS FOR EVAL (LAB ORDER)on 06-29-2024 Hemoglobin A (Bld) [Mass fraction] 97.1 % Normal 96.2-98.0 [facility] Comment on above: Order Comment: Jae martin Type: BLOOD SPECIMEN Ordering Facility: [facility] Address: [address] [place] [address] Performed By: #### 1 6128-1 #### [facility] CLIA [id number] [address] [place] [address] [place] Hemoglobin A2 (Bld) [Mass fraction] 2.9 % Normal 2.0-3.1 [facility] Comment on above: Order Comment: Jae martin Type: BLOOD SPECIMEN Ordering Facility: [facility] Address: [address] [place] [address] Performed By: #### 1 6128-1 #### [facility] CLIA [id number] [address] [place] [address] [place] Hemoglobin Unsp Elph (Bld) [Mass fraction] No abnormal hemoglobin identified. Normal No abnormal hemoglobin identified. [facility] Comment on above: Order Comment: Jae martin Type: BLOOD SPECIMEN Ordering Facility: [facility] Address: [address] [place] [address] Performed By: #### 1 6128-1 #### [facility] CLIA [id number] [address] [place] [address] [place] HGB EVALUATION CASCADE INTER Ermias 06-29-2024 Hemoglobin pattern (Bld) [Interp] Reviewed by Colette Hernández MD Normal [facility] Comment on above: Order Comment: Speci men Type: BLOOD SPECIMEN Ordering Facility: [facility] Address: [address] [place] [address] Performed By: #### 1 6128-1 #### [facility] CLIA [id number] [address] [place] [address] [place] INTERPRETATION (HGB EVAL) Normal [facility] Comment on above: Order Comment: Speci men Type: BLOOD SPECIMEN Ordering Facility: [facility] Address: [address] [place] [address] Result Comment: Hemo globins were analyzed by capillary electrophoresis and CBC red cell parameters were reviewed. No abnormal hemoglobin is identified. There is a normal hemoglobin capillary electrophoresis pattern. Performed By: #### 1 6128-1 #### [facility] CLIA [id number] [address] [place] [address] [place] HIV 1+2 Ab IA Qlon HIV 1 and 2 Ab IA.rapid Nom (S/P/Bld) Normal [facility] Comment on above: Order Comment: Speci men Type: BLOOD SPECIMEN Ordering Facility: [facility] Address: [address] [place] [address] Result Comment: Test not indicated. Performed By: #### 1 6128-1 #### [facility] CLIA [id number] [address] [place] [address] [place] HIV 1+2 Ab+HIV1 p24 Ag IA Ql Non-Reactive Normal Nonreactive [facility] Comment on above: Order Comment: Speci men Type: BLOOD SPECIMEN Ordering Facility: [facility] Address: [address] [place] [address] Performed By: #### 1 6128-1 #### [facility] CLIA [id number] [address] [place] [address] [place] HIV immunoassay testing algorithm interpretation (S/P/Bld) [Interp] Normal [facility] Comment on above: Order Comment: Jae martin Type: BLOOD SPECIMEN Ordering Facility: [facility] Address: [address] [place] [address] Result Comment: No e vidence of HIV-1 or HIV-2 infection. Should recent infection be suspected, repeat testing may be considered 2-3 weeks after this draw. [place] Rev. Code 3701.243(E): This information has been [...] diagnoses. Performed By: #### 1 6128-1 #### [facility] CLIA [id number] [address] [place] [address] [place] HbA1c (Bld)on 06-29-2024 Average glucose Estimated from glycated hemoglobin (Bld) [Mass/Vol] 94 mg/dL Normal [facility] Comment on above: Order Comment: Jae martin Type: BLOOD SPECIMEN Ordering Facility: [facility] Address: [address] [place] [address] Result Comment: eAG: (Estimated average glucose) is a calculated value from HgbA1c and is sales representative rural power of the average blood glucose level in the last 2-3 month period. Performed By: #### 5 5454-3 #### [facility] CLIA [id number] [address] [place] [address] [place] HbA1c (Bld) [Mass fraction] 4.9 % Normal 4.3-5.6 [facility] Comment on above: Order Comment: Jae mario Type: BLOOD SPECIMEN Ordering Facility: [facility] Address: [address] [place] [address] Result Comment: Amer ican Diabetes Association guidelines indicate that patients with HgbA1c in the range 5.7-6.4% are at increased risk for development of diabetes, and intervention by lifestyle modification may be beneficial. HgbA1c greater or equal to 6.5% is considered diagnostic of diabetes. Performed By: #### 5 5454-3 #### [facility] CLIA [id number] [address] [place] [address] [place] [address] [place] [id number] PLUSon 06-29-2024 Cell-free DNA./Cell-free DNA.total Dosage of chromosome-specific cfDNA (cfDNA) [Molar fraction] 12% Normal [facility] Comment on above: Order Comment: Speci men Type: BLOOD SPECIMEN Ordering Facility: [facility] Address: [address] [place] [address] Performed By: #### M AT21 #### [facility] CLIA [id number] [address] [place] [address] Chr 13+18+21+X+Y aneuploidy Dosage of chromosome-specific cfDNA Ql (cfDNA) Negative Normal [facility] Comment on above: Order Comment: Speci men Type: BLOOD SPECIMEN Ordering Facility: [facility] Address: [address] [place] [address] Performed By: #### M AT21 #### [facility] CLIA [id number] [address] [place] [address] Chr 21 trisomy Dosage of chromosome-specific cfDNA Ql (cfDNA) Negative Normal [facility] Comment on above: Order Comment: Jae [facility] Type: BLOOD SPECIMEN Ordering Facility: [facility] Address: [address] [place] [address] Performed By: #### M AT21 #### [facility] CLIA [id number] [address] [place] [address] Chr X and Y aneuploidy risk Sequencing Ql (cfDNA) [Interp] Not detected Normal [facility] Comment on above: Order Comment: [facility] Type: BLOOD SPECIMEN Ordering Facility: [facility] Address: [address] [place] [address] Result Comment: Not Detected Not Detected Performed By: #### M AT21 #### [facility] CLIA [id number] [address] [place] [address] Citation Leonardo (Reference lab test) Comment Normal [facility] Comment on above: Order Comment: Jae martin Type: BLOOD SPECIMEN Ordering Facility: [facility] Address: [address] [place] [address] Result Comment: 1. P meagan CHOE et al. Soni Med. 2012;14(3):296-305. 2. Pat PULIDO et al. Prenat Diag. 2013;33(6):591-597. 3. Jovani Enriquez, et al. Clin Chem. 2015 Apr;61(4):608-616. 4. Toby CHOE, et al. Soni Med. 2011;13(11):913-920. 5. ACOG/SMFM Practice Bulletin No. 226, Feb 2020. Performed By: #### M AT21 #### [facility] CLIA [id number] [address] [place] [address] Gestational age Estimated from conception date Anguiano Normal [facility] Comment on above: Order Comment: Jae martin Type: BLOOD SPECIMEN Ordering Facility: [facility] Address: [address] [place] [address] Performed By: #### M AT21 #### [facility] CLIA [id number] [address] [place] [address] GESTATIONALAGE AGE > OR = 9W Yes Normal [facility] Comment on above: Order Comment: Jae martin Type: BLOOD SPECIMEN Ordering Facility: [facility] Address: [address] [place] [address] Performed By: #### M AT21 #### [facility] CLIA [id number] [address] [place] [address] Laboratory comment Leonardo (Report) Comment Normal [facility] Comment on above: Order Comment: Jae martin Type: BLOOD SPECIMEN Ordering Facility: [facility] Address: [address] [place] [address] Result Comment: The MaterniT(R) 21 PLUS laboratory-developed test (LDT) analyzes circulating cell-free DNA from a maternal blood sample. This test is used for screening purposes and not diagnostic. Clinical correlation is recommended. Validation data on twin pregnancies is limited and the ability of this test to detect aneuploidy in higher multiple gestations has not yet been validated. Performed By: #### M AT21 #### [facility] CLIA [id number] [address] [place] [address] director of infection control name Nom (Provider) Comment Normal [facility] Comment on above: Order Comment: Speci men Type: BLOOD SPECIMEN Ordering Facility: [facility] Address: [address] [place] [address] Result Comment: This specimen showed an expected representation of chromosome 21, 18 and 13 material. Clinical correlation is suggested. Comment Adan Meyer MD, PhD, Director, [employer] Performed By: #### M AT21 #### [facility] CLIA [id number] [address] [place] [id number] LIMITATIONS OF THE TEST Comment Normal [facility] Comment on above: Order Comment: Jae martin Type: BLOOD SPECIMEN Ordering Facility: [facility] Address: [address] [place] [address] Result Comment: Whtosha e the results of [...] Fragmin(R)). Performed By: #### M AT21 #### [facility] CLIA [id number] [address] [place] [address] Monosomy X risk Dosage of chromosome-specific cfDNA Ql (Plasma cell-free+WBC DNA) [Interp] Not detected Normal [facility] Comment on above: Order Comment: Spectessa martin Type: BLOOD SPECIMEN Ordering Facility: [facility] Address: [address] [place] [address] Performed By: #### M AT21 #### [facility] CLIA [id number] [address] [place] [address] NEGATIVE PREDICTIVE VALUE Note Normal [facility] Comment on above: Order Comment: Spectessa martin Type: BLOOD SPECIMEN Ordering Facility: [facility] Address: [address] [place] [address] Result Comment: The Negative Predictive Value (NPV) for trisomy 21, 18, and 13 is greater than 99%. The NPV for SCA and ESS cannot be calculated as SCA and ESS are only reported when an abnormality is detected. Performed By: #### M AT21 #### [facility] CLIA [id number] [address] [place] [address] PERFORMANCE CHARACTERISTICS Note Normal [facility] Comment on above: Order Comment: Jae martin Type: BLOOD SPECIMEN Ordering Facility: [facility] Address: [address], [place] [address] Result Comment: ! Sex ! Accuracy: 99.4% [...] only. Performed By: #### M AT21 #### [facility] CLIA [id number] [address] [place] [address] POSITIVE PREDICTIVE VALUE N/A Normal [facility] Comment on above: Order Comment: Jae martin Type: BLOOD SPECIMEN Ordering Facility: [facility] Address: [address] [place] [address] Performed By: #### M AT21 #### [facility] CLIA [id number] [address] [place] [address] Reference Lab Test Method Comment Normal [facility] Comment on above: Order Comment: Jae martin Type: BLOOD SPECIMEN Ordering Facility: [facility] Address: [address] [place] [address] Result Comment: See Notes Circulating cell-free DNA [...] 22. Performed By: #### M AT21 #### [facility] CLIA [id number] [address] [place] [address] Service comment (Unsp spec) [Interp] Comment Normal [facility] Comment on above: Order Comment: Speci men Type: BLOOD SPECIMEN Ordering Facility: [facility] Address: [address] [place] [address] Result Comment: See Notes [employer] is a subsidiary of [employer], using the brand [employer]. This test was developed and its performance characteristics determined by [employer]. It has not been cleared or approved by the Food and Drug Administration. This laboratory is certified under the Clinical Laboratory Improvement Amendments (CLIA) as qualified to perform high complexity clinical laboratory testing and accredited by the [employer] (CAP). If there is future clinical need for adding MaterniT GENOME testing, this specimen will be available until term. [facility] samples will not be retained beyond 60 days. [facility] patients will have to send a new sample for re-sequencing ([facility] Test Code: 729209). Performed By: #### M AT21 #### [facility] IA [id number] [address] [place] [address] Sex Dosage of chromosome-specific cfDNA Nom (cfDNA) Comment Normal [facility] Comment on above: Order Comment: Speci men Type: BLOOD SPECIMEN Ordering Facility: [facility] Address: [address] [place] [address] Result Comment: Cons istent with Female Performed By: #### M AT21 #### [facility] IA [id number] [address] [place] [address] Test performance information Leonardo (Unsp spec) Comment Normal [facility] Comment on above: Order Comment: Speci men Type: BLOOD SPECIMEN Ordering Facility: [facility] Address: [address] [place] [address] Result Comment: The performance characteristics of the MaterniT(R) 21 PLUS laboratory-developed test (LDT) have been determined in a clinical validation study with women at increased risk for chromosomal aneuploidy.[1-4] Performed By: #### M AT21 #### [facility] CLIA [id number] [address] [place] [address] Trisomy 13 risk Dosage of chromosome-specific cfDNA Ql (cfDNA) [Interp] Negative Normal [facility] Comment on above: Order Comment: Speci men Type: BLOOD SPECIMEN Ordering Facility: [facility] Address: [address] [place] [address] Performed By: #### M AT21 #### [facility] CLIA [id number] [address] [place] [address] Trisomy 18 risk Dosage of chromosome-specific cfDNA Ql (Plasma cell-free+WBC DNA) [Interp] Negative Normal [facility] Comment on above: Order Comment: Speci men Type: BLOOD SPECIMEN Ordering Facility: [facility] Address: [address] [place] [address] Performed By: #### M AT21 #### [facility] CLIA [id number] [address] [place] [address] RBC PARAMETERS FOR HB IDon 0 - Erythrocyte distribution width (RBC) [Ratio] 12.7 % Normal 11.5-15.0 [facility] Comment on above: Order Comment: Speci men Type: BLOOD SPECIMEN Ordering Facility: [facility] Address: [address] [place] [address] Performed By: #### L [id number] #### [facility] CLIA [id number] [address] [place] [address] [place] Hematocrit (Bld) [Volume fraction] 39.7 % Normal 36.0-46.0 [facility] Comment on above: Order Comment: Speci men Type: BLOOD SPECIMEN Ordering Facility: [facility] Address: [address] [place] [address] Performed By: #### L [id number] #### [facility] CLIA [id number] [address] [place] [address] [place] Hemoglobin (Bld) [Mass/Vol] 13.3 g/dL Normal 11.5-15.5 [facility] Comment on above: Order Comment: Speci men Type: BLOOD SPECIMEN Ordering Facility: [facility] Address: [address] [place] [address] Performed By: #### L [id number] #### [facility] CLIA [id number] [address] [place] [address] [place] MCH (RBC) [Entitic mass] 28.4 pg Normal 26.0-34.0 [facility] Comment on above: Order Comment: Speci men Type: BLOOD SPECIMEN Ordering Facility: [facility] Address: [address] [place] [address] Performed By: #### L [id number] #### [facility] CLIA [id number] [address] [place] [address] [place] MCHC (RBC) [Mass/Vol] 33.5 g/dL Normal 30.5-36.0 [facility] Comment on above: Order Comment: Speci men Type: BLOOD SPECIMEN Ordering Facility: [facility] Address: [address] [place] [address] Performed By: #### L [id number] #### [facility] CLIA [id number] [address] [place] [address] [place] MCV (RBC) [Entitic vol] 84.6 fL Normal 80.0-100.0 [facility] Comment on above: Order Comment: Speci men Type: BLOOD SPECIMEN Ordering Facility: [facility] Address: [address] [place] [address] Performed By: #### L [id number] #### [facility] CLIA [id number] [address] [place] [address] [place] RBC (Bld) [#/Vol] 4.69 10*6/uL Normal 3.90-5.20 [facility] Comment on above: Order Comment: Speci men Type: BLOOD SPECIMEN Ordering Facility: [facility] Address: [address] [place] [address] Performed By: #### L [id number] #### [facility] CLIA [id number] [address] [place] [address] [place] RUBELLA IGG ANTIBODYon 06-29 RUBELLA IGG AB, QUAL Positive Normal Positive [facility] Comment on above: Order Comment: Speci men Type: BLOOD SPECIMEN Ordering Facility: [facility] Address: [address] [place] [address] Result Comment: The result suggests recent or past exposure to Rubella virus or history of Rubella vaccination. Positive result may also be seen due to presence of passively-transferred antibodies. Please correlate with patient's history. Performed By: #### G LTGST #### [facility] CLIA [id number] [address] [place] [address] [place] Reagin and Treponema pallidu m IgG and IgM [Interp]on 06-29-2024 T. pallidum IgG+IgM IA Ql (S) Non-Reactive Normal Nonreactive [facility] Comment on above: Order Comment: Speci men Type: BLOOD SPECIMEN Ordering Facility: [facility] Address: [address] [place] [address] Performed By: #### 1 6128-1 #### [facility] CLIA [id number] [address] [place] [address] [place] Reagin+T pallidum IgG+IgM Se rPl-Impon 06-29-2024 Reagin and Treponema pallidum IgG and IgM [Interp] Cannot exclude recent Treponemal infection if specimen collected within 7-10 days after appearance of suspect lesions or 2-3 weeks after an exposure. Clinical correlation is required. Normal [facility] Comment on above: Order Comment: Speci men Type: BLOOD SPECIMEN Ordering Facility: [facility] Address: [address] [place] [address] Performed By: #### 1 6128-1 #### [facility] CLIA [id number] [address] [place] [address] [place] TYPE + SCREEN PRENATALon ABO O Normal [facility] Comment on above: Order Comment: Speci men Type: BLOOD SPECIMEN Ordering Facility: [facility] Address: [address] [place] [address] Performed By: #### T SPN #### [facility] CLIA [id number] [address] [place] [address] [place] Rh Nom (Bld) Positive Normal [facility] Comment on above: Order Comment: Speci men Type: BLOOD SPECIMEN Ordering Facility: [facility] Address: [address] [place] [address] Performed By: #### T SPN #### [facility] CLIA [id number] [address] [place] [address] [place] TYPE AND SCREEN EXPIRATION 07/02/2024 23:59 Normal [facility] Comment on above: Order Comment: Speci men Type: BLOOD SPECIMEN Ordering Facility: [facility] Address: [address] [place] [address] Performed By: #### T SPN #### [facility] CLIA [id number] [address] [place] [address] [place] BACTERIAL VAGINOSIS NAATon 0 05-25-2024 Interpretation and review of laboratory results Normal [facility] Lactobacillus crispatus+gasseri+nano enii + Gardnerella vaginalis + Atopobium vaginae rRNA SCOTT+probe Ql (Vag fld) Not detected Not detected [facility] Lactobacillus crispatus+gasseri+nano enii + Gardnerella vaginalis + Atopobium vaginae rRNA SCOTT+probe Ql (Vag fld) Not detected Normal Not detected [facility] Comment on above: Order Comment: Speci men Type: BLOOD SPECIMEN Ordering Facility: [facility] Address: [address] [place] [address] Performed By: #### G LTGST #### [facility] CLIA [id number] [address] [place] [address] [place] Bacteria Ur Culton Bacteria identified Cx Nom (U) ORGANISM ID: 1 <10,000 CFU/ml Normal urogenital radha Normal [facility] Comment on above: Performed By: #### 1 6128-1 #### [facility] CLIA [id number] [address] [place], [place] [address] [address] [place] C. trachomatis+N. gonorrhoea e DNA SCOTT+probe Ql (Unsp spec)on 05-25-2024 C. trachomatis rRNA SCOTT+probe Ql (Unsp spec) Not detected Not detected [facility] Interpretation and review of laboratory results Normal [facility] N. gonorrhoeae rRNA SCOTT+probe Ql (Unsp spec) Not detected Not detected [facility] This FDA-approved assay has been modified to accept rectal swabs self-collected in a healthcare setting. For self-collected rectal swabs, the test was developed and its performance characteristics determined by the [facility] Path[facility] and Laboratory Medicine [place] ([facility]). It has not been cleared or approved by the FDA. -[facility] is regulated under CLIA as qualified to perform high-complexity testing. This test is used for clinical purposes. It should not be regarded as investigational or for research. [facility] C. trachomatis rRNA SCOTT+probe Ql (Unsp spec) Not detected Normal Not detected [facility] Comment on above: Order Comment: Speci men Type: BLOOD SPECIMEN Ordering Facility: [facility] Address: [address] [place] [address] Performed By: #### G LTGST #### [facility] CLIA [id number] [address] [place] [address] [place] N. gonorrhoeae rRNA SCOTT+probe Ql (Unsp spec) Not detected Normal Not detected [facility] Comment on above: Order Comment: Speci men Type: BLOOD SPECIMEN Ordering Facility: [facility] Address: [address] [place] [address] Performed By: #### G LTGST #### [facility] CLIA [id number] [address] [place] [address] [place] HEIDI/TRICHOMONAS NAATon 0 05-25-2024 C. glabrata RNA SCOTT+probe Ql (Vag fld) Not detected Not detected [facility] Heidi sp DNA SCOTT+probe Ql (Vag fld) Not detected Not detected [facility] Comment on above: The Heidi species group target includes C. albicans, C. tropicalis, C. parapsilosis, and C. dubliniensis. Interpretation and review of laboratory results Normal [facility] T. vaginalis DNA SCOTT+probe Ql (Unsp spec) Not detected Not detected [facility] C. glabrata RNA SCOTT+probe Ql (Vag fld) Not detected Normal Not detected [facility] Comment on above: Order Comment: Speci men Type: BLOOD SPECIMEN Ordering Facility: [facility] Address: [address] [place] [address] Performed By: #### G LTGST #### [id number] [address] [place] [address] [facility] Heidi sp DNA SCOTT+probe Ql (Vag fld) Not detected Normal Not detected [facility] Comment on above: Order Comment: Speci men Type: BLOOD SPECIMEN Ordering Facility: [facility] Address: [address] [place] [address] Result Comment: The Heidi species group target includes C. albicans, C. tropicalis, C. parapsilosis, and C. dubliniensis. Performed By: #### G LTGST #### [id number] [address] [place] [address] [place] T. vaginalis DNA SCOTT+probe Ql (Unsp spec) Not detected Normal Not detected [facility] Comment on above: Order Comment: Speci men Type: BLOOD SPECIMEN Ordering Facility: [facility] Address: [address] [place] [address] Performed By: #### G LTGST #### [facility] CLIA [id number] [address] [place] [address] [place] POC AUTOMATIC PILOT MECHANIC ULTRASOUNDon 05-25-19 Indication Viability; confirm cardiac activity [...] Read By: Angie Rhodes CNM MATERNAL MEDICINE [facility] Radiology Study observation (narrative) [facility] Urgent Care Visit Reporton 0 12-29-2023 Urgent Care Visit Report [facility] [address], [address] [place] [address] OFFICE VISIT Date of Service: 12/29/23 MR#: [id number] Acct: [id number] Name: MONALISA AGUILAR Rep #: [id number] : 1985 Provider: OZZIE David Age/Sex: 38/F Location: [facility] Status: Signed Intake Vital Signs 06/08/23 14:22 [...] PO .COMPLEX #6 12/29/23 12/29/23 Rx tabs [facility] Medical History (Updated 12/29/23 @ 11:34 [...] tonsillar pillars upon self inspection at home. Ewrw-acy-rxnotwc Tussin tried without assist. No rkbq-rfu-gzxevdb products taken to assist. Non-smoker. No other associated symptoms and no other alleviating/aggravat ing factors. ROS Const Constitutional: No other (As above) Exam Const General: cooperative, healthy appearing and no acute distress Orientation: alert and awake [facility] Head: normal to inspection Ears: hearing grossly [...] the above. This note was generated with [employer] dictation software. It may contain incorrect words, spelling, and punctuation that were not noted in checking the note before signing. Medications: New azithromycin For 250 mg dose pack: take 500 mg today (day 1), then 250 mg for 4 days (days 2-5) PO 6 tabs 0RF 12/29/23 1135 Date Nay Tompkins Signature: Date ___ (more content not included)... Normal [facility] CBC W Auto Differential pane l (Bld)on 07-09-2023 Basophils (Bld) [#/Vol] 0.07 10*3/uL Normal <0.11 [facility] Comment on above: Order Comment: Speci men Type: BLOOD SPECIMEN Ordering Facility: [facility] Address: [address] [place] [address] [place] [address] Performed By: #### 5 7021-8 #### [facility] CLIA [id number] [address] [place] [address] [place] Basophils/100 WBC (Bld) 1.2 % Normal [facility] Comment on above: Order Comment: Speci men Type: BLOOD SPECIMEN Ordering Facility: [facility] Address: [address] [place] [address] Performed By: #### 5 7021-8 #### [facility] CLIA [id number] [address] [place] [address] [place] Differential cell count method Nom (Bld) Auto Normal [facility] Comment on above: Order Comment: Speci men Type: BLOOD SPECIMEN Ordering Facility: [facility] Address: [address] [place] [address] Performed By: #### 5 7021-8 #### [facility] CLIA [id number] [address] [place] [address] [place] Eosinophils (Bld) [#/Vol] 0.13 10*3/uL Normal <0.46 [facility] Comment on above: Order Comment: Speci men Type: BLOOD SPECIMEN Ordering Facility: [facility] Address: [address] [place] [address] Performed By: #### 5 7021-8 #### [facility] CLIA [id number] [address] [place] [address] [place] Eosinophils/100 WBC (Bld) 2.3 % Normal [facility] Comment on above: Order Comment: Speci men Type: BLOOD SPECIMEN Ordering Facility: [facility] Address: [address] [place] [address] Performed By: #### 5 7021-8 #### [facility] CLIA [id number] [address] [place] [address] [place] Erythrocyte distribution width (RBC) [Ratio] 12.5 % Normal 11.5-15.0 [facility] Comment on above: Order Comment: Speci men Type: BLOOD SPECIMEN Ordering Facility: [facility] Address: [address] [place] [address] Performed By: #### 5 7021-8 #### [facility] CLIA [id number] [address] [place] [address] [place] Hematocrit (Bld) [Volume fraction] 38.9 % Normal 36.0-46.0 [facility] Comment on above: Order Comment: Speci men Type: BLOOD SPECIMEN Ordering Facility: [facility] Address: [address] [place] [address] Performed By: #### 5 7021-8 #### [facility] CLIA [id number] [address] [place] [address] [place] Hemoglobin (Bld) [Mass/Vol] 13.2 g/dL Normal 11.5-15.5 [facility] Comment on above: Order Comment: Speci men Type: BLOOD SPECIMEN Ordering Facility: [facility] Address: [address] [place] [address] Performed By: #### 5 7021-8 #### [facility] CLIA [id number] [address] [place] [address] [place] Immature granulocytes (Bld) [#/Vol] 10*3/uL Normal <0.10 [facility] Comment on above: Order Comment: Speci men Type: BLOOD SPECIMEN Ordering Facility: [facility] Address: [address] [place] [address] Performed By: #### 5 7021-8 #### [facility] CLIA [id number] [address] [place] [address] [place] Immature granulocytes/100 WBC (Bld) 0.2 % Normal [facility] Comment on above: Order Comment: Speci men Type: BLOOD SPECIMEN Ordering Facility: [facility] Address: [address] [place] [address] Performed By: #### 5 7021-8 #### [facility] CLIA [id number] [address] [place] [address] [place] Lymphocytes (Bld) [#/Vol] 1.83 10*3/uL Normal 1.00-4.00 [facility] Comment on above: Order Comment: Speci men Type: BLOOD SPECIMEN Ordering Facility: [facility] Address: [address] [place] [address] Performed By: #### 5 7021-8 #### [facility] CLIA [id number] [address] [place] [address] [place] Lymphocytes/100 WBC (Bld) 31.9 % Normal [facility] Comment on above: Order Comment: Speci men Type: BLOOD SPECIMEN Ordering Facility: [facility] Address: [address] [place] [address] Performed By: #### 5 7021-8 #### [facility] CLIA [id number] [address] [place] [address] [place] MCH (RBC) [Entitic mass] 28.6 pg Normal 26.0-34.0 [facility] Comment on above: Order Comment: Speci men Type: BLOOD SPECIMEN Ordering Facility: [facility] Address: [address] [place] [address] Performed By: #### 5 7021-8 #### [facility] CLIA [id number] [address] [place] [address] [place] MCHC (RBC) [Mass/Vol] 33.9 g/dL Normal 30.5-36.0 [facility] Comment on above: Order Comment: Speci men Type: BLOOD SPECIMEN Ordering Facility: [facility] Address: [address] [place], [place] [address] Performed By: #### 5 7021-8 #### [facility] CLIA [id number] [address] [place] [address] [place] MCV (RBC) [Entitic vol] 84.2 fL Normal 80.0-100.0 [facility] Comment on above: Order Comment: Speci men Type: BLOOD SPECIMEN Ordering Facility: [facility] Address: [address] [place] [address] Performed By: #### 5 7021-8 #### [facility] CLIA [id number] [address] [place] [address] [place] Monocytes (Bld) [#/Vol] 0.59 10*3/uL Normal <0.87 [facility] Comment on above: Order Comment: Speci men Type: BLOOD SPECIMEN Ordering Facility: [facility] Address: [address] [place] [address] Performed By: #### 5 7021-8 #### [facility] CLIA [id number] [address] [place] [address] [place] Monocytes/100 WBC (Bld) 10.3 % Normal [facility] Comment on above: Order Comment: Speci men Type: BLOOD SPECIMEN Ordering Facility: [facility] Address: [address] [place] [address] Performed By: #### 5 7021-8 #### [facility] CLIA [id number] [address] [place] [address] [place] Neutrophils (Bld) [#/Vol] 3.11 10*3/uL Normal 1.45-7.50 [facility] Comment on above: Order Comment: Speci men Type: BLOOD SPECIMEN Ordering Facility: [facility] Address: [address] [place] [address] Performed By: #### 5 7021-8 #### [facility] CLIA [id number] [address] [place] [address] [place] Neutrophils/100 WBC (Bld) 54.1 % Normal [facility] Comment on above: Order Comment: Speci men Type: BLOOD SPECIMEN Ordering Facility: [facility] Address: [address] [place] [address] Performed By: #### 5 7021-8 #### [facility] CLIA [id number] [address] [place] [address] [place] Nucleated RBC (Bld) [#/Vol] 10*3/uL Normal <0.01 [facility] Comment on above: Order Comment: Speci men Type: BLOOD SPECIMEN Ordering Facility: [facility] Address: [address] [place] [address] Performed By: #### 5 7021-8 #### [facility] CLIA [id number] [address] [place] [address] [place] Nucleated RBC/100 WBC (Bld) [Ratio] 0.0 /100 WBC Normal [facility] Comment on above: Order Comment: Speci men Type: BLOOD SPECIMEN Ordering Facility: [facility] Address: [address] [place] [address] Performed By: #### 5 7021-8 #### [facility] CLIA [id number] [address] [place] [address] [place] Platelet mean volume (Bld) [Entitic vol] 9.0 fL Normal 9.0-12.7 [facility] Comment on above: Order Comment: Speci men Type: BLOOD SPECIMEN Ordering Facility: [facility] Address: [address] [place] [address] Performed By: #### 5 7021-8 #### [facility] CLIA [id number] [address] [place] [address] [place] Platelets (Bld) [#/Vol] 317 10*3/uL Normal 150-400 [facility] Comment on above: Order Comment: Speci men Type: BLOOD SPECIMEN Ordering Facility: [facility] Address: [address] [place] [address] Performed By: #### 5 7021-8 #### [facility] CLIA [id number] [address] [place] [address] [place] RBC (Bld) [#/Vol] 4.62 10*6/uL Normal 3.90-5.20 [facility] Comment on above: Order Comment: Speci men Type: BLOOD SPECIMEN Ordering Facility: [facility] Address: [address] [place] [address] Performed By: #### 5 7021-8 #### [facility] CLIA [id number] [address] [place] [address] [place] WBC (Bld) [#/Vol] 5.74 10*3/uL Normal 3.70-11.00 [facility] Comment on above: Order Comment: Speci men Type: BLOOD SPECIMEN Ordering Facility: [facility] Address: [address] [place] [address] Performed By: #### 5 7021-8 #### [facility] CLIA [id number] [address] [place] [address] [place] Basophils (Bld) [#/Vol] 0.07 10*3/uL <0.11 k/uL [facility] Basophils/100 WBC (Bld) 1.2 % [facility] Differential cell count method Nom (Bld) Auto [facility] Eosinophils (Bld) [#/Vol] 0.13 10*3/uL <0.46 k/uL [facility] Eosinophils/100 WBC (Bld) 2.3 % [facility] Erythrocyte distribution width (RBC) [Ratio] 12.5 % 11.5 - 15.0 % [facility] Hematocrit (Bld) [Volume fraction] 38.9 % 36.0 - 46.0 % [facility] Hemoglobin (Bld) [Mass/Vol] 13.2 g/dL 11.5 - 15.5 g/dL [facility] Immature granulocytes (Bld) [#/Vol] <0.10 k/uL [facility] Immature granulocytes/100 WBC (Bld) 0.2 % [facility] Lymphocytes (Bld) [#/Vol] 1.83 10*3/uL 1.00 - 4.00 k/uL [facility] Lymphocytes/100 WBC (Bld) 31.9 % [facility] MCH (RBC) [Entitic mass] 28.6 pg 26.0 - 34.0 pg [facility] MCHC (RBC) [Mass/Vol] 33.9 g/dL 30.5 - 36.0 g/dL [facility] MCV (RBC) [Entitic vol] 84.2 fL 80.0 - 100.0 fL [facility] Monocytes (Bld) [#/Vol] 0.59 10*3/uL <0.87 k/uL [facility] Monocytes/100 WBC (Bld) 10.3 % [facility] Neutrophils (Bld) [#/Vol] 3.11 10*3/uL 1.45 - 7.50 k/uL [facility] Neutrophils/100 WBC (Bld) 54.1 % [facility] Nucleated RBC (Bld) [#/Vol] <0.01 k/uL [facility] Nucleated RBC/100 WBC (Bld) [Ratio] 0.0 /100 WBC [facility] Platelet mean volume (Bld) [Entitic vol] 9.0 fL 9.0 - 12.7 fL [facility] Platelets (Bld) [#/Vol] 317 10*3/uL 150 - 400 k/uL [facility] RBC (Bld) [#/Vol] 4.62 10*6/uL 3.90 - 5.2 0 m/uL [facility] WBC (Bld) [#/Vol] 5.74 10*3/uL 3.70 - 11. 00 k/uL [facility] CNOVon 07-09-2023 CNOV Office Visit (OBGYWM) MONALISA AGUILAR ([id number]) 1985 F Date Time Provider Department 07/09/23 7:00 AM GABBY LIEBERMAN OBGYWKarla During your visit today, we recorded the following information about you: Blood pressure Weight Height Last Period 78.4 kg 1.772 m 06/08/23 Gabby Lieberman APRN.CNP 07/09/2023 8:12 AM Signed Senior Engineering Specialist offered: Patient declinesNellie Sheldon is a 38 [...] Multiple0 Live Births0 Comment: 1 Adopted child Hardness Tester History LMP: 06/08/2023 (Exact Date), Having periods Age at Menarche: Age at First : Age at Menopause: Hardness Tester History Comments: Sexual Activity: Yes; Male Contraception: [...] external genitalia normal, normal Bartholin's glands, urethra, Madeline's glands, no vulvar lesions, no cervical lesions, [...] year or sooner as needed Gabby Lieberman APRN.ACID CHANGER Allergies As of Date: 07/09/2023 (No Known Allergies) Date Reviewed: 07/09/2023 Reviewed by: Gabby Lieberman APRN.ACID CHANGER - Fully Assessed Reason for Visit: Yearly Exam [187] Primary Visit Diagnosis:Encounter for gynecological examination (general) (routine) without abnormal findings [Z01.419] Other Visit Diagnoses:Screening for cervical cancer [Z12.4] Encounter for screening for human papillomavirus (HPV) [Z11.51] Encounter for routine laboratory testing [Z01.89] Order(s):PAP TEST [ZKF2282] Order #: [id number]. #:[id number] TSH BLD [SQTSH] Order #: [id number] FUTURE CBC + DIFF [SQCBCDIF] Order #: [id number] FUTURE LIPID PANEL, NONFASTING [SQLIPNF] Order #: [id number] FUTURE IRON + TIBC [SQIRON] Order #: [id number] FUTURE COMP METABOLIC PANEL [SQCMP] Order #: [id number] FUTURE HPV W/GENOTYPE THIN PREP [SQHPVHRT] Reflex Order#: [id number] (Ord#:[id number])Spe c. #:[id number] Prescriptions as of 07/22/2023 - MAGNESIUM ORAL Take by mouth once daily. - Lactobacillus acidophilus (PROBIOTIC ORAL) Take by mouth once daily. Problem List As Of Date: 07/09/2023 (None) Disposition: Return in 1 year (on 07/09/2024) for Annual Exam. Follow-up and Disposition History for Encounter Date Provider Department Center 07/09/2023 [id number] LIEBERMANoster Carlos Nash (more content not included)... Normal [facility] Comprehensive metabolic 2000 panelon 07-09-2023 Albumin [Mass/Vol] 4.2 g/dL Normal 3.9-4.9 [facility] Comment on above: Order Comment: Speci men Type: BLOOD SPECIMEN Ordering Facility: [facility] Address: [address] [place] [address] Performed By: #### 2 4323-8 #### [facility] CLIA [id number] [address] [place] [address] [place] ALP [Catalytic activity/Vol] 51 U/L Normal 34-123 [facility] Comment on above: Order Comment: Speci men Type: BLOOD SPECIMEN Ordering Facility: [facility] Address: [address] [place] [address] Performed By: #### 2 4323-8 #### [facility] CLIA [id number] [address] [place] [address] [place] ALT [Catalytic activity/Vol] 13 U/L Normal 7-38 [facility] Comment on above: Order Comment: Speci men Type: BLOOD SPECIMEN Ordering Facility: [facility] Address: [address] [place] [address] Performed By: #### 2 4323-8 #### [facility] CLIA [id number] [address] [place] [address] [place] Anion gap [Moles/Vol] 7 mmol/L Low 9-18 [facility] Comment on above: Order Comment: Speci men Type: BLOOD SPECIMEN Ordering Facility: [facility] Address: [address] [place] [address] Performed By: #### 2 4323-8 #### [facility] CLIA [id number] [address] [place] [address] [place] AST [Catalytic activity/Vol] 18 U/L Normal 13-35 [facility] Comment on above: Order Comment: Speci men Type: BLOOD SPECIMEN Ordering Facility: [facility] Address: [address] [place] [address] Performed By: #### 2 4323-8 #### [facility] CLIA [id number] [address] [place] [address] [place] Bilirubin [Mass/Vol] 1.5 mg/dL High 0.2-1.3 [facility] Comment on above: Order Comment: Speci men Type: BLOOD SPECIMEN Ordering Facility: [facility] Address: [address] [place] [address] Performed By: #### 2 4323-8 #### [facility] CLIA [id number] [address] [place] [address] [place] Calcium [Mass/Vol] 8.9 mg/dL Normal 8.5-10.2 [facility] Comment on above: Order Comment: Speci men Type: BLOOD SPECIMEN Ordering Facility: [facility] Address: [address] [place] [address] Performed By: #### 2 4323-8 #### [facility] CLIA [id number] [address] [place] [address] [place] Chloride [Moles/Vol] 103 mmol/L Normal 97-105 [facility] Comment on above: Order Comment: Speci men Type: BLOOD SPECIMEN Ordering Facility: [facility] Address: [address] [place] [id number] Performed By: #### 2 4323-8 #### [facility] CLIA [id number] [address] [place] [address] [place] CO2 [Moles/Vol] 25 mmol/L Normal 22-30 [facility] Comment on above: Order Comment: Jae martin Type: BLOOD SPECIMEN Ordering Facility: [facility] Address: [address] [place] [address] Performed By: #### 2 4323-8 #### [facility] CLIA [id number] [address] [place] [address] [place] Creatinine [Mass/Vol] 0.93 mg/dL Normal 0.58-0.96 [facility] Comment on above: Order Comment: Jae martin Type: BLOOD SPECIMEN Ordering Facility: [facility] Address: [address] [place] [address] Performed By: #### 2 4323-8 #### [id number] [address] [place] [address] [place] Creatinine and Glomerular filtration rate.predicted panel (S/P/Bld) 82 mL/min/1.73m??? Normal >=60 [facility] Comment on above: Order Comment: Jae martin Type: BLOOD SPECIMEN Ordering Facility: [facility] Address: [address] [place] [address] Result Comment: Dot mated Glomerular Filtration Rate [...] GFR. Performed By: #### 2 4323-8 #### [facility] [id number] [address] [place] [address] [place] Glucose [Mass/Vol] 87 mg/dL Normal 74-99 [facility] Comment on above: Order Comment: Jae martin Type: BLOOD SPECIMEN Ordering Facility: [facility] Address: [address] [place] [address] Result Comment: The [place] Diabetes Association (ADA) provides guidance for cutoff [...] Standards of Medical Care in Diabetes 2016, [place] Diabetes Association. Diabetes Care. 2016.39(Suppl 1). Performed By: #### 2 4323-8 #### [facility] [id number] [address] [place] [address] [place] Potassium [Moles/Vol] 4.3 mmol/L Normal 3.7-5.1 [facility] Comment on above: Order Comment: Speci men Type: BLOOD SPECIMEN Ordering Facility: [facility] Address: [address] [place], [place] [address] Performed By: #### 2 4323-8 #### [facility] [id number] [address] [place] [address] [place] Protein [Mass/Vol] 6.4 g/dL Normal 6.3-8.0 [facility] Comment on above: Order Comment: Speci men Type: BLOOD SPECIMEN Ordering Facility: [facility] Address: [address] [place] [address] Performed By: #### 2 4323-8 #### [facility] [id number] [address] [place] [address] [place] Sodium [Moles/Vol] 135 mmol/L Low 136-144 [facility] Comment on above: Order Comment: Speci men Type: BLOOD SPECIMEN Ordering Facility: [facility] Address: [address] [place] [address] Performed By: #### 2 4323-8 #### [facility] CLIA [id number] [address] [place] [address] [place] Urea nitrogen [Mass/Vol] 21 mg/dL Normal 7-21 [facility] Comment on above: Order Comment: Speci men Type: BLOOD SPECIMEN Ordering Facility: [facility] Address: [address] [place] [address] Performed By: #### 2 4323-8 #### [facility] CLIA [id number] [address] [place] [address] [place] Albumin [Mass/Vol] 4.2 g/dL 3.9 - 4.9 g/dL [facility] ALP [Catalytic activity/Vol] 51 U/L 34 - 123 U/L [facility] ALT [Catalytic activity/Vol] 13 U/L 7 - 38 U/L [facility] Anion gap [Moles/Vol] 7 mmol/L Low 9 - 18 mmol/L [facility] AST [Catalytic activity/Vol] 18 U/L 13 - 35 U/L [facility] Bilirubin [Mass/Vol] 1.5 mg/dL High 0.2 - 1.3 mg/dL [facility] Calcium [Mass/Vol] 8.9 mg/dL 8.5 - 10. 2 mg/dL [facility] Chloride [Moles/Vol] 103 mmol/L 97 - 105 mmol/L [facility] CO2 [Moles/Vol] 25 mmol/L 22 - 30 mmol/L [facility] Creatinine [Mass/Vol] 0.93 mg/dL 0.58 - 0.96 mg/dL [facility] Estimated Glomerular Filtration Rate 82 mL/min/1.73m >=60 mL/min/1.73m [facility] Glucose [Mass/Vol] 87 mg/dL 74 - 99 mg/dL [facility] Potassium [Moles/Vol] 4.3 mmol/L 3.7 - 5.1 mmol/L [facility] Protein [Mass/Vol] 6.4 g/dL 6.3 - 8.0 g/dL [facility] Sodium [Moles/Vol] 135 mmol/L Low 136 - 144 mmol/L [facility] Urea nitrogen [Mass/Vol] 21 mg/dL 7 - 21 mg/dL [facility] HPV W/GENOTYPE THIN PREPon 0 07-09-2023 HPV 16 Ag Ql (Unsp spec) Negative Normal Negative for HPV DNA high risk type 16 by PCR [facility] Comment on above: Order Comment: Speci men Type: FLUID SPECIMEN Ordering Facility: [facility] Address: [address] [place] [address] Performed By: #### H PVHRT, [id number] #### [facility] CLIA [id number] [address] [place] [address] [place] HPV 18 Ag Ql (Unsp spec) Negative Normal Negative for HPV DNA high risk type 18 by PCR [facility] Comment on above: Order Comment: Speci men Type: FLUID SPECIMEN Ordering Facility: [facility] Address: [address] [place] [address] Performed By: #### H PVHRT, [id number] #### [facility] CLIA [id number] [address] [place] [address] [place] HPV 31+33+35+39+45+51+52+5 6+58+59+66+68 DNA SCOTT+probe Ql (Cvx) Negative for HPV DNA high risk types: 31,33,35,39,45,51,52 ,56,58,59,66,68 by PCR. Normal Negative for HPV DNA high risk types: 31,33,35,39,45, 51,52,56,58,59, 66,68 by PCR. [facility] Comment on above: Order Comment: Speci men Type: FLUID SPECIMEN Ordering Facility: [facility] Address: [address] [place] [address] Performed By: #### H PVHRT, [id number] #### [facility] CLIA [id number] [address] [place] [address] [place] Iron and Iron binding capaci ty panelon 07-09-2023 Iron [Mass/Vol] 109 ug/dL Normal 41-186 [facility] Comment on above: Order Comment: Speci men Type: BLOOD SPECIMEN Ordering Facility: [facility] Address: [address] [place] [address] Performed By: #### 5 0190-8, 3016-3, LIPNF #### [facility] CLIA [id number] [address] [place] [address] [place] Iron binding capacity [Mass/Vol] 254 ug/dL Normal 232-386 [facility] Comment on above: Order Comment: Speci men Type: BLOOD SPECIMEN Ordering Facility: [facility] Address: [address] [place] [address] Performed By: #### 5 0190-8, 6-3, LIPNF #### [facility] CLIA [id number] [address] [place] [address] [place] Iron/TIBC [Molar ratio] 42.9 % Normal 15.0-57.0 [facility] Comment on above: Order Comment: Speci men Type: BLOOD SPECIMEN Ordering Facility: [facility] Address: [address] [place] [address] Performed By: #### 5 0190-8, 3015-3, LIPNF #### [facility] CLIA [id number] [address] [place] [address] [place] LIPID PANEL, NONFASTINGon Cholesterol [Mass/Vol] 185 mg/dL Normal <200 [facility] Comment on above: Order Comment: Speci men Type: BLOOD SPECIMEN Ordering Facility: [facility] Address: [address] [place], [place] [address] Result Comment: <200 mg/dL, Desirable 200-239 mg/dL, Borderline high >239 mg/dL, High Performed By: #### 5 0190-8, 3016-3, LIPNF #### [facility] CLIA [id number] [address] [place], [place] [address] [place] HDL CHOLESTEROL, NF 57 mg/dL Normal >39 [facility] Comment on above: Order Comment: Speci men Type: BLOOD SPECIMEN Ordering Facility: [facility] Address: [address] [place] [address] Result Comment: 40-5 9 mg/dL, Acceptable >59 mg/dL, High: Negative risk factor for coronary heart disease <40 mg/dL, Low: Positive risk factor for coronary heart disease Performed By: #### 5 0190-8, 3016-3, LIPNF #### [facility] CLIA [id number] [address] [place] [address] OF [facility] LDL CHOLESTEROL, NF 120 mg/dL High <100 [facility] Comment on above: Order Comment: Libradotessa martin Type: BLOOD SPECIMEN Ordering Facility: [facility] Address: [address] [place] [address] Result Comment: <100 mg/dL, Optimal 100-129 mg/dL, Near optimal/above optimal 130-159 mg/dL, Borderline high 160-189 mg/dL, High >189 mg/dL, Very high Secondary prevention optimal LDL Cholesterol levels are recommended to be < 70 mg/dL Performed By: #### 5 0190-8, 3016-3, LIPNF #### [facility] CLIA [id number] [address] [place] [address] OF [place] LDL/HDL RATIO, NF 2.11 mg/dL Normal <2.54 [facility] Comment on above: Order Comment: Jae martin Type: BLOOD SPECIMEN Ordering Facility: [facility] Address: [address] [place] [address] Result Comment: Refesthela jacobce: 1. National Cholesterol Education Program ATP III Guideline At-A-Glance Quick Desk Reference: National Heart, Lung, and Blood [place]. National Institutes of Health. 2001: NIH Publication No. 01-3305. 2. An International Atherosclerosis Society position paper: global recommendations for the management of dyslipidemia: executive summary, Atherosclerosis. 2014: 232(2):410-413. Performed By: #### 5 0190-8, 3016-3, LIPNF #### [facility] CLIA [id number] [address] [place] [address] [place] NON HDL CHOL, NF 128 mg/dL Normal <130 [facility] Comment on above: Order Comment: Speci men Type: BLOOD SPECIMEN Ordering Facility: [facility] Address: [address] [place] [address] Result Comment: <130 mg/dL, Optimal 130-159 mg/dL, Near optimal/above optimal 160-189 mg/dL, Borderline high 190-219 mg/dL, High >219 mg/dL, Very high Secondary prevention optimal non HDL Cholesterol levels are recommended to be <100 mg/dL Performed By: #### 5 0190-8, 3016-3, LIPNF #### [facility] CLIA [id number] [address] [place] [address] [place] T CHOL/HDL RATIO NF 3.25 mg/dL Normal <5.10 [facility] Comment on above: Order Comment: Speci men Type: BLOOD SPECIMEN Ordering Facility: [facility] Address: [address] [place] [address] Performed By: #### 5 0190-8, 3016-3, LIPNF #### [facility] CLIA [id number] [address] [place] [address] [place] TRIGLYCERIDES, NF 42 mg/dL Normal <150 [facility] Comment on above: Order Comment: Speci men Type: BLOOD SPECIMEN Ordering Facility: [facility] Address: [address] [place] [address] Result Comment: <150 mg/dL, Normal 150-199 mg/dL, Borderline high 200-499 mg/dL, High >499 mg/dL, Very high Performed By: #### 5 0190-8, 3016-3, LIPNF #### [facility] CLIA [id number] [address] [place] [address] [place] VLDL CHOLESTEROL, NF 8 mg/dL Normal <30 [facility] Comment on above: Order Comment: Speci men Type: BLOOD SPECIMEN Ordering Facility: [facility] Address: [address] [place] [address] Performed By: #### 5 0190-8, 3016-3, LIPNF #### [facility] CLIA [id number] [address] [place] [address] [place] PAP TESTon 07-09-2023 ADEQUACY Satisfactory for interpretation Normal [facility] Comment on above: Order Comment: Speci men Type: FLUID SPECIMEN Ordering Facility: [facility] Address: [address] [place] [address] Performed By: #### H PVHRT, [id number] #### [facility] CLIA [id number] [address] [place] [address] [place] CASE REPORT Normal [facility] Comment on above: Order Comment: Speci men Type: FLUID SPECIMEN Ordering Facility: [facility] Address: [address] [place] [address] Result Comment: Gyne cologic Cytology Report Case: [id number] Authorizing Provider: Gabby Lieberman APRN.ACID CHANGER Collected: 07/09/2023 07:45 AM Ordering Location: OB/Gynecology Received: 07/09/2023 12:05 PM First Screen: [place], [place], [place], ASCP Specimen: Pap Test, ThinPrep, Cervix Performed By: #### H PVHRT, [id number] #### [facility] CLIA [id number] [address] [place] [address] [place] CLINICAL HISTORY, CYTOLOGY, PILLOWCASE TURNER Routine Exam Normal [facility] Comment on above: Order Comment: Speci men Type: FLUID SPECIMEN Ordering Facility: [facility] Address: [address] [place] [address] Performed By: #### H PVHRT, [id number] #### [facility] CLIA [id number] [address] [place] [address] [place] FINAL PERFORMING LAB Normal [facility] Comment on above: Order Comment: Speci men Type: FLUID SPECIMEN Ordering Facility: [facility] Address: [address] [place] [address] Result Comment: Tech nical component, stereo map plotter operator screening performed at [facility], [address] [place], [place] [address] CLIA# [id number] Diagnostic interpretation performed at [facility], [address] [place] [address] CLIA# [id number] Industrial Education Teacher: Sridhar Joel M.D. Performed By: #### H PVHRT, [id number] #### [facility] CLIA [id number] [address] [place] [address] [place] HPV REFLEX Yes HPV Normal [facility] Comment on above: Order Comment: Speci men Type: FLUID SPECIMEN Ordering Facility: [facility] Address: [address] [place] [address] Performed By: #### H PVHRT, [id number] #### [facility] CLIA [id number] [address] [place] [address] [place] INTERPRETATION, CYTOLOGY, PILLOWCASE TURNER Normal [facility] Comment on above: Order Comment: Speci men Type: FLUID SPECIMEN Ordering Facility: [facility] Address: [address] [place] [address] Result Comment: Nega tive for intraepithelial lesion or malignancy. Performed By: #### H PVHRT, [id number] #### [facility] CLIA [id number] [address] [place] [address] [place] LMP 06/08/2023 Normal [facility] Comment on above: Order Comment: Speci men Type: FLUID SPECIMEN Ordering Facility: [facility] Address: [address] [place] [address] Performed By: #### H PVHRT, [id number] #### [facility] CLIA [id number] [address] [place] [address] [place] PAP DISCLAIMER COMMENT The Pap Smear is a screening test for cervical cancer. False negative results occur with all screening tests, emphasizing the need for rescreening at recommended intervals, and clinical correlation. Normal [facility] Comment on above: Order Comment: Jae martin Type: FLUID SPECIMEN Ordering Facility: [facility] Address: [address] [place] [address] Performed By: #### H PVHRT, [id number] #### [facility] CLIA [id number] [address] [place] [address] [place] PAP ROLL BUCKER COMMENT This specimen has been analyzed by the ThinPrep Imaging System, an automated imaging and review system, which assists the laboratory in evaluating cells on ThinPrep Pap tests. Following automated imaging, selected simms from every slide are reviewed by a stereo map plotter operator. Normal [facility] Comment on above: Order Comment: Jae martin Type: FLUID SPECIMEN Ordering Facility: [facility] Address: [address] [place] [address] Performed By: #### H PVHRT, [id number] #### [facility] CLIA [id number] [address] [place] [address] [place] TSH SerPl-aCncon 07-09-2023 TSH Qn 1.200 m[IU]/L Normal 0.270-4.200 [facility] Comment on above: Order Comment: Jae martin Type: BLOOD SPECIMEN Ordering Facility: [facility] Address: [address] [place] [address] Result Comment: If t he patient is , TSH reference range varies by gestational period: First Trimester (weeks 9-12): 0.180-2.990 mIU/L Second Trimester: 0.110-3.980 mIU/L Third Trimester: 0.480-4.710 mIU/L Jesus Whitmore et al. A Practical Approach for the Verifications and Determination of Site- and Trimester-Specific Reference Intervals for Thyroid Function tests in . Thyroid, 2019:29:3:412-420. Cristino E, et al. 2017 Guidelines of the [place] Thyroid Association for the Diagnosis and Management of Thyroid Disease during and the . Thyroid, 2017:27:3:315-389. Performed By: #### 5 0190-8, 3016-3, LIPNF #### [facility] CLIA [id number] [address] [place] [address] [place] CNOVon 06-12-2023 CNOV Office Visit (OBGYWM) MONALISA AGUILAR ([id number]) 1985 F Date Time Provider Department 06/12/23 8:30 AM GABBY LIEBERMAN OBGYWM During your visit today, we recorded the following information about you: Blood pressure Weight Height Last Period 106 78 kg 1.765 m 06/07/23 Gabby Lieberman, CASIE.ACID CHANGER 06/12/2023 10:27 AM Signed Monalisa Aguilar is [...] OB History No obstetric history on file. Hardness Tester History LMP: Age at Menarche: Age at First : Age at Menopause: Hardness Tester History Comments: Sexual Activity: No sexual activity [...] for Encounter Date Provider Department Center 06/12/2023 [id number] Encounter Status:Closed by GABBY LIEBERMAN on 06/12/23 Normal [facility] [id number] 06-08-2023 ABO and Rh group Nom (Bld) Blood group O Rh(D) positive Normal [facility] Comment on above: Performed By: #### B 882-1 #### [facility] [address] [place], [address] Emergency Department Summary on 06-08-2023 Emergency Department Summary [facility] Medical Records Department [address] [place] [address] Emergency Department Summary 06/08/23 MR#: [id number] Acct: [id number] Name: MONALISA AGUILAR Rep #: [id number] : 1985 37 From: Jose Cruz Knox [...] Blood Typ (more content not included)... Normal [facility] Serum or plasma choriogonado tropin detectionOrdered By: Jose Cruz Knox on 06-08-2023 HCG ( test) Ql 2 mIU/mL <4 [facility] Comment on above: hCG levels with Gest ational AgeGestational Age hCG mIU/mL (IU/L)0.2 - 1 week 5 - 501-2 weeks 50 - 5002-3 weeks 100 - 69618-7 weeks 500 - 137913-0 weeks 1000 - 103780-1 weeks 92405 - 100,0006-8 weeks 41098 - 200,0002-3 months 07617 - 100,000 hCG Titer Quant., Serumon HCG QUANT. 2 mIU/mL Normal 1-3 [facility] Comment on above: Result Comment: hCG levels with Gestational Age Gestational Age hCG mIU/mL (IU/L) 0.2 - 1 week 5 - 50 1-2 weeks 50 - 500 2-3 weeks 100 - 5000 3-4 weeks 500 - 73346 4-5 weeks 1000 - 66960 5-6 weeks 61075 - 100,000 6-8 weeks 51005 - 200,000 2-3 months 97692 - 100,000 Performed By: #### L 700.8000 #### [facility] [address] [place], [address] COVID-19, MOLECULARon 2020 SARS-CoV-2 (COVID-19) RNA SCOTT+probe Ql (Unsp spec) Not detected Normal Not Detected [facility] Comment on above: Result Comment: This test [...] at the following links: For Healthcare Providers: https://www.fda.gov/media/552819/download For Patients: https://www.fda.gov/media/453002/download Performed By: #### L [id number] #### [facility] [address] [place], [place] [address] Avni Hendricks M.D. [id number] POC Urinalysis Dipstick, Aut oon 02-12-2021 Bilirubin Ql (U) Negative Negative [facility] Glucose Ql (U) Negative Normal, Negative mg/dL [facility] Hemoglobin Ql (U) Negative Negative [facility] [facility] lth Ketones Ql (U) Negative Negative mg/dL [place] [facility]th Leukocyte esterase Test strip Ql (U) Negative Negative [facility] Nitrite Ql (U) Negative Negative [facility] pH (U) 7.0 [pH] [facility] Protein Ql (U) Negative Negative mg/dL [facility] alth Specific gravity (U) [Rel density] 1.[address] [facility] Urobilinogen Qn (U) 0.2 mg/dL <2.0, 0. 2, Normal, Negative, 1.0, 2.0, <1.0 [facility] HCG ( test) Ql (U)O rdered By: Xochilt Santamaria on 02-11-2021 Internal Control Pass [facility] - Chemistry and C hemistry - challengeOrdered By: Xochilt Santamaria on 02-11-2021 HCG ( test) Ql (U) Negative Negative [facility] Glucose Fastingon 06-10-2019 Glucose post fast [Mass/Vol] 86 mg/dL Normal 70-99 [place] Comment on above: Result Comment: U pdated ADA Reference Range A normal fasting glucose concentration is less than 100 mg/dL. An impaired fasting glucose concentration is 100-125 mg/dL. A provisional diagnosis of diabetes mellitus can be made when a fasting glucose concentration is greater than 125 mg/dL. Performed By: #### 1 558-6 #### [facility] [address] [place] [address] Lipid Panelon 06-10-2019 Cholesterol [Mass/Vol] 134 mg/dL Normal <200 Mo [facility] Comment on above: Result Comment: Refe r to the National Cholesterol Education Program ATP III cut offs for risk stratification. Performed By: #### 5 7698-3 #### [facility] [address] [place] [address] Cholesterol in HDL [Mass/Vol] 46 mg/dL Normal >40 [place] Comment on above: Performed By: #### 5 7698-3 #### [facility] [address] [place] [address] Cholesterol in LDL [Mass/Vol] 82 mg/dL Normal <100 [place] Comment on above: Performed By: #### 5 7698-3 #### [facility] [address] [place] [address] Cholesterol in VLDL [Mass/Vol] 6 mg/dL Normal 2-38 [place] Comment on above: Performed By: #### 5 7698-3 #### [facility] [address] [facility] [address] Triglyceride [Mass/Vol] 29 mg/dL Normal <200 [place] Comment on above: Performed By: #### 5 7698-3 #### [facility] [address] [facility] [place] [address] Vital Signs Date Time Vital Sign Value Performing Clinician Facility 01-04-2025 09:20-0400 Body mass index (BMI) [Ratio] 33.04 kg/m2 Sonia Dyer ALLERGIST IMMUNOLOGIST.CNM Work Phone: [facility] 01-04-2025 09:20-0400 Body weight 102.97 kg Sonia Dyer ALLERGIST IMMUNOLOGIST.CNM Work Phone: [facility] 01-04-2025 09:20-0400 Diastolic blood pressure 62 mm[Hg] Sonia Dyer ALLERGIST IMMUNOLOGIST.CNM Work Phone: [facility] 01-04-2025 09:20-0400 Systolic blood pressure 124 mm[Hg] Sonia Dyer ALLERGIST IMMUNOLOGIST.CNM Work Phone: [facility] 12-27-2024 09:44-0400 Body mass index (BMI) [Ratio] 32.17 kg/m2 Angie Rhodes APRN.CNM Work Phone: [facility] 12-27-2024 09:44-0400 Body weight 100.25 kg Angie Rhodes APRN.CNM Work Phone: [facility] 12-27-2024 09:44-0400 Diastolic blood pressure 70 mm[Hg] Angie Rhodes ALLERGIST IMMUNOLOGIST.CNM Work Phone: [facility] 12-27-2024 09:44-0400 Systolic blood pressure 118 mm[Hg] Angie Rhodes ALLERGIST IMMUNOLOGIST.CNM Work Phone: [facility] 12-13-2024 09:45-0400 Body mass index (BMI) [Ratio] 32.02 kg/m2 Clem Quinonez MD Work Phone: [facility] 12-13-2024 09:45-0400 Body weight 99.79 kg Clem Quinonez MD Work Phone: [facility] 12-13-2024 09:45-0400 Diastolic blood pressure 64 mm[Hg] Clem Quinonez MD Work Phone: [facility] 12-13-2024 09:45-0400 Systolic blood pressure 118 mm[Hg] Clem Quinonez MD Work Phone: [facility] 11-29-2024 10:10-0400 Body mass index (BMI) [Ratio] 31.15 kg/m2 Speedy Silva MD Work Phone: [facility] 11-29-2024 10:10-0400 Body weight 97.07 kg Speedy Silva MD Work Phone: [facility] 11-29-2024 10:10-0400 Diastolic blood pressure 64 mm[Hg] Speedy Silva MD Work Phone: [facility] 11-29-2024 10:10-0400 Systolic blood pressure 122 mm[Hg] Speedy Silva MD Work Phone: [facility] 11-16-2024 11:16-0400 Body mass index (BMI) [Ratio] 30.86 kg/m2 Torsten Butts ALLERGIST IMMUNOLOGIST.ACID CHANGER Work Phone: [facility] 11-16-2024 11:16-0400 Body weight 96.16 kg Torsten Butts ALLERGIST IMMUNOLOGIST.ACID CHANGER Work Phone: [facility] 11-16-2024 11:16-0400 Diastolic blood pressure 70 mm[Hg] Torsten Benjamín ALLERGIST IMMUNOLOGIST.ACID CHANGER Work Phone: [facility] 11-16-2024 11:16-0400 Systolic blood pressure 116 mm[Hg] Torsten Medellincelia ALLERGIST IMMUNOLOGIST.ACID CHANGER Work Phone: [facility] 11-04-2024 09:12-0400 Body mass index (BMI) [Ratio] 30.83 kg/m2 Yvonne Zambrano MD Work Phone: [facility] 11-04-2024 09:12-0400 Body weight 96.07 kg Yvonne Zambrano MD Work Phone: [facility] 11-04-2024 09:12-0400 Diastolic blood pressure 60 mm[Hg] Yvonne Zambrano MD Work Phone: [facility] 11-04-2024 09:12-0400 Systolic blood pressure 110 mm[Hg] Yvonne Zambrano MD Work Phone: [facility] 10-21-2024 09:01-0400 Body mass index (BMI) [Ratio] 30.28 kg/m2 Sonia Plotts ALLERGIST IMMUNOLOGIST.CNM Work Phone: [facility] 10-21-2024 09:01-0400 Body weight 94.35 kg Sonia Plotts ALLERGIST IMMUNOLOGIST.CNM Work Phone: [facility] 10-21-2024 09:01-0400 Diastolic blood pressure 62 mm[Hg] Sonia Plotts ALLERGIST IMMUNOLOGIST.CNM Work Phone: [facility] 10-21-2024 09:01-0400 Systolic blood pressure 100 mm[Hg] Sonia Plotts ALLERGIST IMMUNOLOGIST.CNM Work Phone: [facility] 09-23-2024 09:10-0400 Body mass index (BMI) [Ratio] 29.84 kg/m2 Sonia Plotts ALLERGIST IMMUNOLOGIST.CNM Work Phone: [facility] 09-23-2024 09:10-0400 Body weight 92.99 kg Sonia Plotts ALLERGIST IMMUNOLOGIST.CNM Work Phone: [facility] 09-23-2024 09:10-0400 Diastolic blood pressure 64 mm[Hg] Sonia Plotts ALLERGIST IMMUNOLOGIST.CNM Work Phone: [facility] 09-23-2024 09:10-0400 Systolic blood pressure 100 mm[Hg] Sonia Plotts ALLERGIST IMMUNOLOGIST.CNM Work Phone: [facility] 08-24-2024 10:31-0400 Body mass index (BMI) [Ratio] 28.67 kg/m2 Angie Rhodes ALLERGIST IMMUNOLOGIST.CNM Work Phone: [facility] 08-24-2024 10:31-0400 Body weight 89.36 kg Angie Rhodes ALLERGIST IMMUNOLOGIST.CNM Work Phone: [facility] 08-24-2024 10:31-0400 Diastolic blood pressure 68 mm[Hg] Angie Rhodes ALLERGIST IMMUNOLOGIST.CNM Work Phone: [facility] 08-24-2024 10:31-0400 Systolic blood pressure 112 mm[Hg] Angie Rhodes ALLERGIST IMMUNOLOGIST.CNM Work Phone: [facility] 07-27-2024 09:55-0400 Body mass index (BMI) [Ratio] 27.45 kg/m2 Sonia Plotreuben ALLERGIST IMMUNOLOGIST.CNM Work Phone: [facility] 07-27-2024 09:55-0400 Body weight 85.55 kg Sonia Dyer ALLERGIST IMMUNOLOGIST.CNM Work Phone: [facility] 07-27-2024 09:55-0400 Diastolic blood pressure 62 mm[Hg] Sonia Plotts ALLERGIST IMMUNOLOGIST.CNM Work Phone: [facility] 07-27-2024 09:55-0400 Systolic blood pressure 118 mm[Hg] Sonia Plotts ALLERGIST IMMUNOLOGIST.CNM Work Phone: [facility] 06-29-2024 10:53-0500 Body mass index (BMI) [Ratio] 26.9 kg/m2 Angie Rhodes ALLERGIST IMMUNOLOGIST.CNM Work Phone: [facility] 06-29-2024 10:53-0500 Body weight 83.83 kg Angie Rhodes ALLERGIST IMMUNOLOGIST.CNM Work Phone: [facility] 06-29-2024 10:53-0500 Diastolic blood pressure 68 mm[Hg] Angie Rhodes ALLERGIST IMMUNOLOGIST.CNM Work Phone: [facility] 06-29-2024 10:53-0500 Systolic blood pressure 102 mm[Hg] Angie Rhodes ALLERGIST IMMUNOLOGIST.CNM Work Phone: [facility] 05-25-2024 09:01-0500 Body height 176.5 cm Angie Rhodes ALLERGIST IMMUNOLOGIST.CNM Work Phone: [facility] 05-25-2024 09:01-0500 Body mass index (BMI) [Ratio] 26.05 kg/m2 Angie Rhodes ALLERGIST IMMUNOLOGIST.CNM Work Phone: [facility] 05-25-2024 09:01-0500 Body weight 81.19 kg Angie Rhodes ALLERGIST IMMUNOLOGIST.CNM Work Phone: [facility] 05-25-2024 09:01-0500 Diastolic blood pressure 64 mm[Hg] Angie Rhodes ALLERGIST IMMUNOLOGIST.CNM Work Phone: [facility] 05-25-2024 09:01-0500 Systolic blood pressure 118 mm[Hg] Angie Rhodes ALLERGIST IMMUNOLOGIST.CNM Work Phone: [facility] 07-09-2023 06:57-0500 Body height 177.2 cm Gabby Luisana ALLERGIST IMMUNOLOGIST.ACID CHANGER Work Phone: [facility] 07-09-2023 06:57-0500 Body weight 78.38 kg Gabby Yorkshire ALLERGIST IMMUNOLOGIST.ACID CHANGER Work Phone: [facility] 07-09-2023 06:57-0500 Diastolic blood pressure 66 mm[Hg] Gabby Yorkshire ALLERGIST IMMUNOLOGIST.ACID CHANGER Work Phone: [facility] 07-09-2023 06:57-0500 Systolic blood pressure 102 mm[Hg] Gabby Yorkshire ALLERGIST IMMUNOLOGIST.ACID CHANGER Work Phone: [facility] 06-08-2023 14:22-0500 Body height 175.26 cm [facility] 06-08-2023 14:22-0500 Body mass index (BMI) [Ratio] 24.4 kg/m2 [facility] 06-08-2023 14:22-0500 Body temperature 98.1 [degF] [facility] 06-08-2023 14:22-0500 Body weight 75.11 kg [facility] 06-08-2023 14:22-0500 Diastolic blood pressure 81 mm[Hg] [facility] 06-08-2023 14:22-0500 Heart rate 76 /min [facility] 06-08-2023 14:22-0500 Respiratory rate 16 /min [facility] 06-08-2023 14:22-0500 SaO2% (BldA) [Mass fraction] 99 % [facility] 06-08-2023 14:22-0500 Systolic blood pressure 139 mm[Hg] [facility] 07-30-2021 09:54-0400 Body mass index (BMI) [Ratio] 22.24 kg/m2 Roni Sauceda MD Work Phone: [facility] 07-30-2021 09:54-0400 Body temperature 97.81 [degF] Roni Sauceda MD Work Phone: [facility] 07-30-2021 09:54-0400 Body weight 70.31 kg Roni Sauceda MD Work Phone: [facility] 07-30-2021 09:54-0400 Diastolic blood pressure 75 mm[Hg] Roni Sauceda MD Work Phone: [facility] 07-30-2021 09:54-0400 Heart rate 63 /min Roni Sauceda MD Work Phone: [facility] 07-30-2021 09:54-0400 Respiratory rate 18 /min Roni Sauceda MD Work Phone: [facility] 07-30-2021 09:54-0400 SaO2% (BldA) [Mass fraction] 97 % Roni Sauceda MD Work Phone: [facility] 07-30-2021 09:54-0400 Systolic blood pressure 112 mm[Hg] Roni Sauceda MD Work Phone: [facility] 02-11-2021 10:14-0400 Body height 175.3 cm Elodia Miranda MD Work Phone: [facility] 02-11-2021 10:14-0400 Body mass index (BMI) [Ratio] 24.01 kg/m2 Elodia Miranda MD Work Phone: [facility] 02-11-2021 10:14-0400 Body temperature 98.8 [degF] Elodia Miranda MD Work Phone: [facility] 02-11-2021 10:14-0400 Body weight 73.75 kg Elodia Miranda MD Work Phone: [facility] 02-11-2021 10:14-0400 Diastolic blood pressure 75 mm[Hg] Elodia Miranda MD Work Phone: [facility] 02-11-2021 10:14-0400 Heart rate 60 /min Elodia Miranda MD Work Phone: [facility] 02-11-2021 10:14-0400 SaO2% (BldA) [Mass fraction] 98 % Elodia Miranda MD Work Phone: [facility] 02-11-2021 10:14-0400 Systolic blood pressure 119 mm[Hg] Elodia Miranda MD Work Phone: [facility] 04-26-2020 07:39-0500 BMI (Body Mass Index) 24.51 kg/m2 Elodia Miranda [facility] 04-26-2020 07:39-0500 Body Temperature 97.7 [degF] Elodia Miranda [facility] 04-26-2020 07:39-0500 Body weight 75.3 kg Elodia Miranda [facility] 04-26-2020 07:39-0500 BP Diastolic 69 mm[Hg] [facility] 04-26-2020 07:39-0500 BP Systolic 110 mm[Hg] [facility] 04-26-2020 07:39-0500 Height 175.3 cm [facility] 04-26-2020 07:39-0500 Pulse (Heart Rate) 65 /min [facility] 04-26-2020 07:39-0500 Pulse Oximetry 96 % [facility] Encounters Encounter Date Encounter Type Care Provider Facility Start: 01-04-2025 End: 01-04-2025 Patient encounter procedure Sonia Terireuben SALES Work Phone: OB/Gynecology Comment on above: 39 weeks gestation o f (HCC) (Primary Dx); AMA (advanced maternal age) multigravida 35+, third trimester (HCC) Start: 01-04-2025 End: 01-04-2025 ambulatory SONIA DYER Facility:[facility] Start: 12-29-2024 End: 12-29-2024 ambulatory Alda Martínez MA [facility] Start: 12-29-2024 End: 12-29-2024 Patient encounter procedure Alda Martínez MA [facility] Comment on above: Population Health Na vigation Outreach (Ob/peds) Start: 12-27-2024 End: 12-27-2024 Patient encounter procedure Angie Rhodes APRN.CNM Work Phone: OB/Gynecology Comment on above: Supervision of high risk in third trimester (HCC) (Primary Dx); AMA (advanced maternal age) multigravida 35+, third trimester (HCC); Prior macrosomia, antepartum (HCC); 38 weeks gestation of (HCC) Start: 12-27-2024 End: 12-27-2024 ambulatory ANGIE RHODES Facility:[facility] Start: 12-20-2024 End: 12-20-2024 ambulatory ANGIE RHODES Facility:[facility] Start: 12-13-2024 End: 12-13-2024 Patient encounter [...] Start: 12-13-2024 End: 12-13-2024 ambulatory CLEM QUINONEZ Facility:[facility] Start: 11-29-2024 End: 11-29-2024 ambulatory SPEEDY SILVA Facility:[facility] Start: 11-29-2024 End: 11-29-2024 Patient encounter procedure Speedy Silva MD Work Phone: OB/Gynecology Comment on above: Supervision of high risk in third trimester (HCC) (Primary Dx); Multigravida of advanced maternal age in third trimester (HCC); Prior macrosomia, antepartum (HCC); 34 weeks gestation of (HCC) Start: 11-16-2024 End: 11-16-2024 Patient encounter procedure Tortsen Butts APRN.CNP Work Phone: OB/Gynecology Comment on above: Supervision of high risk in third trimester (HCC) (Primary Dx); 32 weeks gestation of (HCC); Multigravida of advanced maternal age in third trimester (HCC); Prior macrosomia, antepartum (HCC) Start: 11-16-2024 End: 11-16-2024 ambulatory TORSTEN BUTTS Facility:[facility] Start: 11-04-2024 End: 11-04-2024 ambulatory YVONNE ZAMBRANO Facility:[facility] Start: 11-04-2024 End: 11-04-2024 Patient encounter [...] Start: 10-21-2024 End: 10-21-2024 ambulatory SONIA DYER Facility:[facility] Start: 09-23-2024 End: 09-23-2024 Patient encounter procedure Sonia Dyer ALLERGIST IMMUNOLOGIST.WILBERT Work Phone: OB/Gynecology Comment on above: Supervision of high risk in second trimester (HCC) (Primary Dx); 24 weeks gestation of (HCC); Screening for diabetes mellitus; Multigravida of advanced maternal age in second trimester (HCC); Prior macrosomia, antepartum (HCC) Start: 09-23-2024 End: 09-23-2024 [facility] Start: 08-24-2024 End: 08-24-2024 ambulatory ANGIE RHODES Facility:[facility] Start: 08-24-2024 End: 08-24-2024 Patient encounter procedure Angie Rhodes ALLERGIST IMMUNOLOGIST.WILBERT Work Phone: OB/Gynecology Comment on above: Supervision of high risk in second trimester (HCC) (Primary Dx); 20 weeks gestation of (HCC); Multigravida of advanced maternal age in second trimester (HCC); Prior macrosomia, antepartum (HCC) Encounter for anatomic survey (HCC) (Primary Dx); 20 weeks gestation of (HCC); Multigravida of advanced maternal age in second trimester (HCC) Start: 07-27-2024 End: 07-27-2024 ambulatory SONIA DYER Facility:[facility] Start: 07-27-2024 End: 07-27-2024 Patient encounter procedure Sonia Dyer ALLERGIST IMMUNOLOGIST.WILBERT Work Phone: OB/Gynecology Comment on above: 16 weeks gestation o f (Primary Dx); Multigravida of advanced maternal age in second trimester; Multigravida of advanced maternal age in first trimester Start: 06-29-2024 End: 06-30-2024 Follow-up encounter Angie Rhodes APRN.CNM Work Phone: OB/Gynecology Start: 06-29-2024 End: 06-29-2024 Patient encounter procedure [employer] [facility] Comment on above: Encounter for antena scott screening for malformation using ultrasound (Primary Dx); 12 weeks gestation of Supervision of other high risk pregnancies, first trimester (Primary Dx); 12 weeks gestation of ; Multigravida of advanced maternal age in second trimester Start: 06-29-2024 End: 06-29-2024 ambulatory ANGIE RHODES Facility:[facility] Start: 06-28-2024 End: 06-28-2024 ambulatory Angie Rhodes APRN.CNM Work Phone: OB/Gynecology Comment on above: Bloodwork Start: 06-18-2024 End: 06-20-2024 ambulatory Angie Rhodes APRN.CNM Work Phone: OB/Gynecology Comment on above: Cramping Start: 05-25-2024 End: 05-25-2024 ambulatory ANGIE RHODES Facility:[facility] Start: 05-25-2024 End: 05-25-2024 Patient encounter procedure Angie Rhodes APRN.CNM Work Phone: OB/Gynecology Comment on above: with uncer tain dates, antepartum (Primary Dx); Prior macrosomia, antepartum; Multigravida of advanced maternal age in first trimester; Supervision of other high risk pregnancies, first trimester Start: 12-29-2023 End: 12-29-2023 ambulatory No Primary Care Physician Facility:[facility] Start: 07-09-2023 End: 07-10-2023 ambulatory Gabby Lieberman APRN.ACID CHANGER Work Phone: OB/Gynecology Comment on above: Labs Start: 07-09-2023 Encounter for other specified special examinations GABBY LIEBERMAN [facility] Start: 07-09-2023 End: 07-09-2023 Patient encounter procedure Gabby Lieberman APRN.ACID CHANGER Work Phone: OB/Gynecology Comment on above: Encounter for gyneco logical examination (general) (routine) without abnormal findings (Primary Dx); Screening for cervical cancer; Encounter for screening for human papillomavirus (HPV); Encounter for routine laboratory testing Start: 07-09-2023 End: 07-09-2023 Patient encounter status Gabby Lieberman APRN.ACID CHANGER Work Phone: [facility] Start: 06-12-2023 End: 06-12-2023 ambulatory GABBY LIEBERMAN Facility:[facility] Start: 06-08-2023 End: 06-08-2023 Emergency department patient visit [facility] Work Phone: Start: 09-05-2022 Documentation procedure Lianet contreras LPN [facility] Start: 11-11-[address] [facility] Start: 07-30-2021 End: 07-30-2021 ambulatory [facility] Start: 07-30-2021 End: 07-30-2021 Office outpatient new 30 minutes Roni Sauceda MD Work Phone: [facility] [place] Comment on above: Sinusitis, unspecifi ed chronicity, unspecified location (Primary Dx) Start: 03-08-2021 End: 03-08-2021 ambulatory [facility] Start: 03-04-2021 End: 03-04-2021 ambulatory [facility] Start: 02-11-2021 End: 02-15-2021 ambulatory [facility] Start: 02-11-2021 End: 02-11-2021 Office outpatient visit 25 minutes Elodia Miranda MD Work Phone: [facility] Comment on above: Preoperative clearan ce (Primary Dx); Esotropia Start: 02-11-2021 End: 02-11-2021 Preoperative state Elodia Miranda MD Work Phone: [facility] Start: 01-04-20[facility] Start: 04-26-2020 End: 04-26-2020 Periodic preventive med est patient 18-39 yrs Elodia Mirnada Work Phone: [facility] Comment on above: Annual physical exam (Primary Dx) Procedures Date Procedure Procedure Detail Performing Clinician Start: 12-27-2024 Urnls dip stick/tabl et rgnt non-auto w/o micrscp Angie Rhodes ALLERGIST IMMUNOLOGIST.CNM Work Phone: Start: 12-13-2024 Urnls dip stick/tabl et rgnt non-auto w/o micrscp Clem Quinonez MD Work Phone: Start: 12-13-2024 Us preg uterus after 1st trimest / gestation Speedy Silva MD Work Phone: Start: 11-29-2024 Urnls dip stick/tabl et rgnt non-auto w/o micrscp Speedy Silva MD Work Phone: Start: 11-16-2024 Urnls dip stick/tabl et rgnt non-auto w/o micrscp Sonia Dyer ALLERGIST IMMUNOLOGIST.CNM Work Phone: Start: 08-24-2024 Us preg uterus after 1st trimest / gestation Angie Rhodes APRN.CNM Work Phone: Start: 06-29-2024 Us nuchal translucency 1st gestation Angie Rhodes APRN.CNM Work Phone: Start: 06-29-2024 Antibody screen JOSE DYER Comment on above: Order Comment: Speci men Type: BLOOD SPECIMEN Ordering Facility: [facility] Address: [address] [place] [address] Performed By: #### T SPN #### [facility] CLIA [id number] [address] [place] [address] [place] [address] [place] Start: 05-25-2024 BACTERIAL [...] ant neoplasm of cervix Cervical Cancer Screening [facility] Start: 01-26-2026 Screening for malign ant neoplasm of cervix Pap Testing [facility] Start: 01-16-2025 Influenza vaccination [facility] Start: 01-10-2025 End: 01-10-2025 Patient encounter procedure 01/10/2025 1:45 PM EDT Routine Office Visit OB/Gynecology [address] [place] [address] Angie Rhodes APRN.CNM [address] [place] [place] [address] OB OB/Gynecology Comment on above: OB Start: 01-04-2025 End: 01-04-2025 Patient encounter procedure 01/04/2025 9:15 AM EDT Routine Office Visit OB/Gynecology [address] [place] [address] Sonia Dyer APRN.CNM [address] [place] [address] OB OB/Gynecology Comment on above: OB Start: 12-27-2024 End: 12-27-2024 Patient encounter procedure 12/27/2024 9:45 AM EDT Routine Office Visit OB/Gynecology [address] [place] [address] Angie Rhodes APRN.CNM [address] [place] [address] OB OB/Gynecology Comment on above: OB Start: 12-20-2024 End: 12-20-2024 Patient encounter procedure 12/20/2024 9:45 AM EDT Routine Office Visit OB/Gynecology [address] [place] [address] Angie Rhodes APRN.CNM [address] [place] [address] OB OB/Gynecology Comment on above: OB Start: 12-13-2024 End: 12-13-2024 Patient encounter procedure OB/Gynecology Comment on above: OB Growth Start: 11-29-2024 End: 11-29-2025 OBSTETRIC ULTRASOUND WHI OBSTETRIC ULTRASOUND WHI Anc Imaging Routine Multigravida of advanced maternal age in third trimester (HCC) Prior macrosomia, antepartum (HCC) Expected: 11/29/2024, Expires: 11/29/2025 [facility] Work Phone: Comment on above: Expected: 11/29/2024 , Expires: 11/29/2025 Start: 11-29-2024 End: 11-29-2024 Patient encounter procedure 11/29/2024 9:50 AM EDT Routine Office Visit OB/Gynecology [address] [place] [address] Speedy Silva MD [address] [place] [address] OB OB/Gynecology Comment on above: OB Start: 11-16-2024 End: 11-16-2024 Patient encounter procedure 11/16/2024 11:15 AM EDT Routine Office Visit OB/Gynecology [address] [place] [address] Sonia Dyer APRN.CNM [address] [place] [address] Ob OB/Gynecology Comment on above: Ob Start: 11-04-2024 End: 11-04-2024 Patient encounter procedure 11/04/2024 9:10 AM EDT Routine Office Visit OB/Gynecology [address] [place] [address] Yvonne Zambrano MD [address] [place] [address] OB OB/Gynecology Comment on above: OB Start: 10-21-2024 End: 10-21-2024 Patient encounter procedure 10/21/2024 9:15 AM EDT Routine Office Visit OB/Gynecology [address] [place] [address] Sonia Dyer APRN.CN [address] [place] [address] 4 wk NOLBERTO and Labs Glucose OB/Gynecology Comment on above: 4 wk NOLBERTO and Labs Gl ucose Start: 10-21-2024 End: 10-21-2024 ambulatory 10/21/2024 8:30 AM EDT Results Only Hetal Castaneda [facility] Laboratory [address] [place] [address] 4 wk NOLBERTO and Labs Glucose [facility] Laboratory Comment on above: 4 wk NOLBERTO and Labs Gl ucose Start: 09-23-2024 End: 12-23-2024 ANEMIA REFLEX PANEL ANEMIA REFLEX PANEL Lab Routine Supervision of high risk in second trimester ([facility]) 24 weeks gestation of ([facility]) Multigravida of advanced maternal age in second trimester ([facility]) Prior macrosomia, antepartum ([facility]) Expected: 09/23/2024, Expires: 12/23/2024 [facility] Comment on above: Expected: 09/23/2024 , Expires: 12/23/2024 Start: 09-23-2024 End: 09-23-2025 GESTATIONAL GLUCOSE SCREEN, 1-HOUR, 50 GRAM, NON-FASTING GESTATIONAL GLUCOSE SCREEN, 1-HOUR, 50 GRAM, NON-FASTING Lab Routine Supervision of high risk in second trimester (HCC) 24 weeks gestation of ([facility]) Screening for diabetes mellitus Multigravida of advanced maternal age in second trimester ([facility]) Prior macrosomia, antepartum (HCC) Expected: 09/23/2024, Expires: 09/23/2025 [facility] Work Phone: Comment on above: Expected: 09/23/2024 , Expires: 09/23/2025 Start: 09-23-2024 End: 09-23-2025 SYPHILIS TREPONEMAL W/REFLEX SYPHILIS TREPONEMAL W/REFLEX Lab Routine Supervision of high risk in second trimester ([facility]) 24 weeks gestation of ([facility]) Multigravida of advanced maternal age in second trimester ([facility]) Prior macrosomia, antepartum ([facility]) Expected: 09/23/2024, Expires: 09/23/2025 [facility] Comment on above: Expected: 09/23/2024 , Expires: 09/23/2025 Start: 09-23-2024 End: 09-23-2024 Patient encounter procedure 09/23/2024 9:15 AM EDT Routine Office Visit OB/Gynecology [address] [place] [address] Angie Rhodes APRN.CNM [address] [place] [address] OB OB/Gynecology Comment on above: OB Start: 08-24-2024 End: 08-24-2024 Patient encounter procedure Maternal Medicine Comment on above: OB Start: 07-27-2024 End: 07-27-2024 Patient encounter procedure 07/27/2024 10:00 AM EDT Routine Office Visit OB/Gynecology [address] [place] [address] Sonia Dyer APRN.CNM [address] [place] [address] OB OB/Gynecology Comment on above: OB Start: 06-29-2024 End: 06-29-2024 Patient encounter procedure Maternal Medicine Comment on above: with uncer tain dates, antepartum [Z34.90] OB Start: 05-25-2024 End: 08-24-2024 ANEMIA REFLEX PANEL ANEMIA REFLEX PANEL Lab Routine with uncertain dates, antepartum Expected: 05/25/2024, Expires: 08/24/2024 [facility] Work Phone: Comment on above: Expected: 05/25/2024 , Expires: 08/24/2024 Start: 05-25-2024 End: 08-24-2024 Hemoglobin A1c in Blood HEMOGLOBIN A1C Lab Routine with uncertain dates, antepartum Expected: 05/25/2024, Expires: 08/24/2024 [facility] Comment on above: Expected: 05/25/2024 , Expires: 08/24/2024 Start: 05-25-2024 End: 08-24-2024 HEMOGLOBIN EVALUATION CASCADE HEMOGLOBIN EVALUATION CASCADE Lab Routine with uncertain dates, antepartum Expected: 05/25/2024, Expires: 08/24/2024 [facility] Comment on above: Expected: 05/25/2024 , Expires: 08/24/2024 Start: 05-25-2024 End: 08-24-2024 Hepatitis B virus surface Ag [Presence] in Serum HEPATITIS B SURFACE ANTIGEN Lab Routine with uncertain dates, antepartum Expected: 05/25/2024, Expires: 08/24/2024 [facility] Comment on above: Expected: 05/25/2024 , Expires: 08/24/2024 Start: 05-25-2024 End: 08-24-2024 Hepatitis C virus Ab [Presence] in Serum HEPATITIS C ANTIBODY IA WITH CONFIRMATION Lab Routine with uncertain dates, antepartum Expected: 05/25/2024, Expires: 08/24/2024 [facility] Comment on above: Expected: 05/25/2024 , Expires: 08/24/2024 Start: 05-25-2024 End: 08-24-2024 HIV 1+2 Ab [Presence] in Serum or Plasma by Immunoassay HIV 1/2 COMBO WITH REFLEX TO DIFFERENTIATION Lab Routine with uncertain dates, antepartum Expected: 05/25/2024, Expires: 08/24/2024 [facility] Comment on above: Expected: 05/25/2024 , Expires: 08/24/2024 Start: 05-25-2024 End: 05-25-2025 NUCHAL TRANSLUCENCY WHI NUCHAL TRANSLUCENCY WHI Anc Imaging Routine with uncertain dates, antepartum Expected: 05/25/2024, Expires: 05/25/2025 [facility] Comment on above: Expected: 05/25/2024 , Expires: 05/25/2025 Start: 05-25-2024 End: 05-25-2025 OBSTETRIC ULTRASOUND WHI OBSTETRIC ULTRASOUND WHI Anc Imaging Routine with uncertain dates, antepartum Expected: 05/25/2024, Expires: 05/25/2025 [facility] Comment on above: Expected: 05/25/2024 , Expires: 05/25/2025 Start: 05-25-2024 End: 08-24-2024 RUBELLA IGG ANTIBODY RUBELLA IGG ANTIBODY Lab Routine with uncertain dates, antepartum Expected: 05/25/2024, Expires: 08/24/2024 [facility] Comment on above: Expected: 05/25/2024 , Expires: 08/24/2024 Start: 05-25-2024 End: 08-24-2024 SYPHILIS TREPONEMAL W/REFLEX SYPHILIS TREPONEMAL W/REFLEX Lab Routine with uncertain dates, antepartum Expected: 05/25/2024, Expires: 08/24/2024 [facility] Comment on above: Expected: 05/25/2024 , Expires: 08/24/2024 Start: 05-25-2024 End: 08-24-2024 TYPE + SCREEN TYPE + SCREEN Blood Bank Routine with uncertain dates, antepartum Expected: 05/25/2024, Expires: 08/24/2024 [facility] Comment on above: Expected: 05/25/2024 , Expires: 08/24/2024 Start: 01-17-2024 Covid-19 Vaccine () Covid-19 Vaccine () [facility] Start: 01-17-2024 Influenza vaccination Influenza Vacc ine (#1) [facility] Start: 07-09-2023 End: 10-08-2023 Iron and Iron binding capacity panel - Serum or Plasma [facility] Work Phone: Comment on above: Expected: 07/09/2023 , Expires: 10/08/2023 Start: 07-09-2023 End: 10-08-2023 LIPID PANEL, NONFASTING [facility] Work Phone: Comment on above: Expected: 07/09/2023 , Expires: 10/08/2023 Start: 07-09-2023 End: 10-08-2023 Thyrotropin [Units/volume] in Serum or Plasma [facility] Work Phone: Comment on above: Expected: 07/09/2023 , Expires: 10/08/2023 Start: 06-08-2023 [facility] Start: 05-18-2023 Depression Assessment Depression Ass essment [facility] Start: 01-16-2023 Influenza vaccination [facility] Start: 04-26-2021 History and physical examination, annual for health maintenance Wellness Visit [facility] Start: 03-08-2021 End: 03-08-2021 Admission to same day surgery center 03/08/2021 Surgery Nay Whittington [facility] [address] [facility] [address] [place] [address] RECESS LATERAL RECTUS MUSCLES 4.5 MM BILATERAL (POSSIBLE SWITCH TO RESECT/ADVANCE MEDIAL RECTUS MUSCLES 3.5 MM OU) [facility] Comment on above: RECESS LATERAL RECTU S MUSCLES 4.5 MM BILATERAL (POSSIBLE SWITCH TO RESECT/ADVANCE MEDIAL RECTUS MUSCLES 3.5 MM OU) Start: 03-08-2021 End: 03-08-2021 REPAIR STRABISMUS REPAIR STRABISMUS H50.30 03/08/2021 8:45 AM EDT [facility] Start: 03-08-2021 Subsequent hospital visit by physician 03/08/2021 Hospital Encounter Nay Whittington MD [address] [facility] [address] [place] [address] [facility] Start: 01-16-2021 Influenza vaccination Sequenti al Influenza Vaccine (#1) [facility] Start: 01-17-2020 Influenza vaccinatio n given Sequential Influenza Vaccine (#1) [facility] Start: 01-02-2020 Screening for malign ant neoplasm of cervix Pap Smear [facility] Start: 2017 Screening for malign ant neoplasm of cervix HPV Testing [facility] Start: 2014 HPV Vaccine (1 - 3-d ose SCDM series) HPV Vaccine (1 - 3-dose SCDM series) [facility] Start: 2006 Hepatitis B Vaccine (1 of 3 - 19+ 3-dose series) Hepatitis B Vaccine (1 of 3 - 19+ 3-dose series) [facility] Start: 2006 Urine microalbumin profile DTaP,Tdap,Td Vaccine (1 - Tdap) [facility] Start: 2005 Anxiety Screening Anxiety Screening [facility] Start: 2005 Depression Screening Depression Scre ening [facility] Start: 2005 Hepatitis C antibody , confirmatory test Hepatitis C Screening [facility] Start: 2005 Hepatitis C screening Hepatitis C Sc reening [facility] Start: 2005 HIV screening HIV Screening [facility] Start: 1999 Adolescent depressio n screening assessment Depression Screening (PHQ9) [facility] Start: 1999 COVID-19 Vaccine (1) COVID-19 Vaccin e (1) [facility] Start: 1999 Depression screening using PHQ-9 (Patient Health Questionnaire 9) score [facility] Start: 1992 COVID-19 Vaccine (1) COVID-19 Vaccin e (1) [facility] Start: 1987 COVID-19 Vaccine (#1) COVID-19 Vacci ne (#1) [facility] Start: 1987 Hepatitis B Vaccine (1 of 3 - 3-dose series) Hepatitis B Vaccine (1 of 3 - 3-dose series) [facility] Start: 1987 Tetanus vaccination Tetanus: Every [address] [facility] Bacteria identified in Urine by Culture BACTERIAL CULTURE, URINE Microbiology Routine with uncertain dates, antepartum 05/25/2024 10:06 AM EST [facility] End: 04-26-2021 Complete blood count (hemogram) panel - Blood by Automated count CBC Lab Routine Annual physical exam 1 Occurrences starting 04/26/2020 until 04/26/[address] [facility] Comment on above: 1 Occurrences starti ng 04/26/2020 until 04/26/2021 End: 04-26-2021 Comprehensive metabolic 2000 panel Comprehensive Metabolic Panel Lab Routine Annual physical exam 1 Occurrences starting 04/26/2020 until 04/26/[address] [facility] Comment on above: 1 Occurrences starti ng 04/26/2020 until 04/26/2021 End: 04-26-2021 HbA1c (Bld) [Mass fraction] Hemoglobin A1c Lab Routine Annual physical exam 1 Occurrences starting 04/26/2020 until 04/26/[address] [facility] Comment on above: 1 Occurrences starti ng 04/26/2020 until 04/26/2021 End: 04-26-2021 Lipid 1996 panel Lipid Panel Lab Routine Annual physical exam 1 Occurrences starting 04/26/2020 until 04/26/[address] [facility] Comment on above: 1 Occurrences starti ng 04/26/2020 until 04/26/2021 PAP TEST PAP TEST Lab Meena vitale Encounter for gynecological examination (general) (routine) without abnormal findings Screening for cervical cancer Encounter for screening for human papillomavirus (HPV) 07/09/2023 7:45 AM EST [facility] Work Phone: Patient Education ED Dysfunction al Uterine Bleeding [facility] Work Phone: Patient referral [facility] Work Phone: End: 02-12-2022 POC Urinalysis Dipstick, Auto POC Urinalysis Dipstick, Auto Point of Care Testing Routine Preoperative clearance 1 Occurrences starting 02/12/2021 until 02/12/[address] [facility] Work Phone: Comment on above: 1 Occurrences starti ng 02/12/2021 until 02/12/2022 ROUTINE, GR OUP B STREPTOCOCCUS BY PCR ROUTINE, GROUP B STREPTOCOCCUS BY PCR Microbiology Routine 36 weeks gestation of (HCC) AMA (advanced maternal age) multigravida 35+, third trimester (HCC) 12/13/2024 10:14 AM EDT [facility] Work Phone: End: 04-26-2021 TSH Qn TSH Lab Routine Annual physical exam 1 Occurrences starting 04/26/2020 until 04/26/[address] [facility] Comment on above: 1 Occurrences starti ng 04/26/2020 until 04/26/2021 End: 04-26-2021 Urinalysis Urinalysis Lab Routine Annual physical exam 1 Occurrences starting 04/26/2020 until 04/26/[address] [facility] Comment on above: 1 Occurrences starti ng 04/26/2020 until 04/26/2021 URINE OB DIP B/O URINE OB DIP B/ O Lab Routine 39 weeks gestation of (HCC) AMA (advanced maternal age) multigravida 35+, third trimester (HCC) Ordered: 01/04/2025 [facility] Work Phone: Comment on above: Ordered: 01/04/2025 [facility] Payers Date Payer Category Payer Unknown [id number] 2023 Private Health Insurance [id number] 2023 Self-pay 2020 Unknown [id number] 2020 Unknown [id number] 2020 Unknown [id number] 2014 Unknown [id number] 1987 Unknown [id number] 2.16. [id number] 1987 Unknown [id number] 2.16. [id number] 1987 Unknown [id number] 2.16. [id number] 1987 Unknown [id number] 2.16. [id number] 1987 Unknown [id number] 2.16. [id number] 1987 Unknown [id number] 2.16. [id number] 1987 Unknown [id number] 2.16. [id number] Unknown [id number] [id number] Unknown [id number] 2.16.8 [id number] Social History Date Type Detail Facility Start: 04-26-2020 End: 07-09-2023 Tobacco smoking status NHIS Never smoker [facility] Start: 04-26-2020 End: 07-09-2023 Tobacco use and exposure Never used [facility] Start: 04-26-2020 End: 02-11-2021 Alcohol intake Current non-drinker of alcohol (finding) [facility] Start: 04-26-2020 History SDPA Social Connections Membership 2 [facility] Start: 04-26-2020 History SDOH Social Connections Meetings 1 [facility] Start: 04-26-2020 History SDOH Financial 5 [facility] Start: 1985 Sex Assigned At Not on file [facility] Exposure to SARS-CoV -2 (event) Not sure [facility] Start: 07-30-2021 End: 01-04-2025 Alcohol intake Current drinker of alcohol (finding) [facility] Start: 07-30-2021 End: 12-29-2023 Alcohol intake [facility] Start: 03-07-2021 History SDPA Alcohol Comment ONCE OR TWICE A MONTH [facility] Start: 04-26-2020 End: 12-29-2023 Social connection and isolation panel [facility] Start: 12-31-2017 Frequency of Communication with Friends and Family Not on file [facility] Do you belong to any clubs or organizations such as orthodox groups, unions, fraternal or athletic groups, or school groups? No [facility] (I/We) worried wheth er (my/our) food would run out before (I/we) got money to buy more. Never true [facility] Start: 03-08-2021 Gender identity Identifies as female gender (finding) [facility] Start: 03-08-2021 Sexual orientation Choose not to disclose [facility] Start: 04-19-2024 [facility] Start: 06-08-2023 Tobacco smoking stat us NHIS Unknown if ever smoked [facility] Start: 1985 Sex Assigned At Female W [facility] Start: 07-09-2023 Education 17 [facility] Start: 06-12-2023 Alcohol Comment 2-3 times per month [facility] NEGATED: Highlighted rowStart: NINF History of tobacco use Passive smoker [facility] Goals Date Patient Goal Desired Activity /State [...] FT/Posterior ASSESSMENT/PLAN: 1. 39 weeks gestation of ([facility]) - ICD9: V22.2, ICD10: Z3A.39 (primary diagnosis) 2. AMA (advanced maternal age) multigravida 35+, third trimester ([facility]) - ICD9: 659.63, ICD10: - FT/Posterior- unable to feel head- TAUS completed to verify vertex - Support provided- patient concerned she is not dilated yet- discussed last was 10 years ago - Handout on preparation for labor provided - Desires physiological onset of labor and possible water delivery - RTO 1 week or sooner if needed Sonia Dyer APRN.CNM [facility] Work Phone: 01-04-2025 Miscellaneous Notes S: Monalisa [...] FT/Posterior ASSESSMENT/PLAN: 1. 39 weeks gestation of ([facility]) - ICD9: V22.2, ICD10: Z3A.39 (primary diagnosis) 2. AMA (advanced maternal age) multigravida 35+, third trimester ([facility]) - ICD9: 659.63, ICD10: - FT/Posterior- unable to feel head- TAUS completed to verify vertex - Support provided- patient concerned she is not dilated yet- discussed last was 10 years ago - Handout on preparation for labor provided - Desires physiological onset of labor and possible water delivery - RTO 1 week or sooner if needed Sonia Dyer APRN.CNM documented in this encounter [facility] 01-04-2025 Instructions Sonia Dyer APRN.CNM - 01/04/2025 [...] make an easy pie crust in the food safety scientist. Add soaked dates to homemade nut butter for a sweet treat. Add dates to julia homemade salad dressing. Add dates during easily with these yummy (paleo friendly) bars made from dates. What Is Red Raspberry [place] Tea? Red raspberry leaf tea comes from [...] , and too. How Much Red Raspberry [place] Tea to Drink? With your doctor or chipping machine operator s approval, start with 1 cup of [...] because of uterine cramping. Is Red Raspberry [place] Tea the Same as Raspberry [place] Tea? How About Plain Old Raspberry Tea? Sometimes. You really need to look at the ingredients to be sure. Note that there is no difference between red raspberry leaf and raspberry leaf. Socialite Op or Traditional Applied [employer] Raspberry [place] Tea are two good brands. The red [...] of RRLT outlined in this article. The [employer] www.Traka I named this 'circuit' after my friend [...] sideways, 2 at a time, (have a supervisor word processing downstairs of you!), take a walk outside [...] the pelvis. Vivian Bosch: Circuit Creator - www.[facility] hospitalcollective.c yovani Hazel, CD, BDT (ALEXANDRA), LCCE, FACCE: Supporting Content - www.[email or web address].Finsphere Torsten Landry: Photography - [email or web address] Ella Ryan CD/CDT (MELVA): Print and Financial Coordinator - www.SAIC.Private Driving Instructors [place] [employer] The Rent.com www.Snugg Home.Finsphere SIGNS AND SYMPTOMS OF LABOR 1. Contractions every 10 minutes or more often 2. Clear, pink, or brownish fluid (water) leaking from vagina 3. Feeling that baby is pushing down, pressure 4. Low, dull backache 5. Cramps that feel like a period 6. Cramps with or without diarrhea If you notice any of the above symptoms, contact our office at [phone] and ask to speak with a nurse. After hours, you can call doctors registry at [phone] OR call [facility] at [phone] and ask to have the doctor sand conditioner machine paged. If you consider this an emergency, dial 9-1-7 or go to your nearest emergency department. NEED HELP? Are you dealing with a violent or abusive relationship? Are you a victim of rape or sexual assult? Call [facility] ([place]) 24 hour Crisis Hotline: 228.240.9802 or 261-987-9070. MANUAL Your Guide to a Healthy manual is now on-line. Visit [email or web address]/[email or web address] Alessandro to download your free copy documented in this encounter [facility] 12-29-2024 Note HNO ID: [id number] Author: ALDA AMRTÍNEZ MA Service: ? Author Type: Platen Press Operator Type: Progress Notes Filed: 12/29/2024 14:17 Note Text: POPULATION HEALTH NAVIGATION OUTREACH Action/FYI Procedures Tech updated per documentation. Reason for Outreach Medicaid OB/Peds Care Gaps due: N/A Patient Contacted: Unable or unnecessary to reach patient: machine i coremaker added Navigation Signature: Alda Cobos MA December 29, 2024 1:42 PM [facility] 12-29-2024 History of Presen t illness Narrative POPULATION HEALTH NAVIGATION OUTREACH Action/FYI Procedures Tech updated per documentation. Reason for Outreach Medicaid OB/Peds Care Gaps due: N/A Patient Contacted: Unable or unnecessary to reach patient: [place] machine i coremaker added Navigation Signature: Alda Cobos MA December 29, 2024 1:42 PM documented in this encounter [facility] 12-29-2024 Note Patient Outreach (NE TNAV) MONALISA AGUILAR ([id number]) 1985 F Date Time Provider Department 12/29/24 ALDA MARTÍNEZ During your visit today, we recorded the following information about you: Alda Martínez MA 12/29/2024 2:17 PM Signed POPULATION HEALTH NAVIGATION OUTREACH Action/FYI Procedures Tech updated per documentation. Reason for Outreach Medicaid OB/Peds Care Gaps due: N/A Patient Contacted: Unable or unnecessary to reach patient: machine i coremaker added Navigation Signature: Alda Cobos MA December [...] Encounter Status:Closed by ALDA MARTÍNEZ on 12/29/24 [facility] 12-27-2024 Progress note Formatting of t his [...] RTO in 1 week Angie Rhodes APRN.CNM [facility] 12-27-2024 Miscellaneous Notes CINDY-S: Monalisa Aguilar is [...] Angie Rhodes APRN.CNM documented in this encounter [facility] 12-27-2024 Instructions Danielle Drew MA - 12/27/2024 9:38 AM EDT SEQUENTIAL SCREENINGS The [facility] offers sequential screenings for women who are [...] It will require an appointment with our software technician. This is not an ultrasound performed [...] the above symptoms, contact our office at [phone] and ask to speak with a nurse. After hours, you can call doctors registry at [phone] OR call [facility] at [phone] and ask to have the doctor sand conditioner machine paged. If you consider this an emergency, dial 9-1-1 or go to your nearest emergency department. NEED HELP? Are you dealing with a violent or abusive relationship? Are you a victim of rape or sexual assult? Call [facility] ([place]) 24 hour Crisis Hotline: 157.126.2115 or 008-010-5521. MANUAL Your Guide to a Healthy manual is now on-line. Visit [email or web address] to download your free copy documented in this encounter [facility] 12-13-2024 Note Indication Evaluation of well-being Advanced [...] 15 oz EFW by: Hadlock (HC-AC-FL) Extended Local Flatbed Driver 6.3 mm Extremities / Bony Struc [place] [...] (advanced maternal age) multigravida 35+, third trimester ([facility]) Orders: URINE OB DIP B/O ROUTINE, GROUP B STREPTOCOCCUS BY PCR Prior macrosomia, antepartum ([facility]) Orders: URINE OB DIP B/O Supervision of high risk in third trimester ([facility]) Orders: URINE OB DIP B/O kick counts gbs done Clem Quinonez M.D. [facility] 12-13-2024 Miscellaneous Notes RR- VB No. LOF No. CTXS few Movement: present. Other c/o: No. Medication list reviewed. SENSITIVE EXAM: Sensitive exam not performed. Physical Exam See Flow Sheet Abd: soft, nontender, gravid Ext: edema: 1+ A/P 36w0d Estimated Date of Delivery: 01/10/25 Assessment & Plan 36 weeks gestation of ([facility]) Orders: URINE OB DIP B/O ROUTINE, GROUP B STREPTOCOCCUS BY PCR AMA (advanced maternal age) multigravida 35+, third trimester ([facility]) Orders: URINE OB DIP B/O ROUTINE, GROUP B STREPTOCOCCUS BY PCR Prior macrosomia, antepartum ([facility]) Orders: URINE OB DIP B/O Supervision of high risk in third trimester ([facility]) Orders: URINE OB DIP B/O kick counts gbs done Clem Quinonez M.D. documented in this encounter [facility] 12-13-2024 Instructions Stefanie Reynolds MA - 12/13/2024 9:46 AM EDT SEQUENTIAL SCREENINGS The [facility] offers sequential screenings for women who are [...] It will require an appointment with our software technician. This is not an ultrasound performed [...] the above symptoms, contact our office at [phone] and ask to speak with a nurse. After hours, you can call doctors registry at [phone] OR call [facility] at [phone] and ask to have the doctor sand conditioner machine paged. If you consider this an emergency, dial 8-5-5 or go to your nearest emergency department. NEED HELP? Are you dealing with a violent or abusive relationship? Are you a victim of rape or sexual assult? Call [facility] ([place]) 24 hour Crisis Hotline: 631.766.3898 or 668-008-3123. MANUAL Your Guide to a Healthy manual is now on-line. Visit [email or web address] to download your free copy documented in this encounter [facility] 11-29-2024 Progress note Formatting of t his [...] URINE OB DIP B/O Prior macrosomia, antepartum ([facility]) Orders: URINE OB DIP B/O 34 weeks gestation of ([facility]) Orders: URINE OB DIP B/O Reviewed PTL & FM precautions Speedy Silva MD [facility] 11-29-2024 Miscellaneous Notes KJ - S: Monalisa denies LOF or vaginal bleeding. She reports some mild & irregular ctxs with activity. O: 34w0d, see flow sheet SENSITIVE EXAM: Sensitive exam not performed. A/P: Assessment & Plan Supervision of high risk in third trimester ([facility]) Orders: URINE OB DIP B/O Multigravida of advanced maternal age in third trimester ([facility]) Orders: URINE OB DIP B/O Prior macrosomia, antepartum ([facility]) Orders: URINE OB DIP B/O 34 weeks gestation of ([facility]) Orders: URINE OB DIP B/O Reviewed PTL & FM precautions Speedy Silva MD documented in this encounter [facility] 11-29-2024 Instructions Danielle Drew MA - 11/29/2024 10:04 AM EDT SEQUENTIAL SCREENINGS The [facility] offers sequential screenings for women who are [...] It will require an appointment with our software technician. This is not an ultrasound performed [...] the above symptoms, contact our office at [phone] and ask to speak with a nurse. After hours, you can call [facility] at [phone] OR call [facility] at [phone] and ask to have the doctor sand conditioner machine paged. If you consider this an emergency, dial 9--1 or go to your nearest emergency department. NEED HELP? Are you dealing with a violent or abusive relationship? Are you a victim of rape or sexual assult? Call [facility] ([place]) 24 hour Crisis Hotline: 971.649.6140 or 665-032-2545. MANUAL Your Guide to a Healthy manual is now on-line. Visit [email or web address] to download your free copy documented in this encounter [facility] 11-16-2024 Note HNO ID: [id number] Author: TORSTEN BUTTS APRN.MARIA TERESA Service: ? [...] Continue PNV 2. 32 weeks gestation of ([facility]) - ICD9: V22.2, ICD10: Z3A.32 - 28 week labs reviewed 3. Multigravida of advanced maternal age in third trimester ([facility]) - ICD9: 659.63, ICD10: O09.523 - Age 39 at [place] 4. Prior macrosomia, antepartum ([facility]) - ICD9: V23.49, ICD10: O09.299 - Declines growth ultrasound - Plans for waterbirth PTL precautions and kick counts reviewed. RTO in 2 weeks or sooner as needed. Torsten Butts APRN.ACID CHANGER [facility] 11-16-2024 History of Presen t illness Narrative [...] Supervision of high risk in third trimester ([facility]) - ICD9: V23.9, ICD10: O09.93 (primary diagnosis) - Continue PNV 2. 32 weeks gestation of ([facility]) - ICD9: V22.2, ICD10: Z3A.32 - 28 week labs reviewed 3. Multigravida of advanced maternal age in third trimester ([facility]) - ICD9: 659.63, ICD10: O09.523 - Age 39 at [place] 4. Prior macrosomia, antepartum ([facility]) - ICD9: V23.49, ICD10: O09.299 - Declines growth ultrasound - Plans for waterbirth PTL precautions and kick counts reviewed. RTO in 2 weeks or sooner as needed. Torsten Butst APRN.ACID CHANGER documented in this encounter [facility] 11-16-2024 Instructions Geeta Saucedo LPN - 11/16/2024 11:11 AM EDT SEQUENTIAL SCREENINGS The [facility] offers sequential screenings for women who are [...] It will require an appointment with our software technician. This is not an ultrasound performed [...] the above symptoms, contact our office at [phone] and ask to speak with a nurse. After hours, you can call doctors registry at [phone] OR call [facility] at [phone] and ask to have the doctor sand conditioner machine paged. If you consider this an emergency, dial 9--3 or go to your nearest emergency department. NEED HELP? Are you dealing with a violent or abusive relationship? Are you a victim of rape or sexual assult? Call [facility] ([place]) 24 hour Crisis Hotline: 863.374.7337 or 376-741-1756. MANUAL Your Guide to a Healthy manual is now on-line. Visit [email or web address] to download your free copy documented in this encounter [facility] 11-04-2024 Progress note Formatting of t his [...] GCT ASSESSMENT/PLAN: 1. 30 weeks gestation of ([facility]) - ICD9: V22.2, ICD10: Z3A.30 (primary diagnosis) 2. Supervision of high risk in third trimester ([facility]) - ICD9: V23.9, ICD10: O09.93 3. Multigravida of advanced maternal age in third trimester ([facility]) - ICD9: 659.63, ICD10: O09.523 NIPT low risk Yvonne Zambrano MD [facility] 11-04-2024 Miscellaneous Notes S: Monalisa Aguilar is [...] GCT ASSESSMENT/PLAN: 1. 30 weeks gestation of ([facility]) - ICD9: V22.2, ICD10: Z3A.30 (primary diagnosis) 2. Supervision of high risk in third trimester ([facility]) - ICD9: V23.9, ICD10: O09.93 3. Multigravida of advanced maternal age in third trimester ([facility]) - ICD9: 659.63, ICD10: O09.523 NIPT low risk Yvonne Zambrano MD documented in this encounter [facility] 11-04-2024 Instructions Alda Poole MA - 11/04/2024 9:10 AM EDT SEQUENTIAL SCREENINGS The [facility] offers sequential screenings for women who are [...] It will require an appointment with our software technician. This is not an ultrasound performed [...] the above symptoms, contact our office at [phone] and ask to speak with a nurse. After hours, you can call doctors registry at [phone] OR call [facility] at [phone] and ask to have the doctor sand conditioner machine paged. If you consider this an emergency, dial 9-1-1 or go to your nearest emergency department. NEED HELP? Are you dealing with a violent or abusive relationship? Are you a victim of rape or sexual assult? Call [facility] ([place]) 24 hour Crisis Hotline: 600.376.4084 or 069-386-3418. MANUAL Your Guide to a Healthy manual is now on-line. Visit [email or web address] to download your free copy documented in this encounter [facility] 10-21-2024 Progress note Formatting of t his [...] or sooner if needed Sonia Dyer APRN.CNM [facility] 10-21-2024 Miscellaneous Notes S: Monalisa Aguilar is [...] Sonia Dyer APRN.CNM documented in this encounter [facility] 10-21-2024 Instructions Franky Batista MA - 10/21/2024 8:46 AM EDT SEQUENTIAL SCREENINGS The [facility] offers sequential screenings for women who are [...] It will require an appointment with our software technician. This is not an ultrasound performed [...] the above symptoms, contact our office at [phone] and ask to speak with a nurse. After hours, you can call doctors registry at [phone] OR call [facility] at [phone] and ask to have the doctor sand conditioner machine paged. If you consider this an emergency, dial 91-2 or go to your nearest emergency department. NEED HELP? Are you dealing with a violent or abusive relationship? Are you a victim of rape or sexual assult? Call [facility] ([place]) 24 hour Crisis Hotline: 680.147.9699 or 439-885-8343. MANUAL Your Guide to a Healthy manual is now on-line. Visit [email or web address] to download your free copy documented in this encounter [facility] 09-23-2024 Progress note Formatting of t his [...] or sooner if needed Sonia Dyer APRN.CNM [facility] 09-23-2024 Miscellaneous Notes S: Monalisa Aguilar is a 39 year old female who presents 24 weeks gestation for a routine visit. Positive movements. Denies headache, visual changes, chest pain, shortness of breath, vaginal bleeding, leakage of fluid, or dysuria. Feeling well, no complaints. O: See flow sheet Gen: No apparent distress Abd: Gravid, nontender: ASSESSMENT/PLAN: 1. Supervision of high risk in second trimester ([facility]) - ICD9: V23.9, ICD10: O09.92 (primary diagnosis) 2. 24 weeks gestation of ([facility]) - ICD9: V22.2, ICD10: Z3A.24 3. Screening for diabetes mellitus - ICD9: V77.1, ICD10: Z13.1 4. Multigravida of advanced maternal age in second trimester 5. Prior macrosomia, antepartum ([facility]) - Continue vitamin/ ASA - Reviewed GCT process and upcoming expectations - RTO 4 weeks or sooner if needed Sonia Dyer APRN.CNM documented in this encounter [facility] 09-23-2024 Instructions Franky Batista MA - 09/23/2024 9:07 AM EDT SEQUENTIAL SCREENINGS The [facility] offers sequential screenings for women who are [...] It will require an appointment with our software technician. This is not an ultrasound performed [...] the above symptoms, contact our office at [phone] and ask to speak with a nurse. After hours, you can call doctors registry at [phone] OR call [facility] at [phone] and ask to have the doctor sand conditioner machine paged. If you consider this an emergency, dial 5-5-8 or go to your nearest emergency department. NEED HELP? Are you dealing with a violent or abusive relationship? Are you a victim of rape or sexual assult? Call [facility] ([place]) 24 hour Crisis Hotline: 336.120.4763 or 582-277-7784. MANUAL Your Guide to a Healthy manual is now on-line. Visit [email or web address] to download your free copy documented in this encounter [facility] 08-24-2024 Note HNO ID: [id number] Author: ANGIE RHODES APRN.CNM Service: ? Author Type: Plastic Outfitter Type: Progress Notes Filed: 08/24/2024 10:51 Note [...] weeks PTL precautions reviewed Angie Rhodes APRN.CNM [facility] 08-24-2024 History of Presen t illness Narrative [...] Angie Rhodes APRN.CNM documented in this encounter [facility] 08-24-2024 Instructions Franky Batista MA - 08/24/2024 9:46 AM EDT SEQUENTIAL SCREENINGS The [facility] offers sequential screenings for women who are [...] It will require an appointment with our software technician. This is not an ultrasound performed [...] the above symptoms, contact our office at [phone] and ask to speak with a nurse. After hours, you can call doctors registry at [phone] OR call [facility] at [phone] and ask to have the doctor sand conditioner machine paged. If you consider this an emergency, dial 9-1-5 or go to your nearest emergency department. NEED HELP? Are you dealing with a violent or abusive relationship? Are you a victim of rape or sexual assult? Call [facility] ([place]) 24 hour Crisis Hotline: 455.903.7275 or 837-519-6112. MANUAL Your Guide to a Healthy manual is now on-line. Visit [email or web address] [email or web address] to download your free copy documented in this encounter [facility] 07-27-2024 Progress note Formatting of t his [...] 4 weeks for anatomy /NOLBERTO Dyer APRN.CNM [facility] 07-27-2024 Miscellaneous Notes S: Monalisa Aguilar is [...] /NOLBERTO Dyer APRN.CNM documented in this encounter [facility] 07-27-2024 Instructions Geeta Saucedo LPN - 07/27/2024 9:46 AM EDT SEQUENTIAL SCREENINGS The [facility] offers sequential screenings for women who are [...] It will require an appointment with our software technician. This is not an ultrasound performed [...] the above symptoms, contact our office at [phone] and ask to speak with a nurse. After hours, you can call doctors registry at [phone] OR call [facility] at [phone] and ask to have the doctor sand conditioner machine paged. If you consider this an emergency, dial 9--1 or go to your nearest emergency department. NEED HELP? Are you dealing with a violent or abusive relationship? Are you a victim of rape or sexual assult? Call [facility] ([place]) 24 hour Crisis Hotline: 832.213.2091 or 009-567-4283. MANUAL Your Guide to a Healthy manual is now on-line. Visit [email or web address] [email or web address] to download your free copy documented in this encounter [facility] 07-08-2024 Progress note Formatting of t his [...] RTO in 4 weeks Angie Rhodes APRN.CNM [facility] 07-08-2024 Miscellaneous Notes CINDY-S: Monalisa Aguilar is [...] Angie Rhodes APRN.CNM documented in this encounter [facility] 06-29-2024 Instructions Alda Poole MA - 06/29/2024 10:35 AM EST SEQUENTIAL SCREENINGS The [facility] offers sequential screenings for women who are [...] It will require an appointment with our software technician. This is not an ultrasound performed [...] the above symptoms, contact our office at [phone] and ask to speak with a nurse. After hours, you can call doctors registry at [phone] OR call [facility] at [phone] and ask to have the doctor sand conditioner machine paged. If you consider this an emergency, dial 01-16-2 or go to your nearest emergency department. NEED HELP? Are you dealing with a violent or abusive relationship? Are you a victim of rape or sexual assult? Call [facility] ([facility] 24 hour Crisis Hotline: 137.413.2497 or 319-987-8996. MANUAL Your Guide to a Healthy manual is now on-line. Visit [email or web address] to download your free copy documented in this encounter [facility] 05-25-2024 Progress note Formatting of t his note might be different from the original. CINDY-NOB visit today. See progress note. Interested in NIPT and carrier screening, will check coverage. Angie Rhodes APRN.CNM [facility] 05-25-2024 Miscellaneous Notes CINDY-NOB visit today. See progress note. Interested in NIPT and carrier screening, will check coverage. Angie Rhodes APRN.CNM documented in this encounter [facility] 05-25-2024 Note HNO ID: [id number] Author: FRANKY BATISTA MA Service: ? Author Type: Pile Driver Operator Barge Mounted Type: Progress Notes Filed: 05/25/2024 17:03 Note Text: OB point of care ultrasound was performed. See imaging tab for details. 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 [...] Partner: Name: Cj Aguilar Age: 39 Occupation: Relationship Management Lead of [employer] Gender: Male PAST MEDICAL HISTORY Diagnosis Date [...] discussed with the Patient or Patient's Authorized Log Pond Worker. As applicable, any other physician, advance practice provider, medical student, or other health professional student that will be observing or involved in the sensitive examination for educational or training purposes was discussed with the Patient or Authorized Log Pond Worker. The Patient or Authorized Log Pond Worker has agreed to proceed with the sensitive [...] Angie Rhodes APRN.CNM documented in this encounter [facility] 05-25-2024 Instructions Angie Rhodes APRN.CNM - 05/25/2024 8:49 AM EST Please select the following link to access the [facility] Your Guide to a Healthy . [email or web address] Low Dose Aspirin This sheet talks about exposure to low dose aspirin in and while . This information should not take the place of medical care and advice from your healthcare provider.\ What is low dose aspirin? Aspirin is also known as acetylsalicylic acid. It is a common prescription and limh-zrf-zahzhak medication similar to other non-steroidal inflammatory drugs [...] . For more information, please see the [employer] fact sheet Paternal Exposures at [email or web address]-[email or web address] [email or web address]-[email or web address] ncy/. documented in this encounter [facility] 05-25-2024 Note HNO ID: [id number] Author: ANGIE RHODES APRN.CNM Service: ? 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 [...] Partner: Name: Cj Aguilar Age: 37 Occupation: Relationship Management Lead of [employer] Gender: Male PAST MEDICAL HISTORY Diagnosis Date [...] NEUROLOGIC/PSYCHIATRIC: Negative for: (more content not included)... [facility] 07-09-2023 Note HNO ID: [id number] Author: GABBY LIEBERMAN APRN.ACID CHANGER Service: ? Author Type: Nurse Practitioner Type: Progress Notes Filed: 07/09/2023 08:12 Note Text: Senior Engineering Specialist offered: Patient declinesNellie Sheldon is a 38 [...] Multiple0 Live Births0 Comment: 1 Adopted child Hardness Tester History LMP: 06/08/2023 (Exact Date), Having periods Age at Menarche: Age at First : Age at Menopause: Hardness Tester History Comments: Sexual Activity: Yes; Male Contraception: [...] external genitalia normal, normal Bartholin's glands, urethra, Madeline's glands, no vulvar lesions, no cervical lesions, [...] sooner as needed Gabby Lieberman APRN.MARIA TERESA [facility] 07-09-2023 History of Presen t illness Narrative Senior Engineering Specialist offered: Patient declines. Monalisa is a 38 [...] Multiple0 Live Births0 Comment: 1 Adopted child Hardness Tester History LMP: 06/08/2023 (Exact Date), Having periods Age at Menarche: Age at First : Age at Menopause: Hardness Tester History Comments: Sexual Activity: Yes; Male Contraception: [...] external genitalia normal, normal Bartholin's glands, urethra, Madeline's glands, no vulvar lesions, no cervical lesions, [...] Gabby Lieberman APRN.CNP documented in this encounter [facility] 06-12-2023 Note HNO ID: [id number] Author: GABBY LIEBERMAN APRN.CNP Service: ? Author [...] OB History No obstetric history on file. Hardness Tester History LMP: Age at Menarche: Age at First : Age at Menopause: Hardness Tester History Comments: Sexual Activity: No sexual activity [...] Medical Decision Making Level: 3 - Low [facility] 06-08-2023 Discharge summary Note Date/Time June 08, 2023 2:39pm [facility] Medical Records Department [address] [place] [address] Emergency Department Summary 06/08/23 MR#: [id number] Acct: [id number] Name: MONALISA AGUILAR Rep #:[id number] : 1985 37 From: Jose Cruz Knox [...] your Primary Care Provider. Call [facility] ([phone]) or report to the closest Emergency Room. Call 911 if necessary. 06/08/23 1633 <Electronically signed by Jose Cruz Knox MD> Cosigner Signature (if applicable): CC: No Primary Care Physician ~ Signed [facility] Work Phone: 1(197) 701-550604-21-2023 History of Present illness Narrative* Lianet Farooq LPN - 09/05/2022 12:00 PM EDT Lmovm to schedule ov. Letter sent. documented in this [id number] History of Present illness Narrative* Roni Sauceda MD - 07/30/2021 10:14 AM EDT Images from the original note were not included. Patient Name: [facility] Location: [place] [address] Date Of : Date Of Visit: 1985 07/30/2021 MRN# Provider: [id number] Roni Sauceda MD Chief Complaint Patient presents [...] MM OU; Surgeon: Nay Whittington MD; Location: [facility]; Service: Ophthalmology WISDOM TOOTH EXTRACTION [...] Wt 70.3 kg (155 lb) LMP 07/04/2021 AeA943% BMI 22.24 kg/m Vision/Hearing Exam:No exam data [...] file for this visit. documented in this [id number] Miscellaneous Notes* Addendum Note - Xochilt Santamaria MA - 02/12/2021 9:50 AM EDT Addended by: XOCHILT SANTAMARIA on: 02/12/2021 09:50 AM Modules accepted: Orders * Addendum Note - Elodia Miranda MD - 02/12/2021 9:48 AM EDT Addended by: ELODIA MIRANDA on: 02/12/2021 09:48 AM Modules accepted: Orders documented in this [id number] Miscellaneous Notes* Addendum Note - Elodia Miranda MD - 02/12/2021 9:48 AM EDT Addended by: ELODIA MIRANDA on: 02/12/2021 09:48 AM Modules accepted: Orders documented in this [id number] History of Present illness Narrative* Elodia Miranda [...] Friends and Family: Not on file Attends Yazidi Services: Not on file Active Member of [...] Case Report 01/01/2017 Value:Gynecologic Cytology Report Case: [id number] Authorizing Provider: Mary Ann Flores, Collected: 01/01/2017 [...] questions the patient had. documented in this [id number] History of Present illness Narrative* Elodia Miranda [...] Friends and Family: Not on file Attends Yazidi Services: Not on file Active Member of [...] Case Report 01/01/2017 Value:Gynecologic Cytology Report Case: [id number] Authorizing Provider: Mary Ann Flores, Collected: 01/01/2017 [...] questions the patient had. documented in this [id number] History of Present illness Narrative* Elodia Miranda MD - 02/11/2021 10:20 AM EDT Subjective: Monalisa Aguilar is a 35 y.o. female who presents to the office today for a preoperative consultation at the request of surgeon DOS: 03/08/2021 Surgeon: eNlsy DX: eye muscle correction. Patient has no [...] Friends and Family: Not on file Attends Yazidi Services: Not on file Active Member of [...] Case Report 01/01/2017 Value:Gynecologic Cytology Report Case: [id number] Authorizing Provider: Mary Ann Flores, Collected: 01/01/2017 [...] questions the patient had. documented in this encounterCaliforniaHealthEvaluation note* Diagnosis Preoperative clearance- Primary Unspecified pre-operative examination Esotropia Unspecified esotropia [facility] Diagnosis Preoperative clearance- Primary Unspecified pre-operative examination Esotropia Unspecified esotropia [facility] Diagnosis Preoperative clearance- Primary Unspecified pre-operative examination Esotropia Unspecified esotropia [facility]* Diagnosis Sinusitis, unspecified chronicity, unspecified location- Primary [facility] noteNo assessment information availableWLakeHealth [facility] Work Phone: Evaluation note* Diagnosis Encounter for gynecological examination (general) (routine) without abnormal findings- Primary Screening for cervical cancer Screening for malignant neoplasm of the cervix Encounter for screening for human papillomavirus (HPV) Special screening examination for human papillomavirus (HPV) Encounter for routine laboratory testing Laboratory examination ordered as part of a routine general medical examination [facility]* Diagnosis with uncertain dates, antepartum- Primary state, incidental Prior macrosomia, antepartum with other poor obstetric history Multigravida of advanced maternal age in first trimester Supervision of other high risk pregnancies, first trimester [facility] this [facility]* Diagnosis Encounter for screening for malformation using ultrasound- Primary 12 weeks gestation of state, incidental documented in this encounter [facility] note* Diagnosis Supervision of other high risk pregnancies, first trimester- Primary 12 weeks gestation of state, incidental Multigravida of advanced maternal age in second trimester documented [facility] this [facility]* Diagnosis 16 weeks gestation of - Primary state, incidental Multigravida of advanced maternal age in second trimester Multigravida of advanced maternal age in first trimester documented [facility] this [facility]* Diagnosis Supervision of high risk in second trimester (HCC)- Primary Unspecified high-risk 20 weeks gestation of (HCC) state, incidental Multigravida of advanced maternal age in second trimester (HCC) Prior macrosomia, antepartum (HCC) with other poor obstetric history documented [facility] this [facility]* Diagnosis Encounter for anatomic survey (HCC)- Primary Encounter for anatomic survey 20 weeks gestation of (HCC) state, incidental Multigravida of advanced maternal age in second trimester (HCC) documented [facility] this [facility]* Diagnosis Supervision of high risk in second trimester (HCC)- Primary Unspecified high-risk 24 weeks gestation of (HCC) state, incidental Screening for diabetes mellitus Multigravida of advanced maternal age in second trimester (HCC) Prior macrosomia, antepartum (HCC) with other poor obstetric history documented [facility] this [facility]* Diagnosis Supervision of high risk in third trimester (HCC)- Primary Unspecified high-risk Multigravida of advanced maternal age in third trimester (HCC) 28 weeks gestation of (HCC) state, incidental Prior macrosomia, antepartum (HCC) with other poor obstetric history Need for vaccination Need for prophylactic vaccination and inoculation against unspecified single disease documented in this encounter [facility] note* Diagnosis 30 weeks gestation of (HCC)- Primary state, incidental Supervision of high risk in third trimester (HCC) Unspecified high-risk Multigravida of advanced maternal age in third trimester ([facility]) documented in this encounter [facility] note* Diagnosis Supervision of high risk in third trimester (HCC)- Primary Unspecified high-risk 32 weeks gestation of ([facility]) state, incidental Multigravida of advanced maternal age in third trimester ([facility]) Prior macrosomia, antepartum (HCC) with other poor obstetric history documented in this encounter [facility] note* Diagnosis Supervision of high risk in third trimester (HCC)- Primary Unspecified high-risk Multigravida of advanced maternal age in third trimester ([facility]) Prior macrosomia, antepartum (HCC) with other poor obstetric history 34 weeks gestation of ([facility]) state, incidental * Assessment & Plan Note [...] OB DIP B/O documented in this encounter [facility] note* Diagnosis Supervision of high risk in [...] OB DIP B/O documented in this encounter [facility] note* Diagnosis Supervision of high risk in third trimester (HCC)- Primary Unspecified high-risk Multigravida of advanced maternal age in third trimester (HCC) Prior macrosomia, antepartum (HCC) with other poor obstetric history 34 weeks gestation of ([facility]) state, incidental Encounter for ultrasound to check growth ([facility])- Primary Encounter for routine screening for malformation [...] poor obstetric history [facility] Diagnosis Supervision of high risk in [...] (HCC) state, incidental documented in this encounter [facility]* Diagnosis Supervision of high risk in [...] third trimester (HCC) documented in this encounter [facility]* Attachments The following attachments cannot be sent through Care Everywhere. * Sinusitis (Frisian) documented in this encounterOhioHealthReason for referral (narrative)* Diagnostic Procedure Only (Routine) - Pending Review Specialty Diagnoses / Procedures Referred By Manuel t Referred To Contact [facility] Diagnoses with uncertain dates, antepartum Procedures NUCHAL TRANSLUCENCY WHI US NUCHAL TRANSLUCENCY 1ST GESTATION Angie Rhodes APRN.CNM [address] [place] [address] [facility] [address] [place] [address] Referral ID Status Reason Start Date Expiration Date Visits Requested Visits Authorized [id number] Pending Review Auto-Generat ed Referral 05/25/2024 05/25/2025 1 1 * Diagnostic Procedure Only (Routine) - Pending Review Specialty Diagnoses / Procedures Referred By Maneul keller Referred To Contact [facility] Diagnoses with uncertain dates, antepartum Procedures OBSTETRIC ULTRASOUND WHI US PREG UTERUS AFTER 1ST TRIMEST 1/ GESTATION Angie Rhodes APRN.CNM [address] [place] [address] [address] Referral ID Status Reason Start Date Expiration Date Visits Requested Visits Authorized [id number] Pending Review Auto-Generat ed Referral 05/25/2024 05/25/2025 1 1 [facility] Summary Purpose Family History No Family History Records FoundNo Family History Records FoundNo Family History Records FoundNo Family History Records FoundNo Family History Records FoundNo Family History Records FoundNo Family History Records Found Advance Directives Documents on File Type Date Recorded 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 Advance Directives and Livin g Will 04/26/2020 7:27 AM Latest Code Status on File Code Status Date Activated Date Inactivated Comments Full Code 02/21/2015 9:58 AM 02/23/2015 12:00 AM Full Code 02/20/2015 11:30 PM 02/21/2015 9:58 AM Documents on File Type Date Recorded 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 Advance Directives and Livin g Will 03/08/2021 6:56 AM Latest Code Status on File Code Status Date Activated Date Inactivated Comments Full Code 02/21/2015 9:58 AM 02/23/2015 12:00 AM Code Status History Code Status Date Activated Date Inactivated Comments Full Code 02/20/2015 11:30 PM 02/21/2015 9:58 AM Advance Directive Response Recorded Date/ Time Living Will Yes June 08 2:49pm Power of Meat Passer Yes June 08, 2023 2:49pm Name of Medical Power of Meat Passer spouse June 08, 2023 2:49pm History of [...] per day Exercise 5-6 times a day [facility] 07/25 Healthy veggies Ed Martin JanuaryMar [...] file Gets together: Not on file Attends druze service: Not on file Active member of [...] PARTS OF THIS NOTE WERE COMPLETED USING [employer]. PLEASE DISREGARD ANY GRAMMATICAL OR SPELLING ERRORS. documented in this encounter Assessments Diagnosis Annual physical exam- Primary Routine general medical examination at a health care facility Chief Complaint and Reason for Visit Chief Complaint POSSIBLE MISCARRIAGE Additional Source Comments INFORMATION SOURCE (unrecogn ized section and content) DATE CREATED AUTHOR 06/11/2019 [facility] DATE CREATED AUTHOR AUTHOR'S MICHAELIZ ATION 03/09/2021 [facility] DATE CREATED AUTHOR AUTHOR'S ORGANIZ ATION [facility] DATE CREATED AUTHOR AUTHOR[facility]S ORGANIZ ATION [facility] DATE CREATED AUTHOR AUTHOR'S ORGANIZ ATION 07/22/2023 [facility] DATE CREATED AUTHOR AUTHOR'S ORGANIZ ATION 12/31/2023 [facility] DATE CREATED AUTHOR AUTHOR'S ORGANIZ ATION 01/05/2025 [facility] Reason for Visit (unrecogniz ed section and content) Reason Comments Annual Exam PE Reason Comments Pre-op Exam eye sx 03/08/21 Reason Comments Sore Throat Reports slight sore throat x 1 day Reason Comments Yearly Exam Reason Comments Initial OB Visit Specialty Diagnoses / Procedures Referred By Contac t Referred To Contact Diagnoses 1st OB Procedures NEW OB Self [facility] [place] [address] Referral ID Status Reason Start Date Expiration Date Visits Requested Visits Authorized [id number] Authorized Patient Cleared - Qualified 100% FAS 4 08/07/2024 99 99 Reason Comments US Specialty Diagnoses / Procedures Referred By Contac t Referred To Contact [facility] Diagnoses with uncertain dates, antepartum Procedures NUCHAL TRANSLUCENCY WHI US NUCHAL TRANSLUCENCY 1ST GESTATION Angie Rhodes APRN.CNM [address] [place] [address] Phone: tel: fax: [facility] [address] [place] [address] Referral ID Status Reason Start Date Expiration Date V isits Requested Visits Authorized [id number] Closed Auto-Generate d Referral 05/25/2024 05/25/2025 1 1 Reason Onset Date Comments Care 06/29/2024 Reason Onset Date Comments Care 07/27/2024 Reason Onset Date Comments Care 08/24/2024 Specialty Diagnoses / Procedures Referred By Contac t Referred To Contact [facility] Diagnoses with uncertain dates, antepartum (HCC) Procedures OBSTETRIC ULTRASOUND WHI US PREG UTERUS AFTER 1ST TRIMEST GESTATION Angie Rhodes APRN.CNM [address] [place] [address] Phone: tel: fax:[phone] [address] Referral ID Status Reason Start Date Expiration Date V isits Requested Visits Authorized [id number] Closed Auto-Generate d Referral 05/25/2024 05/25/2025 1 1 Reason Onset Date Comments Care 09/23/2024 Reason Onset Date Comments Care 10/21/2024 Reason Onset Date Comments Care 11/04/2024 Reason Onset Date Comments Care 11/16/2024 Reason Onset Date Comments Care 11/29/2024 Reason Onset Date Comments Care 12/13/2024 Specialty Diagnoses / Procedures Referred By Contac t Referred To Contact [facility] Diagnoses Multigravida of advanced maternal age in third trimester (HCC) Prior macrosomia, antepartum (HCC) Procedures OBSTETRIC ULTRASOUND WHI US PREG UTERUS AFTER 1ST TRIMEST GESTATION Speedy Silva MD [address] [place] [address] Phone: tel: fax:[phone] [address] Referral ID Status Reason Start Date Expiration Date V isits Requested Visits Authorized [id number] Closed Auto-Generate d Referral 11/29/2024 11/29/2025 1 1 Reason Onset Date Comments Care 12/27/2024 Reason Onset Date Comments Population Health Navigation Outreach 12/29/2024 Ob/peds Reason Onset Date Comments Care 01/04/2025 Care Teams (unrecognized sec tion and content) Weigher Bulker Relationship Specialty Start Date End Date Elodia Miranda MD [address] [place] [address] PCP - General Family Medicine 09/15/16 Weigher Bulker Relationship Specialty Start Date End Date Elodia Miranda MD [address] [place] [address] PCP - General Family Medicine 09/15/16 Weigher Bulker Relationship Specialty Start Date End Date Elodia Miranda MD [address] [place] [address] PCP - General Family Medicine 09/15/16 Weigher Bulker Relationship Specialty Start Date End Date Elodia Miranda MD [address] [place] [address] PCP - General Family Medicine 09/15/16 Nay Whittington MD [address] [place] [address] Consulting Physician Ophthalmology 02/12/21 Weigher Bulker Relationship Specialty Start Date End Date Elodia Miranda MD PCP - General Family Medicine 09/15/16 Nay Whittington MD [address] [place] [address] Consulting Physician Ophthalmology 02/12/21 Team Status: Active [...] or prosecute any alcohol or drug abuse patient.[facility] the event this information is protected by the Federal Confidentiality of Alcohol and Drug Abuse Patient Records regulations: The Federal rules restrict any use of the information to criminally investigate or prosecute any alcohol or drug abuse patient.[facility] the event this information is protected by the Federal Confidentiality of Alcohol and Drug Abuse Patient Records regulations: The Federal rules restrict any use of the information to criminally investigate or prosecute any alcohol or drug abuse patient.[facility] the event this information is protected by the Federal Confidentiality of Alcohol and Drug Abuse Patient Records regulations: The Federal rules restrict any use of the information to criminally investigate or prosecute any alcohol or drug abuse patient.[facility] the event this information is protected by the Federal Confidentiality of Alcohol and Drug Abuse Patient Records regulations: The Federal rules restrict any use of the information to criminally investigate or prosecute any alcohol or drug abuse patient.[facility] the event this information is protected by the Federal Confidentiality of Alcohol and Drug Abuse Patient Records regulations: The Federal rules restrict any use of the information to criminally investigate or prosecute any alcohol or drug abuse patient.[facility] the event this information is protected by the Federal Confidentiality of Alcohol and Drug Abuse Patient Records regulations: The Federal rules restrict any use of the information to criminally investigate or prosecute any alcohol or drug abuse patient.[facility] the event this information is protected by the Federal Confidentiality of Alcohol and Drug Abuse Patient Records regulations: The Federal rules restrict any use of the information to criminally investigate or prosecute any alcohol or drug abuse patient.[facility] Shaw[facility] the event this information is protected by the Federal Confidentiality of Alcohol and Drug Abuse Patient Records regulations: The Federal rules restrict any use of the information to criminally investigate or prosecute any alcohol or drug abuse patient.[facility] the event this information is protected by the Federal Confidentiality of Alcohol and Drug Abuse Patient Records regulations: The Federal rules restrict any use of the information to criminally investigate or prosecute any alcohol or drug abuse patient.[facility] Shaw[facility] the event this information is protected by the Federal Confidentiality of Alcohol and Drug Abuse Patient Records regulations: The Federal rules restrict any use of the information to criminally investigate or prosecute any alcohol or drug abuse patient.[facility] Shaw[facility] the event this information is protected by the Federal Confidentiality of Alcohol and Drug Abuse Patient Records regulations: The Federal rules restrict any use of the information to criminally investigate or prosecute any alcohol or drug abuse patient.[facility] the event this information is protected by the Federal Confidentiality of Alcohol and Drug Abuse Patient Records regulations: The Federal rules restrict any use of the information to criminally investigate or prosecute any alcohol or drug abuse patient.[facility] Shaw[facility] the event this information is protected by the Federal Confidentiality of Alcohol and Drug Abuse Patient Records regulations: The Federal rules restrict any use of the information to criminally investigate or prosecute any alcohol or drug abuse patient.[facility] Shaw[facility] the event this information is protected by the Federal Confidentiality of Alcohol and Drug Abuse Patient Records regulations: The Federal rules restrict any use of the information to criminally investigate or prosecute any alcohol or drug abuse patient.[facility] Shaw[facility] the event this information is protected by the Federal Confidentiality of Alcohol and Drug Abuse Patient Records regulations: The Federal rules restrict any use of the information to criminally investigate or prosecute any alcohol or drug abuse patient.[facility] Shaw[facility] the event this information is protected by the Federal Confidentiality of Alcohol and Drug Abuse Patient Records regulations: The Federal rules restrict any use of the information to criminally investigate or prosecute any alcohol or drug abuse patient.[facility] Shaw[facility] the event this information is protected by the Federal Confidentiality of Alcohol and Drug Abuse Patient Records regulations: The Federal rules restrict any use of the information to criminally investigate or prosecute any alcohol or drug abuse patient.[facility] ShawIn the event this information is protected by the Federal Confidentiality of Alcohol and Drug Abuse Patient Records regulations: The Federal rules restrict any use of the information to criminally investigate or prosecute any alcohol or drug abuse patient.[facility] Shaw[facility] the event this information is protected by the Federal Confidentiality of Alcohol and Drug Abuse Patient Records regulations: The Federal rules restrict any use of the information to criminally investigate or prosecute any alcohol or drug abuse patient.[facility] Shaw[facility] the event this information is protected by the Federal Confidentiality of Alcohol and Drug Abuse Patient Records regulations: The Federal rules restrict any use of the information to criminally investigate or prosecute any alcohol or drug abuse patient.[facility] FOR RECORDS PERTAINING TO PATIENTS WHO ARE [...] BE BASED ON THE PRIMARY CLINICAL RECORDS. [facility] [employer] [facility]. provides no warranty or guarantee of the accuracy or completeness of information in this document.
[2025-01-10 23:38] VITALS: BMI 32.7
[2025-01-11] VITALS (24 sets, daily range): BP systolic 108–199; BP diastolic 57–94; PULSE 55–159; RESP 16–18; TEMP 36.3–36.7; O2SAT 96–100
[2025-01-11 00:21] LABS: Hematocrit 41.2 % (37-47); Hemoglobin 14.0 g/dL (12.0-15.0); Immature Granulocytes Count 0.090 X10^3/uL (0.0-0.0); Mean Corp Hgb Conc 34.0 g/dL (32-36); Mean Corpuscular Volume 86.9 fL (81-99); Mean Platelet Vol. 9.7 fl (6.2-12.0); NRBC Flagged by Analyzer 0 % (0-5); Platelet Count 324 K/mm3 (150-450); RBC Distribution Width CV 13.0 % (11.6-14.6); RBC Distribution Width SD 40.8 fl (35.1-43.9); Red Blood Count 4.74 M/mm3 (4.2-5.4); White Blood Count 13.8 K/mm3 (4.4-11.0)
[2025-01-11 00:35] LABS: Syphilis Antibodies Nonreactive (Nonreactive)
[2025-01-11] MEDS: Lactated Ringers 1,000 ML 999 ML IV (01:07)
[2025-01-11] MEDS: Lactated Ringers 1,000 ML 200 ML IV (02:01)
[2025-01-11] MEDS: fentaNYL-bupivacaine (epidural) 100 ML BAG EPIDURAL (02:02)
[2025-01-11] MEDS: Oxytocin 15 Units/NS 250ml 15 UNITS/250 ML IV.SOLN 334 UNITS IV (02:21)
--- NOTE | 2025-01-11 02:33 | HP.PCM.OB_ITS ---
HPI - General General Date of Admission: 01/10/25 HPI Narrative ASHOK HENDERSON, is a 39 F who presents with contractions. Maternal Data Information Final RIVKA: 01/10/25 Gestational age: 40&1 PFSH [facility] Medical History (Updated 01/11/25 @ 02:[address] Lorna Carranza MD) hemorrhage Home Medications ?Medication ?Instructions ?Recorded ?Last Taken ?Type vit no.95-ferrous 1 tab PO DAILY Unknown History fumarate 28 mg-folic acid 800 mcg tablet () Allergy/AdvReac Type Severity Reaction Status Date / Time No Known Allergies Allergy Verified 01/10/25 23:36 Surgical History History of surgery Social History household members: spouse and children Smoking Status: Never smoker alcohol intake: never substance use type: does not use History Elective abortions Hx Para 2 Spontaneous abortions Hx # Term Pregnancies Ectopic pregnancies Hx # Pregnancies Multiple births # of living children Vital Signs Vital Signs Vital Signs: 01/10/25 22:32 01/10/25 22:32 01/10/25 22:33 Temperature Temperature Source Temporal Pulse Rate 86 Respiratory Rate Blood Pressure BP Systolic BP Diastolic Pulse Ox 98 01/10/25 22:33 01/10/25 22:33 01/10/25 22:42 Temperature 97.7 F L Temperature Source Pulse Rate Respiratory Rate 18 Blood Pressure 129/74 H BP Systolic 129 BP Diastolic 74 Pulse Ox 01/10/25 22:42 01/11/25 00:06 01/11/25 00:06 Temperature Temperature Source Temporal Pulse Rate 71 Respiratory Rate 16 Blood Pressure BP Systolic BP Diastolic Pulse Ox 01/11/25 00:06 01/11/25 00:06 01/11/25 00:06 Temperature 97.4 F L Temperature Source Pulse Rate 80 Respiratory Rate Blood Pressure 143/73 H BP Systolic 143 BP Diastolic 73 Pulse Ox 01/11/25 00:31 01/11/25 01:10 01/11/25 01:11 Temperature Temperature Source Pulse Rate 55 L 87 Respiratory Rate Blood Pressure 141/79 H BP Systolic 141 BP Diastolic 79 Pulse Ox 01/11/25 01:11 01/11/25 01:49 01/11/25 01:49 Temperature Temperature Source Pulse Rate 87 113 H Respiratory Rate Blood Pressure 156/73 H BP Systolic 156 BP Diastolic 73 Pulse Ox 01/11/25 01:53 01/11/25 01:53 01/11/25 01:58 Temperature Temperature Source Pulse Rate 85 Respiratory Rate Blood Pressure 147/70 H 145/74 H BP Systolic 147 145 BP Diastolic 70 74 Pulse Ox 01/11/25 01:58 01/11/25 01:58 01/11/25 02:03 Temperature Temperature Source Pulse Rate 115 H Respiratory Rate Blood Pressure 151/70 H BP Systolic 151 BP Diastolic 70 Pulse Ox 100 01/11/25 02:03 01/11/25 02:08 01/11/25 02:08 Temperature Temperature Source Pulse Rate 95 131 H Respiratory Rate Blood Pressure 199/94 H BP Systolic 199 BP Diastolic 94 Pulse Ox 01/11/25 02:10 01/11/25 02:10 01/11/25 02:18 Temperature Temperature Source Temporal Pulse Rate 159 H Respiratory Rate Blood Pressure BP Systolic BP Diastolic Pulse Ox 100 01/11/25 02:18 01/11/25 02:18 01/11/25 02:18 Temperature Temperature Source Pulse Rate 111 H Respiratory Rate 16 Blood Pressure 131/76 H BP Systolic 131 BP Diastolic 76 Pulse Ox 01/11/25 02:18 01/11/25 02:29 01/11/25 02:29 Temperature 97.9 F Temperature Source Pulse Rate 92 Respiratory Rate Blood Pressure 143/59 H BP Systolic 143 BP Diastolic 59 Pulse Ox Weight Weight: 228 lb 3.2 oz Body Mass Index (BMI) 32.7 Labs Labs Labs: Blood Type O POSITIVE Antibody Screen Pending Hct 41.2 % (37-47) Hgb 14.0 g/dL (12.0-15.0) Syphilis Total Ab Nonreactive (Nonreactive) Assessment & Plan (1) 40 weeks gestation of : (2) Labor, precipitous, delivered: PLAN: Plan Admit to L&D S/p ROutine care
--- NOTE | 2025-01-11 02:40 | EX.PCM.OBVAG ---
Maternal Data Information Final RIVKA: 01/10/25 Gestational age: 40&1 Vaginal Delivery Maternal Presentation Maternal Presentation: Active Labor Type of Induction: Pitocin Vaginal Delivery Information Procedure Performed: Spontaneous Vaginal Delivery Surgeon/Practitioner: Lorna Carranza Date of Procedure: 01/11/25 Pre-Procedure Diagnosis: Labor Post-Procedure Diagnosis: Labor Type of anesthesia: Epidural Estimated Blood Loss: 200ml Findings Description of procedure: Called to room as patient had precipitous vaginal delivery. 3VC clamped and cut in delayed fashion. Placenta delivered with gentle traction and good uterine tone obtained. Presentation: Vertex Amniotic Membrane Rupture Type: Artificial Amniotic Fluid Description: Clear Placental Delivery Description: Expressed Placenta Disposition: [facility] Specimen collected: No Cord Vessel Description: 3 Vessels Cord Entanglement: None Infant A Gender: Female (Vera) (1 minute): 8 (5 minute): 9 Delayed Cord Clamping: Yes Community Service Technician pharmacognosy teacher: No Post Vaginal Deli Medications given after delivery: IV Pitocin Episiotomy Description: None Laceration: None Complication Complications: No
[2025-01-11] MEDS: Oxytocin 15 Units/NS 250ml 15 UNITS/250 ML IV.SOLN 83 UNITS IV (02:52)
[2025-01-11] MEDS: Senna/Docusate Sodium 1 Tablet PO (20:10)
[2025-01-12 01:30] VITALS: BP 97/56; PULSE 70; RESP 14; TEMP 36.3; O2SAT 98
[2025-01-12 03:30] VITALS: BP 113/70; PULSE 82; RESP 16; TEMP 36.2; O2SAT 98
[2025-01-12 08:15] VITALS: BP 128/75; PULSE 86; RESP 16; TEMP 36.2
--- NOTE | 2025-01-12 08:43 | PCM.PN.OB ---
Subjective Subjective Doing well. Ambulating and voiding without difficulty. Mild lochia. Breast feeding. Objective Data Objective Data Vital Signs: Vital Signs Temp Pulse Resp BP Pulse Ox O2 Del Method 97.1 F L 82 16 113/70 98 Room Air 01/12/25 03:30 01/12/25 03:30 01/12/25 03:30 01/12/25 03:30 01/12/25 03:30 01/12/25 03:30 Oxygen Delivery Method Room Air Weight: 103.51 kg Body Mass Index (BMI) 32.7 Intake & Output: Intake and Output for Last 24 Hours 01/10/25 01/11/25 01/12/25 23:59 23:59 23:59 Intake Total 1351.67 / 1351.67 Output Total 800 / 800 Balance 551.67 / 551.67 Lab / Micro Data 01/10/25 23:50 ROS Constitutional Constitutional: Denies headache(s) Cardiovascular Cardiovascular: Denies chest pain or dyspnea Gastrointestinal Gastrointestinal: Denies nausea or vomiting Genitourinary Genitourinary: Denies dysuria Physical Exam Const alert and no apparent distress General Appearance: cooperative and comfortable Eyes PERRL and EOMs intact bilaterally Resp normal respiratory effort GI soft to palpation and non-tender Narrative: Fundus firm, below umbilicus. Uterus Palpation: uterus fundus firm ( below umbilicus) Extremity normal to inspection and full ROM Neuro oriented x3 and CN's II-XII intact bilaterally Psych mental status grossly normal Assessment & Plan (1) Labor, precipitous, delivered: PLAN: Plan Discharge home
--- NOTE | 2025-01-12 08:44 | PCM.DC.SUM ---
Providers Date of Admission: 01/10/25 Date of Discharge: 01/12/25 Primary Care Physician: Celi Primary Care Phys Reason For Visit: VAGINAL DELIVERY Diagnosis Discharge Diagnosis (1) Labor, precipitous, delivered: Status: Acute Code(s): O62.3 - Precipitate labor Plan Discharge home Medications at Discharge Home Medications vit no.95-ferrous fumarate 28 mg-folic acid 800 mcg tablet () 1 tab PO DAILY 01/10/25 Hospital Course Operations None Procedures None Summary of Care Provided Minutes Spent on Discharge: 20 Hospital Course: Precipitous delivery. No complication . Breast feeding. Physical Exam Const alert and no apparent distress Narrative: Fundus firm, below umbilicus. Weight / BMI Weight Weight: 103.51 kg Body Mass Index (BMI) 32.7 ABG / Lab / Microbiology Data 01/10/25 23:50 D/C Instructions May resume sexual activity in: 6 weeks DC O2, CPAP, BIPAP Needs Home O2 Discharge instructions: No Please Follow Up With: Lorri Burroughs MD When: Follow up with our office in 1-2 and 6 weeks or as needed. [phone] Meaningful Use Info Meaningful Use Meaningful Use Diagnoses (Choose all that apply): None applicable Discharge Plan Admission Admit Date/Time: 01/10/25 23:19 Primary Reason for Your Visit: Labor Attending Provider: Lorna Carranza Primary Care Provider: Care Physician,Celi Primary Discharge Orders/Prescriptions Prescriptions: Continued PNV cmb#95-ferrous fumarate-FA [] 28 mg iron- 800 mcg tablet 1 tab PO DAILY Referrals / Follow Up: Care Physician,No Primary [Primary Care Provider] - Disposition Disposition (needs filled in before D/C Order can be placed): Home, Self Care
[2025-01-12] MEDS: Senna/Docusate Sodium 1 Tablet PO (14:38)
[2025-01-12 14:40] VITALS: BP 111/67; PULSE 79; RESP 16; TEMP 36.2; O2SAT 96
== END 2025-01-12 15:45 | disposition home or self-care (01) | DRG 807 ==
LOC: WPOUT 23:23 → WP 23:23
PROVIDERS: Admitting Provider Obstetrics & Gynecology; Referring Provider Obstetrics & Gynecology; Visit Provider Obstetrics & Gynecology
DX: O62.3 Precipitate labor (principal); Z37.0 Single live birth; O48.0 Post-term pregnancy; Z3A.40 40 weeks gestation of pregnancy
CPT/HCPCS: 59050; 85025; 86780; 86850; 86900; 86901; 99221; G0378